=== PATIENT | female | born 1940 | race Caucasian/White ===

== ENCOUNTER 2019-09-10 14:04 | Outpatient (CLI) | payer MEDICARE, SELFPAY ==
[2019-09-10 14:27] LABS: Hematocrit 37.7 % (35.0-42.0); Hemoglobin 11.8 g/dL (11.7-13.8); Mean Corpuscular HGB Conc 31.3 g/dL (32.0-36.0); Mean Corpuscular Hemoglobin 27.4 pg (27.0-31.0); Mean Corpuscular Volume 87.5 fL (78.0-102.0); Mean Platelet Volume 8.6 fl (9.2-11.8); Platelet Count Result 242 K/mm3 (150-420); Red Blood Count 4.31 M/mm3 (4.20-5.40); Red Cell Distribution Width 14.4 % (11.6-14.4); White Blood Count 5.6 K/mm3 (4.8-10.8)
[2019-09-10 14:40] LABS: INR 1.9; Prothrombin Time 19.4 Seconds (9.64-11.0)
[2019-09-10 14:48] LABS: Anion Gap 13.6 mmol/L (7-16); Blood Urea Nitrogen 36 mg/dL (7-18); Carbon Dioxide 25 mmol/L (21-32); Chloride 111 mmol/L (98-108); Estimated Glomerular Filt Rate 21; Glucose 91 mg/dL (70-99); Magnesium 1.9 mg/dL (1.8-2.4); Osmolality Calculated 308 mOsm/kg (285-295); Potassium 4.6 mmol/L (3.5-5.1); Sodium 145 mmol/L (136-145)
[2019-09-10 14:53] LABS: Band Neutrophils Percent 0 % (0-6); Basophils Percent Manual 0 % (0-1); Eosinophils Absolute Manual 0.72 K/mm3 (0.02-0.5); Eosinophils Percent Manual 13 % (1-6); Lymphocytes Absolute Manual 0.67 K/mm3 (1.1-4.5); Lymphocytes Percent Manual 12 % (18-44); Monocytes Absolute Manual 0.39 K/mm3 (0.1-0.90); Monocytes Percent Manual 7 % (3-9); Neutrophils Percent Manual 68 % (46-73); Platelet Estimate Adequate (Adequate); Total Cells Counted 100
== END 2019-09-10 14:05 | disposition home or self-care (01) ==
LOC: CHSLAB 14:07
PROVIDERS: PCP Family Medicine; Visit Provider Specialist
DX: R94.39 Abnormal result of other cardiovascular function study (principal); Z01.812 Encounter for preprocedural laboratory examination; Z86.711 Personal history of pulmonary embolism
CPT/HCPCS: 36415; 80048; 83735; 85025; 85610

== ENCOUNTER 2019-09-17 11:31 | Outpatient (CLI) | payer MEDICARE, SELFPAY ==
[2019-09-17 11:43] LABS: Basophils Absolute Auto 0.03 K/mm3 (0.00-0.10); Basophils Percent Auto 0.4 % (0.0-1.0); Eosinophils Absolute Auto 0.62 K/mm3 (0.02-0.50); Eosinophils Percent Auto 8.7 % (1.0-6.0); Hemoglobin 11.5 g/dL (11.7-13.8); Immature Granulocyte Absolute 0.02 K/mm3 (0.00-0.00); Immature Granulocyte Percent A 0.3 % (0.0-0.0); Lymphocytes Absolute Auto 1.09 K/mm3 (1.10-4.50); Lymphocytes Percent Auto 15.4 % (18.0-42.0); Mean Corpuscular HGB Conc 31.1 g/dL (32.0-36.0); Mean Corpuscular Hemoglobin 27.6 pg (27.0-31.0); Mean Corpuscular Volume 88.9 fL (78.0-102.0); Mean Platelet Volume 8.3 fl (9.2-11.8); Monocytes Absolute Auto 0.69 K/mm3 (0.10-0.90); Monocytes Percent Auto 9.7 % (2.0-11.0); Neutrophils Absolute Auto 4.6 K/mm3 (1.7-7.2); Neutrophils Percent Auto 65.5 % (50.0-70.0); Platelet Count Result 246 K/mm3 (150-420); Red Blood Count 4.16 M/mm3 (4.20-5.40); Red Cell Distribution Width 14.5 % (11.6-14.4); White Blood Count 7.1 K/mm3 (4.8-10.8)
[2019-09-17 11:54] LABS: Prothrombin Time 10.1 Seconds (9.64-11.0)
[2019-09-17 12:56] LABS: Anion Gap 16.6 mmol/L (7-16); Blood Urea Nitrogen 38 mg/dL (7-18); Calcium 9.8 mg/dL (8.5-10.1); Carbon Dioxide 23 mmol/L (21-32); Chloride 109 mmol/L (98-108); Estimated Glomerular Filt Rate 18; Glucose 130 mg/dL (70-99); Osmolality Calculated 309 mOsm/kg (285-295); Potassium 4.6 mmol/L (3.5-5.1); Sodium 144 mmol/L (136-145)
== END 2019-09-17 11:32 | disposition home or self-care (01) ==
LOC: CHSLAB 11:33
PROVIDERS: PCP Family Medicine; Visit Provider Specialist
DX: N17.9 Acute kidney failure, unspecified (principal)
CPT/HCPCS: 36415; 80048; 85025; 85610

== ENCOUNTER 2019-09-28 10:39 | Outpatient (RCR) | payer MEDICARE, SELFPAY ==
[2019-07-06 12:07] LABS: INR 2.9; Prothrombin Time 30.8 Seconds (9.64-11.0)
[2019-08-30 12:16] LABS: INR 3.4
[2019-09-28 11:02] LABS: INR 1.8; Prothrombin Time 18.4 Seconds (9.64-11.0)
== END 2019-10-04 23:59 | disposition home or self-care (01) ==
LOC: CHSLAB 10:39
PROVIDERS: Visit Provider Family Medicine
DX: Z79.01 Long term (current) use of anticoagulants (principal)
CPT/HCPCS: 36415; 85610

== ENCOUNTER 2019-10-05 11:23 | Outpatient (RCR) | payer MEDICARE, SELFPAY ==
[2019-10-05 11:47] LABS: INR 1.7; Prothrombin Time 17.7 Seconds (9.64-11.0)
== END 2020-01-03 23:59 | disposition home or self-care (01) ==
LOC: CHSLAB 11:23
PROVIDERS: PCP Family Medicine; Visit Provider Family Medicine
DX: Z79.01 Long term (current) use of anticoagulants (principal)
CPT/HCPCS: 36415; 85610

== ENCOUNTER 2019-11-05 09:56 | Outpatient (CLI) | payer MEDICARE, MEDICAID, SELFPAY ==
--- NOTE | ~2019-11-05 | CT_ITS ---
EXAMINATION:CT chest wo con DATE: 11/05/2019 10:20 INDICATION: Paratracheal mass. TECHNIQUE: Computed tomography (CT) of the chest was performed without intravenous contrast. Automate d exposure control and iterative reconstruction technique were employed. The dose-length product (DLP ) was 247.73 mGy-cm. COMPARISON: Chest CT 11/03/2018 FINDINGS: There is mild atelectasis bilaterally. There is mild peripheral scarring in right lung. No pleural effusion. There are 12 mm and 10 mm nodules in the thyroid, likely not clinically significant . Left thyroid lobe is absent. The heart size is normal. There are coronary artery calcifications. No pericardial effusion. There is a moderate-sized sliding hiatal hernia. The central pulmonary arterie s are enlarged, consistent with pulmonary arterial hypertension. There is a 13 x 15 mm right paratrac heal lymph node, decreased from 16 x 17 mm on 11/03/2018. There are old fracture deformities of right s ixth and seventh ribs. IMPRESSION: 1. Mildly enlarged right paratracheal lymph node with interval improvement, likely reactive. 2. Moderate-sized sliding hiatal hernia. Reviewed, dictated and finalized at location A. IMPRESSION: 1. Mildly enlarged right paratracheal lymph node with interval improvement, lik onofre reactive. 2. Moderate-sized sliding hiatal hernia.
== END 2019-11-05 09:57 | disposition home or self-care (01) ==
PROVIDERS: PCP Family Medicine
DX: R22.2 Localized swelling, mass and lump, trunk (principal)
CPT/HCPCS: 71250

== ENCOUNTER 2020-01-16 09:49 | Outpatient (CLI) | payer MEDICARE, SELFPAY ==
[2020-01-16 10:11] LABS: INR 2.3; Prothrombin Time 22.7 Seconds (9.64-11.0)
[2020-01-19 04:23] LABS: Ionized Calcium 5.5 mg/dL (4.8-5.6)
== END 2020-01-16 09:50 | disposition home or self-care (01) ==
PROVIDERS: PCP Family Medicine; Visit Provider Family Medicine
DX: Z79.01 Long term (current) use of anticoagulants (principal); R53.82 Chronic fatigue, unspecified; D63.8 Anemia in other chronic diseases classified elsewhere
CPT/HCPCS: 36415; 82330; 85610

== ENCOUNTER 2020-02-11 08:55 | Outpatient (CLI) | payer MEDICARE, MEDICAID, SELFPAY ==
--- NOTE | ~2020-02-11 | CT_ITS ---
EXAMINATION: CT abdomen pelvis wo con DATE: 02/11/2020 09:16 INDICATION: Right kidney mass. TECHNIQUE: Computed tomography (CT) of the abdomen and pelvis was performed without intravenous contr ast. Automated exposure control and iterative reconstruction technique were employed. The dose-length product was 675.63 mGy-cm. COMPARISON: CT abdomen and pelvis 06/30/2018, 09/08/2017, 05/05/2016 FINDINGS: The visualized portions of the lung bases demonstrate mild atelectasis. There is mild scarr ing in right lower lobe abutting the pleura. No pleural effusion. The heart size is normal. There are coronary artery calcifications. No pericardial effusion. There is a moderate-sized sliding hiatal he rnia. Left hepatic lobe is small. There are changes of cholecystectomy. Calcifications in the spleen are consistent with old granulomatous disease. 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 The adrenal glands are normal. There are changes of ablation in the right kidney. Left kidney is absent. There is a filter in the infrarenal inferior vena cava. There are no dilated l oops of bowel. There is an intrathecal catheter with tip in thoracic spine. There is a subcutaneous p ump in the anterior abdomen. There are no pathologically enlarged lymph nodes. There is no free intra peritoneal fluid. There are old right rib defects. There is an old subcutaneous hematoma in right fla nk measuring 6.6 x 1.0 cm. There are old healed fractures of left superior and inferior pubic rami. T here is moderate lumbar spondylosis. IMPRESSION: 1. Changes of ablation in the right kidney. No evidence of recurrent neoplasm. Reviewed, dictated and finalized at location A.
== END 2020-02-11 08:56 | disposition home or self-care (01) ==
LOC: CHSIMG 08:58
PROVIDERS: PCP Family Medicine
DX: N28.89 Other specified disorders of kidney and ureter (principal)
CPT/HCPCS: 74176

== ENCOUNTER 2020-03-11 09:35 | Outpatient (CLI) | payer MEDICARE, SELFPAY ==
[2020-03-11 09:45] LABS: Basophils Absolute Auto 0.03 K/mm3 (0.00-0.10); Basophils Percent Auto 0.5 % (0.0-1.0); Eosinophils Absolute Auto 0.51 K/mm3 (0.02-0.50); Eosinophils Percent Auto 8.7 % (1.0-6.0); Hematocrit 40.1 % (35.0-42.0); Hemoglobin 12.8 g/dL (11.7-13.8); Immature Granulocyte Absolute 0.02 K/mm3 (0.00-0.00); Immature Granulocyte Percent A 0.3 % (0.0-0.0); Lymphocytes Absolute Auto 0.92 K/mm3 (1.10-4.50); Lymphocytes Percent Auto 15.6 % (18.0-42.0); Mean Corpuscular HGB Conc 31.9 g/dL (32.0-36.0); Mean Corpuscular Hemoglobin 28.5 pg (27.0-31.0); Mean Corpuscular Volume 89.3 fL (78.0-102.0); Mean Platelet Volume 8.5 fl (9.2-11.8); Monocytes Absolute Auto 0.49 K/mm3 (0.10-0.90); Monocytes Percent Auto 8.3 % (2.0-11.0); Neutrophils Absolute Auto 3.9 K/mm3 (1.7-7.2); Neutrophils Percent Auto 66.6 % (50.0-70.0); Platelet Count Result 228 K/mm3 (150-420); Red Blood Count 4.49 M/mm3 (4.20-5.40); Red Cell Distribution Width 13.6 % (11.6-14.4); White Blood Count 5.9 K/mm3 (4.8-10.8)
[2020-03-11 10:39] LABS: Albumin Level 3.5 g/dL (3.4-5.0); Anion Gap 8 mmol/L (8-16); Blood Urea Nitrogen 29 mg/dL (7-18); Calcium 9.9 mg/dL (8.5-10.1); Carbon Dioxide 26 mmol/L (21-32); Chloride 107 mmol/L (98-108); Estimated Glomerular Filt Rate 22; Glucose 105 mg/dL (70-99); Osmolality Calculated 297 mOsm/kg (285-295); Phosphorus 3.5 mg/dL (2.6-4.7); Sodium 141 mmol/L (136-145)
== END 2020-03-11 09:36 | disposition home or self-care (01) ==
PROVIDERS: PCP Family Medicine
DX: N18.4 Chronic kidney disease, stage 4 (severe) (principal); N25.81 Secondary hyperparathyroidism of renal origin; C64.2 Malignant neoplasm of left kidney, except renal pelvis; N39.0 Urinary tract infection, site not specified; N17.9 Acute kidney failure, unspecified
CPT/HCPCS: 36415; 80069; 85025

== ENCOUNTER 2020-05-13 12:12 | Outpatient (RCR) | payer MEDICARE, SELFPAY ==
[2020-03-04 10:05] LABS: INR 2.5; Prothrombin Time 25.1 Seconds (9.64-11.0)
[2020-04-02 11:33] LABS: INR 2.7; Prothrombin Time 26.5 Seconds (9.64-11.0)
[2020-05-13 12:49] LABS: INR 2.2; Prothrombin Time 21.8 Seconds (9.64-11.0)
== END 2020-06-02 23:59 | disposition home or self-care (01) ==
LOC: CHSLAB 12:12
PROVIDERS: PCP Family Medicine; Visit Provider Family Medicine
DX: Z79.01 Long term (current) use of anticoagulants (principal)
CPT/HCPCS: 36415; 85610

== ENCOUNTER 2020-06-16 13:00 | Emergency (ER) | payer MEDICARE, MEDICAID, SELFPAY ==
[2020-06-16 13:28] VITALS: BP 130/74; PULSE 65; RESP 18; TEMP 36.8; O2SAT 97
--- NOTE | 2020-06-16 14:00 | ED.SKABFB ---
HPI - Skin/Abscess/Foreign Bdy General Chief complaint: Extremity Injury, Lower Stated complaint: feet are swelling Time Seen by Provider: 06/16/20 13:50 Source: patient and RN notes reviewed Mode of arrival: ambulatory Limitations: no limitations History of Present Illness HPI narrative: patient caregiver was putting on her elastic Ollie hose today and thought there is a red streak on her right anterior lower francisco. complaint: discoloration Onset (ago): unknown ( this morning) Location: RLE Severity: mild Quality: other ( no pain) Pain Consistency: constant Relieving factors: none Exacerbating factors: none Context: none Associated symptoms: denies other symptoms Treatments prior to arrival: none Related Data Home Medications Medication Instructions Recorded Confirmed amlodipine 5 mg PO DAILY 06/16/20 06/16/20 bupropion HCl 150 mg PO QAM 06/16/20 06/16/20 escitalopram oxalate 10 mg PO DAILY 06/16/20 06/16/20 linaclotide [Linzess] 145 mcg PO DAILY 06/16/20 06/16/20 omeprazole 40 mg PO BID 06/16/20 06/16/20 warfarin 5 mg PO DAILY 06/16/20 06/16/20 Allergies Allergy/AdvReac Type Severity Reaction Status Date / Time Sulfa (Sulfonamide Allergy Unknown Unknown Verified 06/16/20 13:26 Antibiotics) Review of Systems Review of Systems: All systems reviewed & are unremarkable except as noted in HPI and below Genitourinary: Genitourinary: Reports nocturia Comments: malodorous urine PMFSH Past Medical History Medical History (Updated 06/16/20 @ 15:11 by Jonny Munoz MD) Chronic back pain Hypertension Polycystic kidney Surgical History Surgical History (Updated 06/16/20 @ 14:06 by Jonny Munoz MD) H/O hysterectomy with oophorectomy History of bilateral knee replacement History of nephrectomy History of repair of hiatal hernia Social History Social History (Updated 06/16/20 @ 14:06 by Jonny Munoz MD) Smoking status: Never smoker Alcohol intake: never Substance use: never Exam Const: General: no acute distress Orientation/consciousness: patient oriented x3 HENMT: Head: normal to inspection Ears: external ears normal General nose exam: Normal external nose present Eyes: Conjunctivae: conjunctivae normal Pupils: Equal, round and reactive pupils present EOM: EOMs intact bilaterally Neck: Neck: normal visual inspection Resp: Effort & Inspection: normal respiratory effort Auscultation: clear to auscultation bilaterally Cardio: Rate: regular rate Rhythm: regular rhythm GI: Auscultation: normal bowel sounds Back/Spine/Pelvis: Cervical Spine: cervical ROM normal Skin: Wounds: wounds noted abrasion without odor; no drainage, not open and without any surrounding erythema Other: patient has what appears to be a fingernail abrasion running from her distal lower extremity at the anterior tibiotalar joint and ending at the distal upper 1/3 of her anterior francisco. Neuro: General: patient oriented x3, moves all extremities and no focal motor deficits Speech: normal speech Gait exam (Neuro): Normal gait present Extrem: General: normal to inspection and edema (1+) right Psych: Appearance: grossly normal and well kempt Mental Status: mental status grossly normal Affect: normal affect Attitude: cooperative Thought content: Yes Normal thought content present Course Vital Signs Vital signs: Vital Signs Temperature 36.8 C 06/16/20 13:28 Pulse Rate 65 06/16/20 13:28 Respiratory Rate 18 06/16/20 13:28 Blood Pressure 130/74 06/16/20 13:28 Pulse Oximetry 97 06/16/20 13:28 Temperature 36.8 C 06/16/20 13:28 Pulse Rate 65 06/16/20 13:28 Respiratory Rate 18 06/16/20 13:28 Blood Pressure 130/74 06/16/20 13:28 Pulse Oximetry 97 06/16/20 13:28 MDM - Skin/Abscess/Foreign Bdy Lab Data Result diagrams: 06/16/20 14:16 06/16/20 14:16 Labs: Lab Results 06/16/20 06/16/20 06/16/20 Range/Units 14:16 14:16 14:16
[2020-06-16 14:23] LABS: Basophils Absolute Auto 0.02 K/mm3 (0.00-0.10); Basophils Percent Auto 0.4 % (0.0-1.0); Eosinophils Absolute Auto 0.31 K/mm3 (0.02-0.50); Eosinophils Percent Auto 6.6 % (1.0-6.0); Hematocrit 33.9 % (35.0-42.0); Hemoglobin 10.3 g/dL (11.7-13.8); Immature Granulocyte Absolute 0.01 K/mm3 (0.00-0.00); Immature Granulocyte Percent A 0.2 % (0.0-0.0); Lymphocytes Absolute Auto 0.63 K/mm3 (1.10-4.50); Lymphocytes Percent Auto 13.5 % (18.0-42.0); Mean Corpuscular HGB Conc 30.4 g/dL (32.0-36.0); Mean Corpuscular Hemoglobin 27.2 pg (27.0-31.0); Mean Corpuscular Volume 89.4 fL (78.0-102.0); Mean Platelet Volume 8.5 fl (9.2-11.8); Monocytes Absolute Auto 0.52 K/mm3 (0.10-0.90); Monocytes Percent Auto 11.1 % (2.0-11.0); Neutrophils Absolute Auto 3.2 K/mm3 (1.7-7.2); Neutrophils Percent Auto 68.2 % (50.0-70.0); Platelet Count Result 214 K/mm3 (150-420); Red Blood Count 3.79 M/mm3 (4.20-5.40); Red Cell Distribution Width 15.2 % (11.6-14.4); White Blood Count 4.7 K/mm3 (4.8-10.8)
--- NOTE | 2020-06-16 14:30 | PC.NURSE ---
Pt requesting to have urinalysis done. edp aware.
[2020-06-16 14:35] LABS: INR 3.4; Prothrombin Time 33.5 Seconds (9.64-11.0)
[2020-06-16 14:38] LABS: Anion Gap 9 mmol/L (8-16); Blood Urea Nitrogen 47 mg/dL (7-18); Calcium 8.8 mg/dL (8.5-10.1); Carbon Dioxide 21 mmol/L (21-32); Chloride 111 mmol/L (98-108); Estimated CRCL calculation 20 ml/min; Estimated Glomerular Filt Rate 24; Glucose 91 mg/dL (70-99); Osmolality Calculated 304 mOsm/kg (285-295); Potassium 4.7 mmol/L (3.5-5.1); Sodium 141 mmol/L (136-145)
[2020-06-16 14:42] LABS: BNP 226 pg/mL (0-100)
[2020-06-16 14:48] LABS: Add Urine Microscopic? YES; Appearance Urine Sl Cloudy (Clear); Bilirubin Urine Negative (Negative); Blood Urine Negative (Negative); Color Urine Yellow (Yellow); Glucose Urine UA Negative (Negative); Ketones Urine Trace (Negative); Leukocyte Esterase Ur 2+ LEU/UL (Negative); Nitrate Urine Positive (Negative); Protein Urine Negative (Negative); Urobilinogen Urine 0.2 mg/dL (0.2-1.0)
[2020-06-16 14:51] LABS: Bacteria Urine 2+ /hpf; RBC Urine None seen /hpf (0-2); Renal Epithelial Cells Urine Few /hpf; Squamous Epithelial Cell Urine Rare /hpf (Few); WBC Urine >75 /hpf (0-3)
== END 2020-06-16 15:25 | disposition home or self-care (01) ==
PROVIDERS: Emergency Provider Emergency Medicine; PCP Family Medicine
DX: R60.9 Edema, unspecified (principal); R82.90 Unspecified abnormal findings in urine
CPT/HCPCS: 36415; 80048; 81001; 83880; 85025; 85610; 87077; 87086; 87088; 87186; 99283

== ENCOUNTER 2020-06-24 11:02 | Outpatient (RCR) | payer MEDICARE, SELFPAY ==
[2020-06-03 11:06] LABS: INR 1.9; Prothrombin Time 19.3 Seconds (9.64-11.0)
[2020-06-24 11:22] LABS: INR 2.9; Prothrombin Time 29.3 Seconds (9.64-11.0)
== END 2020-09-01 23:59 | disposition home or self-care (01) ==
LOC: CHSLAB 11:02
PROVIDERS: PCP Family Medicine; Visit Provider Family Medicine
DX: Z79.01 Long term (current) use of anticoagulants (principal)
CPT/HCPCS: 36415; 85610

== ENCOUNTER 2020-07-11 07:55 | Observation (INO) | payer MEDICARE, MEDICAID, SELFPAY ==
[2020-07-11] VITALS (9 sets, daily range): BP systolic 114–185; BP diastolic 53–100; PULSE 69–114; RESP 16–20; TEMP 37.1–37.4; O2SAT 94–99
--- NOTE | ~2020-07-11 | CT_ITS ---
EXAMINATION: CT cervical spine wo con DATE: 07/11/2020 08:34 INDICATION: Head injury. TECHNIQUE: Computed tomography (CT) of the cervical spine was performed without intravenous contrast. Automated exposure control and iterative reconstruction technique were employed. The dose-length pro duct was 335.46 mGy-cm. COMPARISON: Cervical spine CT 04/05/2018 FINDINGS: There is a 12 mm nodule in right thyroid lobe, likely not clinically significant. There is 2 mm retrolisthesis of C3-4 on C5. There is 4 degrees levocurvature of cervical spine. Vertebral body heights are normal. There is moderately decreased disc height from C3-C4 through C5-C6. The followin g disc levels are specifically discussed: C2-C3: There is mild bilateral uncovertebral joint osteoarthritis. There is severe bilateral facet dov int osteoarthritis. There is mild right neural foraminal stenosis. There is no central canal stenosis . C3-C4: There is severe bilateral uncovertebral joint osteoarthritis. There is severe bilateral facet joint osteoarthritis. There is mild lateral neural foraminal stenosis. There is mild central canal st enosis. C4-C5: There is severe bilateral uncovertebral joint osteoarthritis. There is moderate bilateral face t joint osteoarthritis. There is mild bilateral neural foraminal stenosis. There is mild central janell l stenosis. C5-C6: There is severe right and mild left uncovertebral joint osteoarthritis. There is severe right and moderate left facet joint osteoarthritis. There is mild bilateral neural foraminal stenosis. Ther e is mild central canal stenosis. C6-C7: There is no uncovertebral joint osteoarthritis. There is mild right and severe left facet join t osteoarthritis. There is no neural foraminal stenosis. There is mild central canal stenosis. C7-T1: There is no uncovertebral joint osteoarthritis. There is severe left facet joint osteoarthriti s. There is ankylosis of right facet joint with mild hypertrophy. There is mild right neural foramina l stenosis. There is no central canal stenosis. IMPRESSION: 1. No fracture. 2. Moderate cervical spondylosis. Reviewed, dictated and finalized at location B. RONMENTAL PERMITTING SPECIALIST
--- NOTE | ~2020-07-11 | CT_ITS ---
EXAMINATION: CT brain wo con DATE: 07/11/2020 08:34 INDICATION: Fall. Posterior head injury. Dizziness. Next thickness. Patient taking warfarin. TECHNIQUE: Computed tomography (CT) of the head was performed without intravenous contrast. The mA wa s adjusted according to patient size. Iterative reconstruction technique was employed. Exam dose: 60 5.33 mGy-cm total exam DLP. COMPARISON: 06/29/2018 CT brain FINDINGS: Vertebral and bilateral carotid internal carotid artery calcifications. Nonspecific diminished attenuation of the subcortical and periventricular cerebral white matter, cons istent with chronic small vessel ischemic changes. No recent cerebrovascular accident. No midline shift or mass effect. Posterior left parietal occipital cephalohematoma and subcutaneous emphysema. No skull fracture. No s ubdural or epidural hematoma. No coup or contrecoup injury is detected. The mastoid air cells are normally developed and aerated. There is patchy soft tissue thickening of the ethmoid air cells, right greater than left and mild muc operiosteal thickening of the maxillary sinuses, right greater than left. IMPRESSION: Cerebral atherosclerosis and chronic small vessel ischemic changes of the cerebral white matter Posterior left parietal occipital cephalohematoma and subcutaneous emphysema; no skull fracture or ac yocha dehe intracranial finding No acute intracranial finding or skull fracture is detected Reviewed, dictated and finalized at Location A. Reviewed, dictated and finalized at location A. PAPER INSPECTOR IMPRESSION: Cerebral atherosclerosis and chronic small vessel ischemic changes of the cerebral white matter Posterior left parietal occipital cephalohematoma and subcutaneous emphysema; n o skull fracture or acute intracranial finding No acute intracranial finding or skull fracture is detected
--- NOTE | 2020-07-11 08:00 | ED.FALL ---
HPI - Fall General Source: patient Mode of arrival: EMS Limitations: no limitations History of Present Illness HPI Narrative: 80-year-old woman with a history of warfarin therapy for DVT brought to the emergency department by EMS after a fall in which she hit her head and had bleeding. Patient states that she got up this morning, ate and fell striking her head, However she cannot give a specific time for her fall. She denies loss of consciousness. She denies chest pain, shortness of breath, cough, cold symptoms, weakness, lightheadedness, dizziness. Her daughter states that she has had many falls recently. She lives alone. She has a 3 point cane and a walker at home that she uses intermittently for assistance. She denies history of significant head injury, seizures or cranial surgery. MD complaint: fall Onset (ago): unknown Fall from: standing Fall witnessed: no Place fall occurred: home Loss of consciousness: none Prolonged down time: unclear Symptoms prior to fall: none Location of injury: head Location of injury - extremities: Right: forearm Quality: dull Associated symptoms (after fall): headache Related Data Home Medications Medication Instructions Recorded Confirmed amlodipine 5 mg PO DAILY 06/16/20 07/11/20 bupropion HCl 150 mg PO QAM 06/16/20 07/11/20 escitalopram oxalate 10 mg PO DAILY 06/16/20 07/11/20 linaclotide [Linzess] 145 mcg PO DAILY 06/16/20 07/11/20 omeprazole 40 mg PO BID 06/16/20 07/11/20 warfarin 5 mg PO DAILY 06/16/20 07/11/20 bethanechol chloride 25 mg PO TIDWMEAL 07/11/20 07/11/20 ergocalciferol (vitamin D2) 1,250 mcg PO WEEKLY 07/11/20 07/11/20 [Vitamin D2] trimethoprim 100 mg PO HS 07/11/20 07/11/20 vit C,W-Ey-fxqif-lutein-zeaxan 1 tablet PO BID 07/11/20 07/11/20 [PreserVision AREDS-2] Allergies Allergy/AdvReac Type Severity Reaction Status Date / Time Sulfa (Sulfonamide Allergy Unknown Unknown Verified 06/16/20 13:26 Antibiotics) Review of Systems Constitutional: Constitutional: Denies chills and Denies fever(s) Eyes: Eyes: Denies change in vision and Denies photophobia ENT: Denies dysphagia, Denies nasal congestion and Denies sore throat Cardiovascular: Cardiovascular: Denies chest pain and Denies radiating jaw, neck or arm pain Respiratory: Respiratory: Denies cough and Denies dyspnea Gastrointestinal: Gastrointestinal: Denies abdominal pain, Denies diarrhea, Denies nausea and Denies vomiting Genitourinary: Genitourinary: Denies nocturia and Denies dysuria Integumentary/Breasts: Skin/Breast: Denies pruritus, Denies erythema and Denies rash Neurologic: Denies vertigo, Denies dizziness, Denies syncope, Denies focal weakness and Denies numbness Hematologic/Lymphatic: Hematologic/Lymphatic: Reports easy bruising Allergic/Immunologic: Allergic/Immunologic: Denies lip swelling and Denies throat swelling PMF Past Medical History Medical History Chronic back pain Hypertension Polycystic kidney Surgical History Surgical History H/O hysterectomy with oophorectomy History of bilateral knee replacement History of nephrectomy History of repair of hiatal hernia Social History Social History Smoking status: Never smoker Alcohol intake: never Substance use: never Substance use type: does not use Gender identity (if verbalized by the patient): Female Sexual Orientation (if Verbalized by the Patient): Straight or Heterosexual Spiritual care concerns: No Exam Const: General: healthy appearing, no acute distress and alert Nutritional Appearance: obese Other: oriented to day the week, and month and date of as well as place and person. HENMT: Head: laceration (6 cm x 7cm hematoma under laceration.) left occipital linear, actively bleeding and with sensation intact 6 cm Ears: e
--- NOTE | 2020-07-11 08:10 | ECG_ITS ---
Measurements Intervals [place] Rate: 80 P: 55 ND: 201 QRS: -1 QRSD: 151 T: 57 QT: 410 QTc: 474 Interpretive Statements SINUS RHYTHM VENTRICULAR PREMATURE COMPLEX BORDERLINE AV CONDUCTION DELAY INTRAVENTRICULAR CONDUCTION DELAY BORDERLINE ST-T WAVE ABNORMALITY- HIGH LATERAL LEADS BASELINE ARTIFACT- I, II, III BORDERLINE ECG Electronically Signed On 07-11-2020 8:42:24 [employer] DEPARTMENT MANAGER by Sarthak Scott D.O.
[2020-07-11 08:55] LABS: Basophils Absolute Auto 0.02 K/mm3 (0.00-0.10); Basophils Percent Auto 0.3 % (0.0-1.0); Eosinophils Absolute Auto 0.43 K/mm3 (0.02-0.50); Eosinophils Percent Auto 6.3 % (1.0-6.0); Hematocrit 34.3 % (35.0-42.0); Hemoglobin 10.6 g/dL (11.7-13.8); Immature Granulocyte Absolute 0.03 K/mm3 (0.00-0.00); Immature Granulocyte Percent A 0.4 % (0.0-0.0); Lymphocytes Absolute Auto 0.67 K/mm3 (1.10-4.50); Lymphocytes Percent Auto 9.7 % (18.0-42.0); Mean Corpuscular HGB Conc 30.9 g/dL (32.0-36.0); Mean Corpuscular Hemoglobin 27.5 pg (27.0-31.0); Mean Corpuscular Volume 88.9 fL (78.0-102.0); Mean Platelet Volume 8.5 fl (9.2-11.8); Monocytes Percent Auto 8.7 % (2.0-11.0); Neutrophils Absolute Auto 5.1 K/mm3 (1.7-7.2); Neutrophils Percent Auto 74.6 % (50.0-70.0); Platelet Count Result 204 K/mm3 (150-420); Red Blood Count 3.86 M/mm3 (4.20-5.40); Red Cell Distribution Width 15.4 % (11.6-14.4); White Blood Count 6.9 K/mm3 (4.8-10.8)
[2020-07-11 09:13] LABS: Alanine Aminotransferase 18 U/L (14-59); Albumin Level 3.2 g/dL (3.4-5.0); Alkaline Phosphatase 107 U/L (46-116); Anion Gap 10 mmol/L (8-16); Aspartate Amino Transferase 16 U/L (15-37); Bilirubin,Total 0.3 mg/dL (0.00-1.00); Blood Urea Nitrogen 53 mg/dL (7-18); Calcium 9.2 mg/dL (8.5-10.1); Carbon Dioxide 24 mmol/L (21-32); Chloride 111 mmol/L (98-108); Creatine Kinase 185 U/L (26-192); Estimated CRCL calculation 20 ml/min; Estimated Glomerular Filt Rate 23; Glucose 84 mg/dL (70-99); Osmolality Calculated 313 mOsm/kg (285-295); Potassium 4.2 mmol/L (3.5-5.1); Sodium 145 mmol/L (136-145); Total Protein 6.8 g/dL (6.4-8.2); Troponin I 11.8 ng/L (0.00-60.4)
[2020-07-11 09:15] LABS: Lactic Acid Reflex 0.8 mmol/L (0.4-2.0)
[2020-07-11 09:20] LABS: INR 2.3; Partial Thromboplastin Time 34.1 SEC (23.90-30.70); Prothrombin Time 24.1 Seconds (9.50-12.10)
[2020-07-11 10:02] LABS: Appearance Urine Sl Cloudy (Clear); Bilirubin Urine Negative (Negative); Color Urine Yellow (Yellow); Glucose Urine UA Negative (Negative); Ketones Urine Negative (Negative); Leukocyte Esterase Ur 2+ (Negative); Nitrate Urine Positive (Negative); Protein Urine Negative (Negative); Specific Grav Ur 1.015 (1.010-1.020); Urobilinogen Urine 0.2 mg/dL (0.2-1.0)
[2020-07-11] MEDS: LIDO 1%/EPINEPHRINE 1:100,000 20 ML VIAL (10:05)
[2020-07-11] MEDS: ACETAMINOPHEN 500 MG TABLET 1000 MG PO ×2 (10:08→17:59)
[2020-07-11 10:09] LABS: Add Urine Microscopic? YES; Bacteria Urine 3+ /hpf; Blood Urine Trace-Intact (Negative); Squamous Epithelial Cell Urine Occasional /hpf (Few); WBC Urine 51-75 /hpf (0-3)
--- NOTE | 2020-07-11 11:06 | PC.NURSE ---
Head wound area bleeding around jose de jesus, pressure drsg. applied. Call placed to 2nd floor for 23 hr obs admit.
--- NOTE | 2020-07-11 12:17 | PM.IMHP ---
H&P: HPI History of Present Illness Date/Time: 07/11/20 12:17 Chief complaint: HEAD INJURY Narrative: Rajani Cardenas is a 80 year old female who comes to the hospital after having fallen sometime this morning. Per ER notes daughter states that patient has been falling more frequently lately. Patient is on Coumadin for DVT. At this time patient denies changes in vision, neuro deficits, numbness or tingling, chest pain, difficulty breathing, or shortness of breath. Patient admits to having a pain pump inserted subdural in her abdomen that is used for her back pain. Patient denies any urinary symptoms and admits that she takes trimethoprim at night for recurring UTIs. Patient states that she fell this morning while she was walking to the restroom. Patient does admit to general body aches but no headache at this time. Admits to lightheadedness dizziness upon standing. Review of Systems Constitutional: Constitutional: Reports as per HPI and Reports no additional constitutional complaints Cardiovascular: Cardiovascular: Reports no additional cardiovascular complaints, Denies chest pain, Denies chest pain at rest and Denies chest pain with activity Respiratory: Respiratory: Reports no additional respiratory complaints, Denies chest congestion, Denies cough, Denies dyspnea and Denies dyspnea on exertion Genitourinary: Genitourinary: Reports as per HPI Musculoskeletal: Musculoskeletal: Reports as per HPI Neurologic: Reports as per HPI PMFSH Past Medical History Medical History Chronic back pain Hypertension Polycystic kidney Surgical History Surgical History H/O hysterectomy with oophorectomy History of bilateral knee replacement History of nephrectomy History of repair of hiatal hernia Social History Social History Smoking status: Never smoker Alcohol intake: never Substance use: never Substance use type: does not use Gender identity (if verbalized by the patient): Female Sexual Orientation (if Verbalized by the Patient): Straight or Heterosexual Spiritual care concerns: No Meds Home Medications and Allergies Home Medications Medication Instructions Recorded Confirmed Type amlodipine 5 mg PO DAILY 06/16/20 07/11/20 History bupropion HCl 150 mg PO QAM 06/16/20 07/11/20 History escitalopram oxalate 10 mg PO DAILY 06/16/20 07/11/20 History linaclotide [Linzess] 145 mcg PO DAILY 06/16/20 07/11/20 History omeprazole 40 mg PO BID 06/16/20 07/11/20 History warfarin 5 mg PO DAILY 06/16/20 07/11/20 History bethanechol chloride 25 mg PO TIDWMEAL 07/11/20 07/11/20 History ergocalciferol (vitamin D2) 1,250 mcg PO WEEKLY 07/11/20 07/11/20 History [Vitamin D2] trimethoprim 100 mg PO HS 07/11/20 07/11/20 History vit C,A-Xp-topav-lutein-zeaxan 1 tablet PO BID 07/11/20 07/11/20 History [PreserVision AREDS-2] Allergies Allergy/AdvReac Type Severity Reaction Status Date / Time Sulfa (Sulfonamide Allergy Unknown Unknown Verified 06/16/20 13:26 Antibiotics) Vital Signs Vital Signs - 24 hr 07/11/20 08:00 07/11/20 09:45 07/11/20 09:47 Temperature 98.7 F Pulse Rate 82 81 92 Respiratory Rate 20 Blood Pressure 185/100 H 163/78 H 137/53 L Pulse Oximetry 98 07/11/20 10:02 07/11/20 11:19 Temperature Pulse Rate 83 78 Respiratory Rate 18 Blood Pressure 159/93 H 152/78 H Pulse Oximetry 96 Exam Const: General: cooperative, comfortable, no acute distress, alert and awake Nutritional Appearance: average body habitus Resp: Effort & Inspection: normal respiratory effort Auscultation: clear to auscultation bilaterally Cardio: Rate: regular rate Rhythm: regular rhythm Heart sounds: S1 normal heart sound present and S2 normal heart sound present GI: GI Palp: Yes Soft to palpation, No Tenderness to palpation pre
[2020-07-11] MEDS: BETHANECHOL CHLORIDE 25 MG TABLET PO ×2 (12:51→16:15)
--- NOTE | 2020-07-11 13:13 | ADMGEN ---
This patient, Rajani Cardenas, was admitted to 2nd Floor Room 208-2. Patient/family oriented to hospital policies and general routines including ID bracelet, bed and alarms, visiting hours, pain management, procedures, bathroom and other care routines, personal items, smoking policy, room service/diet, and visiting hours. Information on how to activate the Rapid Response Team has been discussed. Patient/Family are encouraged to report perceived risks to care and to ask questions if they do not understand what they are told or what they should do. Patient arrived to the floor on a stretcher from the ER assisted by Melvi MCFARLANE. Patient transferred from stretcher to bed with walker and assist of one.
--- NOTE | 2020-07-11 13:52 | PC.NURSE ---
Purple bruising noted on left shoulder blade area. Patient states tender to touch. No edema noted. Dark purple bruising noted on right forearm above dressing. Dark purple bruise noted on right hip. Patient denies any tenderness.
--- NOTE | 2020-07-11 16:00 | PC.NURSE ---
Up from bed to BSC, tolerated well, voids without difficulty, Loss of balance when getting to front of the commode, able to steady patient and patient able to do own katlyn care, returned to bed without incident
[2020-07-11] MEDS: PANTOPRAZOLE 40 MG TABLET PO (16:15)
--- NOTE | 2020-07-11 17:09 | PC.NURSE ---
Oriented x3, no pain noted, appropriate with questions and answers, uses call light as directed, sitting in chair for dinner, bandage to head dry and intact, uses walker and SBA
--- NOTE | 2020-07-11 18:07 | PC.NURSE ---
Up to BSC from chair, no assistance needed, used walker, remains a/ox3
[2020-07-11] MEDS: WARFARIN (*PBKC) 5 MG TABLET PO (20:47)
[2020-07-11] MEDS: TRIMETHOPRIM 100 MG TABLET PO (20:47)
[2020-07-12] VITALS (7 sets, daily range): BP systolic 121–149; BP diastolic 55–67; PULSE 67–76; RESP 16–20; TEMP 36.1–37; O2SAT 95–96
[2020-07-12] MEDS: ACETAMINOPHEN 500 MG TABLET 1000 MG PO ×3 (00:03→13:08)
--- NOTE | 2020-07-12 05:18 | PC.NURSE ---
Lab here, blood drawn; patient requesting Coban instead of band-aide for Blood draws.
[2020-07-12 05:24] LABS: Hematocrit 32.2 % (35.0-42.0); Mean Corpuscular HGB Conc 31.1 g/dL (32.0-36.0); Mean Corpuscular Hemoglobin 27.9 pg (27.0-31.0); Mean Corpuscular Volume 89.7 fL (78.0-102.0); Mean Platelet Volume 8.6 fl (9.2-11.8); Platelet Count Result 213 K/mm3 (150-420); Red Blood Count 3.59 M/mm3 (4.20-5.40); Red Cell Distribution Width 15.5 % (11.6-14.4); White Blood Count 4.4 K/mm3 (4.8-10.8)
[2020-07-12 05:34] LABS: Anion Gap 9 mmol/L (8-16); Blood Urea Nitrogen 49 mg/dL (7-18); Calcium 9.1 mg/dL (8.5-10.1); Carbon Dioxide 25 mmol/L (21-32); Chloride 111 mmol/L (98-108); Estimated CRCL calculation 27 ml/min; Estimated Glomerular Filt Rate 25; Glucose 92 mg/dL (70-99); Osmolality Calculated 313 mOsm/kg (285-295); Potassium 4.2 mmol/L (3.5-5.1); Sodium 145 mmol/L (136-145)
[2020-07-12 05:37] LABS: INR 2.5; Prothrombin Time 26.6 Seconds (9.50-12.10)
[2020-07-12 06:04] LABS: Band Neutrophils Percent 0 % (0-6); Eosinophils Absolute Manual 0.52 K/mm3 (0.02-0.5); Eosinophils Percent Manual 12 % (1-6); Lymphocytes Absolute Manual 0.88 K/mm3 (1.1-4.5); Lymphocytes Percent Manual 20 % (18-44); Monocytes Absolute Manual 0.48 K/mm3 (0.1-0.90); Monocytes Percent Manual 11 % (3-9); Neutrophils Percent Manual 57 % (46-73); Platelet Estimate Adequate (Adequate); Total Cells Counted 100
[2020-07-12] MEDS: BETHANECHOL CHLORIDE 25 MG TABLET PO ×3 (06:19→16:26)
[2020-07-12] MEDS: ONDANSETRON INJ 4 MG/2 ML VIAL IV PUSH (06:35)
--- NOTE | 2020-07-12 06:35 | PC.NURSE ---
Up to BSC with walker and standby assist of one; Turned quickly to get back in bed, sat on side of bed with no problems. Complained of nausea; given emesis bag and Zofran 4mg IVP;
[2020-07-12] MEDS: SODIUM CHLORIDE 0.9% IV 500 ML 999 ML IV CONT (09:41)
[2020-07-12] MEDS: buPROPion HCL XL (24 HR) 150 MG TABCR PO (09:42)
[2020-07-12] MEDS: ESCITALOPRAM OXALATE 10 MG TABLET PO (09:42)
[2020-07-12] MEDS: amLODIPine BESYLATE 5 MG TABLET PO (09:42)
[2020-07-12] MEDS: OPTI-GEN TAB 1 TABLET PO ×2 (09:42→16:26)
[2020-07-12] MEDS: PANTOPRAZOLE 40 MG TABLET PO ×2 (09:42→16:26)
[2020-07-12] MEDS: CYCLOBENZAPRINE HCL 5 MG TABLET PO (13:09)
--- NOTE | 2020-07-12 13:15 | PM.DS ---
DS: Admitting Diagnosis Admitting Diagnosis Admitting Diagnosis: HEAD INJURY DS: Discharge Diagnosis Discharge Diagnosis (1) Head injury: Qualifiers: Encounter type: initial encounter Qualified Code(s): S09.90XA - Unspecified injury of head, initial encounter Code(s): S09.90XA - Unspecified injury of head, initial encounter Status: Acute Assessment and Plan: 07/11/2020 neuro checks q.4 hours, vital signs q.4 hours, monitor for changes in mental status, monitor for changes in vital signs, CT of head radiologist indicates no intracranial bleeding and no bone fractures, CT of C-spine radiologist indicates no fractures 07/12/2020 yesterday's neuro check compared to today's neuro check shows no change, patient is not complaining of any head pain or neck pain but does have generalized body aches from her fall which is being managed with the current regiment including Flexeril which will be sent to her pharmacy (2) Laceration of scalp: Qualifiers: Encounter type: initial encounter Qualified Code(s): S01.01XA - Laceration without foreign body of scalp, initial encounter Code(s): S01.01XA - Laceration without foreign body of scalp, initial encounter Status: Acute Assessment and Plan: 07/11/2020 laceration repaired in the ER with bandage in place, patient denies any headache at this time, patient is on Coumadin, will monitor laceration site/bandage for healing and bleeding 07/12/2020 laceration site looks good no active bleeding patient was advised to follow-up with her primary care provider to have the jose de jesus removed in approximately 7 days (3) Orthostatic hypotension: Code(s): I95.1 - Orthostatic hypotension Status: Acute Assessment and Plan: 07/11/2020 could be related to urinary tract infection, patient has recurring UTIs and takes trimethoprim nightly, orthostatic vital signs: supine 163/78 HR 81, sitting 159/93 HR 83, standing 137/53 HR 92, will monitor orthostatic vitals daily 07/12/2020 repeat orthostatics today lying 135/63 heart rate 70, sitting 124/66 heart rate 72, standing 121/67 heart rate 70 (4) Urinary tract infection: Qualifiers: Hematuria presence: without hematuria Urinary tract infection type: site unspecified Qualified Code(s): N39.0 - Urinary tract infection, site not specified Code(s): N39.0 - Urinary tract infection, site not specified Status: Acute Assessment and Plan: 07/11/2020 as noted above patient has recurring UTIs has been taking trimethoprim nightly for this, Rocephin given in ER and will continue daily on the floor, urine culture pending 07/12/2020 will continue antibiotic treatment on discharge with Cipro (5) Hypertension: Code(s): I10 - Essential (primary) hypertension Status: Acute Assessment and Plan: 07/11/2020 continue with home medications, monitor vital signs, make changes as needed 07/12/2020 vital signs stable continue medications and follow-up with primary care provider DS: Summary Time Spent with Patient Time attestation: Total time spent providing and/or coordinating discharge services: < 30 min Exam Const: General: cooperative, comfortable and no acute distress Nutritional Appearance: overweight Resp: Effort & Inspection: normal respiratory effort Auscultation: clear to auscultation bilaterally Cardio: Rate: regular rate Rhythm: regular rhythm Heart sounds: S1 normal heart sound present and S2 normal heart sound present GI: GI Palp: Yes Soft to palpation and No Tenderness to palpation present (GI) Auscultation: normal bowel sounds Back/Spine/Pelvis: Other: bruising left posterior neck, posterior left shoulder, posterior mid thorax left side small Neuro: General: oriented to person, oriented to place and oriented to time Cranial nerves: Yes CN's II-XII intact bilaterally, Yes Equal, round and reactive pupils present, Yes Nystagmus not present, Yes
[2020-07-12] MEDS: WARFARIN (*PBKC) 5 MG TABLET PO (16:26)
--- NOTE | 2020-08-05 14:50 | PC.NURSE ---
Unable to contact for discharge call back.
== END 2020-07-12 18:05 | disposition home or self-care (01) ==
LOC: CHSED 10:22 → CHS2ND 11:06
PROVIDERS: Admitting Provider Emergency Medicine; Emergency Provider Emergency Medicine; PCP Family Medicine; Visit Provider Emergency Medicine
DX: S09.90XA Unspecified injury of head, initial encounter (principal); S01.01XA Laceration without foreign body of scalp, initial encounter; S61.511A Laceration without foreign body of right wrist, initial encounter; N39.0 Urinary tract infection, site not specified; I95.1 Orthostatic hypotension; I10 Essential (primary) hypertension; M47.812 Spondylosis without myelopathy or radiculopathy, cervical region; R29.6 Repeated falls; Q61.3 Polycystic kidney, unspecified; W19.XXXA Unspecified fall, initial encounter; Z96.653 Presence of artificial knee joint, bilateral; Z79.01 Long term (current) use of anticoagulants; Z86.718 Personal history of other venous thrombosis and embolism; Z90.710 Acquired absence of both cervix and uterus; Z90.722 Acquired absence of ovaries, bilateral; Z90.5 Acquired absence of kidney
CPT/HCPCS: 12002; 36415; 70450; 72125; 80048; 80053; 81001; 82550; 83605; 84484; 85025; 85610; 85730; 87040; 93005; 96361; 96365; 96375; 99285; A9270; G0378; J0696; J2405; J7040

== ENCOUNTER 2020-08-05 13:51 | Outpatient (NON) | payer MEDICARE, SELFPAY ==
[2020-08-05 14:17] LABS: Sodium Urine Random 67 mmol/L (20-110)
[2020-08-08 05:17] LABS: Osmolality, Urine 550 mOsm/kg (50-1200)
== END 2020-08-05 13:52 ==
DX: R35.8 Other polyuria (principal)
CPT/HCPCS: 83935; 84300

== ENCOUNTER 2020-08-06 09:44 | Outpatient (CLI) | payer MEDICARE, SELFPAY ==
[2020-08-06 10:24] LABS: INR 2.5; Prothrombin Time 26.1 Seconds (9.50-12.10)
[2020-08-06 10:47] LABS: Anion Gap 8 mmol/L (8-16); Blood Urea Nitrogen 45 mg/dL (7-18); Calcium 9.4 mg/dL (8.5-10.1); Carbon Dioxide 27 mmol/L (21-32); Chloride 110 mmol/L (98-108); Estimated Glomerular Filt Rate 25; Glucose 83 mg/dL (70-99); Osmolality Calculated 310 mOsm/kg (285-295); Potassium 4.3 mmol/L (3.5-5.1); Sodium 145 mmol/L (136-145)
[2020-08-09 04:52] LABS: Osmolality, Urine 356 mOsm/kg (50-1200)
== END 2020-08-06 09:45 | disposition home or self-care (01) ==
LOC: CHSLAB 09:51
PROVIDERS: PCP Family Medicine
DX: R35.8 Other polyuria (principal); Z79.01 Long term (current) use of anticoagulants
CPT/HCPCS: 36415; 80048; 83935; 85610

== ENCOUNTER 2020-08-11 09:58 | Outpatient (RCR) | payer MEDICARE, MEDICAID, SELFPAY ==
--- NOTE | 2020-08-11 11:45 | PTOPEVAL ---
Thank you for referring Rajani Cardenas to [facility].? The patient is scheduled to be seen for therapy? ____x/week for ___ weeks. Please review, sign, date and return this plan of care ANAND. I agree with and certify that the following plan of care is medically necessary. Referring Physician Date Admitting Provider: Attending Provider: Efe Carrera MD Referring Provider: *PT Outpatient Evaluation Start: 08/11/20 11:01 Freq: Status: Active Protocol: Document 08/11/20 11:02 [facility] (Rec: 08/11/20 11:45 [facility] [id number]) Therapy Assessment Status Assessment Status Assessment Status Evaluation Outpatient Past Medical History Cardiovascular History Hx Deep Vein Thrombosis Yes Hx Hypertension Yes Hx Peripheral Vascular Disease Yes Hx Vascular Surgery Yes Gastrointestinal History Hx Cholecystectomy Yes Hx Gastroesophageal Reflux Disease Yes Genitourinary History Hx Nephrectomy Yes: Rt. Hx Urinary Tract Infection Yes Musculoskeletal History Hx Arthritis Yes Hx Back Pain Yes Hx Other Musculoskeletal Disorders Yes: spinal stenosis Hematological History Hx Anemia Yes Reproductive History Hx Post Menopausal Yes Psychosocial History Hx Depression Yes Pain History Has Past Pain Affected Your Daily Life Yes History of Pain Pump Yes Other History Hx Other Surgeries Yes: cryoblation of renal tumor Evaluation Information Problem Diagnosis generalized weakness, unsteady gait Onset 07/01/20 Subjective Information patient reports she was living Query Text:As Reported By Patient/ at home alone when she had a Family fall. she reports she hit her head and had to have 6 stitches. she reports since then, she has been afraid of falling and has been living at her daughters house. she reports prior to fall, she was using a cane for community ambulation, but nothing for home ambulation. patient reports since her fall, she has been using a walker ( standard walker). she reports she is borrowing a standard walker from her neighbors. she reports she does own a rollator walker. she rep
--- NOTE | 2020-08-11 12:21 | OTOPEVAL ---
Thank you for referring Rajani Cardenas to [facility].? The patient is scheduled to be seen for therapy? ____x/week for ___ weeks. Please review, sign, date and return this plan of care ANAND. I agree with and certify that the following plan of care is medically necessary. Referring Physician Date Admitting Provider: Attending Provider: Efe Carrera MD Referring Provider: *OT Outpatient Evaluation Start: 08/11/20 10:02 Freq: Status: Active Protocol: Document 08/11/20 10:02 [facility] (Rec: 08/11/20 10:58 [facility] [id number]) Therapy Assessment Status Assessment Status Assessment Status Evaluation Outpatient Past Medical History Cardiovascular History Hx Deep Vein Thrombosis Yes Hx Hypertension Yes Hx Peripheral Vascular Disease Yes Hx Vascular Surgery Yes Gastrointestinal History Hx Cholecystectomy Yes Hx Gastroesophageal Reflux Disease Yes Genitourinary History Hx Nephrectomy Yes: Rt. Hx Urinary Tract Infection Yes Musculoskeletal History Hx Arthritis Yes Hx Back Pain Yes Hx Other Musculoskeletal Disorders Yes: spinal stenosis Hematological History Hx Anemia Yes Reproductive History Hx Post Menopausal Yes Psychosocial History Hx Depression Yes Pain History Has Past Pain Affected Your Daily Life Yes History of Pain Pump Yes Other History Hx Other Surgeries Yes: cryoblation of renal tumor Evaluation Information Problem Diagnosis weakness, debility Onset 07/11/20 Subjective Information Patient reports that she fell Query Text:As Reported By Patient/ and hit her head. Patient Family went to the hospital for 1 day and then went to live with her daughter where she continues to stay. Patient would like to go back to her house and get rid of the walker. Patient reports that she is very fearful of falling again. Prior Level of Function Activity Level (Last 3 Months) Occupation retired Hand Dominance Right Activity of Daily Living Ability Independent Indoor/Home Mobility Independent Community Mobility Independent Stairs Ability Independent Functional Cognition (Planning, Shopping Independent , Taking Medications) Cooking No Cleaning No Laundry Yes S
--- NOTE | 2020-09-01 10:07 | OTOPEVAL ---
Thank you for referring Rajani Cardenas to [facility].? The patient is scheduled to be seen for therapy? ____x/week for ___ weeks. Please review, sign, date and return this plan of care ANAND. I agree with and certify that the following plan of care is medically necessary. Referring Physician Date Admitting Provider: Attending Provider: Efe Carrera MD Referring Provider: *OT Outpatient Evaluation Start: 08/11/20 10:02 Freq: Status: Active Protocol: Document 09/01/20 09:00 [facility] (Rec: 09/01/20 10:06 [facility] [id number]) Therapy Assessment Status Assessment Status Assessment Status Re-evaluation Outpatient Past Medical History Cardiovascular History Hx Deep Vein Thrombosis Yes Hx Hypertension Yes Hx Peripheral Vascular Disease Yes Hx Vascular Surgery Yes Gastrointestinal History Hx Cholecystectomy Yes Hx Gastroesophageal Reflux Disease Yes Genitourinary History Hx Nephrectomy Yes: Rt. Hx Urinary Tract Infection Yes Musculoskeletal History Hx Arthritis Yes Hx Back Pain Yes Hx Other Musculoskeletal Disorders Yes: spinal stenosis Hematological History Hx Anemia Yes Reproductive History Hx Post Menopausal Yes Psychosocial History Hx Depression Yes Pain History Has Past Pain Affected Your Daily Life Yes History of Pain Pump Yes Other History Hx Other Surgeries Yes: cryoblation of renal tumor Evaluation Information Problem Subjective Information Patient reports that her R Query Text:As Reported By Patient/ shoulder is a little sore Family today. Patient reports that she seems to be doing more around the house however continues to struggle with fasteners and grasping things. She states that she is always dropping things. Patient would like to be able to do more with her hands. Pain Assessment Timing of Pain Assessment Timing of Pain Assessment Re-assessment Pain Scale Pain Scale Used Numeric (1 - 10) Self Report Pain Assessment Right Shoulder(s) Reported Pain Level 6 Bilateral Knee(s) Reported Pain Level 6 Lower Back Reported Pain Level 6 Pain Score Pain Score 6,6,6: Self Report Interventions Used Interventions Used By Clinicians Exercise,Rest Hand Rn Picu/Pinch Strength Assessment Hand Right Rn Picu Strength (lbs) 18 Left Rn Picu Strength (lbs) 16 General E
--- NOTE | 2020-11-25 16:25 | PCOTNOTE ---
Patient is discharged from skilled OT as of 09/09/20. See last treatment note for patient's skills. MS
== END 2020-09-09 10:23 | disposition home or self-care (01) ==
LOC: CHSPT 09:58
PROVIDERS: PCP Family Medicine; Visit Provider Family Medicine
DX: R53.1 Weakness (principal); R26.89 Other abnormalities of gait and mobility
CPT/HCPCS: 97110; 97116; 97161; 97165; 97530

== ENCOUNTER 2020-10-09 09:03 | Outpatient (CLI) | payer MEDICARE, MEDICAID, SELFPAY ==
--- NOTE | ~2020-10-09 | US_ITS ---
EXAMINATION: US retroperitoneal comp EXAM DATE: 10/09/2020 09:59 INDICATION: CKD Stage IV, Nocturia. Left nephrectomy. TECHNIQUE: Multiple grayscale and Doppler images of the kidneys were obtained (by a technologist who performed the scan) and subsequently reviewed. Comparison is made to prior examination from 02/07/2019 . FINDINGS: Right kidney: There is lobular contour and increased echogenicity. It measures 10.2 x 4.0 x 4.2 cent imeters. A 5 mm cyst is identified in the midpole. No definite mass identified. There is no hydroneph rosis. Left kidney: Left flank scanned, unremarkable renal fossa. No kidney or mass identified. Bladder unremarkable. IMPRESSION: Increased right renal cortical echogenicity, consistent with medical renal disease. No hy dronephrosis. Reviewed, dictated and finalized at location B. ARCH GROUP DIRECTOR IMPRESSION: Increased right renal cortical echogenicity, consistent with medica l renal disease. No hydronephrosis.
[2020-10-09 09:32] LABS: INR 2.6; Prothrombin Time 26.4 Seconds (9.50-12.10)
[2020-10-09 09:55] LABS: Add Urine Microscopic? YES; Appearance Urine Clear (Clear); Bilirubin Urine Negative (Negative); Blood Urine Negative (Negative); Color Urine Yellow (Yellow); Glucose Urine UA Negative (Negative); Ketones Urine Negative (Negative); Leukocyte Esterase Ur 1+ (Negative); Nitrate Urine Positive (Negative); Protein Urine Negative (Negative); Urobilinogen Urine 0.2 mg/dL (0.2-1.0); pH Urine 5.5 (5.0-8.0)
[2020-10-09 10:00] LABS: RBC Urine 0-2 /hpf (0-2); Squamous Epithelial Cell Urine Occasional /hpf (Few)
[2020-10-09 10:01] LABS: Bacteria Urine 3+ /hpf
== END 2020-10-09 09:04 | disposition home or self-care (01) ==
PROVIDERS: PCP Family Medicine; Visit Provider Internal Medicine
DX: N18.4 Chronic kidney disease, stage 4 (severe) (principal); R35.1 Nocturia; Z79.01 Long term (current) use of anticoagulants
CPT/HCPCS: 36415; 76770; 81001; 85610

== ENCOUNTER 2021-01-01 06:42 | Outpatient (NON) | payer MEDICARE, SELFPAY ==
[2021-01-01 07:20] LABS: INR 1.8; Prothrombin Time 18.4 Seconds (9.50-12.10)
== END 2021-01-01 06:43 | disposition home or self-care (01) ==
LOC: CHSLAB 06:44
PROVIDERS: Visit Provider Family Medicine
DX: Z79.01 Long term (current) use of anticoagulants (principal)
CPT/HCPCS: 36415; 85610

== ENCOUNTER 2021-01-08 06:23 | Outpatient (NON) | payer MEDICARE, SELFPAY ==
[2021-01-08 06:53] LABS: INR 2.4; Prothrombin Time 24.5 Seconds (9.50-12.10)
== END 2021-01-08 06:24 | disposition home or self-care (01) ==
PROVIDERS: Visit Provider Family Medicine
DX: Z79.01 Long term (current) use of anticoagulants (principal)
CPT/HCPCS: 36415; 85610

== ENCOUNTER 2021-01-09 10:06 | Outpatient (NON) | payer MEDICARE, SELFPAY ==
[2021-01-09 10:18] LABS: Basophils Absolute Auto 0.03 K/mm3 (0.00-0.10); Basophils Percent Auto 0.6 % (0.0-1.0); Eosinophils Absolute Auto 0.48 K/mm3 (0.02-0.50); Eosinophils Percent Auto 9.5 % (1.0-6.0); Hematocrit 35.6 % (35.0-42.0); Hemoglobin 10.5 g/dL (11.7-13.8); Immature Granulocyte Absolute 0.01 K/mm3 (0.00-0.00); Immature Granulocyte Percent A 0.2 % (0.0-0.0); Immature Reticulocyte Fraction 9.5 % (2.0-16.52); Lymphocytes Percent Auto 11.9 % (18.0-42.0); Mean Corpuscular HGB Conc 29.5 g/dL (32.0-36.0); Mean Corpuscular Hemoglobin 26.4 pg (27.0-31.0); Mean Corpuscular Volume 89.7 fL (78.0-102.0); Mean Platelet Volume 8.9 fl (9.2-11.8); Monocytes Percent Auto 7.9 % (2.0-11.0); Neutrophils Absolute Auto 3.5 K/mm3 (1.7-7.2); Neutrophils Percent Auto 69.9 % (50.0-70.0); Platelet Count Result 273 K/mm3 (150-420); Red Blood Count 3.97 M/mm3 (4.20-5.40); Reticulocyte Percent 0.96 % (0.50-1.50); Reticulocytes Absolute 0.04 M/mm3 (0.02-0.1); White Blood Count 5.1 K/mm3 (4.8-10.8)
[2021-01-09 10:54] LABS: Alanine Aminotransferase 24 U/L (14-59); Albumin Level 3.4 g/dL (3.4-5.0); Alkaline Phosphatase 232 U/L (46-116); Anion Gap 10 mmol/L (8-16); Aspartate Amino Transferase 14 U/L (15-37); Bilirubin,Total 0.3 mg/dL (0.00-1.00); Blood Urea Nitrogen 41 mg/dL (7-18); Calcium 10.3 mg/dL (8.5-10.1); Carbon Dioxide 26 mmol/L (21-32); Chloride 107 mmol/L (98-108); Estimated Glomerular Filt Rate 22; Ferritin 104 ng/mL (8-252); Glucose 146 mg/dL (70-99); Iron 30 ug/dL (50-170); Osmolality Calculated 309 mOsm/kg (285-295); Percent Iron Saturation 10 % (12-57); Potassium 3.8 mmol/L (3.5-5.1); Sodium 143 mmol/L (136-145)
== END 2021-01-09 10:07 | disposition home or self-care (01) ==
LOC: CHSLAB 10:08
PROVIDERS: Visit Provider Family Medicine
DX: E83.10 Disorder of iron metabolism, unspecified (principal); I10 Essential (primary) hypertension; D63.8 Anemia in other chronic diseases classified elsewhere
CPT/HCPCS: 36415; 80053; 82728; 83540; 83550; 85025; 85046

== ENCOUNTER 2021-01-20 06:27 | Outpatient (NON) | payer MEDICARE, SELFPAY ==
[2021-01-20 06:51] LABS: Hematocrit 32.2 % (35.0-42.0); Hemoglobin 9.8 g/dL (11.7-13.8); Mean Corpuscular HGB Conc 30.4 g/dL (32.0-36.0); Mean Corpuscular Hemoglobin 27.1 pg (27.0-31.0); Mean Platelet Volume 8.9 fl (9.2-11.8); Platelet Count Result 199 K/mm3 (150-420); Red Blood Count 3.62 M/mm3 (4.20-5.40); Red Cell Distribution Width 15.1 % (11.6-14.4); White Blood Count 3.8 K/mm3 (4.8-10.8)
[2021-01-20 07:04] LABS: INR 2.6; Prothrombin Time 26.1 Seconds (9.50-12.10)
[2021-01-20 07:24] LABS: Band Neutrophils Percent 0 % (0-6); Basophils Percent Manual 0 % (0-1); Eosinophils Percent Manual 8 % (1-6); Lymphocytes Absolute Manual 0.83 K/mm3 (1.1-4.5); Lymphocytes Percent Manual 22 % (18-44); Monocytes Absolute Manual 0.45 K/mm3 (0.1-0.90); Monocytes Percent Manual 12 % (3-9); Neutrophils Percent Manual 58 % (46-73); Total Cells Counted 100
[2021-01-20 07:25] LABS: Platelet Estimate Adequate (Adequate)
== END 2021-01-20 06:28 | disposition home or self-care (01) ==
LOC: CHSLAB 06:29
PROVIDERS: Visit Provider Family Medicine
DX: D64.9 Anemia, unspecified (principal); J44.9 Chronic obstructive pulmonary disease, unspecified; Z79.01 Long term (current) use of anticoagulants
CPT/HCPCS: 36415; 85025; 85610

== ENCOUNTER 2021-01-27 06:30 | Outpatient (NON) | payer MEDICARE, SELFPAY ==
[2021-01-27 06:45] LABS: Hematocrit 33.1 % (35.0-42.0); Hemoglobin 10.1 g/dL (11.7-13.8); Mean Corpuscular HGB Conc 30.5 g/dL (32.0-36.0); Mean Corpuscular Volume 88.5 fL (78.0-102.0); Platelet Count Result 206 K/mm3 (150-420); Red Blood Count 3.74 M/mm3 (4.20-5.40); White Blood Count 3.6 K/mm3 (4.8-10.8)
[2021-01-27 07:13] LABS: Band Neutrophils Percent 0 % (0-6); Basophils Percent Manual 0 % (0-1); Eosinophils Absolute Manual 0.36 K/mm3 (0.02-0.5); Eosinophils Percent Manual 10 % (1-6); Lymphocytes Percent Manual 25 % (18-44); Monocytes Absolute Manual 0.46 K/mm3 (0.1-0.90); Monocytes Percent Manual 13 % (3-9); Neutrophils Absolute Manual 1.87 K/mm3 (1.7-7.2); Neutrophils Percent Manual 52 % (46-73); Total Cells Counted 100
[2021-01-27 07:15] LABS: Platelet Estimate Adequate (Adequate)
== END 2021-01-27 06:31 | disposition home or self-care (01) ==
LOC: CHSLAB 06:32
PROVIDERS: Visit Provider Family Medicine
DX: D64.9 Anemia, unspecified (principal)
CPT/HCPCS: 36415; 85025

== ENCOUNTER 2021-02-03 06:49 | Outpatient (NON) | payer MEDICARE, SELFPAY ==
[2021-02-03 07:06] LABS: Hematocrit 33.7 % (35.0-42.0); Hemoglobin 10.5 g/dL (11.7-13.8); Mean Corpuscular HGB Conc 31.2 g/dL (32.0-36.0); Mean Corpuscular Hemoglobin 27.1 pg (27.0-31.0); Mean Corpuscular Volume 87.1 fL (78.0-102.0); Mean Platelet Volume 9.2 fl (9.2-11.8); Platelet Count Result 202 K/mm3 (150-420); Red Blood Count 3.87 M/mm3 (4.20-5.40); Red Cell Distribution Width 14.6 % (11.6-14.4); White Blood Count 3.8 K/mm3 (4.8-10.8)
[2021-02-03 07:33] LABS: Band Neutrophils Percent 0 % (0-6); Eosinophils Absolute Manual 0.53 K/mm3 (0.02-0.5); Eosinophils Percent Manual 14 % (1-6); Lymphocytes Absolute Manual 0.87 K/mm3 (1.1-4.5); Lymphocytes Percent Manual 23 % (18-44); Monocytes Percent Manual 8 % (3-9); Neutrophils Absolute Manual 2.09 K/mm3 (1.7-7.2); Neutrophils Percent Manual 55 % (46-73); Total Cells Counted 100
[2021-02-03 07:34] LABS: Platelet Estimate Adequate (Adequate)
== END 2021-02-03 06:50 | disposition home or self-care (01) ==
LOC: CHSLAB 06:54
PROVIDERS: Visit Provider Family Medicine
DX: D64.9 Anemia, unspecified (principal); J44.9 Chronic obstructive pulmonary disease, unspecified; I10 Essential (primary) hypertension
CPT/HCPCS: 36415; 85025

== ENCOUNTER 2021-02-04 16:18 | Outpatient (NON) | payer MEDICARE, SELFPAY ==
[2021-02-04 17:00] LABS: Add Urine Microscopic? YES; Appearance Urine Sl Cloudy (Clear); Bilirubin Urine Negative (Negative); Blood Urine Negative (Negative); Color Urine Light Yellow (Yellow); Glucose Urine UA Negative (Negative); Ketones Urine Negative (Negative); Leukocyte Esterase Ur 1+ LEU/UL (Negative); Nitrate Urine Negative (Negative); Protein Urine Negative (Negative); Specific Grav Ur 1.015 (1.010-1.020); Urobilinogen Urine 0.2 mg/dL (0.2-1.0)
[2021-02-04 17:37] LABS: Bacteria Urine 2+ /hpf; Calcium Oxalate Crystals Urine Present /hpf; RBC Urine None seen /hpf (0-2); Squamous Epithelial Cell Urine Few /hpf (Few)
== END 2021-02-04 16:19 | disposition home or self-care (01) ==
LOC: CHSLAB 16:20
PROVIDERS: Visit Provider Family Medicine
DX: N39.0 Urinary tract infection, site not specified (principal)
CPT/HCPCS: 81001; 87086; 87088

== ENCOUNTER 2021-02-07 07:20 | Outpatient (NON) | payer MEDICARE, SELFPAY ==
[2021-02-07 08:13] LABS: Albumin Level 3.2 g/dL (3.4-5.0); Anion Gap 11 mmol/L (8-16); Blood Urea Nitrogen 45 mg/dL (7-18); Carbon Dioxide 27 mmol/L (21-32); Chloride 111 mmol/L (98-108); Estimated Glomerular Filt Rate 23; Glucose 85 mg/dL (70-99); Osmolality Calculated 318 mOsm/kg (285-295); Phosphorus 4.1 mg/dL (2.6-4.7); Sodium 149 mmol/L (136-145)
[2021-02-07 08:47] LABS: Calcium 12.2 mg/dL (8.5-10.1)
== END 2021-02-07 07:21 | disposition home or self-care (01) ==
DX: D64.9 Anemia, unspecified (principal); N18.9 Chronic kidney disease, unspecified
CPT/HCPCS: 36415; 80069

== ENCOUNTER 2021-02-08 11:18 | Outpatient (NON) | payer MEDICARE, BC, SELFPAY ==
[2021-02-08 11:47] LABS: Alanine Aminotransferase 21 U/L (14-59); Albumin Level 3.4 g/dL (3.4-5.0); Alkaline Phosphatase 168 U/L (46-116); Anion Gap 12 mmol/L (8-16); Aspartate Amino Transferase 47 U/L (15-37); Bilirubin,Total 0.3 mg/dL (0.00-1.00); Blood Urea Nitrogen 47 mg/dL (7-18); Carbon Dioxide 27 mmol/L (21-32); Chloride 108 mmol/L (98-108); Estimated Glomerular Filt Rate 21; Glucose 112 mg/dL (70-99); Osmolality Calculated 317 mOsm/kg (285-295); Potassium 3.7 mmol/L (3.5-5.1); Sodium 147 mmol/L (136-145); Total Protein 7.4 g/dL (6.4-8.2)
[2021-02-08 11:50] LABS: Calcium 12.5 mg/dL (8.5-10.1)
[2021-02-10 20:03] LABS: Vitamin D 25 Hydroxy 82 ng/mL (30-100)
[2021-02-11 00:17] LABS: Ionized Calcium 7.3 mg/dL (4.8-5.6)
[2021-02-11 13:49] LABS: Parathyroid Intact 12 pg/mL (14-64)
== END 2021-02-08 11:19 | disposition home or self-care (01) ==
LOC: CHSLAB 11:20
PROVIDERS: PCP Family Medicine; Visit Provider Family Medicine
DX: Z79.899 Other long term (current) drug therapy (principal)
CPT/HCPCS: 36415; 80053; 82306; 82330; 83970

== ENCOUNTER 2021-03-17 10:20 | Outpatient (CLI) | payer MEDICARE, MEDICAID, SELFPAY ==
--- NOTE | ~2021-03-17 | CT_ITS ---
EXAMINATION: CT chest abdomen pelvis wo con DATE: 03/17/2021 10:59 INDICATION: Hypercalcemia. TECHNIQUE: Computed tomography (CT) of the chest, abdomen, and pelvis was performed without intraveno us contrast. Automated exposure control and iterative reconstruction technique were employed. The dos e-length product was 1134.97 mGy-cm. COMPARISON: Chest CT 02/19/2021, CT abdomen and pelvis 02/11/20 FINDINGS: CHEST CT: There is mild peripheral scarring in right lung. There are multiple chronic right rib deformities. A calcified right lung nodule and calcified right hilar lymph nodes are consistent with old granulomato us disease. No pleural effusion. There are changes of left hemithyroidectomy. There are nodules in th e thyroid measuring up to 12 mm, likely not clinically significant. Cardiomegaly is noted. There are coronary artery calcifications. There are calcifications of aortic valve. No pericardial effusion. Th ere is a moderate-sized sliding hiatal hernia. There is mild thoracic spondylosis. ABDOMEN/PELVIS CT: The liver is normal. Calcifications in the spleen are consistent with old granulomatous disease. Ther e are changes of cholecystectomy. The pancreas and right adrenal gland are normal. There are ablation changes in right kidney. There is a 1.6 cm exophytic mass of right kidney lower pole directed medial ly measuring soft tissue attenuation. There are changes of left adrenalectomy and left nephrectomy. There is a filter in the infrarenal inferior vena cava. An intrathecal catheter is noted. There are n o dilated loops of bowel. The appendix is not visualized. There are no pathologically enlarged lymph nodes. There is no free intraperitoneal fluid. There is an old healed fracture of proximal left femur with internal fixation. There are old healed fractures of left superior and inferior pubic rami. The re is severe lumbar spondylosis. IMPRESSION: 1. 1.6 cm mass in right kidney lower pole, which may be a hemorrhagic cyst or a neoplasm. Given the p atient's decreased kidney function, consider ultrasound for further evaluation. 2. Moderate-sized sliding hiatal hernia. Reviewed, dictated and finalized at location B. IMPRESSION: 1. 1.6 cm mass in right kidney lower pole, which may be a hemorrhagic cyst or a neoplasm. Given the patient's decreased kidney function, consider ultrasound f or further evaluation. 2. Moderate-sized sliding hiatal hernia.
== END 2021-03-17 10:21 | disposition home or self-care (01) ==
PROVIDERS: PCP Family Medicine; Visit Provider Family Medicine
DX: E83.52 Hypercalcemia (principal)
CPT/HCPCS: 71250; 74176

== ENCOUNTER 2021-05-05 06:25 | Outpatient (NON) | payer MEDICARE, SELFPAY ==
[2021-05-05 07:22] LABS: INR 1.9; Prothrombin Time 19.3 Seconds (9.50-12.10)
== END 2021-05-05 06:26 | disposition home or self-care (01) ==
PROVIDERS: Visit Provider Family Medicine
DX: Z79.01 Long term (current) use of anticoagulants (principal)
CPT/HCPCS: 36415; 85610

== ENCOUNTER 2021-05-19 06:47 | Outpatient (NON) | payer MEDICARE, SELFPAY ==
[2021-05-19 07:16] LABS: INR 2.2; Prothrombin Time 22.5 Seconds (9.50-12.10)
== END 2021-05-19 06:48 | disposition home or self-care (01) ==
LOC: CHSLAB 06:50
PROVIDERS: Visit Provider Family Medicine
DX: Z79.01 Long term (current) use of anticoagulants (principal)
CPT/HCPCS: 36415; 85610

== ENCOUNTER 2021-05-28 06:33 | Outpatient (NON) | payer MEDICARE, SELFPAY ==
[2021-05-28 06:54] LABS: Hematocrit 33.4 % (35.0-42.0); Hemoglobin 10.4 g/dL (11.7-13.8); Mean Corpuscular HGB Conc 31.1 g/dL (32.0-36.0); Mean Corpuscular Hemoglobin 27.7 pg (27.0-31.0); Mean Corpuscular Volume 88.8 fL (78.0-102.0); Mean Platelet Volume 9.1 fl (9.2-11.8); Platelet Count Result 200 K/mm3 (150-420); Red Blood Count 3.76 M/mm3 (4.20-5.40); Red Cell Distribution Width 15.5 % (11.6-14.4); White Blood Count 4.2 K/mm3 (4.8-10.8)
[2021-05-28 06:56] LABS: Add Urine Microscopic? YES; Appearance Urine Sl Cloudy (Clear); Bilirubin Urine Negative (Negative); Blood Urine Negative (Negative); Color Urine Light Yellow (Yellow); Glucose Urine UA Negative (Negative); Ketones Urine Trace (Negative); Leukocyte Esterase Ur 3+ (Negative); Nitrate Urine Positive (Negative); Protein Urine Negative (Negative); Urobilinogen Urine 0.2 mg/dL (0.2-1.0)
[2021-05-28 07:04] LABS: Bacteria Urine 3+ /hpf; RBC Urine None seen /hpf (0-2); Squamous Epithelial Cell Urine Rare /hpf (Few); WBC Urine 31-50 /hpf (0-3)
[2021-05-28 07:17] LABS: Alanine Aminotransferase 19 U/L (14-59); Albumin Level 2.8 g/dL (3.4-5.0); Alkaline Phosphatase 92 U/L (46-116); Anion Gap 7 mmol/L (8-16); Aspartate Amino Transferase < 10 U/L (15-37); Bilirubin,Total 0.2 mg/dL (0.00-1.00); Blood Urea Nitrogen 47 mg/dL (7-18); Calcium 9.7 mg/dL (8.5-10.1); Carbon Dioxide 28 mmol/L (21-32); Chloride 112 mmol/L (98-108); Estimated Glomerular Filt Rate 22; Glucose 80 mg/dL (70-99); Osmolality Calculated 315 mOsm/kg (285-295); Sodium 147 mmol/L (136-145); Total Protein 5.7 g/dL (6.4-8.2)
[2021-05-28 07:53] LABS: Band Neutrophils Percent 0 % (0-6); Eosinophils Absolute Manual 0.58 K/mm3 (0.02-0.5); Eosinophils Percent Manual 14 % (1-6); Lymphocytes Absolute Manual 1.05 K/mm3 (1.1-4.5); Lymphocytes Percent Manual 25 % (18-44); Monocytes Absolute Manual 0.46 K/mm3 (0.1-0.90); Monocytes Percent Manual 11 % (3-9); Neutrophils Percent Manual 50 % (46-73); Total Cells Counted 100
[2021-05-28 07:54] LABS: Platelet Estimate Adequate (Adequate)
[2021-05-28 08:41] LABS: Occult Blood Negative (Negative)
== END 2021-05-28 06:34 | disposition home or self-care (01) ==
LOC: CHSLAB 06:36
PROVIDERS: Visit Provider Family Medicine
DX: D64.9 Anemia, unspecified (principal); J44.9 Chronic obstructive pulmonary disease, unspecified; I12.9 Hypertensive chronic kidney disease with stage 1 through stage 4 chronic kidney disease, or unspecified chronic kidney disease; N18.4 Chronic kidney disease, stage 4 (severe); N39.0 Urinary tract infection, site not specified; Z79.899 Other long term (current) drug therapy
CPT/HCPCS: 36415; 80053; 81001; 82272; 85025; 87086; 87088

== ENCOUNTER 2021-05-29 13:12 | Outpatient (NON) | payer MEDICARE, SELFPAY ==
[2021-05-29 13:24] LABS: Occult Blood Negative (Negative)
== END 2021-05-29 13:13 | disposition home or self-care (01) ==
LOC: CHSLAB 13:14
PROVIDERS: Visit Provider Family Medicine
DX: D64.9 Anemia, unspecified (principal); Z79.899 Other long term (current) drug therapy
CPT/HCPCS: 82272

== ENCOUNTER 2021-06-18 06:43 | Outpatient (NON) | payer MEDICARE, SELFPAY ==
[2021-06-18 07:24] LABS: Hemoglobin 10.7 g/dL (11.7-13.8); Mean Corpuscular HGB Conc 31.5 g/dL (32.0-36.0); Mean Corpuscular Hemoglobin 28.3 pg (27.0-31.0); Mean Corpuscular Volume 89.9 fL (78.0-102.0); Mean Platelet Volume 9.3 fl (9.2-11.8); Platelet Count Result 186 K/mm3 (150-420); Red Blood Count 3.78 M/mm3 (4.20-5.40); Red Cell Distribution Width 14.7 % (11.6-14.4)
[2021-06-18 07:38] LABS: INR 1.8; Prothrombin Time 18.9 Seconds (9.50-12.10)
[2021-06-18 07:43] LABS: Alanine Aminotransferase 16 U/L (14-59); Albumin Level 2.9 g/dL (3.4-5.0); Alkaline Phosphatase 91 U/L (46-116); Anion Gap 8 mmol/L (8-16); Aspartate Amino Transferase < 10 U/L (15-37); Bilirubin,Total 0.2 mg/dL (0.00-1.00); Blood Urea Nitrogen 41 mg/dL (7-18); Calcium 9.8 mg/dL (8.5-10.1); Carbon Dioxide 27 mmol/L (21-32); Chloride 110 mmol/L (98-108); Estimated Glomerular Filt Rate 25; Glucose 82 mg/dL (70-99); Osmolality Calculated 309 mOsm/kg (285-295); Potassium 3.9 mmol/L (3.5-5.1); Sodium 145 mmol/L (136-145); Total Protein 5.8 g/dL (6.4-8.2)
[2021-06-18 08:12] LABS: Total Cells Counted 100
[2021-06-18 08:13] LABS: Band Neutrophils Percent 0 % (0-6); Basophils Absolute Manual 0.04 K/mm3 (0-0.1); Basophils Percent Manual 1 % (0-1); Eosinophils Absolute Manual 0.52 K/mm3 (0.02-0.5); Eosinophils Percent Manual 13 % (1-6); Lymphocytes Percent Manual 15 % (18-44); Monocytes Absolute Manual 0.32 K/mm3 (0.1-0.90); Monocytes Percent Manual 8 % (3-9); Neutrophils Absolute Manual 2.52 K/mm3 (1.7-7.2); Neutrophils Percent Manual 63 % (46-73); Platelet Estimate Adequate (Adequate)
[2021-06-18 11:29] LABS: Add Urine Microscopic? YES; Appearance Urine Sl Cloudy (Clear); Bilirubin Urine Negative (Negative); Blood Urine Negative (Negative); Color Urine Light Yellow (Yellow); Glucose Urine UA Negative (Negative); Ketones Urine Negative (Negative); Leukocyte Esterase Ur 2+ LEU/UL (Negative); Nitrate Urine Positive (Negative); Protein Urine Negative (Negative); Urobilinogen Urine 0.2 mg/dL (0.2-1.0); pH Urine 6.5 (5.0-8.0)
[2021-06-18 11:36] LABS: RBC Urine None seen /hpf (0-2); WBC Urine 31-50 /hpf (0-3)
[2021-06-18 11:37] LABS: Bacteria Urine 3+ /hpf; Squamous Epithelial Cell Urine Rare /hpf (Few)
== END 2021-06-18 06:44 | disposition home or self-care (01) ==
PROVIDERS: Visit Provider Family Medicine
DX: J44.9 Chronic obstructive pulmonary disease, unspecified (principal); I12.9 Hypertensive chronic kidney disease with stage 1 through stage 4 chronic kidney disease, or unspecified chronic kidney disease; N18.4 Chronic kidney disease, stage 4 (severe); Z79.01 Long term (current) use of anticoagulants; N39.0 Urinary tract infection, site not specified
CPT/HCPCS: 36415; 80053; 81001; 85025; 85610; 87077; 87086; 87088; 87186

== ENCOUNTER 2021-06-23 06:31 | Outpatient (NON) | payer MEDICARE, SELFPAY ==
[2021-06-23 07:43] LABS: INR 1.8; Prothrombin Time 18.8 Seconds (9.50-12.10)
== END 2021-06-23 06:32 | disposition home or self-care (01) ==
LOC: CHSLAB 06:33
PROVIDERS: Visit Provider Family Medicine
DX: Z79.01 Long term (current) use of anticoagulants (principal)
CPT/HCPCS: 36415; 85610

== ENCOUNTER 2021-07-02 06:35 | Outpatient (NON) | payer MEDICARE, SELFPAY ==
[2021-07-02 08:01] LABS: INR 2.3; Prothrombin Time 23.6 Seconds (9.50-12.10)
== END 2021-07-02 06:36 | disposition home or self-care (01) ==
LOC: CHSLAB 06:36
PROVIDERS: Visit Provider Family Medicine
DX: Z79.01 Long term (current) use of anticoagulants (principal)
CPT/HCPCS: 36415; 85610

== ENCOUNTER 2021-07-09 07:09 | Outpatient (NON) | payer MEDICARE, SELFPAY ==
[2021-07-09 09:09] LABS: Hematocrit 35.1 % (35.0-42.0); Mean Corpuscular HGB Conc 31.3 g/dL (32.0-36.0); Mean Corpuscular Hemoglobin 28.4 pg (27.0-31.0); Mean Corpuscular Volume 90.5 fL (78.0-102.0); Mean Platelet Volume 9.6 fl (9.2-11.8); Platelet Count Result 197 K/mm3 (150-420); Red Blood Count 3.88 M/mm3 (4.20-5.40); Red Cell Distribution Width 14.6 % (11.6-14.4); White Blood Count 4.3 K/mm3 (4.8-10.8)
[2021-07-09 09:21] LABS: INR 2.4; Prothrombin Time 24.8 Seconds (9.50-12.10)
[2021-07-09 09:49] LABS: Band Neutrophils Percent 0 % (0-6); Eosinophils Percent Manual 7 % (1-6); Lymphocytes Percent Manual 21 % (18-44); Monocytes Absolute Manual 0.47 K/mm3 (0.1-0.90); Monocytes Percent Manual 11 % (3-9); Neutrophils Absolute Manual 2.53 K/mm3 (1.7-7.2); Neutrophils Percent Manual 59 % (46-73); Platelet Estimate Adequate (Adequate); Total Cells Counted 100
[2021-07-09 09:53] LABS: Creatinine Urine 39.64 mg/dL (40-278); MALB Creatinine Ratio 46.9 mg/g (0-30); Microalbumin Urine Random 18.6 mg/L
[2021-07-09 09:56] LABS: Alanine Aminotransferase 15 U/L (14-59); Alkaline Phosphatase 87 U/L (46-116); Anion Gap 12 mmol/L (8-16); Aspartate Amino Transferase < 10 U/L (15-37); Bilirubin Direct 0.1 mg/dL (0-0.2); Bilirubin,Total 0.2 mg/dL (0.00-1.00); Blood Urea Nitrogen 44 mg/dL (7-18); Calcium 9.6 mg/dL (8.5-10.1); Carbon Dioxide 23 mmol/L (21-32); Chloride 113 mmol/L (98-108); Cholesterol 213 mg/dL (0-200); Estimated Glomerular Filt Rate 26; Glucose 79 mg/dL (70-99); HDL Direct 51 mg/dL (40-60); LDL Cholesterol Calculated 141 mg/dL (<130); Osmolality Calculated 316 mOsm/kg (285-295); Potassium 3.8 mmol/L (3.5-5.1); Sodium 148 mmol/L (136-145); Thyroid Stimulating Hormone 2.77 uIU/mL (0.36-3.74); Total Protein 6.1 g/dL (6.4-8.2); Triglycerides 106 mg/dL (0-150)
[2021-07-14 10:04] LABS: Vitamin D 25 Hydroxy 28 ng/mL (30-100)
== END 2021-07-09 07:10 | disposition home or self-care (01) ==
LOC: CHSLAB 07:15
PROVIDERS: Visit Provider Family Medicine
DX: E86.9 Volume depletion, unspecified (principal); E55.9 Vitamin D deficiency, unspecified; D64.9 Anemia, unspecified; N18.4 Chronic kidney disease, stage 4 (severe); Z79.01 Long term (current) use of anticoagulants
CPT/HCPCS: 36415; 80048; 80061; 80076; 82043; 82306; 84443; 85025; 85610

== ENCOUNTER 2021-08-06 06:59 | Outpatient (NON) | payer MEDICARE, SELFPAY ==
[2021-08-06 07:41] LABS: INR 2.3; Prothrombin Time 23.5 Seconds (9.50-12.10)
== END 2021-08-06 07:00 | disposition home or self-care (01) ==
LOC: CHSLAB 07:01
PROVIDERS: Visit Provider Family Medicine
DX: Z79.01 Long term (current) use of anticoagulants (principal)
CPT/HCPCS: 36415; 85610

== ENCOUNTER 2021-08-13 06:36 | Outpatient (NON) | payer MEDICARE, SELFPAY ==
[2021-08-13 07:33] LABS: Anion Gap 10 mmol/L (8-16); Blood Urea Nitrogen 45 mg/dL (7-18); Carbon Dioxide 26 mmol/L (21-32); Chloride 111 mmol/L (98-108); Estimated Glomerular Filt Rate 25; Glucose 85 mg/dL (70-99); Osmolality Calculated 314 mOsm/kg (285-295); Phosphorus 3.2 mg/dL (2.6-4.7); Potassium 4.1 mmol/L (3.5-5.1); Sodium 147 mmol/L (136-145)
== END 2021-08-13 06:37 | disposition home or self-care (01) ==
LOC: CHSLAB 06:37
PROVIDERS: Visit Provider Family Medicine
DX: E86.9 Volume depletion, unspecified (principal); Z79.01 Long term (current) use of anticoagulants
CPT/HCPCS: 36415; 80069

== ENCOUNTER 2021-09-07 13:15 | Outpatient (CLI) | payer OTHER, SELFPAY ==
--- NOTE | ~2021-09-07 | XR_ITS ---
EXAMINATION: XR knee LT 3V DATE: 09/07/2021 14:00 INDICATION: Left knee pain. TECHNIQUE: 3 views of left knee were obtained. COMPARISON: Left knee radiographs 10/05/2018 FINDINGS: There is a total left knee arthroplasty with patellar resurfacing in near-anatomic alignmen t. There is lucency adjacent to the femoral component posteriorly and adjacent to the lateral aspect of the tibial component. No fracture. No knee joint effusion. IMPRESSION: 1. Total left knee arthroplasty with lucency adjacent to the femoral and tibial components suspicious for loosening versus infection or particle disease. Reviewed, dictated and finalized at location E. F ATTORNEY
--- NOTE | ~2021-09-07 | XR_ITS ---
EXAMINATION: XR hip LT min 2V DATE: 09/07/2021 14:02 INDICATION: Left hip pain. TECHNIQUE: 2 views of left hip were obtained. COMPARISON: Pelvis radiograph 03/08/2017 FINDINGS: There is an old healed intertrochanteric fracture of proximal femur status post internal fi xation with antegrade intramedullary irasema, distal interlocking screw, and femoral head/neck screw. The re are old healed fractures of left superior and inferior pubic rami. There is mild left hip osteoart hritis. IMPRESSION: 1. Mild left hip osteoarthritis. Reviewed, dictated and finalized at location E. ICITY CONSULTANT
--- NOTE | ~2021-09-07 | XR_ITS ---
EXAMINATION: XR knee RT 3V DATE: 09/07/2021 14:00 INDICATION: Right knee pain. TECHNIQUE: 3 views of right knee were obtained. COMPARISON: Right knee radiographs 10/05/2018 FINDINGS: There is a longstem total right knee arthroplasty with patellar resurfacing in near-anatomi c alignment. No acute fracture. Again seen is chronic periosteal reaction of the distal femoral metap hysis and proximal tibial metaphysis. No periprosthetic lucency to suggest loosening or infection. No knee joint effusion. IMPRESSION: 1. Total right knee arthroplasty in near-anatomic alignment. Reviewed, dictated and finalized at location E. MAKER
== END 2021-09-07 13:16 | disposition home or self-care (01) ==
PROVIDERS: PCP Family Medicine; Visit Provider Family Medicine
DX: M25.552 Pain in left hip (principal); Z96.653 Presence of artificial knee joint, bilateral; M25.562 Pain in left knee; M25.561 Pain in right knee
CPT/HCPCS: 73502; 73562

== ENCOUNTER 2021-09-10 06:46 | Outpatient (NON) | payer OTHER, SELFPAY ==
[2021-09-10 07:50] LABS: INR 2.6; Prothrombin Time 26.1 Seconds (9.50-12.10)
== END 2021-09-10 06:47 | disposition home or self-care (01) ==
LOC: CHSLAB 06:50
PROVIDERS: Visit Provider Family Medicine
DX: Z79.01 Long term (current) use of anticoagulants (principal)
CPT/HCPCS: 36415; 85610

== ENCOUNTER 2021-10-13 06:35 | Outpatient (NON) | payer MEDICARE, SELFPAY ==
[2021-10-16 15:37] LABS: Vitamin D 25 Hydroxy 24 ng/mL (30-100)
== END 2021-10-13 06:36 | disposition home or self-care (01) ==
LOC: CHSLAB 06:37
PROVIDERS: Visit Provider Family Medicine
DX: D64.9 Anemia, unspecified (principal); N18.5 Chronic kidney disease, stage 5; E55.9 Vitamin D deficiency, unspecified
CPT/HCPCS: 36415; 82306

== ENCOUNTER 2021-10-13 14:05 | Outpatient (CLI) | payer MEDICARE, MEDICAID, SELFPAY ==
--- NOTE | ~2021-10-13 | XR_ITS ---
XR shoulder RT min 2V 10/13/2021 14:39 Indication: Right shoulder pain Procedure: 5 views right shoulder Comparison: Comparison to multiple prior studies sequentially, with oldest reviewed study dated 12/2013. Findings: There are degenerative changes of the acromioclavicular and glenohumeral joints. No fractur e, subluxation or dislocation. No significant soft tissue abnormality. No foreign bodies. There is fernandez perior subluxation of the humeral head, suspicious for rotator cuff tear. Impression: 1: Mild-moderate polyarticular osteoarthritis. Reviewed, dictated and finalized at location B. Impression: 1: Mild-moderate polyarticular osteoarthritis.
== END 2021-10-13 14:06 | disposition home or self-care (01) ==
LOC: CHSIMG 14:06
PROVIDERS: PCP Family Medicine; Visit Provider Family Medicine
DX: M25.511 Pain in right shoulder (principal)
CPT/HCPCS: 36415; 73030; 82306

== ENCOUNTER 2021-10-17 06:55 | Outpatient (NON) | payer MEDICARE, SELFPAY ==
[2021-10-17 07:22] LABS: Hematocrit 34.6 % (35.0-42.0); Hemoglobin 10.7 g/dL (11.7-13.8); Mean Corpuscular HGB Conc 30.9 g/dL (32.0-36.0); Mean Corpuscular Hemoglobin 28.1 pg (27.0-31.0); Mean Corpuscular Volume 90.8 fL (78.0-102.0); Mean Platelet Volume 8.9 fl (9.2-11.8); Platelet Count Result 208 K/mm3 (150-420); Red Blood Count 3.81 M/mm3 (4.20-5.40)
[2021-10-17 07:34] LABS: Anion Gap 10 mmol/L (8-16); Blood Urea Nitrogen 45 mg/dL (7-18); Calcium 8.9 mg/dL (8.5-10.1); Carbon Dioxide 25 mmol/L (21-32); Chloride 109 mmol/L (98-108); Estimated Glomerular Filt Rate 27; Glucose 85 mg/dL (70-99); Osmolality Calculated 308 mOsm/kg (285-295); Potassium 3.8 mmol/L (3.5-5.1); Sodium 144 mmol/L (136-145)
[2021-10-17 07:35] LABS: Prothrombin Time 30.1 Seconds (9.50-12.10)
[2021-10-17 07:42] LABS: Band Neutrophils Percent 0 % (0-6); Eosinophils Absolute Manual 0.44 K/mm3 (0.02-0.5); Eosinophils Percent Manual 11 % (1-6); Lymphocytes Absolute Manual 1.32 K/mm3 (1.1-4.5); Lymphocytes Percent Manual 33 % (18-44); Monocytes Percent Manual 10 % (3-9); Neutrophils Absolute Manual 1.84 K/mm3 (1.7-7.2); Neutrophils Percent Manual 46 % (46-73); Platelet Estimate Adequate (Adequate); Total Cells Counted 100
== END 2021-10-17 06:56 | disposition home or self-care (01) ==
LOC: CHSLAB 06:56
PROVIDERS: PCP Family Medicine; Visit Provider Family Medicine
DX: D64.9 Anemia, unspecified (principal); I12.9 Hypertensive chronic kidney disease with stage 1 through stage 4 chronic kidney disease, or unspecified chronic kidney disease; N18.4 Chronic kidney disease, stage 4 (severe); Z79.01 Long term (current) use of anticoagulants
CPT/HCPCS: 36415; 80048; 85025; 85610

== ENCOUNTER 2021-10-20 07:07 | Outpatient (NON) | payer MEDICARE, MEDICAID, SELFPAY ==
[2021-10-20 07:42] LABS: Hematocrit 35.7 % (35.0-42.0); Hemoglobin 11.2 g/dL (11.7-13.8); Mean Corpuscular HGB Conc 31.4 g/dL (32.0-36.0); Mean Corpuscular Hemoglobin 28.4 pg (27.0-31.0); Mean Corpuscular Volume 90.4 fL (78.0-102.0); Mean Platelet Volume 8.9 fl (9.2-11.8); Platelet Count Result 214 K/mm3 (150-420); Red Blood Count 3.95 M/mm3 (4.20-5.40); Red Cell Distribution Width 14.2 % (11.6-14.4); White Blood Count 4.7 K/mm3 (4.8-10.8)
[2021-10-20 07:45] LABS: Erythrocyte Sedimentation Rate 32 mm/hr (0-20)
[2021-10-20 07:53] LABS: CRP < 0.5 mg/dL (0.0-0.9)
[2021-10-20 08:30] LABS: Band Neutrophils Percent 0 % (0-6); Eosinophils Absolute Manual 0.56 K/mm3 (0.02-0.5); Eosinophils Percent Manual 12 % (1-6); Lymphocytes Absolute Manual 1.03 K/mm3 (1.1-4.5); Lymphocytes Percent Manual 22 % (18-44); Monocytes Absolute Manual 0.56 K/mm3 (0.1-0.90); Monocytes Percent Manual 12 % (3-9); Neutrophils Absolute Manual 2.53 K/mm3 (1.7-7.2); Neutrophils Percent Manual 54 % (46-73); Total Cells Counted 100
[2021-10-20 08:37] LABS: Platelet Estimate Adequate (Adequate)
== END 2021-10-20 07:08 | disposition home or self-care (01) ==
LOC: CHSLAB 07:14
DX: D64.9 Anemia, unspecified (principal); I12.9 Hypertensive chronic kidney disease with stage 1 through stage 4 chronic kidney disease, or unspecified chronic kidney disease; N18.4 Chronic kidney disease, stage 4 (severe); J44.9 Chronic obstructive pulmonary disease, unspecified
CPT/HCPCS: 36415; 85025; 85652; 86140

== ENCOUNTER 2021-10-23 08:02 | Outpatient (CLI) | payer MEDICARE, MEDICAID, SELFPAY ==
--- NOTE | ~2021-10-23 | NM_ITS ---
EXAMINATION: NM bone 3 phase DATE: 10/23/2021 12:05 INDICATION: Right knee pain TECHNIQUE: 25 mCi Tc-99m HDP by intravenous route. Scintigrams of the bilateral knees were obtained in angiographic, blood pool, and delayed phases. COMPARISON: Bilateral knee radiographs dated 09/07/2021 FINDINGS: Photopenic defects at the bilateral knees corresponding to the bilateral total knee arthroplasties. S ymmetric normal distribution of activity on the angiographic and immediate blood pool images. On william yed images there is a small amount of increased uptake along the margins of the arthroplasties, left slightly greater than right, but on both sides within normal limits. No other foci of abnormal bone u ptake. IMPRESSION: 1. Normal study post chronic bilateral total knee arthroplasties. Reviewed, dictated and finalized at location A.
== END 2021-10-23 08:03 | disposition home or self-care (01) ==
LOC: CHSIMG 08:03
PROVIDERS: PCP Family Medicine
DX: M25.561 Pain in right knee (principal); T84.84XA Pain due to internal orthopedic prosthetic devices, implants and grafts, initial encounter; Z96.652 Presence of left artificial knee joint
CPT/HCPCS: 78315; A9561

== ENCOUNTER 2021-11-05 06:47 | Outpatient (NON) | payer MEDICARE, SELFPAY ==
[2021-11-05 08:12] LABS: INR 2.7; Prothrombin Time 27.8 Seconds (9.50-12.10)
== END 2021-11-05 06:48 | disposition home or self-care (01) ==
LOC: CHSLAB 06:47
PROVIDERS: Visit Provider Family Medicine
DX: Z79.01 Long term (current) use of anticoagulants (principal)
CPT/HCPCS: 36415; 85610

== ENCOUNTER 2021-11-19 06:57 | Outpatient (NON) | payer MEDICARE, SELFPAY ==
[2021-11-19 07:55] LABS: Hematocrit 35.8 % (35.0-42.0); Hemoglobin 10.9 g/dL (11.7-13.8); Mean Corpuscular HGB Conc 30.4 g/dL (32.0-36.0); Mean Corpuscular Hemoglobin 27.9 pg (27.0-31.0); Mean Corpuscular Volume 91.8 fL (78.0-102.0); Mean Platelet Volume 8.9 fl (9.2-11.8); Platelet Count Result 239 K/mm3 (150-420); Red Cell Distribution Width 14.6 % (11.6-14.4); White Blood Count 4.1 K/mm3 (4.8-10.8)
[2021-11-19 08:17] LABS: Alanine Aminotransferase 18 U/L (14-59); Alkaline Phosphatase 102 U/L (46-116); Anion Gap 8 mmol/L (8-16); Aspartate Amino Transferase 12 U/L (15-37); Bilirubin,Total 0.2 mg/dL (0.00-1.00); Blood Urea Nitrogen 33 mg/dL (7-18); Carbon Dioxide 26 mmol/L (21-32); Chloride 111 mmol/L (98-108); Estimated Glomerular Filt Rate 29; Ferritin 80 ng/mL (8-252); Glucose 83 mg/dL (70-99); Iron 48 ug/dL (50-170); Magnesium 1.9 mg/dL (1.8-2.4); Osmolality Calculated 306 mOsm/kg (285-295); Percent Iron Saturation 26 % (12-57); Phosphorus 3.7 mg/dL (2.6-4.7); Potassium 3.9 mmol/L (3.5-5.1); Sodium 145 mmol/L (136-145); Uric Acid 5.3 mg/dL (2.6-6.0)
[2021-11-19 10:23] LABS: Band Neutrophils Percent 0 % (0-6); Lymphocytes Absolute Manual 0.98 K/mm3 (1.1-4.5); Lymphocytes Percent Manual 24 % (18-44); Neutrophils Absolute Manual 2.54 K/mm3 (1.7-7.2); Neutrophils Percent Manual 62 % (46-73); Total Cells Counted 100
[2021-11-19 10:24] LABS: Basophils Absolute Manual 0.04 K/mm3 (0-0.1); Basophils Percent Manual 1 % (0-1); Eosinophils Absolute Manual 0.36 K/mm3 (0.02-0.5); Eosinophils Percent Manual 9 % (1-6); Monocytes Absolute Manual 0.16 K/mm3 (0.1-0.90); Monocytes Percent Manual 4 % (3-9); Platelet Estimate Adequate (Adequate)
[2021-11-19 11:08] LABS: Appearance Urine Clear (Clear); Bilirubin Urine Negative (Negative); Color Urine Light Yellow (Yellow); Glucose Urine UA Negative (Negative); Ketones Urine Negative (Negative); Leukocyte Esterase Ur 1+ LEU/UL (Negative); Nitrate Urine Negative (Negative); Protein Urine Negative (Negative); Urobilinogen Urine 0.2 mg/dL (0.2-1.0); pH Urine 5.5 (5.0-8.0)
[2021-11-19 11:14] LABS: Add Urine Microscopic? YES; Bacteria Urine 1+ /hpf; Blood Urine Trace-Intact (Negative); RBC Urine 0-2 /hpf (0-2); Renal Epithelial Cells Urine Few /hpf; Squamous Epithelial Cell Urine Few /hpf (Few)
[2021-11-24 12:47] LABS: Parathyroid Intact 52 pg/mL (14-64)
[2021-11-24 18:18] LABS: Vitamin D 25 Hydroxy 24 ng/mL (30-100)
== END 2021-11-19 06:58 | disposition home or self-care (01) ==
DX: N39.0 Urinary tract infection, site not specified (principal); D64.9 Anemia, unspecified; E55.9 Vitamin D deficiency, unspecified
CPT/HCPCS: 36415; 80053; 81001; 82306; 82728; 83540; 83550; 83735; 83970; 84100; 84550; 85025; 87086; 87088

== ENCOUNTER 2021-12-05 06:32 | Outpatient (NON) | payer MEDICARE, MEDICAID, SELFPAY ==
[2021-12-05 06:54] LABS: INR 3.5; Prothrombin Time 35.3 Seconds (9.50-12.10)
== END 2021-12-05 06:33 | disposition home or self-care (01) ==
LOC: CHSLAB 06:34
PROVIDERS: PCP Family Medicine; Visit Provider Family Medicine
DX: Z79.01 Long term (current) use of anticoagulants (principal)
CPT/HCPCS: 36415; 85610

== ENCOUNTER 2021-12-15 06:52 | Outpatient (NON) | payer MEDICARE, MEDICAID, SELFPAY ==
[2021-12-15 07:20] LABS: INR 2.6
== END 2021-12-15 06:53 | disposition home or self-care (01) ==
LOC: CHSLAB 06:53
PROVIDERS: Visit Provider Family Medicine
DX: Z79.01 Long term (current) use of anticoagulants (principal)
CPT/HCPCS: 36415; 85610

== ENCOUNTER 2022-01-05 07:02 | Outpatient (NON) | payer MEDICARE, MEDICAID, SELFPAY ==
[2022-01-05 07:22] LABS: Hematocrit 34.2 % (35.0-42.0); Hemoglobin 10.5 g/dL (11.7-13.8); Mean Corpuscular HGB Conc 30.7 g/dL (32.0-36.0); Mean Corpuscular Hemoglobin 28.2 pg (27.0-31.0); Mean Corpuscular Volume 91.7 fL (78.0-102.0); Mean Platelet Volume 8.8 fl (9.2-11.8); Platelet Count Result 225 K/mm3 (150-420); Red Blood Count 3.73 M/mm3 (4.20-5.40); Red Cell Distribution Width 14.6 % (11.6-14.4); White Blood Count 4.2 K/mm3 (4.8-10.8)
[2022-01-05 08:10] LABS: Alanine Aminotransferase 15 U/L (14-59); Albumin Level 2.9 g/dL (3.4-5.0); Alkaline Phosphatase 108 U/L (46-116); Anion Gap 6 mmol/L (8-16); Aspartate Amino Transferase 11 U/L (15-37); Bilirubin Direct 0.1 mg/dL (0-0.2); Bilirubin,Total 0.3 mg/dL (0.00-1.00); Blood Urea Nitrogen 33 mg/dL (7-18); Carbon Dioxide 26 mmol/L (21-32); Chloride 113 mmol/L (98-108); Estimated Glomerular Filt Rate 31; Glucose 87 mg/dL (70-99); Osmolality Calculated 306 mOsm/kg (285-295); Sodium 145 mmol/L (136-145)
[2022-01-05 09:16] LABS: Band Neutrophils Percent 1 % (0-6); Neutrophils Absolute Manual 2.43 K/mm3 (1.7-7.2); Neutrophils Percent Manual 57 % (46-73); Total Cells Counted 100
[2022-01-05 09:17] LABS: Basophils Absolute Manual 0.04 K/mm3 (0-0.1); Basophils Percent Manual 1 % (0-1); Eosinophils Absolute Manual 0.37 K/mm3 (0.02-0.5); Eosinophils Percent Manual 9 % (1-6); INR 3.4; Lymphocytes Percent Manual 24 % (18-44); Monocytes Absolute Manual 0.33 K/mm3 (0.1-0.90); Monocytes Percent Manual 8 % (3-9); Platelet Estimate Adequate (Adequate); Prothrombin Time 34.1 Seconds (9.50-12.10)
[2022-01-07 13:31] LABS: Vitamin D 25 Hydroxy 20 ng/mL (30-100)
== END 2022-01-05 07:03 | disposition home or self-care (01) ==
LOC: CHSLAB 07:09
PROVIDERS: Visit Provider Family Medicine
DX: D64.9 Anemia, unspecified (principal); I12.9 Hypertensive chronic kidney disease with stage 1 through stage 4 chronic kidney disease, or unspecified chronic kidney disease; N18.4 Chronic kidney disease, stage 4 (severe); J44.9 Chronic obstructive pulmonary disease, unspecified; E55.9 Vitamin D deficiency, unspecified; Z79.01 Long term (current) use of anticoagulants; Z79.899 Other long term (current) drug therapy
CPT/HCPCS: 36415; 80053; 82248; 82306; 85025; 85610

== ENCOUNTER 2022-01-15 09:18 | Outpatient (CLI) | payer MEDICARE, MEDICAID, SELFPAY ==
--- NOTE | ~2022-01-15 | XR_ITS ---
EXAMINATION: XR barium swallow DATE: 01/15/2022 10:34 INDICATION: Gastroesophageal reflux disease. Dysphagia. TECHNIQUE: The patient drank thin barium. Fluoroscopy of the hypopharynx and esophagus was performed. Fluoroscopy exposure time was 0.5 minutes. The total number of images was 269. The dose-area product was 1.9 Gy-cm^2. COMPARISON: CT 03/17/2021 FINDINGS: There is no mass or stricture of the esophagus. There is decreased primary and secondary es ophageal peristalsis. No abnormal tertiary waves. There is a moderate-sized sliding hiatal hernia. IMPRESSION: 1. Moderate esophageal dysmotility. 2. Moderate-sized sliding hiatal hernia. Reviewed, dictated and finalized at location B.
== END 2022-01-15 09:19 | disposition home or self-care (01) ==
PROVIDERS: PCP Family Medicine; Visit Provider Family Medicine
DX: K21.9 Gastro-esophageal reflux disease without esophagitis (principal); R13.10 Dysphagia, unspecified
CPT/HCPCS: 74220

== ENCOUNTER 2022-01-21 06:17 | Outpatient (NON) | payer MEDICARE, MEDICAID, SELFPAY ==
[2022-01-21 07:11] LABS: INR 2.4; Prothrombin Time 24.5 Seconds (9.50-12.10)
== END 2022-01-21 06:18 | disposition home or self-care (01) ==
LOC: CHSLAB 06:18
PROVIDERS: Visit Provider Family Medicine
DX: Z79.01 Long term (current) use of anticoagulants (principal)
CPT/HCPCS: 36415; 85610

== ENCOUNTER 2022-02-05 10:26 | Outpatient (CLI) | payer MEDICARE, MEDICAID, SELFPAY ==
--- NOTE | ~2022-02-05 | CT_ITS ---
EXAMINATION: CT diagnostic chest wo con DATE: 02/05/2022 11:03 INDICATION: Paratracheal mass TECHNIQUE: Computed tomography (CT) of the chest was performed without intravenous contrast. The dose -length product (DLP) was 296.43 mGy-cm. Automated exposure control and iterative reconstruction tech [employer] were employed. COMPARISON: 03/17/2021 FINDINGS: There is chronic atelectasis and scarring of the right lower lobe adjacent to healed rib fr actures. No new airspace opacities are identified. There is a normal-sized right lower paratracheal l ymph node. No suspicious paratracheal mass is identified. There are changes of left thyroidectomy. Th ere are stable nodules of the right thyroid lobe which measure up to 12 mm. No pathologically enlarge d thoracic lymph nodes are identified. The heart size is normal. There is calcified coronary artery a therosclerosis. A moderate-sized sliding hiatal hernia is present. The gallbladder is surgically abse nt. IMPRESSION: 1. No suspicious paratracheal mass identified. Reviewed, dictated and finalized at location B.
== END 2022-02-05 10:27 | disposition home or self-care (01) ==
LOC: CHSIMG 10:29
PROVIDERS: PCP Family Medicine; Visit Provider Thoracic Surgery (Cardiothoracic Vascular Surgery)
DX: R22.2 Localized swelling, mass and lump, trunk (principal)
CPT/HCPCS: 71250

== ENCOUNTER 2022-02-20 06:59 | Outpatient (NON) | payer MEDICARE, SELFPAY ==
[2022-02-20 07:33] LABS: INR 2.4; Prothrombin Time 24.5 Seconds (9.50-12.10)
== END 2022-02-20 07:00 | disposition home or self-care (01) ==
LOC: CHSLAB 07:01
PROVIDERS: PCP Family Medicine; Visit Provider Family Medicine
DX: Z79.01 Long term (current) use of anticoagulants (principal)
CPT/HCPCS: 36415; 85610

== ENCOUNTER 2022-03-16 06:17 | Outpatient (NON) | payer MEDICARE, SELFPAY ==
[2022-03-16 06:48] LABS: INR 2.5; Prothrombin Time 25.4 Seconds (9.50-12.10)
== END 2022-03-16 06:18 | disposition home or self-care (01) ==
LOC: CHSLAB 06:18
PROVIDERS: Visit Provider Family Medicine
DX: Z79.01 Long term (current) use of anticoagulants (principal)
CPT/HCPCS: 36415; 85610

== ENCOUNTER 2022-04-06 06:24 | Outpatient (NON) | payer MEDICARE, SELFPAY ==
[2022-04-06 07:21] LABS: INR 2.3; Prothrombin Time 23.8 Seconds (9.50-12.10)
== END 2022-04-06 06:25 | disposition home or self-care (01) ==
LOC: CHSLAB 06:26
PROVIDERS: Visit Provider Family Medicine
DX: Z79.01 Long term (current) use of anticoagulants (principal)
CPT/HCPCS: 36415; 85610

== ENCOUNTER 2022-04-08 08:38 | Outpatient (CLI) | payer MEDICARE, MEDICAID, SELFPAY ==
--- NOTE | ~2022-04-08 | CT_ITS ---
EXAMINATION: CT abdomen pelvis wo con DATE: 04/08/2022 09:38 INDICATION: History of kidney cancer TECHNIQUE: Computed tomography (CT) of the abdomen and pelvis was performed without intravenous contr ast. The dose-length product (DLP) was 1322.47 mGy-cm. Automated exposure control and iterative recon struction technique were employed. COMPARISON: 03/17/2021 FINDINGS: Cardiomegaly is noted. The gallbladder is surgically absent. There is mild enlargement of t he common bile duct and central intrahepatic ducts which is likely due to post cholecystectomy state. There is a moderate-sized sliding hiatal hernia. Multiple chronic right-sided rib deformities are no brittany. There is a chronic area of low attenuation in the right hepatic lobe, likely reflecting a cresencio ioma. Punctate calcifications in an otherwise normal spleen likely represent healed granulomatous dis ease. The pancreas and right adrenal gland are normal. There are changes of left nephrectomy and adre nalectomy. A 1.5 cm cyst projects in the medial aspect of the right kidney lower pole. There are two subtle soft tissue attenuation lesions of the right mid kidney on image 80 which measure 9 mm an 8 mm . There is calcified atherosclerosis of the aorta and many of the other arteries. An IVC filter is no brittany. No pathologically enlarged abdominal or pelvic lymph nodes are identified. There is no free intr aperitoneal gas or evidence of bowel obstruction. Colonic diverticulosis is present without evidence of diverticulitis. There is antegrade intramedullary irasema and interlocking intratrochanteric screw fix ation of the left femur. A pain pump is implanted in the anterior subcutaneous tissues of the mid ab domen. IMPRESSION: 1. Two subtle soft tissue attenuation lesions of the right mid kidney not definitely appreciated on t he comparison examinations. Given patient's allergy to iodinated contrast, further evaluation by MRI without and with contrast is recommended. Reviewed, dictated and finalized at location B. IMPRESSION: 1. Two subtle soft tissue attenuation lesions of the right mid kidney not defin itely appreciated on the comparison examinations. Given patient's allergy to io dinated contrast, further evaluation by MRI without and with contrast is recomm ended.
== END 2022-04-08 08:39 | disposition home or self-care (01) ==
LOC: CHSIMG 08:40
PROVIDERS: PCP Family Medicine; Visit Provider Urology
DX: C64.9 Malignant neoplasm of unspecified kidney, except renal pelvis (principal); N28.89 Other specified disorders of kidney and ureter
CPT/HCPCS: 74176

== ENCOUNTER 2022-05-06 06:40 | Outpatient (NON) | payer MEDICARE, SELFPAY ==
[2022-05-06 07:25] LABS: INR 2.7; Prothrombin Time 26.9 Seconds (9.50-12.10)
== END 2022-05-06 06:41 | disposition home or self-care (01) ==
LOC: CHSLAB 06:43
PROVIDERS: PCP Family Medicine; Visit Provider Family Medicine
DX: Z79.01 Long term (current) use of anticoagulants (principal)
CPT/HCPCS: 36415; 85610

== ENCOUNTER 2022-06-04 17:57 | Outpatient (NON) | payer MEDICARE, SELFPAY ==
[2022-06-04 18:08] LABS: Bilirubin Urine Negative (Negative); Blood Urine Negative (Negative); Glucose Urine UA Negative (Negative); Ketones Urine Trace (Negative); Leukocyte Esterase Ur 2+ LEU/UL (Negative); Nitrate Urine Negative (Negative); Protein Urine 2+ (Negative)
[2022-06-04 18:15] LABS: Add Urine Microscopic? YES; Color Urine Yellow (Yellow)
[2022-06-04 18:16] LABS: Amorphous Sediment Urine Heavy; Appearance Urine Cloudy (Clear); Bacteria Urine 3+ /hpf; RBC Urine 0-2 /hpf (0-2); Squamous Epithelial Cell Urine Few /hpf (Few); WBC Urine 21-30 /hpf (0-3)
[2022-06-04 18:17] LABS: Triple Phosphate Crystal Urine Present /hpf
== END 2022-06-04 17:58 | disposition home or self-care (01) ==
LOC: CHSLAB 17:59
PROVIDERS: Visit Provider Family Medicine
DX: R35.0 Frequency of micturition (principal)
CPT/HCPCS: 81001; 87086; 87088

== ENCOUNTER 2022-06-08 19:23 | Emergency (ER) | payer MEDICARE, MEDICAID, SELFPAY ==
--- NOTE | ~2022-06-08 | XR_ITS ---
EXAM: XR tibia fibula LT 2V DATE: 06/08/2022 20:16 HISTORY: pain, redness . COMPARISON: X-ray ankle 02/10/2018, x-ray knee 09/07/2021. FINDINGS: Uncomplicated appearing left knee arthroplasty. Decreased mineralization. No fracture or d islocation. No lytic or blastic lesion. Joint spaces and physes are maintained. No erosion or periost eal change. Vascular calcifications. Subcutaneous edema in the leg. IMPRESSION: No acute osseous finding in the left tibia/fibula. Reviewed, dictated and finalized at location K. L OPERATOR WHISKEY
[2022-06-08 19:30] VITALS: BP 166/77; PULSE 75; RESP 18; TEMP 36.9; O2SAT 96
--- NOTE | 2022-06-08 19:59 | ED.EXTPRO ---
HPI - Extremity Problem General Chief complaint: Extremity Problem,Nontraumatic Stated complaint: left ankle and foot pain Time Seen by Provider: 06/08/22 19:26 Source: patient and RN notes reviewed Mode of arrival: wheelchair Limitations: no limitations History of Present Illness HPI Narrative: pain-ful, red, minimally swollen left distal leg MD Complaint: extremity pain Onset (ago): day(s) (2) Pain Consistency: constant Location: left and lower extremity Severity scale (1-10): 4 Quality: aching and dull Radiation: none Relieving factors: immobilization Exacerbating factors: weight bearing Associated symptoms: denies other symptoms Related Data Home Medications Medication Instructions Recorded Confirmed amlodipine 5 mg tablet 5 mg PO DAILY 06/16/20 06/08/22 bupropion HCl 150 mg 24 hr tablet, 150 mg PO QAM 06/16/20 06/08/22 extended release escitalopram oxalate 10 mg tablet 10 mg PO DAILY 06/16/20 06/08/22 linaclotide 145 mcg capsule 145 mcg PO DAILY 06/16/20 06/08/22 (Linzess) omeprazole 40 mg capsule,delayed 40 mg PO BID 06/16/20 06/08/22 release warfarin 5 mg tablet 5 mg PO DAILY 06/16/20 06/08/22 bethanechol chloride 25 mg tablet 25 mg PO TIDWMEAL 07/11/20 06/08/22 ergocalciferol (vitamin D2) 1,250 1,250 mcg PO WEEKLY 07/11/20 06/08/22 mcg (50,000 unit) capsule (Vitamin D2) trimethoprim 100 mg tablet 100 mg PO HS 07/11/20 06/08/22 vit C 250 mg-vit E 90 mg-zinc 40 1 tablet PO BID 07/11/20 06/08/22 mg-copper 1 [id number] capsule (PreserVision AREDS-2) Allergies Allergy/AdvReac Type Severity Reaction Status Date / Time Sulfa (Sulfonamide Allergy Unknown Unknown Verified 06/08/22 19:36 Antibiotics) Review of Systems Review of Systems: All systems reviewed & are unremarkable except as noted in HPI and below Constitutional: Constitutional: Reports no additional constitutional complaints Eyes: Eyes: Reports no additional eye complaints ENT: Reports system reviewed and no additional complaints, except as documented Cardiovascular: Cardiovascular: Reports no additional cardiovascular complaints Respiratory: Respiratory: Reports no additional respiratory complaints Gastrointestinal: Gastrointestinal: Reports no additional gastrointestinal complaints Genitourinary: Genitourinary: Reports no additional female genitourinary complaints Musculoskeletal: Comments: left leg pain-ful redness Integumentary/Breasts: Skin/Breast: Reports system reviewed and no additional complaints, except as docu Neurologic: Reports system reviewed and no additional complaints, except as documented Psychiatric: Psychiatric: Reports no additional psychiatric complaints Endocrine: Endocrine: Reports no additional endocrine complaints Hematologic/Lymphatic: Hematologic/Lymphatic: Reports no additional hematologic/lymphatic complaints Allergic/Immunologic: Allergic/Immunologic: Reports no additional allergic/immunologic complaints PMFSH Past Medical History Medical History Chronic back pain Hypertension Left leg cellulitis Polycystic kidney Surgical History Surgical History H/O hysterectomy with oophorectomy History of bilateral knee replacement History of nephrectomy History of repair of hiatal hernia Social History Social History Smoking status: Never smoker Alcohol intake: never Substance use: never Substance use type: does not use Gender identity (if verbalized by the patient): Female Sexual Orientation (if Verbalized by the Patient): Straight or Heterosexual Spiritual care concerns: No Exam Const: General: no acute distress and well nourished Nutritional Appearance: well nourished Orientation/consciousness: patient oriented x3 Limitations: no limitations HENMT: Head: normal to inspection Ears: e
[2022-06-08 20:04] LABS: Basophils Absolute Auto 0.03 K/mm3 (0.00-0.10); Basophils Percent Auto 0.5 % (0.0-1.0); Eosinophils Percent Auto 6.3 % (1.0-6.0); Hemoglobin 10.7 g/dL (11.7-13.8); Immature Granulocyte Absolute 0.03 K/mm3 (0.00-0.00); Immature Granulocyte Percent A 0.5 % (0.0-0.0); Lymphocytes Absolute Auto 0.92 K/mm3 (1.10-4.50); Lymphocytes Percent Auto 14.6 % (18.0-42.0); Mean Corpuscular HGB Conc 30.6 g/dL (32.0-36.0); Mean Corpuscular Hemoglobin 27.9 pg (27.0-31.0); Mean Corpuscular Volume 91.4 fL (78.0-102.0); Mean Platelet Volume 8.6 fl (9.2-11.8); Monocytes Absolute Auto 0.82 K/mm3 (0.10-0.90); Neutrophils Absolute Auto 4.1 K/mm3 (1.7-7.2); Neutrophils Percent Auto 65.1 % (50.0-70.0); Platelet Count Result 204 K/mm3 (150-420); Red Blood Count 3.83 M/mm3 (4.20-5.40); White Blood Count 6.3 K/mm3 (4.8-10.8)
[2022-06-08] MEDS: ACETAMINOPHEN 325 MG TABLET 650 MG PO (20:19)
[2022-06-08] MEDS: cefTRIAXone 1 GM, LIDOCAINE HCL 1% LOCAL INJ 2.1 ML IM (20:21)
[2022-06-08 20:52] VITALS: BP 148/67; PULSE 75; RESP 20; TEMP 36.9; O2SAT 96
== END 2022-06-08 21:00 | disposition home or self-care (01) ==
PROVIDERS: Emergency Provider Emergency Medicine; PCP Family Medicine
DX: L03.90 Cellulitis, unspecified (principal); I10 Essential (primary) hypertension
CPT/HCPCS: 36415; 73590; 85025; 96372; 99283; A9270; J0696

== ENCOUNTER 2022-07-08 06:45 | Outpatient (NON) | payer MEDICARE, SELFPAY ==
[2022-07-08 07:25] LABS: INR 2.9; Prothrombin Time 29.5 Seconds (9.50-12.10)
[2022-07-08 07:38] LABS: Cholesterol 244 mg/dL (0-200); HDL Direct 43 mg/dL (40-60); LDL Cholesterol Calculated 146 mg/dL (<130); Thyroid Stimulating Hormone 3.41 uIU/mL (0.36-3.74); Triglycerides 274 mg/dL (0-150)
== END 2022-07-08 06:46 | disposition home or self-care (01) ==
LOC: CHSLAB 06:48
PROVIDERS: Visit Provider Family Medicine
DX: E03.9 Hypothyroidism, unspecified (principal); I12.9 Hypertensive chronic kidney disease with stage 1 through stage 4 chronic kidney disease, or unspecified chronic kidney disease; N18.4 Chronic kidney disease, stage 4 (severe); Z79.01 Long term (current) use of anticoagulants
CPT/HCPCS: 36415; 80061; 84443; 85610

== ENCOUNTER 2022-07-14 10:13 | Outpatient (CLI) | payer MEDICARE, MEDICAID, SELFPAY ==
--- NOTE | ~2022-07-14 | XR_ITS ---
Left Shoulder Technique: AP internal, external rotation views, Grashey view, and scapular Y views were obtained. Clinical History: Pain Findings: No fracture or dislocation is seen. Osseous alignment is anatomic. The glenohumeral and acr omioclavicular joint spaces are preserved. Soft tissues are unremarkable. Impression: Unremarkable left shoulder radiographs. Reviewed, dictated and finalized at location [] [employer]OR LEARNING AND DEVELOPMENT Impression: Unremarkable left shoulder radiographs.
== END 2022-07-14 10:14 | disposition home or self-care (01) ==
LOC: CHSIMG 10:17
PROVIDERS: PCP Family Medicine; Visit Provider Family Medicine
DX: M25.512 Pain in left shoulder (principal)
CPT/HCPCS: 73030

== ENCOUNTER 2022-08-05 16:35 | Outpatient (NON) | payer MEDICARE, SELFPAY ==
[2022-08-05 17:07] LABS: Hemoglobin 10.9 g/dL (11.7-13.8); Mean Corpuscular HGB Conc 31.1 g/dL (32.0-36.0); Mean Corpuscular Hemoglobin 28.4 pg (27.0-31.0); Mean Corpuscular Volume 91.1 fL (78.0-102.0); Mean Platelet Volume 8.9 fl (9.2-11.8); Platelet Count Result 198 K/mm3 (150-420); Red Blood Count 3.84 M/mm3 (4.20-5.40); Red Cell Distribution Width 15.1 % (11.6-14.4); White Blood Count 4.2 K/mm3 (4.8-10.8)
[2022-08-05 17:16] LABS: Alanine Aminotransferase 18 U/L (14-59); Albumin Level 2.7 g/dL (3.4-5.0); Alkaline Phosphatase 111 U/L (46-116); Anion Gap 8 mmol/L (8-16); Bilirubin,Total 0.2 mg/dL (0.00-1.00); Blood Urea Nitrogen 40 mg/dL (7-18); Carbon Dioxide 24 mmol/L (21-32); Chloride 110 mmol/L (98-108); Estimated Glomerular Filt Rate 27; Glucose 106 mg/dL (70-99); Osmolality Calculated 303 mOsm/kg (285-295); Potassium 3.9 mmol/L (3.5-5.1); Sodium 142 mmol/L (136-145); Total Protein 6.4 g/dL (6.4-8.2)
[2022-08-05 17:35] LABS: Aspartate Amino Transferase 18 U/L (15-37)
[2022-08-05 17:40] LABS: Band Neutrophils Percent 1 % (0-6); Basophils Absolute Manual 0.04 K/mm3 (0-0.1); Basophils Percent Manual 1 % (0-1); Eosinophils Absolute Manual 0.29 K/mm3 (0.02-0.5); Eosinophils Percent Manual 7 % (1-6); Lymphocytes Absolute Manual 0.79 K/mm3 (1.1-4.5); Lymphocytes Percent Manual 19 % (18-44); Monocytes Absolute Manual 0.37 K/mm3 (0.1-0.90); Monocytes Percent Manual 9 % (3-9); Neutrophils Absolute Manual 2.68 K/mm3 (1.7-7.2); Neutrophils Percent Manual 63 % (46-73); Platelet Estimate Adequate (Adequate); Total Cells Counted 100
== END 2022-08-05 16:36 | disposition home or self-care (01) ==
LOC: CHSLAB 16:37
PROVIDERS: Visit Provider Family Medicine
DX: N18.4 Chronic kidney disease, stage 4 (severe) (principal); U07.1 COVID-19
CPT/HCPCS: 36415; 80053; 85025

== ENCOUNTER 2022-08-10 07:36 | Outpatient (NON) | payer MEDICARE, SELFPAY ==
[2022-08-10 08:15] LABS: INR 2.5; Prothrombin Time 25.5 Seconds (9.50-12.10)
== END 2022-08-10 07:37 | disposition home or self-care (01) ==
PROVIDERS: Visit Provider Family Medicine
DX: Z79.01 Long term (current) use of anticoagulants (principal)
CPT/HCPCS: 36415; 85610

== ENCOUNTER 2022-09-02 06:35 | Outpatient (NON) | payer MEDICARE, SELFPAY ==
[2022-09-02 07:15] LABS: INR 2.1; Prothrombin Time 21.5 Seconds (9.50-12.10)
== END 2022-09-02 06:36 | disposition home or self-care (01) ==
LOC: CHSLAB 06:36
PROVIDERS: Visit Provider Family Medicine
DX: Z79.01 Long term (current) use of anticoagulants (principal)
CPT/HCPCS: 36415; 85610

== ENCOUNTER 2022-09-27 14:38 | Outpatient (CLI) | payer MEDICARE, MEDICAID, SELFPAY ==
--- NOTE | ~2022-09-27 | CT_ITS ---
Non-contrast CT scan of the Abdomen and Pelvis Clinical indication: Renal cell carcinoma Technique: 2.5 mm axial scans were obtained through the abdomen and pelvis without intravenous or or al contrast. Dose reduction technique was used on this scan by utilizing automated exposure control a nd iterative reconstruction technique. The dose-length product (DLP) was 1235.56 mGy-cm. COMPARISON: 04/08/2022 Findings: Images through the lung bases reveal chronic right basilar scarring or atelectasis. Small hiatal hernia present. Markedly diminutive left hepatic lobe is stable from prior exam. Liver is unchanged in appearance ove rall. Cholecystectomy clips are present. Patient is status post left nephrectomy and probable left ad renalectomy. Right kidney is stable in appearance from prior exam. The spleen, pancreas, and right ad renal gland appear normal. There is no aortic aneurysm. There are atherosclerotic calcifications of the aorta. IVC filter in place. There is no evidence of bowel obstruction. Images through the pelvis were performed. There is no evidence of ascites or lymphadenopathy. There i s air in the urinary bladder. Patient is post hysterectomy. No adnexal mass seen. Impression: Stable appearance of the right kidney since prior exam. Questionable small subtle hyperdense structur es could reflect small hyperdense cysts. Small hiatal hernia. Postoperative changes are stable from prior exam, including cholecystectomy, left nephrectomy and adr enalectomy, and hysterectomy. Air in urinary bladder. Correlate for iatrogenic cause. Reviewed, dictated and finalized at [facility]. 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 Questionable small subt le hyperdense structures could reflect small hyperdense cysts. Small hiatal hernia. Postoperative changes are stable from prior exam, including cholecystectomy, le ft nephrectomy and adrenalectomy, and hysterectomy. Air in urinary bladder. Correlate for iatrogenic cause.
== END 2022-09-27 14:39 | disposition home or self-care (01) ==
LOC: CHSIMG 14:40
PROVIDERS: PCP Family Medicine; Visit Provider Urology
DX: C64.9 Malignant neoplasm of unspecified kidney, except renal pelvis (principal); K44.9 Diaphragmatic hernia without obstruction or gangrene; Z98.890 Other specified postprocedural states
CPT/HCPCS: 74176

== ENCOUNTER 2022-10-07 06:28 | Outpatient (NON) | payer MEDICARE, SELFPAY ==
[2022-10-07 06:54] LABS: Basophils Absolute Auto 0.03 K/mm3 (0.00-0.10); Basophils Percent Auto 0.6 % (0.0-1.0); Eosinophils Absolute Auto 0.41 K/mm3 (0.02-0.50); Eosinophils Percent Auto 8.4 % (1.0-6.0); Hematocrit 35.8 % (35.0-42.0); Hemoglobin 10.9 g/dL (11.7-13.8); Immature Granulocyte Absolute 0.02 K/mm3 (0.00-0.00); Immature Granulocyte Percent A 0.4 % (0.0-0.0); Lymphocytes Absolute Auto 0.87 K/mm3 (1.10-4.50); Lymphocytes Percent Auto 17.8 % (18.0-42.0); Mean Corpuscular HGB Conc 30.4 g/dL (32.0-36.0); Mean Corpuscular Hemoglobin 27.6 pg (27.0-31.0); Mean Corpuscular Volume 90.6 fL (78.0-102.0); Monocytes Absolute Auto 0.61 K/mm3 (0.10-0.90); Monocytes Percent Auto 12.5 % (2.0-11.0); Neutrophils Absolute Auto 2.9 K/mm3 (1.7-7.2); Neutrophils Percent Auto 60.3 % (50.0-70.0); Platelet Count Result 199 K/mm3 (150-420); Red Blood Count 3.95 M/mm3 (4.20-5.40); Red Cell Distribution Width 14.6 % (11.6-14.4); White Blood Count 4.9 K/mm3 (4.8-10.8)
[2022-10-07 07:05] LABS: Anion Gap 8 mmol/L (8-16); Blood Urea Nitrogen 35 mg/dL (7-18); Calcium 8.6 mg/dL (8.5-10.1); Carbon Dioxide 28 mmol/L (21-32); Chloride 113 mmol/L (98-108); Estimated Glomerular Filt Rate 31; Glucose 87 mg/dL (70-99); Osmolality Calculated 315 mOsm/kg (285-295); Sodium 149 mmol/L (136-145)
[2022-10-07 07:06] LABS: INR 2.3; Prothrombin Time 23.5 Seconds (9.50-12.10)
== END 2022-10-07 06:29 | disposition home or self-care (01) ==
LOC: CHSLAB 06:31
PROVIDERS: Visit Provider Family Medicine
DX: D64.9 Anemia, unspecified (principal); Z79.01 Long term (current) use of anticoagulants; N18.4 Chronic kidney disease, stage 4 (severe)
CPT/HCPCS: 36415; 80048; 85025; 85610

== ENCOUNTER 2022-10-23 06:49 | Outpatient (NON) | payer MEDICARE, SELFPAY ==
[2022-10-23 07:39] LABS: Basophils Absolute Auto 0.02 K/mm3 (0.00-0.10); Basophils Percent Auto 0.4 % (0.0-1.0); Eosinophils Absolute Auto 0.44 K/mm3 (0.02-0.50); Eosinophils Percent Auto 9.1 % (1.0-6.0); Hemoglobin 10.4 g/dL (11.7-13.8); Immature Granulocyte Absolute 0.01 K/mm3 (0.00-0.00); Immature Granulocyte Percent A 0.2 % (0.0-0.0); Lymphocytes Percent Auto 16.6 % (18.0-42.0); Mean Corpuscular HGB Conc 30.6 g/dL (32.0-36.0); Mean Corpuscular Hemoglobin 27.9 pg (27.0-31.0); Mean Corpuscular Volume 91.2 fL (78.0-102.0); Monocytes Absolute Auto 0.66 K/mm3 (0.10-0.90); Monocytes Percent Auto 13.7 % (2.0-11.0); Neutrophils Absolute Auto 2.9 K/mm3 (1.7-7.2); Platelet Count Result 208 K/mm3 (150-420); Red Blood Count 3.73 M/mm3 (4.20-5.40); Red Cell Distribution Width 14.8 % (11.6-14.4); White Blood Count 4.8 K/mm3 (4.8-10.8)
[2022-10-27 13:17] LABS: Parathyroid Intact 80 pg/mL (14-64)
== END 2022-10-23 06:50 | disposition home or self-care (01) ==
LOC: CHSLAB 07:20
DX: N18.4 Chronic kidney disease, stage 4 (severe) (principal); E55.9 Vitamin D deficiency, unspecified
CPT/HCPCS: 36415; 83970; 85025

== ENCOUNTER 2022-11-05 15:05 | Outpatient (NON) | payer MEDICARE, SELFPAY ==
[2022-11-05 15:28] LABS: Basophils Absolute Auto 0.03 K/mm3 (0.00-0.10); Basophils Percent Auto 0.4 % (0.0-1.0); Eosinophils Absolute Auto 0.48 K/mm3 (0.02-0.50); Eosinophils Percent Auto 6.9 % (1.0-6.0); Hematocrit 40.2 % (35.0-42.0); Hemoglobin 12.4 g/dL (11.7-13.8); Immature Granulocyte Absolute 0.02 K/mm3 (0.00-0.00); Immature Granulocyte Percent A 0.3 % (0.0-0.0); Lymphocytes Percent Auto 14.5 % (18.0-42.0); Mean Corpuscular HGB Conc 30.8 g/dL (32.0-36.0); Mean Corpuscular Volume 90.7 fL (78.0-102.0); Mean Platelet Volume 8.8 fl (9.2-11.8); Monocytes Absolute Auto 0.64 K/mm3 (0.10-0.90); Monocytes Percent Auto 9.3 % (2.0-11.0); Neutrophils Absolute Auto 4.7 K/mm3 (1.7-7.2); Neutrophils Percent Auto 68.6 % (50.0-70.0); Platelet Count Result 285 K/mm3 (150-420); Red Blood Count 4.43 M/mm3 (4.20-5.40); Red Cell Distribution Width 14.6 % (11.6-14.4); White Blood Count 6.9 K/mm3 (4.8-10.8)
[2022-11-05 15:34] LABS: INR 2.1; Prothrombin Time 21.6 Seconds (9.50-12.10)
[2022-11-05 15:44] LABS: Alanine Aminotransferase 15 U/L (14-59); Albumin Level 3.5 g/dL (3.4-5.0); Alkaline Phosphatase 129 U/L (46-116); Anion Gap 9 mmol/L (8-16); Aspartate Amino Transferase 15 U/L (15-37); Bilirubin,Total 0.3 mg/dL (0.00-1.00); Blood Urea Nitrogen 25 mg/dL (7-18); Calcium 9.1 mg/dL (8.5-10.1); Carbon Dioxide 27 mmol/L (21-32); Chloride 110 mmol/L (98-108); Estimated Glomerular Filt Rate 31; Glucose 96 mg/dL (70-99); Osmolality Calculated 306 mOsm/kg (285-295); Potassium 3.8 mmol/L (3.5-5.1); Sodium 146 mmol/L (136-145); Total Protein 7.6 g/dL (6.4-8.2)
[2022-11-05 17:36] LABS: Appearance Urine Clear (Clear); Bilirubin Urine Negative (Negative); Blood Urine Negative (Negative); Color Urine Light Yellow (Yellow); Glucose Urine UA Negative (Negative); Ketones Urine Negative (Negative); Leukocyte Esterase Ur 2+ LEU/UL (Negative); Nitrate Urine Negative (Negative); Protein Urine 2+ (Negative); Specific Grav Ur 1.025 (1.010-1.020); Urobilinogen Urine 0.2 mg/dL (0.2-1.0)
[2022-11-05 19:16] LABS: Add Urine Microscopic? YES; Bacteria Urine 4+ /hpf; RBC Urine 0-2 /hpf (0-2); Squamous Epithelial Cell Urine Few /hpf (Few); WBC Urine >75 /hpf (0-3)
== END 2022-11-05 15:06 | disposition home or self-care (01) ==
LOC: CHSLAB 15:08
PROVIDERS: Visit Provider Family Medicine
DX: I10 Essential (primary) hypertension (principal); Z79.01 Long term (current) use of anticoagulants; N18.4 Chronic kidney disease, stage 4 (severe); J44.9 Chronic obstructive pulmonary disease, unspecified; R82.90 Unspecified abnormal findings in urine
CPT/HCPCS: 36415; 80053; 81001; 85025; 85610; 87077; 87086; 87088; 87186

== ENCOUNTER 2022-11-08 06:22 | Outpatient (NON) | payer MEDICARE, SELFPAY ==
[2022-11-08 06:54] LABS: Basophils Absolute Auto 0.02 K/mm3 (0.00-0.10); Basophils Percent Auto 0.5 % (0.0-1.0); Eosinophils Absolute Auto 0.42 K/mm3 (0.02-0.50); Hematocrit 34.8 % (35.0-42.0); Hemoglobin 10.6 g/dL (11.7-13.8); Immature Granulocyte Absolute 0.02 K/mm3 (0.00-0.00); Immature Granulocyte Percent A 0.5 % (0.0-0.0); Lymphocytes Absolute Auto 0.85 K/mm3 (1.10-4.50); Lymphocytes Percent Auto 20.2 % (18.0-42.0); Mean Corpuscular HGB Conc 30.5 g/dL (32.0-36.0); Mean Corpuscular Hemoglobin 27.5 pg (27.0-31.0); Mean Corpuscular Volume 90.2 fL (78.0-102.0); Mean Platelet Volume 8.8 fl (9.2-11.8); Monocytes Absolute Auto 0.46 K/mm3 (0.10-0.90); Neutrophils Absolute Auto 2.4 K/mm3 (1.7-7.2); Neutrophils Percent Auto 57.8 % (50.0-70.0); Platelet Count Result 205 K/mm3 (150-420); Red Blood Count 3.86 M/mm3 (4.20-5.40); Red Cell Distribution Width 14.8 % (11.6-14.4); White Blood Count 4.2 K/mm3 (4.8-10.8)
[2022-11-08 07:09] LABS: Anion Gap 6 mmol/L (8-16); Blood Urea Nitrogen 26 mg/dL (7-18); Calcium 8.6 mg/dL (8.5-10.1); Carbon Dioxide 30 mmol/L (21-32); Chloride 112 mmol/L (98-108); Estimated Glomerular Filt Rate 29; Glucose 86 mg/dL (70-99); Osmolality Calculated 309 mOsm/kg (285-295); Phosphorus 3.8 mg/dL (2.6-4.7); Sodium 148 mmol/L (136-145)
== END 2022-11-08 06:23 | disposition home or self-care (01) ==
LOC: CHSLAB 06:31
PROVIDERS: Visit Provider Family Medicine
DX: N18.4 Chronic kidney disease, stage 4 (severe) (principal); D64.9 Anemia, unspecified; Z79.01 Long term (current) use of anticoagulants
CPT/HCPCS: 36415; 80069; 85025

== ENCOUNTER 2022-11-09 23:06 | Emergency (ER) | payer MEDICARE, MEDICAID, SELFPAY ==
[2022-11-09 23:10] VITALS: BP 121/105; PULSE 100; RESP 20; TEMP 37.3; O2SAT 94
--- NOTE | 2022-11-09 23:17 | ED.SKABFB ---
HPI - Skin/Abscess/Foreign Bdy General Chief complaint: Extremity Problem,Nontraumatic Stated complaint: Extremity Injury, Lower Source: patient Mode of arrival: wheelchair History of Present Illness HPI narrative: 82-year-old female with a history of hypertension, CKD, polycystic kidney disease status post left nephrectomy, DVT left lower extremity on Coumadin, status post GERD surgery complicated by esophageal perforation orthostatic hypotension, constipation, recurrent UTI, recurrent falls, currently on treatment for urinary tract infection presents to the ER with -- left leg erythema/ pain /swelling. She has prior history of left leg cellulitis. no fever or chills. -- nausea with decreased appetite -- diagnosed with UTI and is currently on Macrobid/ he flex/Bactrim The patient had blood work done yesterday which revealed chronic anemia, neutropenia 4.2. Chemistries revealed a sodium of 148 and CKD with a BUN/creatinine of 26/1.7 the patient is not interested in doing any additional blood work at this time. MD complaint: rash and discoloration Onset (ago): day(s) ( Started 1 day ago) Tetanus up to date: unsure Location: LLE Severity: moderate Quality: aching Pain Consistency: constant Relieving factors: none Exacerbating factors: none Context: none Associated symptoms: denies other symptoms and shortness of breath Treatments prior to arrival: none Related Data Home Medications Medication Instructions Recorded Confirmed amlodipine 5 mg tablet 5 mg PO DAILY 06/16/20 11/09/22 bupropion HCl 150 mg 24 hr tablet, 150 mg PO QAM 06/16/20 11/09/22 extended release escitalopram oxalate 10 mg tablet 10 mg PO DAILY 06/16/20 11/09/22 linaclotide 145 mcg capsule 145 mcg PO DAILY 06/16/20 11/09/22 (Linzess) omeprazole 40 mg capsule,delayed 40 mg PO BID 06/16/20 11/09/22 release warfarin 5 mg tablet 5 mg PO DAILY 06/16/20 11/09/22 bethanechol chloride 25 mg tablet 25 mg PO TIDWMEAL 07/11/20 11/09/22 ergocalciferol (vitamin D2) 1,250 1,250 mcg PO WEEKLY 07/11/20 11/09/22 mcg (50,000 unit) capsule (Vitamin D2) trimethoprim 100 mg tablet 100 mg PO HS 07/11/20 11/09/22 vit C 250 mg-vit E 90 mg-zinc 40 1 tablet PO BID 07/11/20 11/09/22 mg-copper 1 [id number]-[id number] capsule (PreserVision AREDS-2) Macrobid 100 mg BYMOUTH DAILY 11/09/22 11/09/22 ferrous sulfate 325 mg (65 mg 325 mg PO DAILY 11/09/22 11/09/22 iron) capsule,extended release hydrocodone 5 mg-acetaminophen 325 5 - 325 tablet PO PRN 11/09/22 11/09/22 mg tablet senna 8.6 - 50 mg BYMOUTH PRN 11/09/22 11/09/22 Allergies Allergy/AdvReac Type Severity Reaction Status Date / Time Sulfa (Sulfonamide Allergy Unknown Unknown Verified 06/08/22 19:36 Antibiotics) Review of Systems Review of Systems: All systems reviewed & are unremarkable except as noted in HPI and below Constitutional: Constitutional: Reports as per HPI and Reports no additional constitutional complaints Eyes: Eyes: Reports as per HPI and Reports no additional eye complaints ENT: Reports system reviewed and no additional complaints, except as documented and Reports as per HPI Cardiovascular: Cardiovascular: Reports as per HPI and Reports no additional cardiovascular complaints Respiratory: Respiratory: Reports as per HPI, Reports no additional respiratory complaints and Reports dyspnea Gastrointestinal: Gastrointestinal: Reports as per HPI, Reports no additional gastrointestinal complaints and Reports constipation Genitourinary: Genitourinary: Reports no additional female genitourinary complaints Comments: patient complains of dysuria Musculoskeletal: Musculoskeletal: Reports no additional musculoskeletal complaints and Reports back pain Comments: patient on pain pump for chronic low back pain Integumentary/Breasts: Comments: cellulitis over left leg Neurologic: Reports system reviewed and no additional complaints, except as documented and Reports as per HPI Psychi
[2022-11-09] MEDS: ONDANSETRON HCL ODT 4 MG TABLET PO (23:57)
[2022-11-09] MEDS: HYDROmorphone HCL INJ (*CRX) 2 MG/ML VIAL 0.5 MG IM (23:57)
[2022-11-10] MEDS: AMOXICILLIN/CLAVULANATE K 500-125 MG TAB 1 TABLET PO (00:11)
[2022-11-10] MEDS: diphenhydrAMINE HCl INJ 50 MG/ML VIAL 25 MG IM (00:34)
[2022-11-10 00:41] VITALS: BP 141/81; PULSE 88; RESP 20; TEMP 36.7; O2SAT 100
== END 2022-11-10 00:54 ==
PROVIDERS: Emergency Provider Internal Medicine Critical Care Medicine; PCP Family Medicine
DX: I12.9 Hypertensive chronic kidney disease with stage 1 through stage 4 chronic kidney disease, or unspecified chronic kidney disease (principal); N18.4 Chronic kidney disease, stage 4 (severe); L03.116 Cellulitis of left lower limb; M54.50 Low back pain, unspecified; Z79.891 Long term (current) use of opiate analgesic; Z79.01 Long term (current) use of anticoagulants; Z86.718 Personal history of other venous thrombosis and embolism
CPT/HCPCS: 96372; 99284; A9270; J1170; J1200

== ENCOUNTER 2022-11-10 16:26 | Outpatient (CLI) | payer MEDICARE, MEDICAID, SELFPAY ==
[2022-11-10 17:13] LABS: D Dimer 0.44 mg/L (0.19-0.50)
== END 2022-11-10 16:27 | disposition home or self-care (01) ==
PROVIDERS: PCP Family Medicine; Visit Provider Family Medicine
DX: L03.90 Cellulitis, unspecified (principal)
CPT/HCPCS: 36415; 85380; 96372; 99284; A9270; J1170; J1200

== ENCOUNTER 2022-11-16 06:34 | Outpatient (NON) | payer MEDICARE, SELFPAY ==
[2022-11-16 07:10] LABS: Appearance Urine Clear (Clear); Bilirubin Urine Negative (Negative); Blood Urine Negative (Negative); Color Urine Light Yellow (Yellow); Glucose Urine UA Negative (Negative); Ketones Urine Negative (Negative); Leukocyte Esterase Ur Negative LEU/UL (Negative); Nitrate Urine Negative (Negative); Protein Urine 1+ (Negative); Specific Grav Ur 1.015 (1.010-1.020); Urobilinogen Urine 0.2 mg/dL (0.2-1.0)
[2022-11-16 07:20] LABS: Add Urine Microscopic? YES; RBC Urine None seen /hpf (0-2)
[2022-11-16 07:21] LABS: Bacteria Urine Rare /hpf; WBC Urine None seen /hpf (0-3)
== END 2022-11-16 06:35 | disposition home or self-care (01) ==
LOC: CHSLAB 06:36
PROVIDERS: Visit Provider Family Medicine
DX: N39.0 Urinary tract infection, site not specified (principal)
CPT/HCPCS: 81001

== ENCOUNTER 2022-11-18 07:35 | Outpatient (NON) | payer MEDICARE, SELFPAY ==
[2022-11-18 08:36] LABS: Vitamin B12 237 pg/mL (193-986)
[2022-11-22 23:34] LABS: Methylmalonic Acid 1020 nmol/L (87-318)
== END 2022-11-18 07:36 | disposition home or self-care (01) ==
LOC: CHSLAB 07:37
PROVIDERS: Visit Provider Family Medicine
DX: D64.9 Anemia, unspecified (principal)
CPT/HCPCS: 36415; 82607; 83921

== ENCOUNTER 2023-01-19 06:33 | Outpatient (NON) | payer MEDICARE, SELFPAY ==
[2023-01-19 06:55] LABS: Hematocrit 35.1 % (35.0-42.0); Hemoglobin 10.6 g/dL (11.7-13.8); Mean Corpuscular HGB Conc 30.2 g/dL (32.0-36.0); Mean Corpuscular Hemoglobin 27.5 pg (27.0-31.0); Mean Corpuscular Volume 91.2 fL (78.0-102.0); Mean Platelet Volume 8.9 fl (9.2-11.8); Platelet Count Result 205 K/mm3 (150-420); Red Blood Count 3.85 M/mm3 (4.20-5.40); White Blood Count 4.2 K/mm3 (4.8-10.8)
[2023-01-19 07:00] LABS: INR 2.1; Prothrombin Time 22.1 Seconds (9.50-12.10)
[2023-01-19 07:09] LABS: Alanine Aminotransferase 18 U/L (14-59); Albumin Level 2.9 g/dL (3.4-5.0); Alkaline Phosphatase 118 U/L (46-116); Anion Gap 10 mmol/L (8-16); Aspartate Amino Transferase 16 U/L (15-37); Bilirubin Direct 0.1 mg/dL (0-0.2); Bilirubin,Total 0.2 mg/dL (0.00-1.00); Blood Urea Nitrogen 30 mg/dL (7-18); Calcium 8.5 mg/dL (8.5-10.1); Carbon Dioxide 27 mmol/L (21-32); Chloride 112 mmol/L (98-108); Estimated Glomerular Filt Rate 31; Glucose 93 mg/dL (70-99); NT Pro B Type Natriuretic Pept 664 pg/mL (0-450); Osmolality Calculated 314 mOsm/kg (285-295); Potassium 4.1 mmol/L (3.5-5.1); Sodium 149 mmol/L (136-145); Total Protein 6.3 g/dL (6.4-8.2)
[2023-01-19 08:02] LABS: Band Neutrophils Percent 0 % (0-6); Lymphocytes Absolute Manual 0.88 K/mm3 (1.1-4.5); Lymphocytes Percent Manual 21 % (18-44); Neutrophils Absolute Manual 2.64 K/mm3 (1.7-7.2); Neutrophils Percent Manual 63 % (46-73); Total Cells Counted 100
[2023-01-19 08:03] LABS: Basophils Percent Manual 0 % (0-1); Eosinophils Absolute Manual 0.42 K/mm3 (0.02-0.5); Eosinophils Percent Manual 10 % (1-6); Monocytes Absolute Manual 0.25 K/mm3 (0.1-0.90); Monocytes Percent Manual 6 % (3-9); Platelet Estimate Adequate (Adequate)
[2023-01-22 14:04] LABS: Vitamin D 25 Hydroxy 21 ng/mL (30-100)
== END 2023-01-19 06:34 | disposition home or self-care (01) ==
LOC: CHSLAB 06:39
PROVIDERS: PCP Family Medicine; Visit Provider Family Medicine
DX: E55.9 Vitamin D deficiency, unspecified (principal); D64.9 Anemia, unspecified; D63.1 Anemia in chronic kidney disease; I10 Essential (primary) hypertension; Z79.01 Long term (current) use of anticoagulants; N18.4 Chronic kidney disease, stage 4 (severe); J44.9 Chronic obstructive pulmonary disease, unspecified; R06.02 Shortness of breath
CPT/HCPCS: 36415; 80048; 80076; 82306; 83880; 85025; 85610

== ENCOUNTER 2023-01-21 09:46 | Outpatient (CLI) | payer MEDICARE, MEDICAID, SELFPAY ==
--- NOTE | ~2023-01-21 | XR_ITS ---
XR chest 2V 01/21/2023 10:08 Indication: Shortness of breath. Pulmonary embolism. Procedure: 2 view chest Comparison: Comparison to multiple prior studies sequentially, with oldest reviewed study dated 04/18. Findings: Heart size normal. Elevated right diaphragm. There are healed right rib fractures. No focal air space disease, pulmonary edema, pleural effusion or suspected pneumothorax. No acute osseous abn ormality. Impression: 1: No acute cardiopulmonary disease. Reviewed, dictated and finalized at location [] Impression: 1: No acute cardiopulmonary disease.
== END 2023-01-21 09:47 | disposition home or self-care (01) ==
LOC: CHSIMG 09:48
PROVIDERS: PCP Family Medicine; Visit Provider Family Medicine
DX: Z86.711 Personal history of pulmonary embolism (principal)
CPT/HCPCS: 71046

== ENCOUNTER 2023-02-04 12:29 | Outpatient (CLI) | payer MEDICARE, MEDICAID, SELFPAY ==
--- NOTE | ~2023-02-04 | CT_ITS ---
EXAMINATION:CT diagnostic chest wo con DATE: 02/04/2023 12:56 INDICATION: Dyspnea on exertion. Paratracheal mass. TECHNIQUE: Computed tomography (CT) of the chest was performed without intravenous contrast. Automate d exposure control and iterative reconstruction technique were employed. The dose-length product (DLP ) was 313.89 mGy-cm. COMPARISON: Chest CT 02/05/2022 FINDINGS: There are mild chronic peripheral reticular opacities and small airspace and groundglass op acities in the lower lobes. No pleural effusion. Cardiomegaly is noted. There are coronary artery kristi cifications. No pericardial effusion. There are changes of cholecystectomy. There are right rib defor mities from prior thoracotomy. There is a small sliding hiatal hernia. There is ingested material in the esophagus. There are nodules in the thyroid measuring up to 13 mm, likely not clinically signific ant. There is mild thoracic spondylosis. IMPRESSION: 1. Mild chronic lung disease. 2. No abnormal paratracheal mass. 3. Small sliding hiatal hernia. Reviewed, dictated and finalized at location A.
== END 2023-02-04 12:30 | disposition home or self-care (01) ==
LOC: CHSIMG 12:33
PROVIDERS: PCP Family Medicine; Visit Provider Thoracic Surgery (Cardiothoracic Vascular Surgery)
DX: R22.2 Localized swelling, mass and lump, trunk (principal); J98.4 Other disorders of lung; K44.9 Diaphragmatic hernia without obstruction or gangrene
CPT/HCPCS: 71250

== ENCOUNTER 2023-02-22 06:51 | Outpatient (NON) | payer MEDICARE, SELFPAY ==
[2023-02-22 08:05] LABS: Vitamin B12 271 pg/mL (193-986)
[2023-02-26 12:46] LABS: Methylmalonic Acid 947 nmol/L (87-318)
== END 2023-02-22 06:52 | disposition home or self-care (01) ==
LOC: CHSLAB 06:53
PROVIDERS: Visit Provider Family Medicine
DX: N18.4 Chronic kidney disease, stage 4 (severe) (principal); E55.9 Vitamin D deficiency, unspecified
CPT/HCPCS: 36415; 82607; 83921

== ENCOUNTER 2023-02-24 06:29 | Outpatient (NON) | payer MEDICARE, SELFPAY ==
[2023-02-24 07:14] LABS: INR 2.4; Prothrombin Time 24.9 Seconds (9.50-12.10)
== END 2023-02-24 06:30 | disposition home or self-care (01) ==
LOC: CHSLAB 06:33
PROVIDERS: Visit Provider Family Medicine
DX: Z79.01 Long term (current) use of anticoagulants (principal)
CPT/HCPCS: 36415; 85610

== ENCOUNTER 2023-03-26 07:07 | Outpatient (NON) | payer MEDICARE, SELFPAY ==
[2023-03-26 08:42] LABS: INR 2.7; Prothrombin Time 27.2 Seconds (9.50-12.10)
== END 2023-03-26 07:08 | disposition home or self-care (01) ==
LOC: CHSLAB 07:10
PROVIDERS: Visit Provider Family Medicine
DX: Z79.01 Long term (current) use of anticoagulants (principal)
CPT/HCPCS: 36415; 85610

== ENCOUNTER 2023-04-12 06:22 | Outpatient (NON) | payer MEDICARE, SELFPAY ==
[2023-04-12 07:02] LABS: INR 1.2
== END 2023-04-12 06:23 | disposition home or self-care (01) ==
LOC: CHSLAB 06:25
PROVIDERS: Visit Provider Family Medicine
DX: Z79.01 Long term (current) use of anticoagulants (principal)
CPT/HCPCS: 36415; 85610

== ENCOUNTER 2023-04-15 08:51 | Outpatient (NON) | payer MEDICARE, SELFPAY ==
[2023-04-15 09:17] LABS: INR 1.7; Prothrombin Time 17.8 Seconds (9.50-12.10)
== END 2023-04-15 08:52 | disposition home or self-care (01) ==
LOC: CHSLAB 08:53
PROVIDERS: Visit Provider Family Medicine
DX: Z79.01 Long term (current) use of anticoagulants (principal)
CPT/HCPCS: 36415; 85610

== ENCOUNTER 2023-04-23 10:47 | Outpatient (NON) | payer MEDICARE, SELFPAY ==
[2023-04-23 11:51] LABS: INR 3.1; Prothrombin Time 30.9 Seconds (9.50-12.10)
== END 2023-04-23 10:48 | disposition home or self-care (01) ==
LOC: CHSLAB 10:53
PROVIDERS: PCP Family Medicine; Visit Provider Family Medicine
DX: Z79.01 Long term (current) use of anticoagulants (principal)
CPT/HCPCS: 36415; 85610

== ENCOUNTER 2023-04-26 06:41 | Outpatient (NON) | payer MEDICARE, SELFPAY ==
[2023-04-26 07:06] LABS: Basophils Absolute Auto 0.02 K/mm3 (0.00-0.10); Basophils Percent Auto 0.3 % (0.0-1.0); Eosinophils Absolute Auto 0.44 K/mm3 (0.02-0.50); Eosinophils Percent Auto 6.7 % (1.0-6.0); Hematocrit 33.9 % (35.0-42.0); Hemoglobin 10.3 g/dL (11.7-13.8); Immature Granulocyte Absolute 0.03 K/mm3 (0.00-0.00); Immature Granulocyte Percent A 0.5 % (0.0-0.0); Lymphocytes Percent Auto 12.1 % (18.0-42.0); Mean Corpuscular HGB Conc 30.4 g/dL (32.0-36.0); Mean Corpuscular Hemoglobin 27.6 pg (27.0-31.0); Mean Corpuscular Volume 90.9 fL (78.0-102.0); Mean Platelet Volume 8.9 fl (9.2-11.8); Monocytes Absolute Auto 0.71 K/mm3 (0.10-0.90); Monocytes Percent Auto 10.7 % (2.0-11.0); Neutrophils Absolute Auto 4.6 K/mm3 (1.7-7.2); Neutrophils Percent Auto 69.7 % (50.0-70.0); Platelet Count Result 253 K/mm3 (150-420); Red Blood Count 3.73 M/mm3 (4.20-5.40); Red Cell Distribution Width 15.8 % (11.6-14.4); White Blood Count 6.6 K/mm3 (4.8-10.8)
[2023-04-26 07:18] LABS: Anion Gap 9 mmol/L (8-16); Blood Urea Nitrogen 27 mg/dL (7-18); Calcium 9.1 mg/dL (8.5-10.1); Carbon Dioxide 26 mmol/L (21-32); Chloride 110 mmol/L (98-108); Estimated Glomerular Filt Rate 25; Glucose 87 mg/dL (70-99); Osmolality Calculated 304 mOsm/kg (285-295); Potassium 4.3 mmol/L (3.5-5.1); Sodium 145 mmol/L (136-145)
[2023-04-26 15:31] LABS: Iron 27 ug/dL (50-170); Percent Iron Saturation 14 % (12-57)
[2023-04-26 16:06] LABS: Ferritin 106 ng/mL (8-252)
== END 2023-04-26 06:42 | disposition home or self-care (01) ==
LOC: CHSLAB 06:45
PROVIDERS: Visit Provider Family Medicine
DX: D64.9 Anemia, unspecified (principal); N18.4 Chronic kidney disease, stage 4 (severe); J44.9 Chronic obstructive pulmonary disease, unspecified; I10 Essential (primary) hypertension
CPT/HCPCS: 36415; 80048; 82728; 83540; 83550; 85025

== ENCOUNTER 2023-04-28 06:41 | Outpatient (NON) | payer MEDICARE, SELFPAY ==
[2023-04-28 07:03] LABS: Appearance Urine Clear (Clear); Bilirubin Urine Negative (Negative); Blood Urine Negative (Negative); Color Urine Light Yellow (Yellow); Glucose Urine UA Negative (Negative); Ketones Urine Negative (Negative); Leukocyte Esterase Ur 3+ LEU/UL (Negative); Nitrate Urine Negative (Negative); Protein Urine 2+ (Negative); Urobilinogen Urine 0.2 mg/dL (0.2-1.0); pH Urine 8.5 (5.0-8.0)
[2023-04-28 07:15] LABS: Add Urine Microscopic? YES; RBC Urine None seen /hpf (0-2)
[2023-04-28 07:16] LABS: Bacteria Urine 3+ /hpf; Squamous Epithelial Cell Urine Rare /hpf (Few)
== END 2023-04-28 06:42 | disposition home or self-care (01) ==
LOC: CHSLAB 06:43
PROVIDERS: Visit Provider Family Medicine
DX: R82.90 Unspecified abnormal findings in urine (principal); R30.9 Painful micturition, unspecified; Z87.440 Personal history of urinary (tract) infections
CPT/HCPCS: 81001; 87077; 87086; 87088; 87186

== ENCOUNTER 2023-04-30 10:05 | Emergency (ER) | payer MEDICARE, MEDICAID, SELFPAY ==
[2023-04-30 10:05] VITALS: BP 176/92; PULSE 92; RESP 20; TEMP 37.4; O2SAT 95
[2023-04-30 10:08] VITALS: BP 176/92; PULSE 92; RESP 24; TEMP 37.4; O2SAT 95
--- NOTE | 2023-04-30 10:10 | PC.NURSE ---
ERP aware of patient's elevated blood pressure.
--- NOTE | 2023-04-30 10:13 | ED.EXTPRO ---
HPI - Extremity Problem General Chief complaint: Extremity Problem,Nontraumatic Stated complaint: left leg redness Time Seen by Provider: 04/30/23 10:12 Source: patient Mode of arrival: wheelchair Limitations: no limitations History of Present Illness HPI Narrative: this is a an 82-year-old female that presents with some left lower extremity redness erythema well demarcated 4cm in diameter lateral aspect of left lower leg and ankle that is warm and tender to touch patient is afebrile no known injuries no punctate lesions. Patient a history of hypertension chronic kidney disease, and currently is on an antibiotic for urinary tract infection. MD Complaint: extremity pain and extremity swelling Onset (ago): day(s) Pain Consistency: constant Location: left Severity scale (1-10): 5 Quality: aching Radiation: none Relieving factors: nothing Related Data Home Medications Medication Instructions Recorded Confirmed amlodipine 5 mg tablet 5 mg PO DAILY 06/16/20 11/09/22 bupropion HCl 150 mg 24 hr tablet, 150 mg PO QAM 06/16/20 11/09/22 extended release escitalopram oxalate 10 mg tablet 10 mg PO DAILY 06/16/20 11/09/22 linaclotide 145 mcg capsule 145 mcg PO DAILY 06/16/20 11/09/22 (Linzess) omeprazole 40 mg capsule,delayed 40 mg PO BID 06/16/20 11/09/22 release warfarin 5 mg tablet 5 mg PO DAILY 06/16/20 11/09/22 bethanechol chloride 25 mg tablet 25 mg PO TIDWMEAL 07/11/20 11/09/22 ergocalciferol (vitamin D2) 1,250 1,250 mcg PO WEEKLY 07/11/20 11/09/22 mcg (50,000 unit) capsule (Vitamin D2) trimethoprim 100 mg tablet 100 mg PO HS 07/11/20 11/09/22 vit C 250 mg-vit E 90 mg-zinc 40 1 tablet PO BID 07/11/20 11/09/22 mg-copper 1 [id number]-[id number] capsule (PreserVision AREDS-2) Macrobid 100 mg BYMOUTH DAILY 11/09/22 11/09/22 ferrous sulfate 325 mg (65 mg 325 mg PO DAILY 11/09/22 11/09/22 iron) capsule,extended release hydrocodone 5 mg-acetaminophen 325 5 - 325 tablet PO PRN 11/09/22 11/09/22 mg tablet senna 8.6 - 50 mg BYMOUTH PRN 11/09/22 11/09/22 Allergies Allergy/AdvReac Type Severity Reaction Status Date / Time Sulfa (Sulfonamide Allergy Unknown Unknown Verified 06/08/22 19:36 Antibiotics) metoclopramide Allergy Unknown Verified 04/30/23 10:09 nabumetone [From Relafen] Allergy Unknown Verified 04/30/23 10:09 Review of Systems Review of Systems: All systems reviewed & are unremarkable except as noted in HPI and below PMFSH Past Medical History Medical History Chronic back pain Hypertension Left leg cellulitis Polycystic kidney Surgical History Surgical History H/O hysterectomy with oophorectomy History of bilateral knee replacement History of nephrectomy History of repair of hiatal hernia Social History Social History Smoking status: Never smoker Alcohol intake: never Substance use: never Substance use type: does not use Gender identity (if verbalized by the patient): Female Sexual Orientation (if Verbalized by the Patient): Straight or Heterosexual Spiritual care concerns: No Exam Const: General: no acute distress Nutritional Appearance: well nourished Orientation/consciousness: patient oriented x3 Limitations: no limitations HENMT: Head: normal to inspection Neck: Neck: normal visual inspection and no lymphadenopathy Chest: Chest palpation & inspection: normal inspection of the chest Resp: Effort & Inspection: normal respiratory effort Auscultation: clear to auscultation bilaterally Cardio: Rate: regular rate Rhythm: regular rhythm GI: GI Palp: Yes Soft to palpation : General: Yes bladder normal to palpation Back/Spine/Pelvis: Back: no CVA tenderness Skin: Wounds: wounds noted Other: Left lower extremity cellulitis about 4cm in diameter warm and tender to touch Neuro:
[2023-04-30] MEDS: ACETAMINOPHEN 500 MG TABLET 1000 MG PO (10:20)
[2023-04-30] MEDS: cefTRIAXone 1 GM, LIDOCAINE HCL 1% LOCAL INJ 2.1 ML IM (10:22)
--- NOTE | 2023-04-30 10:28 | PC.NURSE ---
Rn reviewed discharge information with daughter Angela CORDOVA. RN [facility] N[facility].
[2023-04-30 10:30] VITALS: BP 176/92; PULSE 92; RESP 20; TEMP 37.4; O2SAT 95
== END 2023-04-30 10:30 | disposition home or self-care (01) ==
LOC: CHSED 10:23
PROVIDERS: Emergency Provider Emergency Medicine; PCP Family Medicine
DX: L03.116 Cellulitis of left lower limb (principal); I12.9 Hypertensive chronic kidney disease with stage 1 through stage 4 chronic kidney disease, or unspecified chronic kidney disease; N18.9 Chronic kidney disease, unspecified; Z79.899 Other long term (current) drug therapy; Z79.01 Long term (current) use of anticoagulants; Z79.891 Long term (current) use of opiate analgesic
CPT/HCPCS: 96372; 99283; J0696

== ENCOUNTER 2023-05-10 06:45 | Outpatient (NON) | payer MEDICARE, SELFPAY ==
[2023-05-10 07:32] LABS: INR 5.8
== END 2023-05-10 06:46 | disposition home or self-care (01) ==
LOC: CHSLAB 06:49
PROVIDERS: Visit Provider Family Medicine
DX: Z79.01 Long term (current) use of anticoagulants (principal)
CPT/HCPCS: 36415; 85610

== ENCOUNTER 2023-05-11 06:59 | Outpatient (CLI) | payer MEDICARE, MEDICAID, SELFPAY ==
--- NOTE | ~2023-05-11 | XR_ITS ---
XR chest 2V 05/11/2023 10:44 Indication: Cough and sore throat Procedure: 2 view chest Comparison: Comparison to multiple prior studies sequentially, with oldest reviewed study dated 04/18/2017. Findings: Cardiomegaly. Shallow inspiration. Left basilar atelectasis. Multiple healed right lower ri b fractures. There is atherosclerosis. No focal pneumonia, edema, significant effusion or pneumothora x. Impression: 1: No acute cardiopulmonary disease. Reviewed, dictated and finalized at location B. Impression: 1: No acute cardiopulmonary disease.
[2023-05-11 07:41] LABS: Basophils Absolute Auto 0.04 K/mm3 (0.00-0.10); Basophils Percent Auto 0.6 % (0.0-1.0); Eosinophils Absolute Auto 0.53 K/mm3 (0.02-0.50); Eosinophils Percent Auto 8.4 % (1.0-6.0); Hematocrit 34.4 % (35.0-42.0); Hemoglobin 10.2 g/dL (11.7-13.8); Immature Granulocyte Absolute 0.03 K/mm3 (0.00-0.00); Immature Granulocyte Percent A 0.5 % (0.0-0.0); Lymphocytes Absolute Auto 1.04 K/mm3 (1.10-4.50); Lymphocytes Percent Auto 16.5 % (18.0-42.0); Mean Corpuscular HGB Conc 29.7 g/dL (32.0-36.0); Mean Platelet Volume 8.4 fl (9.2-11.8); Monocytes Absolute Auto 0.63 K/mm3 (0.10-0.90); Platelet Count Result 256 K/mm3 (150-420); Red Blood Count 3.78 M/mm3 (4.20-5.40); White Blood Count 6.3 K/mm3 (4.8-10.8)
[2023-05-11 08:09] LABS: Alanine Aminotransferase 15 U/L (14-59); Albumin Level 2.7 g/dL (3.4-5.0); Alkaline Phosphatase 112 U/L (46-116); Amylase 83 U/L (25-115); Anion Gap 8 mmol/L (8-16); Aspartate Amino Transferase 13 U/L (15-37); Bilirubin,Total 0.2 mg/dL (0.00-1.00); Blood Urea Nitrogen 30 mg/dL (7-18); Calcium 8.5 mg/dL (8.5-10.1); Carbon Dioxide 27 mmol/L (21-32); Chloride 109 mmol/L (98-108); Estimated Glomerular Filt Rate 24; Glucose 76 mg/dL (70-99); Lipase 70 U/L (16-77); Osmolality Calculated 303 mOsm/kg (285-295); Potassium 4.1 mmol/L (3.5-5.1); Prothrombin Time 61.1 Seconds (9.50-12.10); Sodium 144 mmol/L (136-145); Total Protein 5.7 g/dL (6.4-8.2)
[2023-05-11 08:13] LABS: INR 6.4
[2023-05-11 08:58] LABS: Appearance Urine Clear (Clear); Bilirubin Urine Negative (Negative); Blood Urine Negative (Negative); Color Urine Light Yellow (Yellow); Glucose Urine UA Negative (Negative); Ketones Urine Negative (Negative); Leukocyte Esterase Ur 1+ LEU/UL (Negative); Nitrate Urine Negative (Negative); Protein Urine 1+ (Negative); Urobilinogen Urine 0.2 mg/dL (0.2-1.0)
[2023-05-11 09:08] LABS: Add Urine Microscopic? YES
[2023-05-11 09:09] LABS: Bacteria Urine Trace /hpf; RBC Urine 0-2 /hpf (0-2); Squamous Epithelial Cell Urine Few /hpf (Few); WBC Urine 16-20 /hpf (0-3)
[2023-05-11 14:17] LABS: Ferritin 124 ng/mL (8-252); Iron 30 ug/dL (50-170); Percent Iron Saturation 17 % (12-57)
== END 2023-05-11 07:00 | disposition home or self-care (01) ==
PROVIDERS: PCP Family Medicine; Visit Provider Family Medicine
DX: D64.9 Anemia, unspecified (principal); I10 Essential (primary) hypertension; Z79.01 Long term (current) use of anticoagulants; N18.4 Chronic kidney disease, stage 4 (severe); J44.9 Chronic obstructive pulmonary disease, unspecified; R05.9 Cough, unspecified; R82.90 Unspecified abnormal findings in urine
CPT/HCPCS: 36415; 71046; 80053; 81001; 82150; 82728; 83540; 83550; 83690; 85025; 85610; 87077; 87086; 87088; 87186

== ENCOUNTER 2023-05-13 06:54 | Outpatient (NON) | payer MEDICARE, MEDICAID, SELFPAY ==
[2023-05-13 07:14] LABS: INR 2.1; Prothrombin Time 21.9 Seconds (9.50-12.10)
== END 2023-05-13 06:55 | disposition home or self-care (01) ==
LOC: CHSLAB 06:57
PROVIDERS: Visit Provider Family Medicine
DX: Z79.01 Long term (current) use of anticoagulants (principal)
CPT/HCPCS: 36415; 85610

== ENCOUNTER 2023-05-19 06:49 | Outpatient (NON) | payer MEDICARE, SELFPAY ==
[2023-05-19 07:25] LABS: INR 2.9; Prothrombin Time 29.9 Seconds (9.50-12.10)
== END 2023-05-19 06:50 | disposition home or self-care (01) ==
LOC: CHSLAB 06:56
PROVIDERS: Visit Provider Family Medicine
DX: Z79.01 Long term (current) use of anticoagulants (principal)
CPT/HCPCS: 36415; 85610

== ENCOUNTER 2023-05-23 06:56 | Outpatient (CLI) | payer MEDICARE, MEDICAID, SELFPAY ==
--- NOTE | ~2023-05-23 | NM_ITS ---
EXAM: NM gastric emptying study DATE: 05/23/2023 13:33 INDICATION: Gastroparesis TECHNIQUE: A gastric emptying study was performed using the methodology of Delilah SALCEDO, et al. J Nucl Med 2007; 48:568-572. The patient was given a meal consisting of 2 scrambled eggs labeled with 1 mCi Tc-99m sulfur colloid, 2 slices of toast, two packages of jam, and approximately 120 mL of water. Si multaneous anterior and posterior 1-min images of the abdomen were obtained with the patient supine a t multiple time points over a total period of 4 hours. The geometric mean of anterior and posterior v iews was determined, and the percentage retention was calculated for each time point. COMPARISON: None. FINDINGS: Gastric retention of the radiotracer-labeled meal was 95%, 94%, and 80% at the 1-hour, 2-hour, and 4- hour time points, respectively. With this technique, apparent rapid gastric emptying is suggested by <30% gastric retention at 1 hour. Delayed gastric emptying is defined by gastric retention of >90% at 1 hour, >60% retention at 2 hours, or >10% retention at 4 hours. IMPRESSION: 1. Delayed gastric emptying. Reviewed, dictated and finalized at location A.
== END 2023-05-23 06:57 | disposition home or self-care (01) ==
LOC: CHSIMG 06:57
PROVIDERS: PCP Family Medicine; Visit Provider Family Medicine
DX: K31.84 Gastroparesis (principal)
CPT/HCPCS: 78264; A9541

== ENCOUNTER 2023-06-02 06:28 | Outpatient (NON) | payer MEDICARE, SELFPAY ==
[2023-06-02 07:19] LABS: Prothrombin Time 57.1 Seconds (9.50-12.10)
[2023-06-02 07:21] LABS: INR 5.9
[2023-06-02 07:35] LABS: Vitamin B12 396 pg/mL (193-986)
[2023-06-05 11:42] LABS: Methylmalonic Acid 503 nmol/L (87-318)
== END 2023-06-02 06:29 | disposition home or self-care (01) ==
LOC: CHSLAB 06:30
PROVIDERS: Visit Provider Family Medicine
DX: N18.4 Chronic kidney disease, stage 4 (severe) (principal); E53.8 Deficiency of other specified B group vitamins; Z79.01 Long term (current) use of anticoagulants
CPT/HCPCS: 36415; 82607; 83921; 85610

== ENCOUNTER 2023-06-04 07:20 | Outpatient (NON) | payer MEDICARE, SELFPAY ==
[2023-06-04 07:53] LABS: INR 3.2
== END 2023-06-04 07:21 | disposition home or self-care (01) ==
LOC: CHSLAB 07:21
PROVIDERS: Visit Provider Family Medicine
DX: Z79.01 Long term (current) use of anticoagulants (principal)
CPT/HCPCS: 36415; 85610

== ENCOUNTER 2023-06-09 11:36 | Outpatient (NON) | payer MEDICARE, SELFPAY ==
[2023-06-09 11:45] LABS: Basophils Absolute Auto 0.05 K/mm3 (0.00-0.10); Basophils Percent Auto 0.8 % (0.0-1.0); Eosinophils Absolute Auto 0.65 K/mm3 (0.02-0.50); Eosinophils Percent Auto 9.9 % (1.0-6.0); Hematocrit 38.5 % (35.0-42.0); Hemoglobin 11.7 g/dL (11.7-13.8); Immature Granulocyte Absolute 0.02 K/mm3 (0.00-0.00); Immature Granulocyte Percent A 0.3 % (0.0-0.0); Lymphocytes Percent Auto 12.2 % (18.0-42.0); Mean Corpuscular HGB Conc 30.4 g/dL (32.0-36.0); Mean Corpuscular Hemoglobin 27.8 pg (27.0-31.0); Mean Corpuscular Volume 91.4 fL (78.0-102.0); Mean Platelet Volume 8.8 fl (9.2-11.8); Monocytes Absolute Auto 0.71 K/mm3 (0.10-0.90); Monocytes Percent Auto 10.8 % (2.0-11.0); Neutrophils Absolute Auto 4.3 K/mm3 (1.7-7.2); Platelet Count Result 270 K/mm3 (150-420); Red Blood Count 4.21 M/mm3 (4.20-5.40); Red Cell Distribution Width 15.5 % (11.6-14.4); White Blood Count 6.6 K/mm3 (4.8-10.8)
[2023-06-09 12:01] LABS: Albumin Level 3.1 g/dL (3.4-5.0); Anion Gap 9 mmol/L (8-16); Blood Urea Nitrogen 27 mg/dL (7-18); Carbon Dioxide 27 mmol/L (21-32); Chloride 110 mmol/L (98-108); Estimated Glomerular Filt Rate 28; Glucose 99 mg/dL (70-99); Osmolality Calculated 307 mOsm/kg (285-295); Phosphorus 3.7 mg/dL (2.6-4.7); Potassium 4.1 mmol/L (3.5-5.1); Sodium 146 mmol/L (136-145)
== END 2023-06-09 11:37 | disposition home or self-care (01) ==
LOC: CHSLAB 11:38
PROVIDERS: Visit Provider Family Medicine
DX: N18.4 Chronic kidney disease, stage 4 (severe) (principal); Z79.899 Other long term (current) drug therapy
CPT/HCPCS: 36415; 80069; 85025

== ENCOUNTER 2023-06-11 07:02 | Outpatient (NON) | payer MEDICARE, SELFPAY ==
[2023-06-11 07:33] LABS: INR 2.1; Prothrombin Time 21.6 Seconds (9.50-12.10)
== END 2023-06-11 07:03 | disposition home or self-care (01) ==
LOC: CHSLAB 07:04
PROVIDERS: Visit Provider Family Medicine
DX: Z79.01 Long term (current) use of anticoagulants (principal)
CPT/HCPCS: 36415; 85610

== ENCOUNTER 2023-06-20 13:14 | Outpatient (CLI) | payer MEDICARE, MEDICAID, SELFPAY ==
--- NOTE | ~2023-06-20 | US_ITS ---
US retroperitoneal comp 06/20/2023 13:55 Procedure: Realtime transabdominal ultrasound of the kidneys and bladder. Indication: Urinary retention. Status post left nephrectomy for cancer. Comparison: No prior studies for comparison. Findings: Right renal echotexture is normal without hydronephrosis, mass or renal stone. Right kidney measures 8.2 cm. No post void residual. Bladder is unremarkable. Impression: 1: Unremarkable renal ultrasound. Reviewed, dictated and finalized at location B. BILITATION AIDE Impression: 1: Unremarkable renal ultrasound.
== END 2023-06-20 13:15 | disposition home or self-care (01) ==
LOC: CHSIMG 13:15
PROVIDERS: PCP Family Medicine; Visit Provider Internal Medicine
DX: R33.9 Retention of urine, unspecified (principal)
CPT/HCPCS: 76770

== ENCOUNTER 2023-06-28 06:31 | Outpatient (NON) | payer MEDICARE, SELFPAY ==
[2023-06-28 07:08] LABS: INR 1.4
== END 2023-06-28 06:32 | disposition home or self-care (01) ==
LOC: CHSLAB 06:33
PROVIDERS: Visit Provider Family Medicine
DX: Z79.01 Long term (current) use of anticoagulants (principal)
CPT/HCPCS: 36415; 85610

== ENCOUNTER 2023-07-09 07:15 | Outpatient (NON) | payer MEDICARE, SELFPAY ==
[2023-07-09 07:49] LABS: INR 1.7
== END 2023-07-09 07:16 | disposition home or self-care (01) ==
LOC: CHSLAB 07:19
PROVIDERS: PCP Family Medicine; Visit Provider Family Medicine
DX: Z79.01 Long term (current) use of anticoagulants (principal)
CPT/HCPCS: 36415; 85610

== ENCOUNTER 2023-07-16 07:11 | Outpatient (NON) | payer MEDICARE, SELFPAY ==
[2023-07-16 07:29] LABS: INR 1.4; Prothrombin Time 14.7 Seconds (9.50-12.10)
== END 2023-07-16 07:12 | disposition home or self-care (01) ==
LOC: CHSLAB 07:13
PROVIDERS: Visit Provider Family Medicine
DX: Z79.01 Long term (current) use of anticoagulants (principal)
CPT/HCPCS: 36415; 85610

== ENCOUNTER 2023-07-22 06:42 | Outpatient (NON) | payer MEDICARE, SELFPAY ==
[2023-07-22 06:57] LABS: INR 2.6; Prothrombin Time 26.6 Seconds (9.50-12.10)
== END 2023-07-22 06:43 | disposition home or self-care (01) ==
LOC: CHSLAB 06:43
PROVIDERS: Visit Provider Family Medicine
DX: Z79.01 Long term (current) use of anticoagulants (principal)
CPT/HCPCS: 36415; 85610

== ENCOUNTER 2023-07-28 06:50 | Outpatient (NON) | payer MEDICARE, SELFPAY ==
[2023-07-28 07:11] LABS: Hematocrit 36.7 % (35.0-42.0); Mean Corpuscular Hemoglobin 27.6 pg (27.0-31.0); Mean Corpuscular Volume 92.2 fL (78.0-102.0); Mean Platelet Volume 8.8 fl (9.2-11.8); Platelet Count Result 202 K/mm3 (150-420); Red Blood Count 3.98 M/mm3 (4.20-5.40); Red Cell Distribution Width 14.9 % (11.6-14.4); White Blood Count 4.6 K/mm3 (4.8-10.8)
[2023-07-28 07:35] LABS: Prothrombin Time 39.9 Seconds (9.50-12.10)
[2023-07-28 07:41] LABS: Band Neutrophils Percent 0 % (0-6); Eosinophils Absolute Manual 0.23 K/mm3 (0.02-0.5); Eosinophils Percent Manual 5 % (1-6); Lymphocytes Absolute Manual 1.28 K/mm3 (1.1-4.5); Lymphocytes Percent Manual 28 % (18-44); Monocytes Absolute Manual 0.27 K/mm3 (0.1-0.90); Monocytes Percent Manual 6 % (3-9); Neutrophils Percent Manual 61 % (46-73); Total Cells Counted 100
[2023-07-28 07:42] LABS: Platelet Estimate Adequate (Adequate)
[2023-07-28 07:43] LABS: Alanine Aminotransferase 21 U/L (14-59); Albumin Level 3.1 g/dL (3.4-5.0); Alkaline Phosphatase 88 U/L (46-116); Anion Gap 6 mmol/L (8-16); Aspartate Amino Transferase 11 U/L (15-37); Bilirubin Direct 0.1 mg/dL (0-0.2); Bilirubin,Total 0.2 mg/dL (0.00-1.00); Blood Urea Nitrogen 45 mg/dL (7-18); Calcium 8.7 mg/dL (8.5-10.1); Carbon Dioxide 30 mmol/L (21-32); Chloride 109 mmol/L (98-108); Cholesterol 220 mg/dL (0-200); Estimated Glomerular Filt Rate 23; Glucose 89 mg/dL (70-99); HDL Direct 57 mg/dL (40-60); LDL Cholesterol Calculated 138 mg/dL (<130); Osmolality Calculated 310 mOsm/kg (285-295); Potassium 3.7 mmol/L (3.5-5.1); Sodium 145 mmol/L (136-145); Thyroid Stimulating Hormone 4.16 uIU/mL (0.36-3.74); Total Protein 6.2 g/dL (6.4-8.2); Triglycerides 126 mg/dL (0-150)
[2023-07-28 10:50] LABS: Free T4 Free Thyroxine 0.77 ng/dL (0.76-1.46)
[2023-07-30 13:34] LABS: Vitamin D 25 Hydroxy 19 ng/mL (30-100)
== END 2023-07-28 06:51 | disposition home or self-care (01) ==
LOC: CHSLAB 06:51
PROVIDERS: Visit Provider Family Medicine
DX: D50.9 Iron deficiency anemia, unspecified (principal); N25.81 Secondary hyperparathyroidism of renal origin; Z79.01 Long term (current) use of anticoagulants; N18.4 Chronic kidney disease, stage 4 (severe); R94.6 Abnormal results of thyroid function studies
CPT/HCPCS: 36415; 80048; 80061; 80076; 82306; 84439; 84443; 85025; 85610

== ENCOUNTER 2023-08-04 12:01 | Outpatient (NON) | payer MEDICARE, SELFPAY ==
[2023-08-04 13:03] LABS: Influenza Control Valid (Valid)
== END 2023-08-04 12:02 | disposition home or self-care (01) ==
LOC: CHSLAB 12:03
PROVIDERS: Visit Provider Family Medicine
DX: R05.9 Cough, unspecified (principal); R06.02 Shortness of breath; R53.1 Weakness
CPT/HCPCS: 87804

== ENCOUNTER 2023-08-08 05:14 | Emergency (ER) | payer MEDICARE, MEDICAID, SELFPAY ==
[2023-08-08] VITALS (64 sets, daily range): BP systolic 132–207; BP diastolic 71–106; PULSE 81–126; RESP 17–32; TEMP 36.7–37.7; O2SAT 87–100
--- NOTE | ~2023-08-08 | XR_ITS ---
Portable chest x-ray Comparison: 05/11/2023 Clinical History: Shortness of breath Findings: Possible nodular opacity right lung base. Left lung clear. Cardiomediastinal silhouette i s stable. Bones and soft tissues are unremarkable. Impression: Possible nodular opacity right lung base. Chest CT recommended to confirm or exclude pulmonary lesion . Reviewed, dictated and finalized at [facility]. 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 Chest CT recommended to confirm or ex clude pulmonary lesion.
--- NOTE | 2023-08-08 05:23 | ECG_ITS ---
Measurements Intervals [place] Rate: 98 P: 90 NV: 207 QRS: -43 QRSD: 160 T: 81 QT: 377 QTc: 483 Interpretive Statements SINUS RHYTHM LEFT AXIS DEVIATION IVCD, CONSIDER ATYPICAL LEFT BUNDLE BRANCH BLOCK ABNORMAL ECG COMPARED TO ECG 07/11/2020 08:38:55 LEFT-AXIS DEVIATION NOW PRESENT LEFT BUNDLE-BRANCH BLOCK NOW PRESENT Electronically Signed On 08-08-2023 7:07:23 [employer] by Sarthak Scott D.O.
--- NOTE | 2023-08-08 05:25 | ED.SOB ---
HPI - SOB/Dyspnea General Chief Complaint: Shortness of Breath/Dyspnea <Francisco Segura MD - Last Filed: 08/08/23 06:58> Stated Complaint: shortness of breath <Francisco Segura MD - Last Filed: 08/08/23 06:58> Time Seen by Provider: 08/08/23 05:23 <Francisco Segura MD - Last Filed: 08/08/23 06:58> Source: patient <Francisco Segura MD - Last Filed: 08/08/23 06:58> Mode of arrival: ambulatory <Francisco Segura MD - Last Filed: 08/08/23 06:58> Limitations: no limitations <Francisco Segura MD - Last Filed: 08/08/23 06:58> History of Present Illness HPI Narrative: Patient is an 83-year-old female with cough and congestion from the correction. She has been sick for few days. 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 <Francisco Segura MD - Last Filed: 08/08/23 06:58> MD elicited complaint: shortness of breath and cough <Francisco Segura MD - Last Filed: 08/08/23 06:58> Onset (ago): day(s) (3) <Francisco Segura MD - Last Filed: 08/08/23 06:58> Context: other ( longterm patient with exposure to multiple illness) <Francisco Segura MD - Last Filed: 08/08/23 06:58> Timing: constant <Francisco Segura MD - Last Filed: 08/08/23 06:58> Severity: moderate <Francisco Segura MD - Last Filed: 08/08/23 06:58> Exacerbating factors: nothing <Francisco Segura MD - Last Filed: 08/08/23 06:58> Relieving factors: nothing <Frnacisco Segura MD - Last Filed: 08/08/23 06:58> Associated symptoms: cough and chest congestion <Francisco Segura MD - Last Filed: 08/08/23 06:58> Treatment prior to arrival: none <Francisco Segura MD - Last Filed: 08/08/23 06:58> Related Data Home oxygen amount: none <Francisco Segura MD - Last Filed: 08/08/23 06:58> Home Medications: Home Medications Medication Instructions Recorded Confirmed amlodipine 5 mg tablet 10 mg PO HS 06/16/20 08/08/23 bupropion HCl 150 mg 24 hr tablet, 150 mg PO QAM 06/16/20 08/08/23 extended release escitalopram oxalate 10 mg tablet 10 mg PO DAILY 06/16/20 08/08/23 linaclotide 145 mcg capsule 145 mcg PO DAILY 06/16/20 08/08/23 (Linzess) omeprazole 40 mg capsule,delayed 40 mg PO BID 06/16/20 08/08/23 release warfarin 5 mg tablet 5 mg PO DAILY 06/16/20 08/08/23 bethanechol chloride 25 mg tablet 25 mg PO TIDWMEAL 07/11/20 08/08/23 trimethoprim 100 mg tablet 100 mg PO HS 07/11/20 08/08/23 vit C 250 mg-vit E 90 mg-zinc 40 1 tablet PO BID 07/11/20 08/08/23 mg-copper 1 cu-ncpzks-lwzbxc capsule (PreserVision AREDS-2) hydrocodone 5 mg-acetaminophen 325 5 - 325 tablet PO PRN 11/09/22 08/08/23 mg tablet senna 8.6 - 50 mg BYMOUTH PRN 11/09/22 08/08/23 cyclobenzaprine 5 mg tablet 10 mg PO TID PRN muscle spasm 04/30/23 08/08/23 albuterol sulfate 90 mcg/actuation 2 puff inhalation Q4-6H PRN 08/08/23 08/08/23 aerosol inhaler Shortness Of Breath Or Wheezing ascorbic acid (vitamin C) 500 mg PO DAILY 08/08/23 08/08/23 cyanocobalamin (vitamin B-12) 1,000 mg PO DAILY 08/08/23 08/08/23 lactulose 10 gram/15 mL oral 15 ml PO DAILY PRN Constipation 08/08/23 08/08/23 solution (Enulose) <Francisco Segura MD - Last Filed: 08/08/23 06:58> Allergies/Adverse Reactions: Allergies Allergy/AdvReac Type Severity Reaction Status Date / Time Sulfa (Sulfonamide Allergy Unknown Unknown Verified 06/08/22 19:36 Antibiotics) metoclopramide Allergy Unknown Verified 04/30/23 10:09 nabumetone [From Relafen] Allergy Unknown Verified 04/30/23 10:09 <Francisco Segura MD - Last Filed: 08/08/23 06:58> Review of Systems Review of Systems: All systems reviewed & are unremarkable except as noted in HPI and below <Francisco Segura MD - Last Filed: 08/08/23 06:58> Constitutional: Constitutional: Reports no additional constitutional complaints <Francisco Segura MD - Last Filed: 08/08/23 06:58> Eyes: Eyes: Reports no additional eye com
[2023-08-08] MEDS: SODIUM CHLORIDE 0.9% IV 1,000 ML 999 ML IV CONT (05:54)
[2023-08-08] MEDS: PIPERACILLN/TAZ 3.375GM/NS50ML 3.375 GM/50 ML BAG IVPB (05:56)
[2023-08-08] MEDS: HYDROcodone/acetaminophen (*CRX) 10-325 MG TABLET 1 TAB PO (06:02)
[2023-08-08 06:03] LABS: Basophils Absolute Auto 0.02 K/mm3 (0.00-0.10); Basophils Percent Auto 0.4 % (0.0-1.0); Eosinophils Absolute Auto 0.28 K/mm3 (0.02-0.50); Hematocrit 39.3 % (35.0-42.0); Hemoglobin 12.3 g/dL (11.7-13.8); Immature Granulocyte Absolute 0.02 K/mm3 (0.00-0.00); Immature Granulocyte Percent A 0.4 % (0.0-0.0); Lymphocytes Absolute Auto 0.51 K/mm3 (1.10-4.50); Lymphocytes Percent Auto 9.1 % (18.0-42.0); Mean Corpuscular HGB Conc 31.3 g/dL (32.0-36.0); Mean Corpuscular Hemoglobin 27.5 pg (27.0-31.0); Mean Corpuscular Volume 87.7 fL (78.0-102.0); Mean Platelet Volume 8.7 fl (9.2-11.8); Monocytes Absolute Auto 0.83 K/mm3 (0.10-0.90); Monocytes Percent Auto 14.8 % (2.0-11.0); Neutrophils Percent Auto 70.3 % (50.0-70.0); Platelet Count Result 233 K/mm3 (150-420); Red Blood Count 4.48 M/mm3 (4.20-5.40); Red Cell Distribution Width 14.8 % (11.6-14.4); White Blood Count 5.6 K/mm3 (4.8-10.8)
[2023-08-08 06:13] LABS: Appearance Urine Slightly Cloudy (Clear); Bilirubin Urine Negative (Negative); Blood Urine 1+ (Negative); Color Urine Light Yellow (Yellow); Glucose Urine UA Negative (Negative); Ketones Urine Negative (Negative); Leukocyte Esterase Ur 1+ LEU/UL (Negative); Nitrate Urine Negative (Negative); Protein Urine 2+ (Negative); Specific Grav Ur 1.015 (1.010-1.020); Urobilinogen Urine 0.2 mg/dL (0.2-1.0); pH Urine 5.5 (5.0-8.0)
[2023-08-08 06:13] LABS: INR 2.4; Partial Thromboplastin Time 42.1 SEC (23.90-30.70); Prothrombin Time 24.9 Seconds (9.50-12.10)
[2023-08-08 06:16] LABS: Lactic Acid Reflex 0.8 mmol/L (0.4-2.0)
[2023-08-08 06:19] LABS: Add Urine Microscopic? YES; Bacteria Urine 2+ /hpf; RBC Urine 0-2 /hpf (0-2); Squamous Epithelial Cell Urine Rare /hpf (Few); WBC Urine 0-5 /hpf (0-3)
[2023-08-08 06:21] LABS: Alanine Aminotransferase 29 U/L (14-59); Albumin Level 3.4 g/dL (3.4-5.0); Alkaline Phosphatase 118 U/L (46-116); Anion Gap 10 mmol/L (8-16); Aspartate Amino Transferase 18 U/L (15-37); Bilirubin,Total 0.3 mg/dL (0.00-1.00); Blood Urea Nitrogen 25 mg/dL (7-18); Calcium 9.4 mg/dL (8.5-10.1); Carbon Dioxide 26 mmol/L (21-32); Chloride 105 mmol/L (98-108); Estimated CRCL calculation 23 ml/min; Estimated Glomerular Filt Rate 28; Glucose 103 mg/dL (70-99); NT Pro B Type Natriuretic Pept 2228 pg/mL (0-450); Osmolality Calculated 296 mOsm/kg (285-295); Potassium 3.7 mmol/L (3.5-5.1); Sodium 141 mmol/L (136-145); Total Protein 7.6 g/dL (6.4-8.2); Troponin I 25.2 ng/L (0.00-60.4)
[2023-08-08] MEDS: AMIODARONE 150 MG/D5W 100 ML 150 MG/100 ML BAG 600 MG IV CONT ×2 (06:31→11:08)
[2023-08-08 06:35] LABS: Magnesium 1.7 mg/dL (1.8-2.4)
[2023-08-08] MEDS: FUROSEMIDE INJ 20 MG/2 ML VIAL IV PUSH (06:35)
[2023-08-08 06:38] LABS: Strep Group A RT-PCR NOT DETECTED (Negative)
[2023-08-08 06:46] LABS: SARS-CoV-2 RNA PCR Negative (Negative)
[2023-08-08 06:52] LABS: Influenza A QL RT-PCR Positive (Negative); Influenza B QL RT-PCR Negative (Negative); RSV RNA, RT-PCR Negative (Negative)
[2023-08-08] MEDS: MAGNESIUM SULF 2 GM/WATER 50ML 2 GM/50 ML BAG IVPB (06:55)
--- NOTE | 2023-08-08 07:26 | PC.NURSE ---
report to molly vasquez at 7am. all questions answered. 0730 dr wong in with pt. spoke with agnieszka melendez, daughter, poaSteven nuñez for transfer.
[2023-08-08] MEDS: POTASSIUM BICARBONATE 25 MEQ TABEF 50 MEQ PO (10:26)
[2023-08-08] MEDS: IPRATROPIUM BR 0.02% INH SOLN 0.5 MG/2.5 ML VIAL INHALATION (10:37)
[2023-08-08] MEDS: LEVALBUTEROL NEB 1.25 MG/3 ML INHALATION (10:41)
[2023-08-08] MEDS: AMIODARONE 360 MG/D5W 200 ML 360 MG/200 ML BAG 33.33 MG IV CONT (11:38)
--- NOTE | 2023-08-11 13:54 | PC.NURSE ---
UA culture report faxed to Pushpa at [facility] [phone]
--- NOTE | 2023-08-14 12:21 | PC.NURSE ---
blood culture reviewed, no growth 5 days , right/left arm
== END 2023-08-08 12:04 | disposition short-term general hospital (02) ==
PROVIDERS: Emergency Provider Emergency Medicine; PCP Family Medicine
DX: J10.1 Influenza due to other identified influenza virus with other respiratory manifestations (principal); A41.9 Sepsis, unspecified organism; N39.0 Urinary tract infection, site not specified; I47.20 Ventricular tachycardia, unspecified; I12.9 Hypertensive chronic kidney disease with stage 1 through stage 4 chronic kidney disease, or unspecified chronic kidney disease; N18.9 Chronic kidney disease, unspecified; Z79.899 Other long term (current) drug therapy; Z79.891 Long term (current) use of opiate analgesic; Z20.822 Contact with and (suspected) exposure to COVID-19
CPT/HCPCS: 36415; 71045; 80053; 81001; 83605; 83735; 83880; 84484; 85025; 85610; 85730; 87040; 87077; 87086; 87088; 87186; 87637; 87651; 93005; 94640; 96365; 96366; 96367; 96375; 99285; A9270; J0282; J1940; J2543; J3475; J7030

== ENCOUNTER 2023-08-16 20:18 | Inpatient (IN) | payer MEDICARE, MEDICAID, SELFPAY ==
--- NOTE | ~2023-08-16 | XR_ITS ---
EXAMINATION: XR chest 1V portable DATE: 08/16/2023 20:42 INDICATION: Cough. TECHNIQUE: A single frontal view of the chest was obtained. COMPARISON: Chest single view 08/08/2023, chest CT 02/04/2023 FINDINGS: There are chronic airspace opacities in right mid and lower lung zones, consistent with sca rring. No pleural effusion or pneumothorax. Cardiomegaly is noted. There are old right rib deformitie s. IMPRESSION: 1. Chronic scarring in right mid and lower lung zones. 2. Cardiomegaly. Reviewed, dictated and finalized at location [facility]. [facility]
[2023-08-16 20:25] VITALS: BP 155/78; PULSE 57; RESP 18; TEMP 37.2; O2SAT 99
--- NOTE | 2023-08-16 20:35 | ED.URI ---
HPI - URI/Sore Throat General Chief Complaint: Upper Respiratory Infection Stated Complaint: Flue Time Seen by Provider: 08/16/23 20:20 History of Present Illness HPI Narrative: Pt presents with daughter from local [place]. Pt recently admitted at [facility] with influenza and cardiac rhythm concerns. Pt was discharged back to [place] and daughter says she has not been herself. Pt has been intermitently confused and is in bed all day when she is normally very active. Pt has been wheezing as well and this is not normal for her. Pt has no complaints herself. Related Data Home Medications Medication Instructions Recorded Confirmed bupropion HCl 150 mg 24 hr tablet, 150 mg PO QAM 06/16/20 08/16/23 extended release escitalopram oxalate 10 mg tablet 10 mg PO DAILY 06/16/20 08/16/23 linaclotide 145 mcg capsule 145 mcg PO DAILY 06/16/20 08/16/23 (Linzess) omeprazole 40 mg capsule,delayed 40 mg PO BID 06/16/20 08/16/23 release warfarin 5 mg tablet 5 mg PO DAILY 06/16/20 08/16/23 bethanechol chloride 25 mg tablet 25 mg PO TIDWMEAL 07/11/20 08/16/23 trimethoprim 100 mg tablet 100 mg PO HS 07/11/20 08/16/23 vit C 250 mg-vit E 90 mg-zinc 40 1 tablet PO BID 07/11/20 08/16/23 mg-copper 1 [id number]-[id number] capsule (PreserVision AREDS-2) hydrocodone 5 mg-acetaminophen 325 5 - 325 tablet PO PRN 11/09/22 08/16/23 mg tablet senna 8.6 - 50 mg BYMOUTH PRN 11/09/22 08/16/23 cyclobenzaprine 5 mg tablet 10 mg PO TID PRN muscle spasm 04/30/23 08/16/23 albuterol sulfate 90 mcg/actuation 2 puff inhalation Q4-6H PRN 08/08/23 08/16/23 aerosol inhaler Shortness Of Breath Or Wheezing ascorbic acid (vitamin C) 500 mg PO DAILY 08/08/23 08/16/23 cyanocobalamin (vitamin B-12) 1,000 mg PO DAILY 08/08/23 08/16/23 lactulose 10 gram/15 mL oral 15 ml PO DAILY PRN Constipation 08/08/23 08/16/23 solution (Enulose) amlodipine 10 mg tablet 10 mg PO DAILY 08/16/23 08/16/23 Allergies Allergy/AdvReac Type Severity Reaction Status Date / Time Sulfa (Sulfonamide Allergy Unknown Unknown Verified 08/16/23 20:49 Antibiotics) metoclopramide Allergy Unknown Verified 08/16/23 20:49 nabumetone [From Relafen] Allergy Unknown Verified 08/16/23 20:49 Review of Systems Review of Systems: All systems reviewed & are unremarkable except as noted in HPI and below PMFSH Past Medical History Medical History Chronic back pain Hypertension Left leg cellulitis Polycystic kidney Surgical History Surgical History H/O hysterectomy with oophorectomy History of bilateral knee replacement History of nephrectomy History of repair of hiatal hernia Social History Social History Smoking status: Never smoker Alcohol intake: never Substance use: never Substance use type: does not use Gender identity (if verbalized by the patient): Female Sexual Orientation (if Verbalized by the Patient): Straight or Heterosexual Spiritual care concerns: No Exam Const: General: healthy appearing Nutritional Appearance: well nourished Orientation/consciousness: patient oriented x3 Limitations: no limitations HENMT: Head: normal to inspection Throat: posterior oropharynx normal Chest: Chest palpation & inspection: normal inspection of the chest Resp: Effort & Inspection: normal respiratory effort Auscultation: wheezes Cardio: Rate: regular rate Rhythm: regular rhythm GI: GI Palp: Yes Soft to palpation Auscultation: normal bowel sounds Skin: General skin exam: normal color Wounds: no wounds Neuro: General: patient oriented x3, moves all extremities, no meningeal signs and no focal motor deficits Speech: normal speech Extrem: General: normal to inspection and no clubbing, cyanosis or edema Psych: Mental Status: mental status grossly normal Affect: normal affect Attitude: cooperative
[2023-08-16 21:09] LABS: Basophils Absolute Auto 0.02 K/mm3 (0.00-0.10); Basophils Percent Auto 0.3 % (0.0-1.0); Eosinophils Percent Auto 3.3 % (1.0-6.0); Hematocrit 35.6 % (35.0-42.0); Hemoglobin 10.6 g/dL (11.7-13.8); Immature Granulocyte Absolute 0.02 K/mm3 (0.00-0.00); Immature Granulocyte Percent A 0.3 % (0.0-0.0); Lymphocytes Absolute Auto 1.12 K/mm3 (1.10-4.50); Lymphocytes Percent Auto 18.6 % (18.0-42.0); Mean Corpuscular HGB Conc 29.8 g/dL (32.0-36.0); Mean Corpuscular Volume 90.6 fL (78.0-102.0); Mean Platelet Volume 8.3 fl (9.2-11.8); Monocytes Absolute Auto 0.69 K/mm3 (0.10-0.90); Monocytes Percent Auto 11.5 % (2.0-11.0); Platelet Count Result 220 K/mm3 (150-420); Red Blood Count 3.93 M/mm3 (4.20-5.40); Red Cell Distribution Width 14.6 % (11.6-14.4)
[2023-08-16 21:21] LABS: Appearance Urine Clear (Clear); Bilirubin Urine Negative (Negative); Blood Urine Trace-Intact (Negative); Glucose Urine UA Negative (Negative); Ketones Urine Negative (Negative); Leukocyte Esterase Ur 3+ LEU/UL (Negative); Nitrate Urine Positive (Negative); Protein Urine 1+ (Negative); Urobilinogen Urine 0.2 mg/dL (0.2-1.0); pH Urine 6.5 (5.0-8.0)
[2023-08-16 21:24] LABS: INR 1.6; Partial Thromboplastin Time 28.6 SEC (23.90-30.70); Prothrombin Time 17.1 Seconds (9.50-12.10)
[2023-08-16 21:27] LABS: Alanine Aminotransferase 27 U/L (14-59); Albumin Level 3.2 g/dL (3.4-5.0); Alkaline Phosphatase 87 U/L (46-116); Anion Gap 7 mmol/L (8-16); Aspartate Amino Transferase 26 U/L (15-37); Bilirubin,Total 0.4 mg/dL (0.00-1.00); Blood Urea Nitrogen 35 mg/dL (7-18); Calcium 8.7 mg/dL (8.5-10.1); Carbon Dioxide 28 mmol/L (21-32); Chloride 106 mmol/L (98-108); Estimated CRCL calculation 19 ml/min; Estimated Glomerular Filt Rate 21; Glucose 99 mg/dL (70-99); Osmolality Calculated 300 mOsm/kg (285-295); Potassium 4.2 mmol/L (3.5-5.1); Sodium 141 mmol/L (136-145); Total Protein 7.1 g/dL (6.4-8.2)
[2023-08-16 21:29] LABS: CRP < 0.5 mg/dL (0.0-0.9)
[2023-08-16 21:29] LABS: Add Urine Microscopic? YES; Color Urine Yellow (Yellow); Squamous Epithelial Cell Urine Rare /hpf (Few); WBC Urine 21-30 /hpf (0-3)
[2023-08-16 21:30] LABS: Bacteria Urine 1+ /hpf
[2023-08-16 21:35] LABS: Lactic Acid Reflex 0.8 mmol/L (0.4-2.0)
[2023-08-16] MEDS: ALBUTEROL SULFATE NEB 2.5 MG/3 ML INH INHALATION (22:05)
[2023-08-16] MEDS: cefTRIAXone 2 GM/NS 100 ML 2 GM/100 ML BAG IVPB (22:06)
[2023-08-16] MEDS: SODIUM CHLORIDE 0.9% IV 500 ML 999 ML IV CONT (22:06)
[2023-08-16 22:15] LABS: Influenza A QL RT-PCR Negative (Negative); Influenza B QL RT-PCR Negative (Negative); RSV RNA, RT-PCR Negative (Negative); SARS-CoV-2 RNA PCR Negative (Negative)
[2023-08-16 22:50] VITALS: BMI 33.9
--- NOTE | 2023-08-16 22:50 | ADMGEN ---
This patient, Rajani Cardenas, was admitted to 2nd Floor Room 226-1. Patient oriented to hospital policies and general routines including ID bracelet, bed and alarms, visiting hours, pain management, procedures, bathroom and other care routines, personal items, smoking policy, room service/diet, and visiting hours. Information on how to activate the Rapid Response Team has been discussed. Patient encouraged to report perceived risks to care and to ask questions if they do not understand what they are told or what they should do.
--- NOTE | 2023-08-16 23:04 | PC.NURSE ---
Patient has [employer] pain pump to left mid to lower quadrant. Pain pump was replaced on 05/25/23, has dilaudid running through it (primary:1000mcg/mL, base rate is set at 2.2mcg/hr then for 1 hour [id number] goes up to 61.1mcg/hr and then again at 3533-0021 goes back up to 61.1mcg/hr) see report sent by [employer]. Pump model 8637-20 Serial Number [id number].
[2023-08-16 23:31] VITALS: PULSE 57; RESP 18; O2SAT 93
[2023-08-17] VITALS (12 sets, daily range): BP systolic 140–162; BP diastolic 55–77; PULSE 52–80; RESP 14–18; TEMP 36.2–36.8; O2SAT 92–99
[2023-08-17 05:21] LABS: Basophils Absolute Auto 0.02 K/mm3 (0.00-0.10); Basophils Percent Auto 0.4 % (0.0-1.0); Eosinophils Absolute Auto 0.18 K/mm3 (0.02-0.50); Eosinophils Percent Auto 3.3 % (1.0-6.0); Hematocrit 33.5 % (35.0-42.0); Hemoglobin 10.1 g/dL (11.7-13.8); Immature Granulocyte Absolute 0.01 K/mm3 (0.00-0.00); Immature Granulocyte Percent A 0.2 % (0.0-0.0); Lymphocytes Percent Auto 20.4 % (18.0-42.0); Mean Corpuscular HGB Conc 30.1 g/dL (32.0-36.0); Mean Corpuscular Hemoglobin 27.2 pg (27.0-31.0); Mean Corpuscular Volume 90.3 fL (78.0-102.0); Mean Platelet Volume 8.2 fl (9.2-11.8); Monocytes Percent Auto 11.1 % (2.0-11.0); Neutrophils Absolute Auto 3.5 K/mm3 (1.7-7.2); Neutrophils Percent Auto 64.6 % (50.0-70.0); Platelet Count Result 194 K/mm3 (150-420); Red Blood Count 3.71 M/mm3 (4.20-5.40); Red Cell Distribution Width 14.6 % (11.6-14.4); White Blood Count 5.4 K/mm3 (4.8-10.8)
[2023-08-17] MEDS: IPRATROPIUM 0.5 MG/ALBUTEROL SULFATE 2.5 MG AMPUL.NEB 3 ML INHALATION ×3 (05:25→19:15)
[2023-08-17 05:39] LABS: Alanine Aminotransferase 29 U/L (14-59); Alkaline Phosphatase 76 U/L (46-116); Anion Gap 7 mmol/L (8-16); Aspartate Amino Transferase 24 U/L (15-37); Bilirubin,Total 0.4 mg/dL (0.00-1.00); Blood Urea Nitrogen 31 mg/dL (7-18); Calcium 8.7 mg/dL (8.5-10.1); Carbon Dioxide 29 mmol/L (21-32); Chloride 108 mmol/L (98-108); Estimated CRCL calculation 19 ml/min; Estimated Glomerular Filt Rate 23; Glucose 87 mg/dL (70-99); Magnesium 1.9 mg/dL (1.8-2.4); Osmolality Calculated 303 mOsm/kg (285-295); Potassium 3.8 mmol/L (3.5-5.1); Sodium 144 mmol/L (136-145); Total Protein 6.5 g/dL (6.4-8.2)
--- NOTE | 2023-08-17 09:11 | PM.IMHP ---
H&P: HPI History of Present Illness Date/Time: 08/17/23 09:11 Chief Complaint: altered mental status, wheezing Narrative: This is an 83-year-old female patient admitted to the hospital due to acute UTI with altered mental status. Patient is a resident at local group home was quite ill about 10 days ago and was treated for influenza is transferred to Hospital in [place] where she was returned back to the group home 3 days after admission. The daughter states that patient did not receive any further nebulizer treatments because they were scheduled as needed and patient has been having difficulty breathing and significant wheezing. Daughter also noted that patient has been staying in bed and sleeping all day rather than being up in interactive. She has and Janis device where she can look in on the patient and she noted that the patient seemed very confused so she had the patient reassessed at [facility] last night. In the emergency department patient found to a little confused with significant wheezing. Nebulizer treatments helped. There was also potential concern for right lower lobe pneumonia but this was over-read by Radiology as chronic scarring. UA indicative of urinary tract infections so patient was started on Rocephin and admitted to the hospital for altered mental status and UTI. Review of Systems Review of Systems: All systems reviewed & are unremarkable except as noted in HPI and below PMFSH Past Medical History Medical History Chronic back pain CKD (chronic kidney disease) stage 4, GFR 15-29 ml/min Hypertension Left leg cellulitis Polycystic kidney Surgical History Surgical History H/O hysterectomy with oophorectomy History of bilateral knee replacement History of nephrectomy History of repair of hiatal hernia Social History Social History Smoking status: Never smoker Second hand tobacco smoke exposure: No Alcohol intake: never Substance use: never Substance use type: does not use Do You Feel Safe in your Home?: Yes Lack of Transportation: No Lack of Food: Never True Current Housing: I Have Housing Concerned About Future Housing: No Difficulty Paying Gas/Electric Bills: No Difficulty Paying for Meds: No Currently Unemployed: No Education: High School Diploma/GED Difficulty w/ Childcare or Family Care: No Gender identity (if verbalized by the patient): Female Sexual Orientation (if Verbalized by the Patient): Straight or Heterosexual Spiritual care concerns: No Meds Home Medications and Allergies Home Medications Medication Instructions Recorded Confirmed Type bupropion HCl 150 mg 24 hr tablet, 150 mg PO QAM 06/16/20 08/16/23 History extended release escitalopram oxalate 10 mg tablet 10 mg PO DAILY 06/16/20 08/16/23 History linaclotide 145 mcg capsule 145 mcg PO DAILY 06/16/20 08/16/23 History (Linzess) omeprazole 40 mg capsule,delayed 40 mg PO BID 06/16/20 08/16/23 History release warfarin 5 mg tablet 5 mg PO DAILY 06/16/20 08/16/23 History bethanechol chloride 25 mg tablet 25 mg PO TIDWMEAL 07/11/20 08/16/23 History trimethoprim 100 mg tablet 100 mg PO HS 07/11/20 08/16/23 History vit C 250 mg-vit E 90 mg-zinc 40 1 tablet PO BID 07/11/20 08/16/23 History mg-copper 1 ys-peckiv-verllu capsule (PreserVision AREDS-2) ondansetron 4 mg disintegrating 4 mg PO Q6H PRN nausea and 07/12/20 08/16/23 Rx tablet vomiting #20 tabs acetaminophen 325 mg capsule 650 mg PO Q8H PRN pain #20 caps 06/08/22 08/16/23 Rx (Tylenol) hydrocodone 5 mg-acetaminophen 325 5 - 325 tablet PO PRN 11/09/22 08/16/23 History mg tablet senna 8.6 - 50 mg BYMOUTH PRN 11/09/22 08/16/23 History cyclobenzaprine 5 mg tablet 10 mg PO TID PRN muscle spasm 04/30/23 08/16/23 History albuter
[2023-08-17] MEDS: buPROPion HCL XL (24 HR) 150 MG TABCR PO (09:40)
[2023-08-17] MEDS: DOCUSATE SODIUM 100 MG CAPSULE PO ×2 (09:40→20:00)
[2023-08-17] MEDS: amLODIPine BESYLATE 5 MG TABLET 10 MG PO (09:41)
[2023-08-17] MEDS: ESCITALOPRAM OXALATE 10 MG TABLET PO (09:43)
[2023-08-17] MEDS: WARFARIN (*PBKC) 5 MG TABLET PO ×2 (09:44→17:03)
[2023-08-17] MEDS: PANTOPRAZOLE 40 MG TABLET PO (09:44)
[2023-08-17] MEDS: CYANOCOBALAMIN 1,000 MCG TABLET 1000 MCG PO (09:45)
[2023-08-17] MEDS: ASCORBIC ACID 500 MG TABLET PO (09:45)
--- NOTE | 2023-08-17 11:47 | PHAR ---
Venecia from home identified - [facility] RX#[id number] Venecia 145 mcg 1 cap q am
[2023-08-17] MEDS: guaiFENesin/DEXTROMETHORPHAN 5 ML UDC 10 ML PO (20:00)
[2023-08-17] MEDS: BENZONATATE 100 MG CAPSULE 200 MG PO (21:35)
[2023-08-18] VITALS (14 sets, daily range): BP systolic 119–160; BP diastolic 59–80; PULSE 68–118; RESP 14–18; TEMP 36.2–36.8; O2SAT 92–99
[2023-08-18] MEDS: IPRATROPIUM 0.5 MG/ALBUTEROL SULFATE 2.5 MG AMPUL.NEB 3 ML INHALATION ×5 (00:36→23:30)
[2023-08-18 05:24] LABS: Basophils Absolute Auto 0.02 K/mm3 (0.00-0.10); Basophils Percent Auto 0.3 % (0.0-1.0); Eosinophils Absolute Auto 0.26 K/mm3 (0.02-0.50); Eosinophils Percent Auto 4.4 % (1.0-6.0); Hematocrit 34.4 % (35.0-42.0); Hemoglobin 10.7 g/dL (11.7-13.8); Immature Granulocyte Absolute 0.02 K/mm3 (0.00-0.00); Immature Granulocyte Percent A 0.3 % (0.0-0.0); Lymphocytes Absolute Auto 0.86 K/mm3 (1.10-4.50); Lymphocytes Percent Auto 14.7 % (18.0-42.0); Mean Corpuscular HGB Conc 31.1 g/dL (32.0-36.0); Mean Corpuscular Hemoglobin 27.2 pg (27.0-31.0); Mean Corpuscular Volume 87.5 fL (78.0-102.0); Mean Platelet Volume 8.3 fl (9.2-11.8); Monocytes Percent Auto 10.2 % (2.0-11.0); Neutrophils Absolute Auto 4.1 K/mm3 (1.7-7.2); Neutrophils Percent Auto 70.1 % (50.0-70.0); Platelet Count Result 193 K/mm3 (150-420); Red Blood Count 3.93 M/mm3 (4.20-5.40); Red Cell Distribution Width 14.6 % (11.6-14.4); White Blood Count 5.9 K/mm3 (4.8-10.8)
[2023-08-18 05:37] LABS: INR 2.2
[2023-08-18 05:40] LABS: Alanine Aminotransferase 28 U/L (14-59); Albumin Level 2.7 g/dL (3.4-5.0); Alkaline Phosphatase 78 U/L (46-116); Anion Gap 9 mmol/L (8-16); Aspartate Amino Transferase 22 U/L (15-37); Bilirubin,Total 0.3 mg/dL (0.00-1.00); Blood Urea Nitrogen 25 mg/dL (7-18); Calcium 8.7 mg/dL (8.5-10.1); Carbon Dioxide 29 mmol/L (21-32); Chloride 104 mmol/L (98-108); Estimated CRCL calculation 20 ml/min; Estimated Glomerular Filt Rate 24; Glucose 101 mg/dL (70-99); Magnesium 1.8 mg/dL (1.8-2.4); Osmolality Calculated 298 mOsm/kg (285-295); Potassium 3.3 mmol/L (3.5-5.1); Sodium 142 mmol/L (136-145); Total Protein 6.6 g/dL (6.4-8.2)
[2023-08-18] MEDS: POTASSIUM CHLORIDE 20 MEQ ER TABLET 40 MEQ PO (08:40)
--- NOTE | 2023-08-18 08:44 | PM.IMPN ---
Progress Note: A&P Assessment and Plan (1) Acute UTI: Code(s): N39.0 - Urinary tract infection, site not specified Status: Acute Assessment and Plan: Patient on IV Rocephin pending urine culture (2) Altered mental status: Code(s): R41.82 - Altered mental status, unspecified Status: Acute Assessment and Plan: Patient mildly confused and intermittently shaking which daughter states is very abnormal for the patient. Patient seems to be rather directable but really does not want to be in the hospital because she does not want to have blood draws. 08/18: patient is alert oriented no longer confused. Mild occasional tremors noted but otherwise patient appears to be at baseline oriented mental status (3) CKD (chronic kidney disease) stage 4, GFR 15-29 ml/min: Code(s): N18.4 - Chronic kidney disease, stage 4 (severe) Status: Acute Assessment and Plan: Renal function appears to be at baseline which is stage IV CKD (4) Wheezing: Code(s): R06.2 - Wheezing Status: Acute Assessment and Plan: Patient recently had influenza a and is still recovering from such. She was noted to be very wheezy upon arrival to the ER last night. Better today but we will continue scheduled nebs which is part of the family concern that she went back to the shelter without continue nebulizers. 08/18: basilar wheezing still present (5) Warfarin anticoagulation: Code(s): Z79.01 - snf (current) use of anticoagulants Status: Acute Assessment and Plan: Patient is subtherapeutic INR 1.6. Additional dose of warfarin given today and will recheck INR in the morning. 08/18: INR is therapeutic again at 2.2. Continue daily dosing and recheck Plan Continue IV antibiotics pending urine culture. Continue treating wheezing with scheduled DuoNebs. Anticipate discharge in 2-3 days with oral to complete treatment for UTI. Time Spent With Patient Time with patient: 25 - 35 minutes Subjective Date/time seen: 08/18/23 08:44 Interval history: Patient reports that her daughter visited with her all day yesterday and that her daughter would not let her fall asleep during the day. Patient reports that she rested well overnight. She is still having some cough this morning and sensation of wheezing. Mild wheezing noted on exam. Otherwise patient is feeling like she is starting to improve. She reports that she is mentally more clear today than she has been recently. Review of Systems Review of Systems: All systems reviewed & are unremarkable except as noted in HPI and below Exam Narrative: GENERAL: Chronically ill-appearing, well-nourished, and in no acute distress. Patient no longer confused HEAD: Normocephalic, atraumatic. ENT:? Mucous membranes moist. CHEST: Wheezing noted to auscultation.? No respiratory distress. HEART: mildly tachycardic, irregular rhythm. ? Normal peripheral pulses. ABDOMEN: Soft, nontender, nondistended. EXTREMITIES: Normal range of motion. No peripheral edema. Significant bruising bilateral upper extremities from multiple venous attempts SKIN: Warm dry normal color NEURO: Awake, alert, oriented x4 PSYCH: Normal mood and affect Objective Data Vital Signs Vital Signs: Vital Signs - 24 hr 08/17/23 12:45 08/17/23 13:01 08/17/23 12:00 Temperature 36.8 C Pulse Rate 56 L 68 72 Respiratory Rate 16 16 14 Blood Pressure 140/70 Pulse Oximetry 98 98 96 Oxygen Delivery Room Air 08/17/23 16:00 08/17/23 20:00 08/18/23 00:00 Temperature 36.7 C 36.2 C L 36.7 C Pulse Rate 72 68 68 Respiratory Rate 18 16 16 Blood Pressure 155/69 H 155/73 H 148/80 H Pulse Oximetry 93 99 98 Oxygen Delivery Room Air Room Air Room Air 08/18/23 04:00 08/18/23 00:36 08/18/23 00:42 Temperature 36.4 C Pulse Rate 68 Respiratory Rate 16 Blood Pressure 154/72 H Pulse Oximetry 99 99 99 Oxygen Delivery Room Air 08/17/23 19:15 08/17/23
[2023-08-18] MEDS: amLODIPine BESYLATE 5 MG TABLET 10 MG PO (09:30)
[2023-08-18] MEDS: buPROPion HCL XL (24 HR) 150 MG TABCR PO (09:35)
[2023-08-18] MEDS: DOCUSATE SODIUM 100 MG CAPSULE PO ×2 (09:40→20:51)
[2023-08-18] MEDS: ASCORBIC ACID 500 MG TABLET PO (09:40)
[2023-08-18] MEDS: PANTOPRAZOLE 40 MG TABLET PO (09:40)
[2023-08-18] MEDS: ESCITALOPRAM OXALATE 10 MG TABLET PO (09:40)
[2023-08-18] MEDS: CYANOCOBALAMIN 1,000 MCG TABLET 1000 MCG PO (09:40)
[2023-08-18] MEDS: ONDANSETRON INJ 4 MG/2 ML VIAL IV PUSH (09:58)
--- NOTE | 2023-08-18 13:12 | PC.NURSE ---
bath given patient tolerated well.
[2023-08-18] MEDS: POTASSIUM CHLORIDE 20 MEQ PACKET (FOR LIQUID) 40 MEQ PO (15:27)
[2023-08-18] MEDS: WARFARIN (*PBKC) 5 MG TABLET PO (17:07)
[2023-08-18] MEDS: CEFEPIME 1 GM/NS 50 ML 1 GM/50 ML BAG IVPB (19:26)
[2023-08-19 05:38] VITALS: PULSE 68; RESP 16; O2SAT 92
[2023-08-19] MEDS: IPRATROPIUM 0.5 MG/ALBUTEROL SULFATE 2.5 MG AMPUL.NEB 3 ML INHALATION ×2 (05:38→13:29)
[2023-08-19 05:47] VITALS: PULSE 70; RESP 16; O2SAT 96
[2023-08-19 05:53] LABS: Basophils Absolute Auto 0.02 K/mm3 (0.00-0.10); Basophils Percent Auto 0.4 % (0.0-1.0); Eosinophils Absolute Auto 0.29 K/mm3 (0.02-0.50); Eosinophils Percent Auto 6.3 % (1.0-6.0); Hematocrit 32.6 % (35.0-42.0); Immature Granulocyte Absolute 0.01 K/mm3 (0.00-0.00); Immature Granulocyte Percent A 0.2 % (0.0-0.0); Lymphocytes Percent Auto 17.3 % (18.0-42.0); Mean Corpuscular HGB Conc 30.7 g/dL (32.0-36.0); Mean Corpuscular Hemoglobin 27.5 pg (27.0-31.0); Mean Corpuscular Volume 89.6 fL (78.0-102.0); Mean Platelet Volume 8.9 fl (9.2-11.8); Monocytes Absolute Auto 0.54 K/mm3 (0.10-0.90); Monocytes Percent Auto 11.7 % (2.0-11.0); Neutrophils Percent Auto 64.1 % (50.0-70.0); Platelet Count Result 211 K/mm3 (150-420); Red Blood Count 3.64 M/mm3 (4.20-5.40); Red Cell Distribution Width 15.1 % (11.6-14.4); White Blood Count 4.6 K/mm3 (4.8-10.8)
[2023-08-19] MEDS: CEFEPIME 1 GM/NS 50 ML 1 GM/50 ML BAG IVPB (05:58)
[2023-08-19 06:13] LABS: Alanine Aminotransferase 23 U/L (14-59); Albumin Level 2.5 g/dL (3.4-5.0); Alkaline Phosphatase 76 U/L (46-116); Anion Gap 7 mmol/L (8-16); Aspartate Amino Transferase 14 U/L (15-37); Bilirubin,Total 0.3 mg/dL (0.00-1.00); Blood Urea Nitrogen 31 mg/dL (7-18); Calcium 8.4 mg/dL (8.5-10.1); Carbon Dioxide 29 mmol/L (21-32); Chloride 105 mmol/L (98-108); Estimated CRCL calculation 18 ml/min; Estimated Glomerular Filt Rate 21; Glucose 91 mg/dL (70-99); Magnesium 1.9 mg/dL (1.8-2.4); Osmolality Calculated 298 mOsm/kg (285-295); Potassium 3.9 mmol/L (3.5-5.1); Sodium 141 mmol/L (136-145); Total Protein 6.2 g/dL (6.4-8.2)
[2023-08-19 06:14] LABS: INR 2.9; Prothrombin Time 29.7 Seconds (9.50-12.10)
[2023-08-19 07:40] VITALS: BP 147/63; PULSE 85; RESP 18; TEMP 35.8; O2SAT 95
[2023-08-19] MEDS: buPROPion HCL XL (24 HR) 150 MG TABCR PO (09:49)
[2023-08-19] MEDS: CYANOCOBALAMIN 1,000 MCG TABLET 1000 MCG PO (09:49)
[2023-08-19] MEDS: amLODIPine BESYLATE 5 MG TABLET 10 MG PO (09:49)
[2023-08-19] MEDS: ASCORBIC ACID 500 MG TABLET PO (09:49)
[2023-08-19] MEDS: ESCITALOPRAM OXALATE 10 MG TABLET PO (09:49)
[2023-08-19] MEDS: PANTOPRAZOLE 40 MG TABLET PO (09:49)
[2023-08-19] MEDS: DOCUSATE SODIUM 100 MG CAPSULE PO (09:49)
[2023-08-19] MEDS: ACETAMINOPHEN 325 MG TABLET 650 MG PO (11:16)
--- NOTE | 2023-08-19 11:47 | PM.IMPN ---
Progress Note: A&P Assessment and Plan (1) Acute UTI: Code(s): N39.0 - Urinary tract infection, site not specified Status: Acute Assessment and Plan: Patient on IV Rocephin pending urine culture (2) Altered mental status: Code(s): R41.82 - Altered mental status, unspecified Status: Acute Assessment and Plan: Patient mildly confused and intermittently shaking which daughter states is very abnormal for the patient. Patient seems to be rather directable but really does not want to be in the hospital because she does not want to have blood draws. 08/18: patient is alert oriented no longer confused. Mild occasional tremors noted but otherwise patient appears to be at baseline oriented mental status (3) CKD (chronic kidney disease) stage 4, GFR 15-29 ml/min: Code(s): N18.4 - Chronic kidney disease, stage 4 (severe) Status: Acute Assessment and Plan: Renal function appears to be at baseline which is stage IV CKD (4) Wheezing: Code(s): R06.2 - Wheezing Status: Acute Assessment and Plan: Patient recently had influenza a and is still recovering from such. She was noted to be very wheezy upon arrival to the ER last night. Better today but we will continue scheduled nebs which is part of the family concern that she went back to the [facility] without continue nebulizers. 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 Additional dose of warfarin given today and will recheck INR in the morning. 08/18: INR is therapeutic again at 2.2. Continue daily dosing and recheck Plan Continue IV antibiotics pending urine culture. Continue treating wheezing with scheduled DuoNebs. Anticipate discharge in 2-3 days with oral to complete treatment for UTI. Subjective Date/time seen: 08/19/23 11:47 Interval history: This is an 83 year old female who presented to the hospital on 08/16/23 for AMS and wheezing. Work up in the hospital included a chest x-ray that shown chronic scarring in right mid and lower lung zones, cardiomegaly, no acute cardiopulmonary process. Labs revealed WBC 6.0, Hgb 10.6, BUN 35, Creatinine 2.19, eGFR 21, serum osmolarity 300. UA was performed and shown 1+ protein, Trace urine blood, urine nitrate +, 3+ leukocyte, urine RBC 3-5, urine WBC 21-30, 1+ bacteria. Urine culture obtained and resulted as pseudomonas aeruginosa. Patient was on Cefepime IV. We will switch to Levofloxacin oral today. On examination today patient is alert and oriented x3, sitting in the chair. She denies any vomiting, diarrhea, abdominal pain, fever, chills, chest pain. She does report acid reflux, and nausea. Review of Systems Review of Systems: All systems reviewed & are unremarkable except as noted in HPI and below Objective Data Vital Signs Vital Signs: Vital Signs - 24 hr 08/18/23 13:13 08/18/23 13:25 08/18/23 12:00 Temperature 98.2 F Pulse Rate 118 H 118 H 72 Respiratory Rate 18 18 14 Blood Pressure 160/75 H Pulse Oximetry 93 93 98 Oxygen Delivery Room Air Oxygen Flow Rate 08/18/23 17:16 08/18/23 17:37 08/18/23 16:30 Temperature 97.3 F L Pulse Rate 112 H 110 H 85 Respiratory Rate 18 18 16 Blood Pressure 148/71 H Pulse Oximetry 93 97 95 Oxygen Delivery Room Air Oxygen Flow Rate 08/18/23 23:30 08/18/23 23:37 08/19/23 05:38 Temperature 97.2 F L Pulse Rate 78 68 Respiratory Rate 17 16 Blood Pressure 119/59 L Pulse Oximetry 96 96 92 Oxygen Delivery Room Air Oxygen Flow Rate 0 08/19/23 05:47 08/19/23 07:40 Temperature 96.5 F L Pulse Rate 70 85 Respiratory Rate 16 18 Blood Pressure 147/63 H Pulse Oximetry 96 95 Oxygen Delivery Room Air Oxygen Flow Rate Intake/Output Intake/Output: Intake & Output 08/16/23 08/17/23 08/18/23 08/19/23 23:59
--- NOTE | 2023-08-19 12:04 | PM.DS ---
DS: Admitting Diagnosis Discharge Date 08/19/23 Admitting Diagnosis UTI AMS Chronic kidney disease, stage 4 Wheezing Warfarin anticoagulation DS: Summary Hospital Course Reason for hospitalization: Acute UTI AMS Wheezing Hospital Course: This is an 83 year old female who presented to the hospital on 08/16/23 for AMS and wheezing. Work up in the hospital included a chest x-ray that shown chronic scarring in right mid and lower lung zones, cardiomegaly, no acute cardiopulmonary process. Labs revealed WBC 6.0, Hgb 10.6, BUN 35, Creatinine 2.19, eGFR 21, serum osmolarity 300. UA was performed and shown 1+ protein, Trace urine blood, urine nitrate +, 3+ leukocyte, urine RBC 3-5, urine WBC 21-30, 1+ bacteria. Urine culture obtained and resulted as pseudomonas aeruginosa. Patient was on Cefepime IV. We will switch to Levofloxacin oral today. Blood cultures showing no growth on preliminary read. On examination today patient is alert and oriented x3, sitting in the chair. She denies any vomiting, diarrhea, abdominal pain, fever, chills, chest pain. She does report acid reflux, and nausea. She has no pain or discomfort. Patient is stable for discharge back to her care home facility. She will need to follow up with PCP in 1 week. Final diagnosis: Acute UTI, altered mental status Status at Discharge Cognitive/behavioral status at discharge: Alert and oriented x3 Functional status at discharge: uses cane/walker Overall status at discharge: patient is progressing back to baseline Time Spent with Patient Time attestation: Total time spent providing and/or coordinating discharge services: Time spent: Greater than 30 minutes Exam Narrative: General: In no acute distress, well nourished Head: atraumatic, no encephalopathy Eyes: EOMI, PERRLA, sclera clear ENT: moist mucous membranes, nasal passages clear Neck: supple, no JVD, no adenopathy, trachea midline Cardiac: Normal S1 and S2. RRR. No murmur, gallops or friction rubs, peripheral pulses intact. Respiratory: Lungs clear to auscultation, no adventitious lung sounds Gastrointestinal: soft, non-distended, non-tender, normoactive bowel sounds. Reporting acid reflux this morning. : voiding without difficulty. Extremities: moves all extremities well, mild pedal edema, good ROM Skin: clean, dry, intact. No wounds or lesions. Neuro: Alert and oriented x3, cranial nerves intact, no neuro deficits. Psych: normal mood, normal affect, interactive DS: Data Data Completed and Pending Completed studies during hospitalization: chest x-ray Pending studies at discharge: blood cultures are still pending Labs on day of discharge: Labs from last 24 hours 08/19/23 05:13 WBC 4.6 L RBC 3.64 L Hgb 10.0 L Hct 32.6 L MCV 89.6 MCH 27.5 MCHC 30.7 L RDW 15.1 H Plt Count 211 MPV 8.9 L Immature Gran % (Auto) 0.2 H Neut % (Auto) 64.1 Lymph % (Auto) 17.3 L Ashley % (Auto) 11.7 H Eos % (Auto) 6.3 H Baso % (Auto) 0.4 Lymph # (Auto) 0.80 L Ashley # (Auto) 0.54 Eos # (Auto) 0.29 Baso # (Auto) 0.02 Abs Immat Gran (auto) 0.01 H Absolute Neuts (auto) 3.0 Absolute Nucleated RBC 0.00 Nucleated RBC % 0.0 PT 29.7 H D INR 2.9 Sodium 141 Potassium 3.9 Chloride 105 Carbon Dioxide 29 Anion Gap 7 L BUN 31 H Creatinine 2.22 H Estim Creat Clear Calc 18 Estimated GFR 21 L Glucose 91 Calculated Osmolality 298 H Calcium 8.4 L Magnesium 1.9 Total Bilirubin 0.3 AST 14 L ALT 23 Alkaline Phosphatase 76 Total Protein 6.2 L Albumin 2.5 L Preliminary micro results at discharge 08/16/23 21:18 Blood Culture - Preliminary Blood 08/16/23 21:06 Blood Culture - Preliminary Blood Procedures/Treatments: none Discharge Plan Discharge Attending physician on discharge: Flynn Méndez Discharging Clinician: Leila Veliz Anticipated Discharge Date/Time: 08/19/23 12:08 Patient Disposition: [facility] Skilled Nursing/Asst Living Activity: a
--- NOTE | 2023-08-19 12:11 | PC.NURSE ---
Called and left message for daughter Angela that her mother will be returning to [facility] today.
[2023-08-19] MEDS: MAG HYDROX/AL HYDROX/SIMETH 30 ML UDC PO (12:12)
--- NOTE | 2023-08-19 12:58 | PC.NURSE ---
Spoke to daughter regarding discharge. 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
--- NOTE | 2023-08-19 13:05 | PC.NURSE ---
Report called to Gail at [facility]. halfway worker will be over to transport patient back to [place] between 1330 and 1400.
[2023-08-19 13:27] VITALS: PULSE 118; RESP 20; O2SAT 95
[2023-08-19 13:43] VITALS: PULSE 90; RESP 18; O2SAT 99
--- NOTE | 2023-08-19 13:50 | PC.NURSE ---
Patient discharging back to long-term. IV site removed tip intact, dressing applied to site. All discharge instructions given to long-term nurse Gail. Home medication returned with patient. All belongings gathered and sent home with patient. This nurse accompanied patient to front door via wheelchair, left via long-term van with jail worker. No questions at time of discharge.
--- NOTE | 2023-08-23 08:33 | PC.NURSE ---
Patient was DC back to [facility], received instructions, no questions or concerns from staff
== END 2023-08-19 13:50 | DRG 690 ==
LOC: CHSED 22:00 → CHS2ND 22:23
PROVIDERS: Nurse Practitioner; Nurse Practitioner Acute Care; Admitting Provider Internal Medicine; Emergency Provider Emergency Medicine; PCP Family Medicine; Visit Provider Internal Medicine
DX: N39.0 Urinary tract infection, site not specified (principal); N18.4 Chronic kidney disease, stage 4 (severe); I12.9 Hypertensive chronic kidney disease with stage 1 through stage 4 chronic kidney disease, or unspecified chronic kidney disease; R06.2 Wheezing; M54.9 Dorsalgia, unspecified; G89.29 Other chronic pain; Z96.653 Presence of artificial knee joint, bilateral; Z79.01 Long term (current) use of anticoagulants; Z90.5 Acquired absence of kidney; B96.5 Pseudomonas (aeruginosa) (mallei) (pseudomallei) as the cause of diseases classified elsewhere
CPT/HCPCS: 36415; 71045; 80053; 81001; 83605; 83735; 85025; 85610; 85730; 86140; 87040; 87077; 87086; 87088; 87186; 87637; 94640; 96361; 96365; 97161; 97530; 99285; A9270; G0378; J0692; J0696; J2405; J7040

== ENCOUNTER 2023-10-18 07:27 | Outpatient (NON) | payer MEDICARE, SELFPAY ==
[2023-10-18 07:57] LABS: INR 1.7; Prothrombin Time 18.2 Seconds (9.50-12.1)
== END 2023-10-18 07:28 | disposition home or self-care (01) ==
LOC: CHSLAB 07:28
PROVIDERS: Visit Provider Family Medicine
DX: Z79.01 Long term (current) use of anticoagulants (principal)
CPT/HCPCS: 36415; 85610

== ENCOUNTER 2023-10-22 07:51 | Outpatient (NON) | payer MEDICARE, SELFPAY ==
[2023-10-22 08:57] LABS: INR 1.9; Prothrombin Time 20.3 Seconds (9.50-12.1)
[2023-10-27 22:12] LABS: Vitamin D 25 Hydroxy 24 ng/mL (30-100)
== END 2023-10-22 07:52 | disposition home or self-care (01) ==
LOC: CHSLAB 07:53
PROVIDERS: Visit Provider Family Medicine
DX: E55.9 Vitamin D deficiency, unspecified (principal); Z79.01 Long term (current) use of anticoagulants
CPT/HCPCS: 36415; 82306; 85610

== ENCOUNTER 2023-11-01 07:50 | Outpatient (NON) | payer MEDICARE, SELFPAY ==
[2023-11-01 08:21] LABS: INR 2.5; Prothrombin Time 25.2 Seconds (9.50-12.1)
== END 2023-11-01 07:51 | disposition home or self-care (01) ==
LOC: CHSLAB 07:51
PROVIDERS: Visit Provider Family Medicine
DX: I87.2 Venous insufficiency (chronic) (peripheral) (principal); Z86.718 Personal history of other venous thrombosis and embolism; Z86.711 Personal history of pulmonary embolism
CPT/HCPCS: 36415; 85610

== ENCOUNTER 2023-11-18 16:43 | Emergency (ER) | payer MEDICARE, MEDICAID, SELFPAY ==
[2023-11-18] VITALS (7 sets, daily range): BP systolic 153–187; BP diastolic 74–86; PULSE 69–75; RESP 17; TEMP 36.4–36.6; O2SAT 93–98
--- NOTE | 2023-11-18 16:50 | ED.GENADULT ---
HPI - General Adult General Chief complaint: Extremity Problem,Nontraumatic Stated complaint: bilateral leg checks Time Seen by Provider: 11/18/23 16:48 History of Present Illness HPI narrative: The patient is an 83-year-old woman resident of the residential, full code, with comorbidities of chronic kidney disease stage 4, hypertension, COPD, GERD, iron deficiency anemia, depression, restless leg syndrome, osteoarthritis, hyperparathyroidism, obesity, chronic venous insufficiency of the lower extremities, pulmonary embolism, DVT, on anticoagulation with warfarin. She is currently on Keflex started for lower extremity cellulitis. The daughter visited the patient today and was concerned about possibly recurrent DVT in the lower extremities. The patient has no complaints about the lower extremities or elsewhere. She wears Ollie stockings. She has been taking her Keflex antibiotics for the cellulitis. She has no calf pain. No chest pain. No nausea or vomiting. No abdominal pain. No other complaints. No fevers or chills or diaphoresis. No dyspnea. Related Data Home Medications Medication Instructions Recorded Confirmed bupropion HCl 150 mg 24 hr tablet, 150 mg PO QAM 06/16/20 11/18/23 extended release escitalopram oxalate 10 mg tablet 10 mg PO DAILY 06/16/20 11/18/23 linaclotide 145 mcg capsule 145 mcg PO DAILY 06/16/20 11/18/23 (Linzess) omeprazole 40 mg capsule,delayed 40 mg PO BID 06/16/20 11/18/23 release warfarin 5 mg tablet 5 mg PO DAILY 06/16/20 11/18/23 bethanechol chloride 25 mg tablet 25 mg PO TIDWMEAL 07/11/20 11/18/23 trimethoprim 100 mg tablet 100 mg PO HS 07/11/20 11/18/23 vit C 250 mg-vit E 90 mg-zinc 40 1 tablet PO BID 07/11/20 11/18/23 mg-copper 1 [id number] capsule (PreserVision AREDS-2) hydrocodone 5 mg-acetaminophen 325 5 - 325 tablet PO PRN 11/09/22 11/18/23 mg tablet senna 8.6 - 50 mg BYMOUTH PRN 11/09/22 11/18/23 cyclobenzaprine 5 mg tablet 10 mg PO TID PRN muscle spasm 04/30/23 11/18/23 albuterol sulfate 90 mcg/actuation 2 puff inhalation Q4-6H PRN 08/08/23 11/18/23 aerosol inhaler Shortness Of Breath Or Wheezing ascorbic acid (vitamin C) 500 mg PO DAILY 08/08/23 11/18/23 cyanocobalamin (vitamin B-12) 1,000 mg PO DAILY 08/08/23 11/18/23 lactulose 10 gram/15 mL oral 15 ml PO DAILY PRN Constipation 08/08/23 11/18/23 solution (Enulose) amlodipine 10 mg tablet 10 mg PO DAILY 08/16/23 11/18/23 Allergies Allergy/AdvReac Type Severity Reaction Status Date / Time Sulfa (Sulfonamide Allergy Unknown Unknown Verified 11/18/23 16:44 Antibiotics) metoclopramide Allergy Unknown Verified 11/18/23 16:44 nabumetone [From Relafen] Allergy Unknown Verified 11/18/23 16:44 Review of Systems Review of Systems: All systems reviewed & are unremarkable except as noted in HPI and below Constitutional: Constitutional: Denies chills, Denies excessive sweating, Denies fatigue, Denies fever(s), Denies headache(s) and Denies weakness Eyes: Eyes: Denies change in vision and Denies photophobia ENT: Denies dysphagia, Denies dizziness, Denies headache(s), Denies lip swelling, Denies nasal congestion, Denies sore throat and Denies tongue swelling Cardiovascular: Cardiovascular: Denies chest pain, Denies syncope, Denies rapid heart rate and Denies dyspnea Respiratory: Respiratory: Denies cough, Denies dyspnea and Denies wheezing Gastrointestinal: Gastrointestinal: Denies abdominal pain, Denies constipation, Denies dysphagia, Denies diarrhea, Denies nausea and Denies vomiting Genitourinary: Genitourinary: Denies hematuria, Denies urinary frequency, Denies dysuria and Denies urinary urgency Musculoskeletal: Musculoskeletal: Denies back pain, Denies myalgias, Denies arthralgias, Denies joint swelling and Denies numbness Integumentary/Breasts: Skin/Breast: Denies pruritus, Reports erythema ( Lower extremities currently on Keflex) and Denies rash Neurologic: Denies confusion, Denies dizziness, Denies syn
[2023-11-18] MEDS: cloNIDine HCL 0.1 MG TABLET PO ×2 (17:02→17:55)
[2023-11-18 17:05] LABS: Basophils Absolute Auto 0.04 K/mm3 (0.00-0.10); Basophils Percent Auto 0.9 % (0.0-1.0); Eosinophils Absolute Auto 0.52 K/mm3 (0.02-0.50); Eosinophils Percent Auto 11.6 % (1.0-6.0); Hematocrit 36.1 % (35.0-42.0); Hemoglobin 11.1 g/dL (11.7-13.8); Immature Granulocyte Absolute 0.01 K/mm3 (0.00-0.00); Immature Granulocyte Percent A 0.2 % (0.0-0.0); Lymphocytes Absolute Auto 0.85 K/mm3 (1.10-4.50); Mean Corpuscular HGB Conc 30.7 g/dL (32-36); Mean Corpuscular Hemoglobin 27.5 pg (27.0-31.0); Mean Corpuscular Volume 89.6 fL (78.0-102.0); Mean Platelet Volume 8.4 fl (9.2-11.8); Monocytes Absolute Auto 0.51 K/mm3 (0.10-0.90); Monocytes Percent Auto 11.4 % (2.0-11.0); Neutrophils Absolute Auto 2.54 K/mm3 (1.70-7.20); Neutrophils Percent Auto 56.9 % (50.0-70.0); Platelet Count Result 217 K/mm3 (150-420); Red Blood Count 4.03 M/mm3 (4.20-5.40); Red Cell Distribution Width 14.6 % (11.6-14.4); White Blood Count 4.5 K/mm3 (4.8-10.8)
[2023-11-18 17:19] LABS: D Dimer 0.42 mg/L (0.19-0.50); Partial Thromboplastin Time 32.2 Sec (23.9-30.70); Prothrombin Time 20.7 Seconds (9.50-12.1)
[2023-11-18 17:20] LABS: Alanine Aminotransferase 23 U/L (14-59); Alkaline Phosphatase 88 U/L (46-116); Anion Gap 3 mmol/L (4-12); Aspartate Amino Transferase 16 U/L (15-37); Bilirubin,Total 0.2 mg/dL (0.00-1.00); Blood Urea Nitrogen 36 mg/dL (7-18); CRP 0.7 mg/dL (0.0-0.9); Carbon Dioxide 33 mmol/L (21-32); Chloride 108 mmol/L (98-108); Creatine Kinase 63 U/L (26-192); Estimated Glomerular Filt Rate 27; Glucose 105 mg/dL (70-99); Osmolality Calculated 306 mOsm/kg (285-295); Potassium 4.4 mmol/L (3.5-5.1); Sodium 144 mmol/L (136-145); Total Protein 6.8 g/dL (6.4-8.2)
[2023-11-18 17:23] LABS: Lactic Acid Reflex 0.6 mmol/L (0.4-2.0)
[2023-11-18 18:12] LABS: Erythrocyte Sedimentation Rate 43 mm/hr (0-20)
--- NOTE | 2023-11-18 19:08 | PC.NURSE ---
Report given to Jay Jay at [facility] re[facility], they will be over to pick her up as soon as they can.
== END 2023-11-18 19:50 | disposition home or self-care (01) ==
PROVIDERS: Emergency Provider Emergency Medicine; PCP Family Medicine
DX: L03.116 Cellulitis of left lower limb (principal); L03.115 Cellulitis of right lower limb; I16.0 Hypertensive urgency; I12.9 Hypertensive chronic kidney disease with stage 1 through stage 4 chronic kidney disease, or unspecified chronic kidney disease; N18.4 Chronic kidney disease, stage 4 (severe); J44.9 Chronic obstructive pulmonary disease, unspecified; K21.9 Gastro-esophageal reflux disease without esophagitis; D50.9 Iron deficiency anemia, unspecified; F32.A Depression, unspecified; G25.81 Restless legs syndrome; I87.2 Venous insufficiency (chronic) (peripheral); Z86.718 Personal history of other venous thrombosis and embolism; Z86.711 Personal history of pulmonary embolism; Z79.01 Long term (current) use of anticoagulants; Z79.51 Long term (current) use of inhaled steroids; Z79.891 Long term (current) use of opiate analgesic; Z90.5 Acquired absence of kidney
CPT/HCPCS: 36415; 80053; 82550; 83605; 85025; 85380; 85610; 85652; 85730; 86140; 99283; A9270

== ENCOUNTER 2023-12-01 06:47 | Outpatient (NON) | payer MEDICARE, SELFPAY ==
[2023-12-01 07:49] LABS: Anion Gap 6 mmol/L (4-12); Blood Urea Nitrogen 48 mg/dL (7-18); Calcium 9.1 mg/dL (8.5-10.1); Carbon Dioxide 33 mmol/L (21-32); Chloride 109 mmol/L (98-108); Estimated Glomerular Filt Rate 25; Glucose 84 mg/dL (70-99); Osmolality Calculated 317 mOsm/kg (285-295); Potassium 4.4 mmol/L (3.5-5.1); Sodium 148 mmol/L (136-145)
[2023-12-01 07:52] LABS: INR 2.2
== END 2023-12-01 06:48 | disposition home or self-care (01) ==
LOC: CHSLAB 06:51
PROVIDERS: Visit Provider Family Medicine
DX: R60.9 Edema, unspecified (principal); Z79.01 Long term (current) use of anticoagulants
CPT/HCPCS: 36415; 80048; 85610

== ENCOUNTER 2023-12-14 11:30 | Outpatient (NON) | payer MEDICARE, SELFPAY ==
[2023-12-14 12:08] LABS: Appearance Urine Sl Cloudy (Clear); Bilirubin Urine Negative (Negative); Blood Urine Negative (Negative); Color Urine Light Yellow (Yellow); Glucose Urine UA Negative (Negative); Ketones Urine Negative (Negative); Leukocyte Esterase Ur 3+ (Negative); Nitrate Urine Negative (Negative); Protein Urine 1+ (Negative); pH Urine >=9.0 (5.0-8.0)
[2023-12-14 12:14] LABS: Add Urine Microscopic? YES; RBC Urine None seen /hpf (0-2); Squamous Epithelial Cell Urine Few /hpf (Few)
[2023-12-14 12:15] LABS: Bacteria Urine 2+ /hpf
== END 2023-12-14 11:31 | disposition home or self-care (01) ==
LOC: CHSLAB 11:33
PROVIDERS: PCP Family Medicine; Visit Provider Family Medicine
DX: N39.0 Urinary tract infection, site not specified (principal); R35.0 Frequency of micturition; N18.4 Chronic kidney disease, stage 4 (severe); Z87.440 Personal history of urinary (tract) infections; Z85.528 Personal history of other malignant neoplasm of kidney
CPT/HCPCS: 81001; 87077; 87086; 87088; 87186

== ENCOUNTER 2024-02-01 14:45 | Outpatient (NON) | payer MEDICARE, OTHER, SELFPAY ==
[2024-02-01 15:07] LABS: Bilirubin Urine Negative (Negative); Blood Urine 1+ (Negative); Color Urine Light Yellow (Yellow); Glucose Urine UA Negative (Negative); Ketones Urine Negative (Negative); Leukocyte Esterase Ur 3+ LEU/UL (Negative); Nitrate Urine Negative (Negative); Protein Urine 1+ (Negative); Specific Grav Ur 1.015 (1.010-1.020); Urobilinogen Urine 0.2 mg/dL (0.2-1.0)
[2024-02-01 15:19] LABS: Add Urine Microscopic? YES; Appearance Urine Cloudy (Clear); Bacteria Urine 1+ /hpf; Renal Epithelial Cells Urine Few /hpf; Squamous Epithelial Cell Urine Few /hpf (Few); WBC Urine >75 /hpf (0-3)
== END 2024-02-01 14:46 | disposition home or self-care (01) ==
PROVIDERS: Visit Provider Family Medicine
DX: N18.4 Chronic kidney disease, stage 4 (severe) (principal); R82.90 Unspecified abnormal findings in urine
CPT/HCPCS: 81001; 87077; 87086; 87088; 87186

== ENCOUNTER 2024-02-07 12:42 | Outpatient (CLI) | payer MEDICARE, MEDICAID, SELFPAY ==
--- NOTE | ~2024-02-07 | CT_ITS ---
CT Scan of the Chest without Contrast: Clinical Indication: Paratracheal mass Technique: Contiguous sections were acquired throughout the chest without intravenous contrast. Dose reduction technique was used on this scan by utilizing automated exposure control and iterative recon struction technique. The dose-length product (DLP) was 312.83 mGy-cm. COMPARISON: 02/04/2023 Findings: Right paratracheal nodules and suprahilar clavicular region are probably related to residua l thyroid tissue. There is no evidence of any significant mediastinal, hilar or axillary lymphadenopathy. There are ath erosclerotic calcifications of the aorta and coronary arteries. There is no evidence of pleural or pericardial effusion. The lungs are clear. No pulmonary nodules or infiltrates are noted. Images through the upper abdomen reveal small hiatal hernia. Impression: Probable residual thyroid tissue adjacent to the supraclavicular trachea. Small hiatal hernia. No acute pulmonary abnormality. Reviewed, dictated and finalized at [facility]. Impression: Probable residual thyroid tissue adjacent to the supraclavicular trachea. Small hiatal hernia. No acute pulmonary abnormality.
== END 2024-02-07 12:43 | disposition home or self-care (01) ==
PROVIDERS: PCP Family Medicine; Visit Provider Thoracic Surgery (Cardiothoracic Vascular Surgery)
DX: R22.2 Localized swelling, mass and lump, trunk (principal); K44.9 Diaphragmatic hernia without obstruction or gangrene
CPT/HCPCS: 71250

== ENCOUNTER 2024-02-09 11:05 | Outpatient (CLI) | payer MEDICARE, SELFPAY ==
[2024-02-09 12:14] LABS: Anion Gap 8 mmol/L (4-12); Blood Urea Nitrogen 51 mg/dL (7-18); Calcium 9.5 mg/dL (8.5-10.1); Carbon Dioxide 27 mmol/L (21-32); Chloride 109 mmol/L (98-108); Estimated Glomerular Filt Rate 21; Glucose 117 mg/dL (70-99); Osmolality Calculated 312 mOsm/kg (285-295); Potassium 4.5 mmol/L (3.5-5.1); Sodium 144 mmol/L (136-145)
[2024-02-09 14:18] LABS: Alanine Aminotransferase 21 U/L (14-59); Albumin Level 3.3 g/dL (3.4-5.0); Alkaline Phosphatase 94 U/L (46-116); Amylase 165 U/L (25-115); Aspartate Amino Transferase 17 U/L (15-37); Bilirubin Direct 0.1 mg/dL (0-0.2); Bilirubin,Total 0.2 mg/dL (0.00-1.00); Lipase 247 U/L (16-77); Total Protein 6.9 g/dL (6.4-8.2)
== END 2024-02-09 11:06 | disposition home or self-care (01) ==
PROVIDERS: PCP Family Medicine; Visit Provider Family Medicine
DX: N18.4 Chronic kidney disease, stage 4 (severe) (principal); R53.83 Other fatigue; N39.0 Urinary tract infection, site not specified
CPT/HCPCS: 36415; 80048; 80076; 82150; 83690

== ENCOUNTER 2024-02-09 17:43 | Observation (INO) | payer MEDICARE, MEDICAID, SELFPAY ==
[2024-02-09] VITALS (10 sets, daily range): BP systolic 132–155; BP diastolic 63–81; PULSE 78–86; RESP 16–86; TEMP 36.2–37; O2SAT 92–99; BMI 35.5
--- NOTE | ~2024-02-09 | XR_ITS ---
EXAMINATION: XR chest 1V portable DATE: 02/09/2024 18:49 INDICATION: Weakness. TECHNIQUE: A single frontal view of the chest was obtained. COMPARISON: Chest single view 08/16/2023, chest CT 02/07/2024 FINDINGS: There is mild atelectasis versus scarring in the lower lung zones. No pleural effusion or p neumothorax. The heart size is normal. There are old right rib deformities. There is a small hiatal h ernia. IMPRESSION: 1. Mild atelectasis versus scarring in the lower lung zones. 2. Small hiatal hernia. Reviewed, dictated and finalized at location E.
--- NOTE | 2024-02-09 18:48 | ED.RECABL ---
HPI - Recheck/Abnormal Lab/Rx General Chief Complaint: Recheck/Abnormal Lab/Rx Stated Complaint: abnormal labs Source: patient Mode of arrival: ambulatory Limitations: no limitations History of Present Illness HPI narrative: this is 83-year-old long-term patient presents from the long-term after patient had abnormal labs performed today by her primary care physician showing that she has a creatinine level of 2.7 and it is little bit above her baseline of 1.8 patient has a history of kidney-section. Patient was has had urine that showed urinary tract infection 2 days ago and will continue IV antibiotics at this time. Patient is afebrile no chest pain no shortness of breath no abdominal pain no diarrhea or constipation. Initial visit (ago): day(s) Symptoms since prior visit: no new symptoms Related Data Home Medications Medication Instructions Recorded Confirmed bupropion HCl 150 mg 24 hr tablet, 150 mg PO QAM 06/16/20 11/18/23 extended release escitalopram oxalate 10 mg tablet 10 mg PO DAILY 06/16/20 11/18/23 linaclotide 145 mcg capsule 145 mcg PO DAILY 06/16/20 11/18/23 (Linzess) omeprazole 40 mg capsule,delayed 40 mg PO BID 06/16/20 11/18/23 release warfarin 5 mg tablet 5 mg PO DAILY 06/16/20 11/18/23 bethanechol chloride 25 mg tablet 25 mg PO TIDWMEAL 07/11/20 11/18/23 trimethoprim 100 mg tablet 100 mg PO HS 07/11/20 11/18/23 vit C 250 mg-vit E 90 mg-zinc 40 1 tablet PO BID 07/11/20 11/18/23 mg-copper 1 [id number] capsule (PreserVision AREDS-2) hydrocodone 5 mg-acetaminophen 325 5 - 325 tablet PO PRN 11/09/22 11/18/23 mg tablet senna 8.6 - 50 mg BYMOUTH PRN 11/09/22 11/18/23 cyclobenzaprine 5 mg tablet 10 mg PO TID PRN muscle spasm 04/30/23 11/18/23 albuterol sulfate 90 mcg/actuation 2 puff inhalation Q4-6H PRN 08/08/23 11/18/23 aerosol inhaler Shortness Of Breath Or Wheezing ascorbic acid (vitamin C) 500 mg PO DAILY 08/08/23 11/18/23 cyanocobalamin (vitamin B-12) 1,000 mg PO DAILY 08/08/23 11/18/23 lactulose 10 gram/15 mL oral 15 ml PO DAILY PRN Constipation 08/08/23 11/18/23 solution (Enulose) amlodipine 10 mg tablet 10 mg PO DAILY 08/16/23 11/18/23 Allergies Allergy/AdvReac Type Severity Reaction Status Date / Time Sulfa (Sulfonamide Allergy Unknown Unknown Verified 11/18/23 16:44 Antibiotics) metoclopramide Allergy Unknown Verified 11/18/23 16:44 nabumetone [From Relafen] Allergy Unknown Verified 11/18/23 16:44 Review of Systems Review of Systems: All systems reviewed & are unremarkable except as noted in HPI and below PMFSH Past Medical History Medical History Chronic back pain CKD (chronic kidney disease) stage 4, GFR 15-29 ml/min Hypertension Left leg cellulitis Polycystic kidney Surgical History Surgical History H/O hysterectomy with oophorectomy History of bilateral knee replacement History of nephrectomy History of repair of hiatal hernia Social History Social History Smoking status: Never smoker Second hand tobacco smoke exposure: No Alcohol intake: never Substance use: never Substance use type: does not use Do You Feel Safe in your Home?: Yes Lack of Transportation: No Lack of Food: Never True Current Housing: I Have Housing Concerned About Future Housing: No Difficulty Paying Gas/Electric Bills: No Difficulty Paying for Meds: No Currently Unemployed: No Education: High School Diploma/GED Difficulty w/ Childcare or Family Care: No Gender identity (if verbalized by the patient): Female Sexual Orientation (if Verbalized by the Patient): Straight or Heterosexual Spiritual care concerns: No Exam Const: General: healthy appearing and no acute distress Nutritional Appearance: well nourished and obese Limitations: no limitations Neck: Neck: normal visu
--- NOTE | 2024-02-09 19:27 | PC.NURSE ---
ROSALIA AT [facility] NOTIFIED OF ADMISSION, SON GRAZYNA AND DAUGHTER SYLVAIN NOTIFIED OF ADMISSION
[2024-02-09] MEDS: SODIUM CHLORIDE 0.9% IV 1,000 ML 100 ML IV CONT (19:44)
--- NOTE | 2024-02-09 20:45 | ADMGEN ---
This patient, Rajani Cardenas, was admitted to 2nd Floor Room 209-1. Patient/family oriented to hospital policies and general routines including ID bracelet, bed and alarms, pain management, procedures, bathroom and other care routines, personal items, smoking policy, room service/diet, and visiting hours. Information on how to activate the Rapid Response Team has been discussed. Patient/Family are encouraged to report perceived risks to care and to ask questions if they do not understand what they are told or what they should do.
[2024-02-09] MEDS: ONDANSETRON HCL ODT 4 MG TABLET PO (21:32)
[2024-02-09] MEDS: IPRATROPIUM 0.5 MG/ALBUTEROL SULFATE 2.5 MG AMPUL.NEB 3 ML INHALATION (23:58)
[2024-02-10] VITALS (7 sets, daily range): BP systolic 127–148; BP diastolic 71–74; PULSE 69–96; RESP 16–18; TEMP 36.1–36.3; O2SAT 93–98
[2024-02-10 05:22] LABS: Basophils Absolute Auto 0.03 K/mm3 (0.00-0.10); Basophils Percent Auto 0.6 % (0.0-1.0); Eosinophils Absolute Auto 0.46 K/mm3 (0.02-0.50); Eosinophils Percent Auto 8.8 % (1.0-6.0); Hematocrit 34.4 % (35.0-42.0); Hemoglobin 10.6 g/dL (11.7-13.8); Immature Granulocyte Absolute 0.03 K/mm3 (0.00-0.00); Immature Granulocyte Percent A 0.6 % (0.0-0.0); Lymphocytes Absolute Auto 1.02 K/mm3 (1.10-4.50); Lymphocytes Percent Auto 19.6 % (18.0-42.0); Mean Corpuscular HGB Conc 30.8 g/dL (32-36); Mean Corpuscular Hemoglobin 27.3 pg (27.0-31.0); Mean Corpuscular Volume 88.7 fL (78.0-102.0); Mean Platelet Volume 8.6 fl (9.2-11.8); Monocytes Absolute Auto 0.55 K/mm3 (0.10-0.90); Monocytes Percent Auto 10.6 % (2.0-11.0); Neutrophils Absolute Auto 3.12 K/mm3 (1.70-7.20); Neutrophils Percent Auto 59.8 % (50.0-70.0); Platelet Count Result 214 K/mm3 (150-420); Red Blood Count 3.88 M/mm3 (4.20-5.40); Red Cell Distribution Width 15.1 % (11.6-14.4); White Blood Count 5.2 K/mm3 (4.8-10.8)
[2024-02-10 05:33] LABS: INR 1.7
[2024-02-10 05:39] LABS: Alanine Aminotransferase 14 U/L (14-59); Albumin Level 2.5 g/dL (3.4-5.0); Alkaline Phosphatase 74 U/L (46-116); Anion Gap 5 mmol/L (4-12); Aspartate Amino Transferase 16 U/L (15-37); Bilirubin,Total 0.2 mg/dL (0.00-1.00); Blood Urea Nitrogen 45 mg/dL (7-18); Carbon Dioxide 28 mmol/L (21-32); Chloride 111 mmol/L (98-108); Estimated CRCL calculation 19 ml/min; Estimated Glomerular Filt Rate 21; Glucose 90 mg/dL (70-99); Osmolality Calculated 309 mOsm/kg (285-295); Potassium 4.6 mmol/L (3.5-5.1); Sodium 144 mmol/L (136-145); Total Protein 6.1 g/dL (6.4-8.2)
[2024-02-10 05:40] LABS: Lipase 180 U/L (16-77)
[2024-02-10] MEDS: SODIUM CHLORIDE 0.9% IV 1,000 ML 100 ML IV CONT (05:47)
[2024-02-10] MEDS: IPRATROPIUM 0.5 MG/ALBUTEROL SULFATE 2.5 MG AMPUL.NEB 3 ML INHALATION ×2 (05:52→12:43)
[2024-02-10] MEDS: OPTI-GEN TAB 1 TABLET PO (08:48)
[2024-02-10] MEDS: amLODIPine BESYLATE 5 MG TABLET 10 MG PO (08:49)
[2024-02-10] MEDS: buPROPion HCL XL (24 HR) 150 MG TABCR PO (08:49)
[2024-02-10] MEDS: SPIRONOLACTONE 25 MG TABLET PO (08:50)
[2024-02-10] MEDS: PANTOPRAZOLE 40 MG TABLET PO (08:50)
[2024-02-10] MEDS: ESCITALOPRAM OXALATE 10 MG TABLET PO (08:50)
[2024-02-10] MEDS: DOCUSATE SODIUM 100 MG CAPSULE PO (08:51)
[2024-02-10] MEDS: SACCHAROMYCES BOULARDII 250 MG CAPSULE PO (08:51)
[2024-02-10] MEDS: CEFDINIR 300 MG CAPSULE PO (08:51)
--- NOTE | 2024-02-10 08:57 | PM.SD2 ---
Same Day Admit/Disch: HPI History of Present Illness Chief complaint: ACUTE KIDNEY DISEASE UTI Narrative: Rajani Cardenas is a 83 year old female with a significant past medical history of chronic back pain, stage 4 chronic kidney disease, hypertension, polycystic kidney, total hysterectomy who presents to the hospital from snf for evaluation of abnormal labs. She was found to have a creatinine level of 2.7 which is over her baseline of 1.8. She also was seen in the hospital 2 days ago and showed a urinary tract infection. Culture was showing Proteus mirabilis. Patient is a poor historian so most of her history and presenting illness is obtained from the EMR.Patient denies any fever, chills, vomiting, Diarrhea,abdominal pain, chest pain, shortness a breath. Patient endorses nausea today. She states she has been nauseated ever since being diagnosed with a urinary tract infection. She is currently on cefdinir and will continue that through the for her urinary tract infection. Workup in the hospital included a chest x-ray which showed mild atelectasis versus scarring in the lower lung zones, small a hiatal hernia. Initial labs showed a normal white blood cell count of 5.2, hemoglobin 10.6, creatinine 2.2, EGFR 21, lipase 180. She was given Rocephin and IV fluids in the ED. [facility] Past Medical History Medical History Chronic back pain CKD (chronic kidney disease) stage 4, GFR 15-29 ml/min Hypertension Left leg cellulitis Polycystic kidney Surgical History Surgical History H/O hysterectomy with oophorectomy History of bilateral knee replacement History of nephrectomy History of repair of hiatal hernia Social History Social History Smoking status: Never smoker Second hand tobacco smoke exposure: No Alcohol intake: never Substance use: never Substance use type: does not use Do You Feel Safe in your Home?: Yes Lack of Transportation: No Lack of Food: Never True Current Housing: I Have Housing Concerned About Future Housing: No Difficulty Paying Gas/Electric Bills: No Difficulty Paying for Meds: No Currently Unemployed: No Education: Grade School Difficulty w/ Childcare or Family Care: No Gender identity (if verbalized by the patient): Female Sexual Orientation (if Verbalized by the Patient): Straight or Heterosexual Spiritual care concerns: No Same Day Admit/Disch: Med Pre-admit Medications Home Medications Medication Instructions Recorded Confirmed Type escitalopram oxalate 10 mg tablet 10 mg PO DAILY 06/16/20 02/09/24 History linaclotide 145 mcg capsule 145 mcg PO DAILY 06/16/20 02/09/24 History (Linzess) omeprazole 40 mg capsule,delayed 40 mg PO BID 06/16/20 02/09/24 History release warfarin 5 mg tablet 5 mg PO DAILY 06/16/20 02/09/24 History bethanechol chloride 25 mg tablet 25 mg PO TIDWMEAL 07/11/20 02/09/24 History trimethoprim 100 mg tablet 100 mg PO DAILY 07/11/20 02/09/24 History vit C 250 mg-vit E 90 mg-zinc 40 1 tablet PO BID 07/11/20 02/09/24 History mg-copper 1 [id number] capsule (PreserVision AREDS-2) ondansetron 4 mg disintegrating 4 mg PO Q6H PRN nausea and 07/12/20 02/09/24 Rx tablet vomiting #20 tabs acetaminophen 325 mg capsule 650 mg PO Q8H PRN pain #20 caps 06/08/22 02/09/24 Rx (Tylenol) senna 8.6 - 50 tablet BYMOUTH Q12H PRN 11/09/22 02/09/24 History Constipation cyclobenzaprine 5 mg tablet 10 mg PO TID PRN muscle spasm 04/30/23 02/09/24 History albuterol sulfate 90 mcg/actuation 2 puff inhalation Q4-6H PRN 08/08/23 02/09/24 History aerosol inhaler Shortness Of Breath Or Wheezing cyanocobalamin (vitamin B-12) 1,000 mg PO MONTHLY 08/08/23 02/09/24 History amlodipine 10 mg tablet 10 mg PO DAILY 08/16/23 02/09/24 History benzonatate 100 mg capsule 200 mg
[2024-02-10] MEDS: ONDANSETRON HCL ODT 4 MG TABLET PO (11:14)
[2024-02-10] MEDS: BETHANECHOL CHLORIDE 5 MG TABLET PO (12:20)
[2024-02-10] MEDS: BETHANECHOL CHLORIDE 10 MG TABLET 20 MG PO (12:21)
--- NOTE | 2024-02-10 12:32 | PC.NURSE ---
Patient is being discharged back to the retirement. Report called to Nurse Deysi. Deysi voiced understanding.
--- NOTE | 2024-02-10 13:15 | PC.NURSE ---
Patiet's IV site discontinued in anticipation of discharge. Patient dressed in clothing and ready to go back to [facility] re[facility].
--- NOTE | 2024-02-10 13:40 | PC.NURSE ---
[facility] arrived to [facility] patient. Patient left unit and hospital property in w/c. Personal belongings sent home with patient. Report called to Deysi earlier, and discharge instructions faxed and copies sent with patient upon discharge. Deysi voiced understanding.
--- NOTE | 2024-02-13 09:52 | PC.NURSE ---
Discharge back to [facility], no questions from staff regarding dc orders, faxed and sent manual paper copy
== END 2024-02-10 13:40 | disposition home or self-care (01) ==
LOC: CHSED 18:51 → CHS2ND 19:26
PROVIDERS: Admitting Provider Internal Medicine; Emergency Provider Emergency Medicine; PCP Family Medicine; Visit Provider Internal Medicine
DX: N17.9 Acute kidney failure, unspecified (principal); N39.0 Urinary tract infection, site not specified; B96.4 Proteus (mirabilis) (morganii) as the cause of diseases classified elsewhere; E86.0 Dehydration; I12.9 Hypertensive chronic kidney disease with stage 1 through stage 4 chronic kidney disease, or unspecified chronic kidney disease; N18.4 Chronic kidney disease, stage 4 (severe); N28.1 Cyst of kidney, acquired; Z90.5 Acquired absence of kidney; Z79.01 Long term (current) use of anticoagulants; Z79.891 Long term (current) use of opiate analgesic; Z79.51 Long term (current) use of inhaled steroids
CPT/HCPCS: 36415; 71045; 80048; 80053; 80076; 82150; 83690; 85025; 85610; 94640; 96361; 96365; 99285; A9270; G0378; J0696; J7030

== ENCOUNTER 2024-03-06 16:12 | Outpatient (CLI) | payer MEDICARE, SELFPAY ==
[2024-03-06 16:34] LABS: Add Urine Microscopic? YES; Appearance Urine Cloudy (Clear); Bilirubin Urine Negative (Negative); Blood Urine 3+ (Negative); Color Urine Light Yellow (Yellow); Glucose Urine UA Negative (Negative); Ketones Urine Negative (Negative); Leukocyte Esterase Ur 3+ (Negative); Nitrate Urine Positive (Negative); Protein Urine 1+ (Negative); Urobilinogen Urine 0.2 mg/dL (0.2-1.0)
[2024-03-06 16:55] LABS: Bacteria Urine 1+ /hpf; Squamous Epithelial Cell Urine Rare /hpf (Few); WBC Urine >75 /hpf (0-3)
[2024-03-06 19:29] LABS: Albumin Level 3.7 g/dL (3.4-5.0); Anion Gap 9 mmol/L (4-12); Blood Urea Nitrogen 58 mg/dL (7-18); Calcium 9.4 mg/dL (8.5-10.1); Carbon Dioxide 23 mmol/L (21-32); Chloride 110 mmol/L (98-108); Estimated Glomerular Filt Rate 18; Glucose 95 mg/dL (70-99); Osmolality Calculated 310 mOsm/kg (285-295); Potassium 4.9 mmol/L (3.5-5.1); Sodium 142 mmol/L (136-145)
[2024-03-07 13:34] LABS: Vitamin D 25 Hydroxy 27 ng/mL (30-100)
[2024-03-07 22:33] LABS: Parathyroid Intact 66 pg/mL (16-77)
== END 2024-03-06 16:13 | disposition home or self-care (01) ==
LOC: CHSLAB 16:16
PROVIDERS: PCP Family Medicine
DX: N18.30 Chronic kidney disease, stage 3 unspecified (principal)
CPT/HCPCS: 36415; 80069; 81001; 82306; 83970

== ENCOUNTER 2024-03-28 10:16 | Outpatient (CLI) | payer MEDICARE, MEDICAID, SELFPAY ==
--- NOTE | ~2024-03-28 | US_ITS ---
EXAMINATION: US retroperitoneal comp DATE: 03/28/2024 11:03 INDICATION: Stage IV chronic kidney disease. Urinary incontinence. TECHNIQUE: Multiple ultrasound grayscale images of the kidneys were obtained. COMPARISON: CT dated 09/13/2023 FINDINGS: The right kidney measures 9.3 x 4.0 x 4.5 cm. There is increased cortical echogenicity at the right k idney consistent with medical renal disease. There are few small anechoic right renal cysts the large st measuring 2.2 cm. There is a 12 mm echogenic and shadowing calcification at the site of focal shade l cortical scarring at the upper pole the right kidney. There is no hydronephrosis in the right kidn ey. The left kidney is not visualized and reportedly surgically absent. The bladder is normal. IMPRESSION: 1. Increased right renal cortical collection is seen consistent with medical renal disease. Left kid yandel surgically absent. 2. 12 mm shadowing calcification at a region of cortical scarring in the right kidney and favor dystr ophic calcific lesion over nonobstructing renal stone. No hydronephrosis. Reviewed, dictated and finalized at location A. IMPRESSION: 1. Increased right renal cortical collection is seen consistent with medical r enal disease. Left kidney surgically absent. 2. 12 mm shadowing calcification at a region of cortical scarring in the right kidney and favor dystrophic calcific lesion over nonobstructing renal stone. No hydronephrosis.
== END 2024-03-28 10:17 | disposition home or self-care (01) ==
PROVIDERS: PCP Family Medicine
DX: R32 Unspecified urinary incontinence (principal); N18.4 Chronic kidney disease, stage 4 (severe); Z90.5 Acquired absence of kidney
CPT/HCPCS: 76770

== ENCOUNTER 2024-03-30 14:56 | Outpatient (CLI) | payer MEDICARE, MEDICAID, SELFPAY ==
[2024-03-30 15:22] LABS: Basophils Absolute Auto 0.03 K/mm3 (0.00-0.10); Basophils Percent Auto 0.6 % (0.0-1.0); Eosinophils Absolute Auto 0.45 K/mm3 (0.02-0.50); Eosinophils Percent Auto 9.4 % (1.0-6.0); Hematocrit 38.4 % (35.0-42.0); Hemoglobin 12.1 g/dL (11.7-13.8); Immature Granulocyte Absolute 0.01 K/mm3 (0.00-0.00); Immature Granulocyte Percent A 0.2 % (0.0-0.0); Lymphocytes Percent Auto 18.8 % (18.0-42.0); Mean Corpuscular HGB Conc 31.5 g/dL (32-36); Mean Corpuscular Volume 88.9 fL (78.0-102.0); Mean Platelet Volume 8.4 fl (9.2-11.8); Monocytes Absolute Auto 0.52 K/mm3 (0.10-0.90); Monocytes Percent Auto 10.9 % (2.0-11.0); Neutrophils Absolute Auto 2.87 K/mm3 (1.70-7.20); Neutrophils Percent Auto 60.1 % (50.0-70.0); Platelet Count Result 215 K/mm3 (150-420); Red Blood Count 4.32 M/mm3 (4.20-5.40); White Blood Count 4.8 K/mm3 (4.8-10.8)
[2024-03-30 15:36] LABS: INR 2.3; Prothrombin Time 24.2 Seconds (9.50-12.1)
[2024-03-30 16:09] LABS: Alanine Aminotransferase 22 U/L (14-59); Albumin Level 3.4 g/dL (3.4-5.0); Alkaline Phosphatase 83 U/L (46-116); Amylase 132 U/L (25-115); Anion Gap 10 mmol/L (4-12); Aspartate Amino Transferase 16 U/L (15-37); Bilirubin,Total 0.4 mg/dL (0.00-1.00); Blood Urea Nitrogen 41 mg/dL (7-18); Calcium 9.4 mg/dL (8.5-10.1); Carbon Dioxide 24 mmol/L (21-32); Chloride 108 mmol/L (98-108); Estimated Glomerular Filt Rate 20; Glucose 133 mg/dL (70-99); Lipase 132 U/L (16-77); Osmolality Calculated 306 mOsm/kg (285-295); Potassium 4.6 mmol/L (3.5-5.1); Sodium 142 mmol/L (136-145); Thyroid Stimulating Hormone 2.33 uIU/mL (0.36-3.74); Total Protein 6.5 g/dL (6.4-8.2)
[2024-03-30 17:49] LABS: Add Urine Microscopic? YES; Appearance Urine Clear (Clear); Bilirubin Urine Negative (Negative); Blood Urine Negative (Negative); Color Urine Light Yellow (Yellow); Glucose Urine UA Negative (Negative); Ketones Urine Negative (Negative); Leukocyte Esterase Ur 2+ LEU/UL (Negative); Nitrate Urine Negative (Negative); Protein Urine Negative (Negative); Urobilinogen Urine 0.2 mg/dL (0.2-1.0)
[2024-03-30 17:57] LABS: Bacteria Urine Trace /hpf; RBC Urine 0-2 /hpf (0-2); Squamous Epithelial Cell Urine Rare /hpf (Few)
== END 2024-03-30 14:57 | disposition home or self-care (01) ==
LOC: CHSLAB 15:01
PROVIDERS: PCP Family Medicine; Visit Provider Family Medicine
DX: R10.9 Unspecified abdominal pain (principal); D64.9 Anemia, unspecified; I10 Essential (primary) hypertension; J44.9 Chronic obstructive pulmonary disease, unspecified; R11.10 Vomiting, unspecified; Z86.718 Personal history of other venous thrombosis and embolism
CPT/HCPCS: 36415; 80053; 81001; 82150; 83690; 84439; 84443; 85025; 85610; 87086; 87088

== ENCOUNTER 2024-04-04 10:47 | Outpatient (NON) | payer MEDICARE, SELFPAY ==
[2024-04-04 11:06] LABS: Occult Blood Negative (Negative)
== END 2024-04-04 10:48 | disposition home or self-care (01) ==
PROVIDERS: Visit Provider Family Medicine
DX: R10.9 Unspecified abdominal pain (principal)
CPT/HCPCS: 82272

== ENCOUNTER 2024-04-11 08:08 | Outpatient (CLI) | payer MEDICARE, MEDICAID, SELFPAY ==
--- NOTE | ~2024-04-11 | US_ITS ---
EXAMINATION: US abdomen complete DATE: 04/11/2024 08:53 INDICATION: Elevated pancreatic enzymes. TECHNIQUE: Multiple grayscale and Doppler ultrasound images of the abdomen were obtained. COMPARISON: CT abdomen 09/13/2023 FINDINGS: The visualized portions of the head, body, and tail of the pancreas are normal. The liver i s normal without focal lesion. There is normal flow in main portal vein. The gallbladder is absent. T he common duct is normal and measures 3 mm. There is mild atrophy of right kidney. There is an 18 mm hypoechoic mass in right kidney. IMPRESSION: 1. 18 mm hypoechoic mass in right kidney, which may be a hemorrhagic cyst or less likely a neoplasm. Consider abdomen MRI without and with contrast. Reviewed, dictated and finalized at location A. IMPRESSION: 1. 18 mm hypoechoic mass in right kidney, which may be a hemorrhagic cyst or le ss likely a neoplasm. Consider abdomen MRI without and with contrast.
== END 2024-04-11 08:09 | disposition home or self-care (01) ==
LOC: CHSIMG 08:09
PROVIDERS: PCP Family Medicine; Visit Provider Family Medicine
DX: R74.8 Abnormal levels of other serum enzymes (principal); N28.89 Other specified disorders of kidney and ureter
CPT/HCPCS: 76700

== ENCOUNTER 2024-04-13 08:19 | Outpatient (NON) | payer MEDICARE, SELFPAY ==
[2024-04-13 08:32] LABS: Occult Blood Negative (Negative)
== END 2024-04-13 08:20 | disposition home or self-care (01) ==
LOC: CHSLAB 08:20
PROVIDERS: Visit Provider Family Medicine
DX: R10.9 Unspecified abdominal pain (principal)
CPT/HCPCS: 82272

== ENCOUNTER 2024-04-19 10:20 | Outpatient (CLI) | payer MEDICARE, MEDICAID, SELFPAY ==
--- NOTE | ~2024-04-19 | CT_ITS ---
EXAMINATION: CT abdomen pelvis wo con DATE: 04/19/2024 11:35 INDICATION: Hematuria. TECHNIQUE: Computed tomography (CT) of the abdomen and pelvis was performed without intravenous contr ast. Automated exposure control and iterative reconstruction technique were employed. The dose-length product was 520.63 mGy-cm. COMPARISON: CT abdomen 09/13/2023 FINDINGS: The visualized portions of lung bases demonstrate mild atelectasis and scarring. There are calcified pleural plaques on the right. No pleural effusion. There is a small sliding hiatal hernia. There is left atrial enlargement of the heart. There are coronary artery calcifications. No pericardi al effusion. The liver is normal. There are changes of cholecystectomy. Calcifications in the spleen are consistent with old granulomatous disease. The pancreas and right adrenal gland are normal. There are changes of left adrenalectomy and nephrectomy. There is cortical thinning of right kidney. There are two masses in right kidney measuring soft tissue attenuation with the larger measuring 2.2 cm. T here is a filter in the inferior vena cava. There is calcified atherosclerosis of the aorta and many of the other arteries. There is diverticulosis of the colon without evidence of diverticulitis. There are no dilated loops of bowel. There are no pathologically enlarged lymph nodes. There is no free in traperitoneal fluid. There are old healed fractures of left superior and inferior pubic rami. There i s internal fixation of proximal left femur. An intrathecal catheter is noted. There is moderate lumba r spondylosis. There are old healed right rib fractures. IMPRESSION: 1. Right kidney masses, which may be hemorrhagic cysts or less likely neoplasm(s). Abdomen MRI withou t and with contrast is recommended. Reviewed, dictated and finalized at location A. IMPRESSION: 1. Right kidney masses, which may be hemorrhagic cysts or less likely neoplasm( s). Abdomen MRI without and with contrast is recommended.
== END 2024-04-19 10:21 | disposition home or self-care (01) ==
PROVIDERS: PCP Family Medicine; Visit Provider Urology
DX: R31.9 Hematuria, unspecified (principal); N28.89 Other specified disorders of kidney and ureter
CPT/HCPCS: 74176

== ENCOUNTER 2024-05-10 13:48 | Outpatient (CLI) | payer MEDICARE, MEDICAID, SELFPAY ==
[2024-05-10 14:26] LABS: Prothrombin Time 20.5 Seconds (9.50-12.1)
== END 2024-05-10 13:49 | disposition home or self-care (01) ==
LOC: CHSLAB 13:50
PROVIDERS: PCP Family Medicine; Visit Provider Family Medicine
DX: Z79.01 Long term (current) use of anticoagulants (principal)
CPT/HCPCS: 36415; 85610

== ENCOUNTER 2024-06-07 09:32 | Outpatient (CLI) | payer MEDICARE, SELFPAY ==
[2024-06-07 09:51] LABS: Basophils Absolute Auto 0.02 K/mm3 (0.00-0.10); Basophils Percent Auto 0.4 % (0.0-1.0); Eosinophils Percent Auto 9.1 % (1.0-6.0); Hematocrit 39.6 % (35.0-42.0); Hemoglobin 12.3 g/dL (11.7-13.8); Immature Granulocyte Absolute 0.03 K/mm3 (0.00-0.00); Immature Granulocyte Percent A 0.5 % (0.0-0.0); Lymphocytes Absolute Auto 0.82 K/mm3 (1.10-4.50); Mean Corpuscular HGB Conc 31.1 g/dL (32-36); Mean Corpuscular Hemoglobin 28.6 pg (27.0-31.0); Mean Corpuscular Volume 92.1 fL (78.0-102.0); Mean Platelet Volume 8.3 fl (9.2-11.8); Monocytes Absolute Auto 0.46 K/mm3 (0.10-0.90); Monocytes Percent Auto 8.4 % (2.0-11.0); Neutrophils Absolute Auto 3.65 K/mm3 (1.70-7.20); Neutrophils Percent Auto 66.6 % (50.0-70.0); Platelet Count Result 225 K/mm3 (150-420); Red Cell Distribution Width 14.2 % (11.6-14.4); White Blood Count 5.5 K/mm3 (4.8-10.8)
[2024-06-07 10:04] LABS: INR 1.4; Prothrombin Time 15.1 Seconds (9.50-12.1)
[2024-06-07 10:47] LABS: Alanine Aminotransferase 18 U/L (14-59); Albumin Level 3.4 g/dL (3.4-5.0); Alkaline Phosphatase 88 U/L (46-116); Amylase 107 U/L (25-115); Anion Gap 8 mmol/L (4-12); Aspartate Amino Transferase 10 U/L (15-37); Bilirubin,Total 0.3 mg/dL (0.00-1.00); Blood Urea Nitrogen 41 mg/dL (7-18); Calcium 9.4 mg/dL (8.5-10.1); Carbon Dioxide 27 mmol/L (21-32); Chloride 113 mmol/L (98-108); Cholesterol 235 mg/dL (0-200); Estimated Glomerular Filt Rate 20; Glucose 94 mg/dL (70-99); HDL Direct 55 mg/dL (40-60); LDL Cholesterol Calculated 139 mg/dL (<130); Osmolality Calculated 316 mOsm/kg (285-295); Sodium 148 mmol/L (136-145); Triglycerides 203 mg/dL (0-150)
== END 2024-06-07 09:33 | disposition home or self-care (01) ==
LOC: CHSLAB 09:34
PROVIDERS: PCP Family Medicine; Visit Provider Family Medicine
DX: J44.9 Chronic obstructive pulmonary disease, unspecified (principal); N18.4 Chronic kidney disease, stage 4 (severe); D50.9 Iron deficiency anemia, unspecified; Z79.01 Long term (current) use of anticoagulants
CPT/HCPCS: 36415; 80053; 80061; 82150; 85025; 85610

== ENCOUNTER 2024-06-14 09:59 | Outpatient (CLI) | payer MEDICARE, SELFPAY ==
[2024-06-14 10:13] LABS: Basophils Absolute Auto 0.02 K/mm3 (0.00-0.10); Basophils Percent Auto 0.4 % (0.0-1.0); Eosinophils Absolute Auto 0.36 K/mm3 (0.02-0.50); Hematocrit 39.9 % (35.0-42.0); Hemoglobin 12.5 g/dL (11.7-13.8); Immature Granulocyte Absolute 0.02 K/mm3 (0.00-0.00); Immature Granulocyte Percent A 0.4 % (0.0-0.0); Lymphocytes Percent Auto 15.5 % (18.0-42.0); Mean Corpuscular HGB Conc 31.3 g/dL (32-36); Mean Corpuscular Hemoglobin 28.6 pg (27.0-31.0); Mean Corpuscular Volume 91.3 fL (78.0-102.0); Mean Platelet Volume 8.3 fl (9.2-11.8); Monocytes Percent Auto 7.7 % (2.0-11.0); Neutrophils Absolute Auto 3.57 K/mm3 (1.70-7.20); Platelet Count Result 220 K/mm3 (150-420); Red Blood Count 4.37 M/mm3 (4.20-5.40); Red Cell Distribution Width 13.8 % (11.6-14.4); White Blood Count 5.2 K/mm3 (4.8-10.8)
[2024-06-14 10:26] LABS: INR 2.5; Prothrombin Time 25.5 Seconds (9.50-12.1)
[2024-06-14 11:18] LABS: Albumin Level 3.6 g/dL (3.4-5.0); Anion Gap 10 mmol/L (4-12); Blood Urea Nitrogen 45 mg/dL (7-18); Calcium 9.7 mg/dL (8.5-10.1); Carbon Dioxide 25 mmol/L (21-32); Chloride 110 mmol/L (98-108); Estimated Glomerular Filt Rate 19; Glucose 133 mg/dL (70-99); Osmolality Calculated 313 mOsm/kg (285-295); Phosphorus 3.5 mg/dL (2.6-4.7); Potassium 4.5 mmol/L (3.5-5.1); Sodium 145 mmol/L (136-145)
[2024-06-15 15:13] LABS: Parathyroid Intact 64 pg/mL (16-77)
== END 2024-06-14 10:00 | disposition home or self-care (01) ==
LOC: CHSLAB 10:03
PROVIDERS: PCP Family Medicine; Visit Provider Family Medicine
DX: N25.81 Secondary hyperparathyroidism of renal origin (principal); D50.9 Iron deficiency anemia, unspecified; E03.9 Hypothyroidism, unspecified; Z79.01 Long term (current) use of anticoagulants; N18.4 Chronic kidney disease, stage 4 (severe)
CPT/HCPCS: 36415; 80069; 83970; 85025; 85610

== ENCOUNTER 2024-06-29 13:37 | Outpatient (CLI) | payer MEDICARE, SELFPAY ==
[2024-06-29 13:55] LABS: Basophils Absolute Auto 0.03 K/mm3 (0.00-0.10); Basophils Percent Auto 0.5 % (0.0-1.0); Eosinophils Absolute Auto 0.41 K/mm3 (0.02-0.50); Eosinophils Percent Auto 7.3 % (1.0-6.0); Hematocrit 40.8 % (35.0-42.0); Immature Granulocyte Absolute 0.01 K/mm3 (0.00-0.00); Immature Granulocyte Percent A 0.2 % (0.0-0.0); Lymphocytes Percent Auto 14.2 % (18.0-42.0); Mean Corpuscular HGB Conc 31.9 g/dL (32-36); Mean Corpuscular Volume 91.1 fL (78.0-102.0); Mean Platelet Volume 8.3 fl (9.2-11.8); Monocytes Absolute Auto 0.55 K/mm3 (0.10-0.90); Monocytes Percent Auto 9.8 % (2.0-11.0); Neutrophils Absolute Auto 3.82 K/mm3 (1.70-7.20); Platelet Count Result 204 K/mm3 (150-420); Red Blood Count 4.48 M/mm3 (4.20-5.40); Red Cell Distribution Width 14.6 % (11.6-14.4); White Blood Count 5.6 K/mm3 (4.8-10.8)
[2024-06-29 13:56] LABS: Add Urine Microscopic? YES; Appearance Urine Clear (Clear); Bilirubin Urine Negative (Negative); Blood Urine Negative (Negative); Color Urine Light Yellow (Yellow); Glucose Urine UA Negative (Negative); Ketones Urine Negative (Negative); Leukocyte Esterase Ur 1+ (Negative); Nitrate Urine Negative (Negative); Protein Urine Trace (Negative); Urobilinogen Urine 0.2 mg/dL (0.2-1.0)
[2024-06-29 14:02] LABS: Bacteria Urine 2+ /hpf; RBC Urine None seen /hpf (0-2); Squamous Epithelial Cell Urine Few /hpf (Few); WBC Urine 16-20 /hpf (0-3)
[2024-06-29 14:24] LABS: Amylase 112 U/L (25-115); Anion Gap 12 mmol/L (4-12); Blood Urea Nitrogen 45 mg/dL (7-18); Calcium 9.2 mg/dL (8.5-10.1); Carbon Dioxide 22 mmol/L (21-32); Chloride 110 mmol/L (98-108); Estimated Glomerular Filt Rate 18; Glucose 114 mg/dL (70-99); Lipase 147 U/L (16-77); Osmolality Calculated 310 mOsm/kg (285-295); Sodium 144 mmol/L (136-145)
[2024-06-29 14:45] LABS: Prothrombin Time 47.2 Seconds (9.50-12.1)
== END 2024-06-29 13:38 | disposition home or self-care (01) ==
LOC: CHSLAB 13:39
PROVIDERS: PCP Family Medicine; Visit Provider Family Medicine
DX: N18.4 Chronic kidney disease, stage 4 (severe) (principal); I12.9 Hypertensive chronic kidney disease with stage 1 through stage 4 chronic kidney disease, or unspecified chronic kidney disease; Z79.01 Long term (current) use of anticoagulants; N39.0 Urinary tract infection, site not specified
CPT/HCPCS: 36415; 80048; 81001; 82150; 83690; 85025; 85610; 87077; 87086; 87088; 87181

== ENCOUNTER 2024-07-06 09:35 | Outpatient (CLI) | payer MEDICARE, SELFPAY ==
[2024-07-06 10:12] LABS: INR 1.1; Prothrombin Time 12.5 Seconds (9.50-12.1)
== END 2024-07-06 09:36 | disposition home or self-care (01) ==
LOC: CHSLAB 09:38
PROVIDERS: PCP Family Medicine; Visit Provider Family Medicine
DX: Z79.01 Long term (current) use of anticoagulants (principal)
CPT/HCPCS: 36415; 85610

== ENCOUNTER 2024-07-16 14:36 | Outpatient (CLI) | payer MEDICARE, SELFPAY ==
[2024-07-16 15:05] LABS: INR 2.1
== END 2024-07-16 14:37 | disposition home or self-care (01) ==
LOC: CHSLAB 14:37
PROVIDERS: PCP Family Medicine; Visit Provider Family Medicine
DX: Z79.01 Long term (current) use of anticoagulants (principal)
CPT/HCPCS: 36415; 85610

== ENCOUNTER 2024-08-22 11:36 | Emergency (ER) | payer MEDICARE, MEDICAID, SELFPAY ==
[2024-08-22] VITALS (24 sets, daily range): BP systolic 100–152; BP diastolic 54–84; PULSE 64–74; RESP 18–20; TEMP 36.5; O2SAT 90–99
--- NOTE | 2024-08-22 11:45 | ED.GENADULT ---
HPI - General Adult General Chief complaint: Skin/Abscess/Foreign Body Stated complaint: leg swelling Source: patient Mode of arrival: wheelchair Limitations: no limitations History of Present Illness HPI narrative: 84-year-old female, with a history of hypertension, polycystic kidney, CKD, status post left nephrectomy, chronic low back pain on a pain pump, DVT on Coumadin presents to the ED -- bilateral leg pain/ Redness. no history of trauma. The patient does not walk and stays in a wheelchair most of the time. The patient was evaluated for bilateral leg swelling on 08/17/2024. She had a venous Doppler which was negative for DVT. She had blood work which revealed chronic renal insufficiency, hyponatremia and an INR of 2.3. The patient returns to the ED with ongoing leg pain. No fever or chills. No chest pain or shortness of breath. No nausea vomiting /abdominal pain or diarrhea. No dysuria or hematuria. patient is on cefpodoxime daily for prophylaxis of urinary tract infection Onset (ago): day(s) Location: left, right and lower extremity Severity: mild Pain Consistency: constant Relieving factors: none Exacerbating factors: none Associated symptoms: denies other symptoms Related Data Home Medications ?Medication ?Instructions ?Recorded ?Confirmed ?Last Taken ?Type escitalopram oxalate 10 mg tablet 10 mg PO DAILY 06/16/20 02/09/24 08/16/23 History linaclotide 145 mcg capsule 145 mcg PO DAILY 06/16/20 02/09/24 08/16/23 History (Linzess) omeprazole 40 mg capsule,delayed 40 mg PO BID 06/16/20 02/09/24 08/16/23 History release warfarin 5 mg tablet 5 mg PO DAILY 06/16/20 02/09/24 08/16/23 History bethanechol chloride 25 mg tablet 25 mg PO TIDWMEAL 07/11/20 02/09/24 08/16/23 History trimethoprim 100 mg tablet 100 mg PO DAILY 07/11/20 02/09/24 08/16/23 History vit C 250 mg-vit E 90 mg-zinc 40 1 tablet PO BID 07/11/20 02/09/24 08/16/23 History mg-copper 1 [id number] capsule (PreserVision AREDS-2) senna 8.6 - 50 tablet BYMOUTH Q12H PRN 11/09/22 02/09/24 08/16/23 History Constipation cyclobenzaprine 5 mg tablet 10 mg PO TID PRN muscle spasm 04/30/23 02/09/24 08/16/23 History albuterol sulfate 90 mcg/actuation 2 puff inhalation Q4-6H PRN 08/08/23 02/09/24 08/16/23 History aerosol inhaler Shortness Of Breath Or Wheezing cyanocobalamin (vitamin B-12) 1,000 mg PO MONTHLY 08/08/23 02/09/24 08/16/23 History amlodipine 10 mg tablet 10 mg PO DAILY 08/16/23 02/09/24 08/16/23 History Saccharomyces boulardii 250 mg 250 mg PO BID 02/09/24 02/09/24 Unknown History capsule (Florastor) docusate sodium 100 mg capsule 100 mg PO DAILY 02/09/24 02/09/24 Unknown History (Colace) lorazepam 0.5 mg tablet 0.5 mg PO Q8H PRN Anxiety 02/09/24 02/09/24 Unknown History Allergies Allergy/AdvReac Type Severity Reaction Status Date / Time Sulfa (Sulfonamide Allergy Unknown Unknown Verified 08/22/24 12:18 Antibiotics) metoclopramide Allergy Unknown Verified 08/22/24 12:18 nabumetone (From Relafen) Allergy Unknown Verified 08/22/24 12:18 Review of Systems Review of Systems: All systems reviewed & are unremarkable except as noted in HPI and below Constitutional: Constitutional: Reports as per HPI and Reports no additional constitutional complaints Eyes: Eyes: Reports as per HPI and Reports no additional eye complaints ENT: Reports system reviewed and no additional complaints, except as documented and Reports as per HPI Cardiovascular: Cardiovascular: Reports as per HPI and Reports no additional cardiovascular complaints Respiratory: Respiratory: Reports as per HPI and Reports no additional respiratory complaints Gastrointestinal: Gastrointestinal: Reports as per HPI and Reports no additional gastrointestinal complaints Genitourinary: Genitourinary: Reports no additional female genitourinary complaints and Reports as per HPI Musculoskeletal: Musculoskeletal: Reports no additional musculoskeletal complaints and Reports as per HPI Integumentary/Breasts: Skin/Breast: Reports system reviewed and no additional complaints, except as docu Comments: bilateral erythema of the legs with pain. Right leg is more erythematous than the left. Neurologic: Reports system reviewed and no additional complaints, except as documented and Reports as per HPI Psychiatric: Psychiatric: Reports no additional psychiatric complaints and Reports as per HPI Endocrine: Endocrine: Reports no additional endocrine complaints and Reports as per HPI Hematologic/Lymphatic: Hematologic/Lymphatic: Reports no additional hematologic/lymphatic complaints and Reports as per HPI Allergic/Immunologic: Allergic/Immunologic: Reports no additional allergic/immunologic complaints and Reports as per HPI [facility] Past Medical History Medical History CKD (chronic kidney disease) stage 4, GFR 15-29 ml/min Left leg cellulitis Chronic back pain Polycystic kidney Hypertension Surgical History Surgical History History of repair of hiatal hernia H/O hysterectomy with oophorectomy History of nephrectomy History of bilateral knee replacement Social History Social History Smoking status: Never smoker Second hand tobacco smoke exposure: No Alcohol intake: never Substance use: never Substance use type: does not use Do You Feel Safe in your Home?: Yes Lack of Transportation: No Lack of Food: Never True Current Housing: I Have Housing Concerned About Future Housing: No Difficulty Paying Gas/Electric Bills: No Difficulty Paying for Meds: No Currently Unemployed: No Education: Grade School Difficulty w/ Childcare or Family Care: No Gender identity (if verbalized by the patient): Female Sexual Orientation (if Verbalized by the Patient): Straight or Heterosexual Spiritual care concerns: No Exam Narrative: Afebrile. Const: General: no acute distress Orientation/consciousness: patient oriented x3 Limitations: no limitations HENMT: Head: normal to inspection Ears: external ears normal Face/Nose/Sinus: Normal external nose present Face and sinus: normal facial exam Mouth: Yes Normal oral and palatal mucosa present Throat: posterior oropharynx normal Eyes: Conjunctivae: conjunctivae normal Pupils: Equal, round and reactive pupils present EOM: EOMs intact bilaterally Direct Ophthalmoscopy: no photophobia Neck: Neck: normal visual inspection, no lymphadenopathy and no meningeal signs Chest: Chest palpation & inspection: normal inspection of the chest Resp: Effort & Inspection: normal respiratory effort Auscultation: clear to auscultation bilaterally Cardio: Rate: regular rate Rhythm: regular rhythm GI: GI Palp: Yes Soft to palpation Auscultation: normal bowel sounds Other: No tenderness/rigidity / rebound. : General: Yes no CVA tenderness Back/Spine/Pelvis: Back: no CVA tenderness Skin: Other: Bilateral legs are erythematous. Right greater than the left Neuro: General: patient oriented x3, moves all extremities, no meningeal signs, no focal motor deficits and CN's II-XI intact bilaterally Cranial nerves: Yes Nystagmus not present Speech: normal speech Extrem: General: normal to inspection, no clubbing, cyanosis or edema and no pedal edema Psych: Mental Status: mental status grossly normal Affect: normal affect Attitude: cooperative Course Course Emergency Course: Bilateral leg redness /pain-- patient is afebrile with normal white cell count. Nontender on palpation. CKD with hyperkalemia. The patient is noted to have a potassium of 5.8. A repeat serum potassium was noted to be 5.5. Patient has a BUN/creatinine of 47/2.51. patient is noted to have a slight elevation of creatinine compared to the 08/17/2024 when it was 2.2. The patient is also taking diclofenac and Aldactone. Will have the patient stop taking his medications and repeat the potassium. The patient had an EKG which did not show any significant hypokalemic changes except for frequent PVCs. Vital Signs Vital signs: Vital Signs Temperature 36.5 C 08/22/24 11:41 Pulse Rate 64 08/22/24 11:41 Respiratory Rate 18 08/22/24 11:41 Blood Pressure 122/60 08/22/24 11:41 Pulse Oximetry 98 08/22/24 11:41 Oxygen Delivery Room Air 08/22/24 11:41 Temperature 36.5 C 08/22/24 11:41 Pulse Rate 64 08/22/24 11:41 Respiratory Rate 18 08/22/24 11:41 Blood Pressure 122/60 08/22/24 11:41 Pulse Oximetry 98 08/22/24 11:41 Oxygen Delivery Room Air 08/22/24 11:41 Medical Decision Making MDM Narrative Medical decision making narrative: Bilateral leg redness /pain hyperkalemia Medical Records Medical records reviewed: Yes I reviewed the external patient's medical records. Vital Signs Vital Signs: Vital Signs Temperature 36.5 C 08/22/24 11:41 Pulse Rate 64 08/22/24 11:41 Respiratory Rate 18 08/22/24 11:41 Blood Pressure 122/60 08/22/24 11:41 Pulse Oximetry 98 08/22/24 11:41 Oxygen Delivery Room Air 08/22/24 11:41 Temperature 36.5 C 08/22/24 11:41 Pulse Rate 64 08/22/24 11:41 Respiratory Rate 18 08/22/24 11:41 Blood Pressure 122/60 08/22/24 11:41 Pulse Oximetry 98 08/22/24 11:41 Oxygen Delivery Room Air 08/22/24 11:41 Lab Data 08/22/24 12:46 08/22/24 13:20 Labs: Lab Results 08/22/24 08/22/24 Range/Units 12:46 13:20 WBC 5.9 (4.8-10.8) K/mm3 RBC 3.59 L (4.20-5.40) M/mm3 Hgb 10.1 L (11.7-13.8) g/dL Hct 33.3 L (35.0-42.0) % MCV 92.8 (78.0-102.0) fL MCH 28.1 (27.0-31.0) pg MCHC 30.3 L (32-36) g/dL RDW 14.4 (11.6-14.4) % Plt Count 253 (150-420) K/mm3 MPV 8.7 L (9.2-11.8) fl Immature Gran % (Auto) Not Reportable Neut % (Auto) Not Reportable Lymph % (Auto) Not Reportable Mason % (Auto) Not Reportable Eos % (Auto) Not Reportable Baso % (Auto) Not Reportable Lymph # (Auto) Not Reportable Mason # (Auto) Not Reportable Eos # (Auto) Not Reportable Baso # (Auto) Not Reportable Abs Immat Gran (auto) Not Reportable Absolute Neuts (auto) Not Reportable Absolute Nucleated RBC Not Reportable Total Counted 100 Neutrophils % (Manual) 66 (46-73) % Band Neutrophils % 0 (0-6) % Lymphocytes % (Manual) 10 L (18-44) % Monocytes % (Manual) 9 (3-9) % Eosinophils % (Manual) 14 H (1-6) % Basophils % (Manual) 1 (0-1) % Nucleated RBC % Not Reportable Abs Neuts (Manual) 3.89 (1.7-7.2) K/mm3 Abs Lymphs (Manual) 0.59 L (1.1-4.5) K/mm3 Abs Monocytes (Manual) 0.53 (0.1-0.90) K/mm3 Absolute Eos (Manual) 0.82 H (0.02-0.50) K/mm3 Abs Basophils (Manual) 0.05 (0-0.1) K/mm3 Platelet Estimate Adequate (Adequate) Schistocytes Not Reportable PT 15.1 H D (9.50-12.1) Seconds INR 1.4 APTT 27.8 (23.9-30.70) Sec Sodium 144 (136-145) mmol/L Potassium 5.7 H 5.5 H (3.5-5.1) mmol/L Chloride 108 (98-108) mmol/L Carbon Dioxide 28 (21-32) mmol/L Anion Gap 8 (4-12) mmol/L BUN 47 H (7-18) mg/dL Creatinine 2.51 H (0.55-1.02) mg/dL Estim Creat Clear Calc 16 ml/min Estimated GFR 18 L (59 - ) Glucose 97 (70-99) mg/dL Calculated Osmolality 310 H (285-295) mOsm/kg Calcium 9.3 (8.5-10.1) mg/dL Discharge Plan Discharge Clinical Impression: CKD (chronic kidney disease) stage 4, GFR 15-29 ml/min, Leg swelling, Hyperkalemia Patient Disposition: Home, Self-Care Condition: Stable Instructions: Antibiotic Form, Leg Edema (ED) Additional Instructions: follow-up with primary care physician in 3 days. Patient Language: Wolof Prescriptions: Continued cyclobenzaprine 5 mg tablet 10 mg PO TID PRN (Reason: muscle spasm) cyanocobalamin (vitamin B-12) 1,000 mg PO MONTHLY Rx Instructions: Takes on the of each month clonidine HCl 0.1 mg tablet 0.1 mg PO QID PRN (Reason: systolic BP > 160 mm Hg) Qty: 30 0RF bupropion HCl 150 mg Tablet Extended Release 24 Hr 150 mg PO QAM Qty: 1 0RF cefdinir 300 mg Capsule 300 mg PO Q12HR Qty: 4 0RF Discontinued spironolactone 25 mg Tablet 25 mg PO DAILY diclofenac sodium [Voltaren Arthritis Pain] 1 % Gel 2 g TOPICAL Q6H PRN (Reason: Pain) Rx Instructions: left hip pain No Action omeprazole 40 mg Capsule,Delayed Release(Dr/Ec) 40 mg PO BID warfarin 5 mg Tablet 5 mg PO DAILY escitalopram oxalate 10 mg Tablet 10 mg PO DAILY Linzess 145 mcg Capsule 145 mcg PO DAILY Rx Instructions: take 30 min before 1st meal trimethoprim 100 mg tablet 100 mg PO DAILY bethanechol chloride 25 mg tablet 25 mg PO TIDWMEAL PreserVision AREDS-2 [id number] Capsule 1 tablet PO BID ondansetron 4 mg tablet,disintegrating 4 mg PO Q6H PRN (Reason: nausea and vomiting) Qty: 20 0RF albuterol sulfate 90 mcg/actuation HFA aerosol inhaler 2 puff INHALATION Q4-6H PRN (Reason: Shortness Of Breath Or Wheezing) acetaminophen [Tylenol] 325 mg capsule 650 mg PO Q8H PRN (Reason: pain) Qty: 20 0RF senna capsule 8.6 - 50 tablet BYMOUTH Q12H PRN (Reason: Constipation) Rx Instructions: 2 tabs amlodipine 10 mg tablet 10 mg PO DAILY magnesium hydroxide [Milk of Magnesia] 400 mg/5 mL Suspension 30 ml PO DAILY PRN (Reason: Constipation) Qty: 355 0RF benzonatate 100 mg Capsule 200 mg PO TID PRN (Reason: Cough) Qty: 30 0RF ipratropium-albuterol 0.5 mg-3 mg(2.5 mg base)/3 mL Solution For Nebulization 3 ml inhalation Q6HRT Qty: 540 0RF docusate sodium [Colace] 100 mg Capsule 100 mg PO DAILY Saccharomyces boulardii [Florastor] 250 mg Capsule 250 mg PO BID Rx Instructions: stop on 02/12/24 lorazepam 0.5 mg Tablet 0.5 mg PO Q8H PRN (Reason: Anxiety) ondansetron 4 mg tablet,disintegrating 4 mg PO DAILY PRN (Reason: nausea and vomiting) 1 Days Qty: 20 0RF miconazole nitrate 2 % cream 1 applic topical BID Qty: 28 0RF Follow-up/Referrals: Efe Carrera MD [Primary Care Provider] - Time of Disposition: 14:59
--- NOTE | 2024-08-22 12:23 | PC.NURSE ---
dr smith speaking with agnieszka, daughter of patient per phone
[2024-08-22 12:57] LABS: Hematocrit 33.3 % (35.0-42.0); Hemoglobin 10.1 g/dL (11.7-13.8); Mean Corpuscular HGB Conc 30.3 g/dL (32-36); Mean Corpuscular Hemoglobin 28.1 pg (27.0-31.0); Mean Corpuscular Volume 92.8 fL (78.0-102.0); Mean Platelet Volume 8.7 fl (9.2-11.8); Platelet Count Result 253 K/mm3 (150-420); Red Blood Count 3.59 M/mm3 (4.20-5.40); Red Cell Distribution Width 14.4 % (11.6-14.4); White Blood Count 5.9 K/mm3 (4.8-10.8)
[2024-08-22 13:07] LABS: Anion Gap 8 mmol/L (4-12); Blood Urea Nitrogen 47 mg/dL (7-18); Calcium 9.3 mg/dL (8.5-10.1); Carbon Dioxide 28 mmol/L (21-32); Chloride 108 mmol/L (98-108); Estimated CRCL calculation 16 ml/min; Estimated Glomerular Filt Rate 18; Glucose 97 mg/dL (70-99); Osmolality Calculated 310 mOsm/kg (285-295); Sodium 144 mmol/L (136-145)
[2024-08-22 13:11] LABS: Potassium 5.7 mmol/L (3.5-5.1)
[2024-08-22 13:15] LABS: Band Neutrophils Percent 0 % (0-6); Basophils Absolute Manual 0.05 K/mm3 (0-0.1); Basophils Percent Manual 1 % (0-1); Eosinophils Absolute Manual 0.82 K/mm3 (0.02-0.50); Eosinophils Percent Manual 14 % (1-6); Lymphocytes Absolute Manual 0.59 K/mm3 (1.1-4.5); Lymphocytes Percent Manual 10 % (18-44); Monocytes Absolute Manual 0.53 K/mm3 (0.1-0.90); Monocytes Percent Manual 9 % (3-9); Neutrophils Absolute Manual 3.89 K/mm3 (1.7-7.2); Neutrophils Percent Manual 66 % (46-73); Partial Thromboplastin Time 27.8 Sec (23.9-30.70); Total Cells Counted 100
[2024-08-22 13:16] LABS: Platelet Estimate Adequate (Adequate)
[2024-08-22 13:29] LABS: INR 1.4; Prothrombin Time 15.1 Seconds (9.50-12.1)
[2024-08-22 13:48] LABS: Potassium 5.5 mmol/L (3.5-5.1)
--- NOTE | 2024-08-22 14:37 | ECG_ITS ---
Test Date: 2024-08-22 14:41:59 Measurements Intervals [place] Rate: 72 P: 60 SD: 215 QRS: -17 QRSD: 154 T: 68 QT: 449 QTc: 492 Interpretive Statements SINUS RHYTHM LEFT BUNDLE BRANCH BLOCK [120+ ms QRS DURATION, 80+ ms Q/S IN V1/V2, 85+ ms R IN I/aVL/V5/V6] PVCS No previous ECG available for comparison Electronically Signed On 08-23-2024 12:36:34 TOY MECHANIC by Willie Alberto M.D.
== END 2024-08-22 15:07 | disposition home or self-care (01) ==
PROVIDERS: Emergency Provider Internal Medicine Critical Care Medicine; PCP Family Medicine
DX: I12.9 Hypertensive chronic kidney disease with stage 1 through stage 4 chronic kidney disease, or unspecified chronic kidney disease (principal); N18.4 Chronic kidney disease, stage 4 (severe); M79.89 Other specified soft tissue disorders; E87.5 Hyperkalemia
CPT/HCPCS: 36415; 80048; 84132; 85025; 85610; 85730; 93005; 99283

== ENCOUNTER 2024-08-24 15:25 | Outpatient (CLI) | payer MEDICARE, MEDICAID, SELFPAY ==
[2024-08-24 16:05] LABS: INR 1.5; Prothrombin Time 15.8 Seconds (9.50-12.1)
[2024-08-24 16:09] LABS: Anion Gap 6 mmol/L (4-12); Blood Urea Nitrogen 45 mg/dL (7-18); Calcium 9.3 mg/dL (8.5-10.1); Carbon Dioxide 25 mmol/L (21-32); Chloride 108 mmol/L (98-108); Estimated Glomerular Filt Rate 19; Glucose 105 mg/dL (70-99); Osmolality Calculated 299 mOsm/kg (285-295); Potassium 5.7 mmol/L (3.5-5.1); Sodium 139 mmol/L (136-145)
== END 2024-08-24 15:26 | disposition home or self-care (01) ==
LOC: CHSLAB 15:27
PROVIDERS: PCP Family Medicine; Visit Provider Family Medicine
DX: N18.4 Chronic kidney disease, stage 4 (severe) (principal); Z79.01 Long term (current) use of anticoagulants
CPT/HCPCS: 36415; 80048; 85610

== ENCOUNTER 2024-08-31 14:04 | Outpatient (CLI) | payer MEDICARE, MEDICAID, SELFPAY ==
--- OUTSIDE RECORDS SUMMARY | 2024-08-31 14:09 | XMS_ITS | Encounter Summary ---
Author Organization [facility] Address [address] [place] [address] Phone Care Team Providers Care Polls Or Surveys Interviewer Name Role Phone Efe Carrera MD Primary Care Provider Alfredo Steven MD Unavailable [phone] Reason for Visit * Reason Comments Medication Refill Encounter Details Date Type Department Care Team (Late st Contact Info) Description 09/20/2019 Refill [facility] - Gastroenterology - [place] [address] [place] [address] Isabela Riley, FISHING VESSEL DECKHAND, SHANK BONER [address] [place] [address] Medication Refill Social History Tobacco Use Types Packs/Day Years Used Date Smoking Tobacco: Never Smokeless Tobacco: Never Alcohol Use Standard Drinks/Week Comments Never 0 (1 standard drink = 0.6 oz pur e alcohol) AUDIT-C Answer Date Recorded Frequency of Alcohol Consumption Never 02/20/2019 Average Number of Drinks Not on file 019 Frequency of Binge Drinking Not on file 01/30 Sexually Active Control Partners Comments Not Currently Comments No Sex and Gender Information Value Date Recorded Sex Assigned at Not on file Legal Sex Female 11:39 PM CDT Gender Identity Not on file Sexual Orientation Not on file documented as of this encounter Miscellaneous Notes * Telephone Encounter - Bridget Arguello CMA - 09/21/2019 8:35 AM CAR FERRIER Patient calling requesting refill of: Requested Prescriptions Pending Prescriptions Disp Refills ??? metoclopramide (REGLAN) 10 MG Tablet [Pharmacy Med Name: METOCLOPRAMIDE 10 MG TABLET] 120 Tab 2 Sig: TAKE ONE TABLET BY MOUTH FOUR TIMES A DAY Last fill: 07/09/19 Patients last OV with GI: 05/01/19 Next Office Visit with GI: None scheduled FERRIER documented in this encounter Plan of Treatment Not on file documented as of this encounter Visit Diagnoses Not on filedocumented in this encounter Care Teams Polls Or Surveys Interviewer Relationship Specialty Start Date End Date Efe Carrera MD [address] [place] [address] PCP - General Pediatrics 02/20/19 Alfredo Steven MD [address] [place] [address] Consulting Physician Nephrology 02/21/19 documented as of this encounter
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
--- OUTSIDE RECORDS SUMMARY | 2024-08-31 14:09 | XMS_ITS | Encounter Summary ---
Author Organization [facility] - [facility] Address [address] [place] [address]. [place] [address] [place] [address] Care Team Providers Care Soft Sugar Cutter Name Role Phone Efe Carrera MD Primary Care Provider [phone] Encounter Details Date Type Department Care Team (Late st Contact Info) Description 09/11/[address] [facility] Compl[facility] Pre/Post [address] [place] [address] Sheldon Webster MD Social History Tobacco Use Types Packs/Day Years [...] on file documented as of this encounter Plan of Treatment Not on file documented as of this encounter Visit Diagnoses Not on filedocumented in this encounter Additional Health Concerns Infection Onset Date Last Indicated Resolved Time MRSA Comment:06/30/18 Tio[place] (SB) 07/06/2018 07/06/2018 documented as of this encounter Care Teams Soft Sugar Cutter Relationship Specialty Start Date End Date Efe Carrera MD [address] [place] [address] PCP - General FAMILY PRACTICE 10/13/17 documented as of this encounter
--- OUTSIDE RECORDS SUMMARY | 2024-08-31 14:09 | XMS_ITS | Encounter Summary ---
Author Organization [facility] - [facility] Address [address] [place] [address]. [place] [address] [place] [address] Care Team Providers Care Straight Ruling Machine Operator Name Role Phone Efe Carrera MD Primary Care Provider [phone] Encounter Details Date Type Department Care Team (Late st Contact Info) Description 10/15/2017 Abstract [facility] [address] [place] [address] , Generic ConversionMD Social History Tobacco Use Types Packs/Day Years Used Date Smoking Tobacco: Never Assessed Comments Unknown Sex and Gender Information Value Date Recorded [...] Date Last Indicated Resolved Time MRSA Comment:06/30/18 Nirm[place] (SB) 07/06/2018 07/06/2018 documented as of this encounter Care Teams Straight Ruling Machine Operator Relationship Specialty Start Date End Date Efe Carrera MD [address] [place] [address] PCP - General FAMILY PRACTICE 10/13/17 documented as of this encounter
--- OUTSIDE RECORDS SUMMARY | 2024-08-31 14:09 | XMS_ITS | Encounter Summary ---
Author Organization [facility] Address [address] [place] [address]. [place] [address] [place] [address] Care Team Providers Care Mission Planner Name Role Phone Efe Carrera MD Primary Care Provider Encounter Details Date Type Department Care Team (Late st Contact Info) Description 11/26/2019 Abstract [facility] [address] [place] [address] Jermaine Anne MD [address] [place] [address] Social History Tobacco Use Types Packs/Day Years Used Date Smoking Tobacco: Never Smokeless Tobacco: Never Alcohol Use Standard Drinks/Week Comments No 0 (1 standard drink = 0.6 oz pur e alcohol) Comments No Sex and Gender Information Value Date Recorded Sex Assigned at Not on file Legal Sex Female 10:24 PM CDT Gender Identity Not on file Sexual Orientation Not on file COVID-19 Exposure Response Date Recorded In the last month, have you been in contact with someone who was confirmed or suspected to have Coronavirus / COVID-19? No / Unsure 11/26/2019 8:06 AM CDT documented as of this encounter Plan of Treatment Not on file documented as of this encounter Visit Diagnoses Not on filedocumented in this encounter Additional Health Concerns Infection Onset Date Last Indicated Resolved Time MRSA Comment:06/30/18 Nirmala (MARY ELLEN) 07/06/2018 07/06/2018 documented as of this encounter Care Teams Mission Planner Relationship Specialty Start Date End Date Efe Carrera MD [address] [place], [place] [id number] PCP - General FAMILY PRACTICE 10/13/17 documented as of this encounter
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
--- OUTSIDE RECORDS SUMMARY | 2024-08-31 14:09 | XMS_ITS | Referral Summary ---
Author Organization [facility] [employer] Address [address] [place] [address] Care Team Providers Care Fleet Sales Manager Name Role Phone Unavailable Primary Care Provider Unavailabl e Source Comments [facility] [employer],non-owned Affiliates and Associated Physician Practices is amultiple site organization consisting of ambulatory clinics and hospital sitesin [place], [place], [place] and [place]. This disclosure is being madepursuant to the Care Everywhere program and may not contain all information available regarding this patient. Last updated 18.[facility] [employer] Allergies Active Allergy Reactions Criticality Noted Date Comments Sulfa Drugs Nausea and/or Vomiting,Vomiting Medium Medications * Be aware that medications may not be up to date on this document. Alwaysverify current medications with the patient. Medication Sig Dispensed Refills Start Date End Date Status Multiple Vitamins-Minerals (PRESERVISION AREDS 2 PO) Take 1 tablet by mouth 2 times daily Active amLODIPine (NORVASC) 5 MG tablet Take 5 mg by mouth every morning Active albuterol HFA (PROVENTIL;VENTOLIN;LA OAIR) 108 (90 Base) MCG/ACT inhaler Inhale 2 puffs by mouth Active buPROPion XL 24hr (WELLBUTRIN-XL) 300 MG tablet Take 300 mg by mouth every evening Active HYDROcodone-acetaminop hen (NORCO) 10-325 MG tablet Take 1 tablet by mouth 3 times daily as needed Active metoclopramide (REGLAN) 5 MG tablet Take 10 mg by mouth 4 times daily - before meals & nightly 04/13/2019 Active omeprazole (PRILOSEC) 40 MG capsule Take 40 mg by mouth 2 times daily 02/20/2019 Active sucralfate (CARAFATE) 1 GM/10ML suspension Take 1 g by mouth 03/05/2019 Active trimethoprim (TRIMPEX) 100 MG tablet Take 100 mg by mouth at bedtime Active warfarin (COUMADIN) 5 MG tablet Take 5 mg by mouth every evening Active busPIRone (BUSPAR) 5 MG tablet Take 5 mg by mouth 2 times daily Active Social History Tobacco Use Types Packs/Day Years Used Date Smoking Tobacco: Never Smokeless Tobacco: Never Alcohol Use Standard Drinks/Week Comments Never 0 (1 standard drink = 0.6 oz pur e alcohol) AUDIT-C Answer Date Recorded Frequency of Alcohol Consumption Never 04/26/2019 Average Number of Drinks Not on file 019 Frequency of Binge Drinking Not on file 04/02 Sex and Gender Information Value Date Recorded Sex Assigned at Not on file Gender Identity Not on file Sexual Orientation Not on file Last Filed Vital Signs Vital Sign Reading Time Taken Comments Blood Pressure 131/74 01/01/2020 12:00 PM CDT Pulse 107 01/01/2020 12:00 PM CDT Temperature 36.4 ??C (97.6 ??F) 01/01/2020 11:29 AM C DT Respiratory Rate 19 01/01/2020 12:00 PM CDT Oxygen Saturation 98% 01/01/2020 12:00 PM CDT Inhaled Oxygen Concentration - - Weight 84.4 kg (186 lb) 01/01/2020 9:51 AM CDT Height 165.1 cm (5' 5 ) 01/01/2020 9:51 AM CDT Body Mass Index 30.95 01/01/2020 9:51 AM CDT Plan of Treatment Not on file
--- OUTSIDE RECORDS SUMMARY | 2024-08-31 14:09 | XMS_ITS | Clinical Summary ---
Author Organization [facility] Address [address] [place] [address] Care Team Providers Care Laundry Washer Name Role Phone Unavailable Primary Care Provider Unavailabl e Source Comments [facility],non-owned Affiliates and Associated Physician Practices is amultiple site organization consisting of ambulatory clinics and hospital sitesin [place], [place] and [place]. This disclosure is being madepursuant to the Care Everywhere program and may not contain all information available regarding this patient. Last updated 18.[facility] Allergies Active Allergy Reactions Criticality Noted Date [...] by mouth every morning Active albuterol HFA (PROVENTIL;VENTOLIN;GA OAIR) 108 (90 Base) MCG/ACT inhaler Inhale [...] 01/01/2020 9:51 AM CDT Plan of Treatment Health Maintenance Due Date Last Done Comments BONE DENSITY TESTING 1940 MEDICARE AWV ? 12 MONTHS 1940 DTAP/TDAP/TD VACCINES (1 - Tdap) 1958 PNEUMOCOCCAL VACCINE 50+ (1 of 1 - PCV) 1989 ZOSTER VACCINE (1 of 2) 1989 Respiratory Syncytial Virus (RSV) Vaccine Pt: or over 60 yrs (1 - 1-dose 75+ series) 2014 COVID-19 VACCINE ( - 2023-2 5 season) 2024 INFLUENZA VACCINE (#1) 2024 6, 04/15/2009 DEPRESSION SCREENING 08/01/2024 HEPATITIS B VACCINE Aged Out No longe r eligible based on patient's age to complete this topic HIB VACCINE Aged Out No longer eligi ble based on patient's age to complete this topic HPV VACCINE Aged Out No longer eligi ble based on patient's age to complete this topic MENINGOCOCCAL (Group B) VACCINE Aged Out No longer eligible b ased on patient's age to complete this topic MENINGOCOCCAL VACCINE Aged Out No marry vargas eligible based on patient's age to complete this topic
--- OUTSIDE RECORDS SUMMARY | 2024-08-31 14:09 | XMS_ITS | Clinical Summary ---
Author Organization [facility] Address [address] [place] [address] Phone Care Team Providers Care Autism Motor Specialist Name Role Phone Efe Carrera MD Primary Care Provider Alfredo Steven MD Unavailable [phone] Allergies Active Allergy Reactions Criticality Noted Date Comments Sulfa Antibiotics Nausea,Vomiting Medium 02/20/2019 Medications trimethoprim (TRIMPEX) 100 MG Tablet Take 100 mg by mouth daily. Active buPROPion (WELLBUTRIN) 300 MG TABLET SR 24 HR XL tablet Take 300 mg by mouth every morning. Active warfarin (COUMADIN) 5 MG Tablet Take 6.5 mg by mouth daily. Active amLODIPine (NORVASC) 5 MG Tablet Take 5 mg by mouth daily. Active Omeprazole 20 MG Tablet Delayed Response Take by mouth. Activ e Multiple Vitamins-Mineral s (PRESERVISION AREDS 2 PO) Take by mouth. Act елена HYDROcodone-acet aminophen (NORCO) 10-325 MG Tablet Take 1 Tab by mouth every 8 hours as needed. Active Cyanocobalamin (VITAMIN B 12 PO) Take by mouth daily. Active Multiple Vitamin (MULTIVITAMINS PO) Take by mouth. Activ e albuterol (VENTOLIN HFA) 108 (90 Base) MCG/ACT Aerosol Solution take 2 Puffs by inhalation every 4 hours as needed. Active hyoscyamine (ANASPAZ, LEVSIN) 0.125 MG Tablet Take 1 Tab by mouth every 4 hours as needed for Cramping. 120 Tab 3 201 9 Active LISINOPRIL PO Take by mouth daily. Active omeprazole (PRILOSEC) 40 MG CAPSULE DELAYED RELEASE Take 1 Cap by mouth 2 times daily. 60 Cap 3 9 Active other by Other route. HAS PAIN PUMP WITH DILAUDID AND BUPIVACAINE Active ondansetron (ZOFRAN-ODT) 4 MG TABLET DISPERSIBLE Take 1 Tab by mouth every 8 hours as needed for Nausea - 1st line. 20 Tab 0 Active escitalopram (LEXAPRO) 10 MG Tablet 0 Active docusate sodium (COLACE) 100 MG CapsuleIndicatio ns:Chronic idiopathic constipation Take 1 Cap by mouth 2 times daily. 180 Cap 3 0 Active metoclopramide (REGLAN) 10 MG Tablet Take 1 Tab by mouth 4 times daily. 120 Tab 2 0 Active linaclotide (Linzess) 145 MCG Capsule Take 1 Cap by mouth every morning (before breakfast). 30 Cap 1 0 Active bethanechol (URECHOLINE) 25 MG Tablet Take 1 tablet 1 hour before meals up to three times a day. 90 Tab 5 1 Active Active Problems No known active problems Family History Medical History Relation Name Comments Cirrhosis Father liver Other-comment Father ruptured appen lyle Diabetes Mother Other-comment Mother heart murmur Heart Attack Sister at 32 years old during childbirth Relation Name Status Comments Father Mother Sister Social History Tobacco Use Types Packs/Day Years Used Date Smoking Tobacco: Never Smokeless Tobacco: Never Tobacco Cessation:Counseling Given: No Alcohol Use Standard Drinks/Week Comments Never 0 [...] Sign Reading Time Taken Comments Blood Pressure 126/74 02/15/2020 1:29 PM CDT Pulse 77 02/15/2020 1:29 PM CDT Temperature 36.6 ??C (97.8 ??F) 02/15/2020 1:29 PM CD T Respiratory Rate 16 02/15/2020 1:29 PM CDT Oxygen Saturation 96% 10/12/2019 4:21 PM CDT Inhaled Oxygen Concentration - - Weight 79.8 kg (176 lb) 02/15/2020 1:29 PM CDT Height 161.3 cm (5' 3.5 ) 10/12/2019 2:07 PM CDT Body Mass Index 30.69 10/12/2019 2:07 PM CDT Plan of Treatment Health Maintenance Due Date Last Done Comments DEXA Bone Density 1940 Zoster Immunization (1 of 2) 1989 Respiratory Syncytial Virus (RSV) Immunization (Adult) (1 - 1-dose 75+ series) 2014 Influenza Immunization (#1) 04/01/202408/2018, 04/17/2018, 07/20/2017, Additional history exists SARS-COV-2 Immunization ( season) 2024 11/27/2021, 10/10/2020, 08/29/2020 Pneumococcal Immunization (50+ years) Completed 06/22/2016, 04/30/2013 Pneumococcal Immunization Combined Discontinued 06/22/2016, 04/30/2013 DTaP/Tdap/Td Immunization Discontinued 2017, 06/22/2016, 11/04/2008 TdaP Immunization Completed 06/30/2018, , 11/04/2008 Hepatitis C Virus (HCV) Screening Completed 02/20/2019, 02/20/2019 Hepatitis B Immunization Aged Out No longer eligible based on patient's age to complete this topic Meningococcal Immunization (ACWY) Aged Out No longer eligible based on patient's age to complete this topic Rotavirus Immunization Aged Out No lo nger eligible based on patient's age to complete this topic Procedures Procedure Name Priority Date/Time Associated Diagnosis Comments HEPATITIS C RNA QUANT PCR VIRAL LOAD Routine 02/20/2019 3:51 PM CDT Continuous RUQ abdominal pain Elevated liver enzymes Fatigue, unspecified type from Last 3 Months or Most Recently Relevant to Health Maintenance Results * HEPATITIS C RNA QUANT PCR VIRAL LOAD (02/20/2019 3:51 PM CDT) HCV RNA QUANT PCR NON DETECTED NON DETECTED 02/23/2019 3:31 PM CDT [facility] HCV RNA QT LOG10 <=0.00 Log10 IU/mL 02/23/2019 3:31 PM CDT [facility] Comment: LOG 10 is not applicable. Sample held in Serology for 1 month. Call Laboratory if further testing is desired. This test was performed using TSERING AmpliPrep TSERING Taq Man Real Time PCR. Blood specimen (specimen) Butterfly Puncture / Unknown 02/20/2019 3:51 PM CDT 02/20/2019 5:11 PM CDT us Radha Harkins LAST REPAIRER HELPER, MILL MACHINIST IMMUNOLOGY DERECKA BLEAmbar Final Result [facility] [address] [place] [address], [place] from Last 3 Months or Most Recently Relevant to Health Maintenance Insurance MEDICARE MEDICAID [place] Care Teams Autism Motor Specialist Relationship Specialty Start Date End Date Efe Carrera MD [address] [place] [address] PCP - General Pediatrics 02/20/19 Alfredo Steven MD [address] [place] [address] Consulting Physician Nephrology 02/21/19
--- OUTSIDE RECORDS SUMMARY | 2024-08-31 14:09 | XMS_ITS ---
Author Organization [facility] Address [address] [place] [address] Care Team Providers Care Senior Operations Manager Name Role Phone Efe Carrera MD Primary Care Provide r Efrain Nina MD Unavailable [phone] Miscellaneous, Not In File Unavailable Unava ilable Active Problems Problem Noted Date Diagnosed Date [...] major depressive d isorder, in full remission ([facility]) 09/29/2021 Overview (03/03/2023): Last Assessment & Plan: [...] including calling Suicide Hotline ( ) or 911. Follow up in three months with Psychologist/Counselor/SupportGroup/Psychiatrist and PCP H/O left nephrectomy 09/29/2021 Overview (03/03/2023): Last Assessment & Plan: Condition: stable Follow up in: three months with PCP Chronic deep vein thrombosis (DVT) (CMS/HCC) 08/2021 Overview (03/03/2023): Last Assessment & Plan: [...] now. Will monitor. Vitamin deficiency, unspecified 11/24/2020 snf (current) use of anticoagulants 2020 Hypertensive chronic [...] Overview (03/03/2023): Pulmonary Embolism - (Added by TW Conv) Assessment & Plan (11/19/2020 8:54 AM [...] History of depression - (Added by DEREK Conv) Assessment & Plan (11/19/2020 8:59 AM CDT): Will hold home bupropion and SSRI for procedure. Plan to resume medications postoperatively. Current Oncology Plans No current plan information found. Past Plans No past plan information found. Radiation Treatments * No radiation treatments are documented for this patient in [employer] [facility] [employer]. Treatments may have been administered in another system. Lifetime Dose Tracking * Chemical Lifetime Dose Automatic Entry Manual Entr y Fluoro Time 0.253 minutes 0.253 minutes 0 minutes Air kerma at the reference point (Ka,r) 2.87 mGy 2 .87 mGy 0 mGy Resolved Problems Problem Noted Date Diagnosed Date [...]
--- OUTSIDE RECORDS SUMMARY | 2024-08-31 14:09 | XMS_ITS | Encounter Summary ---
Author Organization [facility] Address [address] [place] [address] Phone Care Team Providers Care Application Coordinator Name Role Phone Efe aCrrera MD Primary Care Provider Alfredo Steven MD Unavailable [phone] Reason for Visit * Reason Comments Medication Refill Encounter Details Date Type Department Care Team (Late st Contact Info) Description 09/13/2019 Refill [facility] - Gastroenterology - [place] [address] [place] [address] Isabela Riley, AIR TRAFFIC CONTROL MANAGER, TIME STUDY ANALYST [address] [place] [address] Medication Refill Social History Tobacco [...] Telephone Encounter - Bridget Arguello CMA - 09/13/2019 2:32 PM KINDERGARTEN TUTOR Patient calling requesting refill of: Requested Prescriptions Pending Prescriptions Disp Refills ??? metoclopramide (REGLAN) 10 MG Tablet [Pharmacy Med Name: METOCLOPRAMIDE 10 MG TABLET] 120 Tab 0 Sig: TAKE ONE TABLET BY MOUTH FOUR TIMES A DAY Last fill: 07/09/19 Patients last OV with GI: 05/01/19 Next Office Visit with GI: None scheduled ERGARTEN TUTOR documented in this encounter Plan of Treatment Not on file documented as of this encounter Visit Diagnoses Not on filedocumented in this encounter Care Teams Application Coordinator Relationship Specialty Start Date End Date Efe Carrera MD [address] [place] [address] PCP - General Pediatrics 02/20/19 Alfredo Steven MD [address] [place] [address] Consulting Physician Nephrology 02/21/19 documented as of this encounter
--- OUTSIDE RECORDS SUMMARY | 2024-08-31 14:09 | XMS_ITS | Clinical Summary ---
Author Organization [facility] Address [address] [place] [address] Care Team Providers Care Industrial Psychology Teacher Name Role Phone Efe Carrera MD Primary Care Provide r Efrain Nina MD Unavailable [phone] Miscellaneous, Not In File Unavailable Unava ilable Allergies Active Allergy Reactions Criticality Noted Date [...] mg of elemental iron total) by mouth machine deburrer before breakfast Active methyl salicylate-menthol 30-10 % [...] major depressive d isorder, in full remission ([facility]) 09/29/2021 Overview (03/03/2023): Last Assessment & Plan: [...] with PCP Chronic deep vein thrombosis (DVT) ([facility]) 08/2021 Overview (03/03/2023): Last Assessment & Plan: [...] now. Will monitor. Vitamin deficiency, unspecified 11/24/2020 alf (current) use of anticoagulants 2020 Hypertensive chronic [...] for now. Will continue to monitor closely. Encounters Date Type Department Care Team Description 06/07/2024 1:45 PM RESIDENTIAL DIRECT SUPPORT PROFESSIONAL Office Visit [facility] Medicine [address] [place] [id number] Rufina Bolden, [place] Trochanteric bursitis, left hip (Primary Dx) from Last 3 Months Immunizations Name Administration Dates Next Due Influenza, Trivalent, IM (MDV) 05/03/2016 Influenza, Trivalent, Preservative Free, Intramu scular 04/15/2009 Surgical History Surgery Date Site/Laterality Comments DC ARTHRP KNE CONDYLE&PLATU MEDIAL&LAT COMPARTMENTS Total Knee Arthroplasty - (Added by TW Conv) DC CHOLECYSTECTOMY Cholecystectomy - (Added by TW Conv) Medical History Medical History Date Comments Personal history of venous t hrombosis and embolism Pulmonary Embolism - (Added by TW Conv) Aftercare following joint re placement surgery Aftercare following joint replacement - (Added by TW Conv) Personal history of other di seases of the circulatory system History of hypertension - (A dded by TW Conv) Personal history of other di seases of the respiratory system Personal history of asthma - (Added by TW Conv) Personal history of other in fectious and parasitic diseases History of hepatitis - (Adde d by TW Conv) Personal history of diseases of the blood and blood-forming organs and certain disorders involving the immune mechanism History of an emia - (Added by TW Conv) Personal history of other me ntal and behavioral disorders History of depression - (Add ed by TW Conv) Restless legs syndrome Restless legs syndrome - (Added by TW Conv) Acute embolism and thrombosi s of deep vein of lower extremity (HCC) Deep vein thrombosis of lowe r extremity - (Added by TW Conv) Chronic kidney disease Muscle wasting Vitamin D deficiency, unspecified Right knee pain Left knee pain Hypertension GERD (gastroesophageal reflux disease) Lung disease Diaphragmatic hernia without obstruction or gangrene Hypercalcemia Left bundle-branch block, unspecified Anemia Presence of other bone and tendon implants Spinal stenosis, site unspecified Depression Personal history of COVID-19 Abnormal posture Urinary tract infection Body mass index 37.0-37.9, adult Difficulty in walking, not e lsewhere classified Right shoulder pain alf (current) use of anticoagulants Personal history of other ma lignant neoplasm of kidney Personal history of pulmonary embolism Personal history of other ve nous thrombosis and embolism Acquired absence of kidney Fall from chair, sequela Unspecified macular degeneration Obesity Secondary hyperparathyroidis m of renal origin (HCC) Sleep apnea Esophageal rupture 2014 Gastroparesis 2019 PONV (postoperative nausea and vomiting) Family History Medical History Relation Name Comments Diabetes Mother Family history of diabetes mellitus - (Added by TW Conv) Heart disease Mother heart attack Hypertension Mother Family history of hypertension - (Added by TW Conv) Relation Name Status Comments Mother Social History Tobacco Use Types Packs/Day Years Used Date Smoking Tobacco: Never Smokeless Tobacco: Never Tobacco Cessation:Counseling Given: Not Answered Alcohol Use Standard Drinks/Week Comments Not Currently 0 (1 standard drink = 0.6 oz pur e alcohol) [facility] Utilities Answer Date Recorded In the past 12 months has th e [employer], gas, oil, or water [employer] threatened to shut off services in your [...] often do you attend chur ch or buddhism services? 1 to 4 times per year 08/09/2023 Do you belong to any clubs o r organizations such as mormon groups, unions, fraternal or athletic groups, or [...] place to sleep or slept in a usp (including now)? No 08/09/2023 Personal Safety Answer Date Recorded Have you ever been in or are you currently in a harmful physical or emotional relationship or is someone making you feel afraid or unsafe? Denies 08/08/2023 Comments No Sex and Gender Information Value Date Recorded Sex Assigned at Not on file Legal Sex Female 1:00 AM RESIDENTIAL DIRECT SUPPORT PROFESSIONAL Gender Identity Not on file Sexual Orientation Not on file Occupation Industry Job Start Date Job End Date Retired Not on file Not on file Not on file Obstetrics History Last Filed Vital Signs Vital Sign Reading Time Taken Comments Blood Pressure 107/69 06/07/2024 1:49 PM RESIDENTIAL DIRECT SUPPORT PROFESSIONAL Pulse 76 06/07/2024 1:49 PM RESIDENTIAL DIRECT SUPPORT PROFESSIONAL Temperature 36.8 ??C (98.2 ??F) 08/11/2023 7:58 AM CS T Respiratory Rate 20 08/11/2023 11:54 AM RESIDENTIAL DIRECT SUPPORT PROFESSIONAL Oxygen Saturation 93% 08/11/2023 11:54 AM RESIDENTIAL DIRECT SUPPORT PROFESSIONAL Inhaled Oxygen Concentration - - Weight 93.4 kg (206 lb) 06/07/2024 1:49 PM RESIDENTIAL DIRECT SUPPORT PROFESSIONAL Height 157.5 cm (5' 2 ) 06/07/2024 1:49 PM RESIDENTIAL DIRECT SUPPORT PROFESSIONAL Body Mass Index 37.68 06/07/2024 1:49 PM RESIDENTIAL DIRECT SUPPORT PROFESSIONAL Plan of Treatment Health Maintenance Due Date Last Done Comments Depression Screening 1940 Osteoporosis Screening-Bone Density Scan 1940 Hepatitis B Screening 1957 Zoster Vaccine (1 of 2) 1989 Well Visit 65+ 2004 Influenza Vaccine (#1) 2024 , 06/01/2019, 04/17/2018, Additional history exists Fall Risk Assessment 08/11/2024 08/11/2023 DTaP/Tdap/Td Vaccine (4 - Td or Tdap) 06/30/2028 06/30/2018, 06/22/2016, 11/04/2008 Pneumococcal vaccine 65+ Completed 06/22/2016, 04/03 Covid-19 Vaccine Discontinued 10/10/2020, 08/29/2020 Medical Devices Implanted Type Area Dietary Service Aide Device Identifier Shelf Expiration Date Model / Serial / Lot Synthes 04.037.142s Tfn-Advanced Lateral Relief Cut 11mm 170mm Cannulated Femoral - [id number] Implanted:Qty: 1 on 11/19/2020 by Efrain Nina MD at [facility] Left: Femur Synthes I 07/31/2030 04.037.142 S / / [id number] Synthes 04.038.200s Tfn-Advanced 10.35mm 100mm Cannulated Screw Bone Titanium - [id number] Implanted:Qty: 1 on 11/19/2020 by Efrain Nina MD at [facility] Left: Femur Synthes I 04/30/2029 04.038.200 S / / [id number] Synthes 04.005.526s 5mm 4.3mm 36mm Lock Self Tap Blunt Tip 2 Lead Tibial T25 Full - [id number] Implanted:Qty: 1 on 11/19/2020 by Efrain Nina MD at [facility] Left: Femur Synthes I 03/31/2029 04.005.526 S / / [id number] Med[employer] Synchromed Ii .78in [place] Filter Mesh Pouch Programmable 8637-20 - [id number] - [id number] Implanted:Qty: 1 on 04/06/2023 by Ben Abbott MD at [facility] Left: Abdomen Med[employer]onic Inc 09/14/2024 8637-20 / [id number] / Explanted Type Area Dietary Service Aide Device Identifier Shelf Expiration Date Model / Serial / Lot Medtronic Inc Synchromed Ii .78in [place] Filter Mesh Pouch Programmable 8637-20 - [id number] - [id number] Explanted:Qty: 1 on 04/06/2023 by Ben Abbott MD at [facility] Left: Abdomen Med[employer] Inc 8637-20 / [id number] / Procedures Procedure Name Priority Date/Time Associated Diagnosis Comments DC ARTHROCENTESIS ASPIR&/INJ MAJOR JT/BURSA W/O US Routine 06/07/2024 1:45 PM RESIDENTIAL DIRECT SUPPORT PROFESSIONAL Trochanteric bursitis, left hip from Last 3 Months Results * DC ARTHROCENTESIS ASPIR&/INJ MAJOR JT/BURSA W/O US (06/07/2024 1:45 PM RESIDENTIAL DIRECT SUPPORT PROFESSIONAL) Narrative Efrain Nina MD - 06/07/2024 1:45 PM RESIDENTIAL DIRECT SUPPORT PROFESSIONAL Rufina Bolden NP ? 06/07/2024 ??2:42 PM [...] the procedure well with no immediate complications us Rufina Bolden NP IN CLINIC/BEDSIDE ORDER SOHAIL Final Result from Last 3 Months Insurance MEDICARE [facility] PLAN MEDICARE IDPA MEDICARE IDPA Advance Directives For more information, please contact: [phone] Documents on File Type Date Recorded Patient Ham Passer Expl anation ADVANCE DIRECTIVE 04/07/2023 4:50 PM POWER OF ECHOMETER ENGINEER-MEDICAL ADVANCE DIRECTIVE 04/07/2023 4:50 PM POLST * [...] 10:25 PM 11/24/2020 6:40 PM Care Teams Industrial Psychology Teacher Relationship Specialty Start Date End Date Efe Carrera MD [address] [place], [place] [id number] PCP - General 09/13/16 Efrain Nina MD [address] [place] [address] Surgeon Orthopedic Surgery 11/20/20 Miscellaneous, Not In File 11/24/20
--- OUTSIDE RECORDS SUMMARY | 2024-08-31 14:09 | XMS_ITS | Patient Health Summary ---
Author Organization [facility] Address [address] [place] [address] Care Team Providers Care Data Collection Technician Name Role Phone Unavailable Primary Care Provider Unavailabl e Note from [facility],non-owned Affiliates and Associated Physician Practices is amultiple site organization consisting of ambulatory clinics and hospital sitesin [place], [place], [place] and [place]. This disclosure is being madepursuant to the Care Everywhere program and may not contain all information available regarding this patient. Last updated 18.[facility] Allergies * Sulfa Drugs(Nausea and/or Vomiting,Vomiting) -Medium Criticality Medications * Be aware that medications may not be up to date on this document. Alwaysverify current medications with the patient. * Multiple Vitamins-Minerals (PRESERVISION AREDS 2 PO) Take 1 tablet by mouth 2 times daily * amLODIPine (NORVASC) 5 MG tablet Take 5 mg by mouth every morning * albuterol HFA (PROVENTIL;VENTOLIN;PROAIR) 108 (90 Base) MCG/ACT inhaler Inhale 2 puffs by mouth * buPROPion XL 24hr (WELLBUTRIN-XL) 300 MG tablet Take 300 mg by mouth every evening * HYDROcodone-acetaminophen (NORCO) 10-325 MG tablet Take 1 tablet by mouth 3 times daily as needed * metoclopramide (REGLAN) 5 MG tablet(Started 04/13/2019) Take 10 mg by mouth 4 times daily - before meals & nightly * omeprazole (PRILOSEC) 40 MG capsule(Started 02/20/2019) Take 40 mg by mouth 2 times daily * sucralfate (CARAFATE) 1 GM/10ML suspension(Started 03/05/2019) Take 1 g by mouth * trimethoprim (TRIMPEX) 100 MG tablet Take 100 mg by mouth at bedtime * warfarin (COUMADIN) 5 MG tablet Take 5 mg by mouth every evening * busPIRone (BUSPAR) 5 MG tablet Take 5 mg by mouth 2 times daily Social History Tobacco Use Types Packs/Day Years [...] Mass Index 30.95 01/01/2020 9:51 AM CDT Procedures * CARDIAC EKG ORDER(Performed 03/27/2020) * ESOPHAGOGASTRODUODENOSCOPY (EGD) /ESOPHAGOSCOPY WITH ULTRASOUND (EUS) (Performed 01/01/2020) Performed for Pancreas cyst (HCC) * ENDOSCOPIC ULTRASONOGRAPHY, GI(Performed 01/01/2020) * CARDIAC EKG ORDER(Performed 10/13/2019) * BASIC METABOLIC PANEL (CALCIUM TOTAL)(Performed 08/28/2019) Performed for Preoperative examination * EKG 12-LEAD(Performed 08/28/2019) Performed for Preoperative examination Results * CARDIAC EKG ORDER (03/27/2020 1:40 PM CDT) Only the most recent of2 resultswithin the time period is included. Narrative 03/27/2020 1:40 PM CDT Ordered by an unspecified provider. Scanned Document CARDIAC SERVICES ORD ERABLES * ENDOSCOPIC ULTRASONOGRAPHY, GI (01/01/2020 10:02 AM CDT) Report Endoscopy POC Endoscopy Department Report _ Patient Name: Rajani Cardenas ? Procedure Date: 01/01/2020 10:02 AM ?Date of : 1940 Classification: Outpatient ?Gender: Female Ethnicity: Not or ? Race: White _ Providers: ?Gildardo Forbes MD Referring MD: ? Jonny Yancey DO (Referring MD) Procedure: ?Upper EUS Indications: ?Pancreatic cyst on CT scan Medications: ?Monitored Anesthesia Care Patient Profile: ?79 y old woman with pancreatic cyst; hx of dilaudid ?pump for back pain. c/o early sateity Description of Procedure: After obtaining informed consent, the endoscope was ?passed under direct vision. Throughout the ?procedure, the patient's blood pressure, pulse, and ?oxygen saturations were monitored continuously. The ?[id number] was introduced through the mouth, and ?advanced to the second part of duodenum. ? Findings: ? Endoscopic Finding : ? The area of the papilla was normal. ? Food (residue) was found in the gastric body consistent with patient's ? known gastroparesis. ? Endosonographic Finding : ? The esophagus, stomach and duodenum were visualized endosonographicall y. ? There was dilation in the main bile duct which measured up to 10 mm. ? The pancreatic duct had a dilated endosonographic appearance in the main ? pancreatic duct. The pancreatic duct measured up to 6 mm in diameter in ? head region. ? An anechoic lesion suggestive of a cyst was identified in the pancreatic ? body. It communicates with the pancreatic duct. The lesion measured 7 mm ? by 5 mm in maximal cross-sectional diameter. There was a single ? compartment without septae. The outer wall of the lesion was not seen. ? There was no associated mass. There was no internal debris within the ? fluid-filled cavity. ? cyst vs. dilated side branch. ? The remainder of the pancreatic parenchyma revealed hyperechoic strands ? and lobularity. 9 mm x 8 mm katlyn-pancreatic cyst near tail of pancreas. ? Estimated Blood Loss: ? Estimated blood loss: none. Complications: ?No immediate complications. Estimated blood loss: ?None. Impression: ? 1) Normal area of the papilla. ?2) There was dilation in the entire main bile duct ?which measured up to 10 mm. This is likely related ?to patient's age and pain medications. ?3) The pancreatic duct had a dilated ?endosonographic appearance in the main pancreatic ?duct. The pancreatic duct measured up to 6 mm in ?diameter. This is likely related to pain medication. ?4) A 7 mm x 5 mm cystic lesion was seen in the ?pancreatic body. Tissue has not been obtained. ?However, the endosonographic appearance is ?suspicious for a side branch IPMN vs. dilated ?side-branch. ?5) Food (residue) in the stomach. ?6) 9 mm x 8 mm katlyn-pancreatic cyst near tail of ?pancreas. Benign-appearing cyst. ?7) No specimens collected. Recommendation: ? - Discharge patient to home (ambulatory). ?- Gastroparesis diet indefinitely. ?- Repeat the upper endoscopic ultrasound or an MRI ?in 2 years for surveillance. ?- We recommend patient discuss with pain management ?provider and referring physician(s) to consider ?weaning off pain medications and dilaudid pain pump ?for back pain as this is likely causing LUQ pain, ?early sateity, and lack of appetite. ? Procedure Code(s): ? --- Professional --- ? 79366, Esophagogastroduod enoscopy, flexible, transoral; with endoscopic ? ultrasound examination, including the esophagus, stomach, and either the ? duodenum or a surgically altered stomach where the jejunum is examined ? distal to the anastomosis Diagnosis Code(s): ?--- Professional --- ?K86.2, Cyst of pancreas ?K83.8, Other specified diseases of biliary tract ?R93.3, Abnormal findings on diagnostic imaging of ?other parts of digestive tract CPT copyright 2016 [employer]. All rights reserved. The codes documented in this report are preliminary and upon personnel research scientist review may be revised to meet current compliance requirements. Gildardo Forbes MD 01/01/2020 11:33:18 AM This report has been signed electronically. Note Initiated On: 01/01/2020 10:02 AM Number of Addenda: 0 ? [facility] ? [address] [place] [address] [facility] 01/01/2020 10:0 2 AM CDT Gildardo Forbes MD GI PROCEDURE ORDERAB LES [facility] * (ABNORMAL) BASIC METABOLIC PANEL (CALCIUM TOTAL) (08/28/2019 2:22 PM [facility]) BUN 32(H) 7 - 26 mg/dL 08/28/2019 3:08 PM [facility] Creatinine 2.2(H) 0.6 - 1.2 mg/dL 08/28/2019 3:08 PM [facility] Sodium 146(H) 136 - 145 mmol/L 08/28/2019 3:08 PM [facility] Potassium 4.0 3.5 - 4.5 mmol/L 08/28/2019 3:08 PM [facility] Chloride 112(H) 98 - 107 mmol/L 08/28/2019 3:08 PM [facility] CO2 21(L) 22 - 29 mmol/L 08/28/2019 3:08 PM [facility] Glucose 50(L) 70 - 115 mg/dL 08/28/2019 3:08 PM [facility] Calcium 9.8 8.4 - 10.2 mg/dL 08/28/2019 3:08 PM [facility] Anion Gap 17 8 - 18 08/28/2019 3:08 PM [facility] BUN/Creatinine Ratio 15 7 - 23 08/28/2019 3:08 PM [facility] Osmolality Calculated 306(H) 270 - 300 mOsm/kg 08/28/2019 3:08 PM [facility] eGFR 21(L) >60 mL/min/1.7 3 m2 08/28/2019 3:08 PM [facility] Blood BLOOD SPECIMEN / Unknown Lab Venipuncture / Unknown 08/28/2019 2:22 PM [facility] 08/28/2019 2:45 PM [facility] Renato Gilmore MD LAB - CHEMISTRY ORD ERABLES Performing Organization Address [facility] Co de Phone Number [facility] [address] [phone] * EKG 12-LEAD (08/28/2019 1:26 PM [facility]) Pathologist [facility] Ventricular Rate 95 BPM [facility] Atrial Rate 95 BPM [facility] P-R Interval 208 ms [facility] QRS Duration ms 148 ms [facility] Q-T Interval ms 404 ms [facility] QTC Calculation (Bezet) 507 ms [facility] Calculated P [place] 77 degrees [facility] Calculated R [place] -19 degrees [facility] Calculated T [place] 98 degrees [facility] Interpretation EKG SINUS RHYTHM WITH OCCASIONAL PREMATURE VENTRICULAR COMPLEXES LEFT BUNDLE BRANCH BLOCK ABNORMAL ECG NO PREVIOUS ECGS AVAILABLE Confirmed by Juan Culver ([id number]), school photograph editor AYDIN HARRIS ([id number]) on 09/26/2019 1:44:56 PM [facility] 08/28/2019 1:26 PM [facility] 09/26/2019 1:44 PM [facility] Renato Gilmore MD ECG ORDERABLES Performing Organization Address [facility] Co de Phone Number [facility]
[2024-08-31 14:41] LABS: INR 3.4; Prothrombin Time 33.2 Seconds (9.50-12.1)
== END 2024-08-31 14:05 | disposition home or self-care (01) ==
LOC: CHSLAB 14:06
PROVIDERS: PCP Family Medicine; Visit Provider Family Medicine
DX: N18.4 Chronic kidney disease, stage 4 (severe) (principal); Z86.718 Personal history of other venous thrombosis and embolism; Z79.01 Long term (current) use of anticoagulants
CPT/HCPCS: 36415; 85610

== ENCOUNTER 2024-09-06 09:48 | Outpatient (CLI) | payer MEDICARE, SELFPAY ==
--- OUTSIDE RECORDS SUMMARY | 2024-09-06 10:08 | XMS_ITS | Encounter Summary ---
Author Organization [facility] Address [facility] [place] [address] Care Team Providers Care Field Hockey And Lacrosse Coach Name Role Phone Efe Carrera MD Primary Care Provider [phone] Encounter Details Date Type Department Care Team (Late st Contact Info) Description 09/11/2019 Prep for Procedure [address] Machine Runner Pre/Post [address] [place] [address] Sheldon Webster MD Social History Tobacco Use [...] Date Last Indicated Resolved Time MRSA Comment:06/30/18 Nares (SB) 07/06/2018 07/06/2018 documented as of this encounter Care Teams Field Hockey And Lacrosse Coach Relationship Specialty Start Date End Date Efe Carrera MD [address] [place] [address] PCP - General FAMILY PRACTICE 10/13/17 documented as of this encounter
--- OUTSIDE RECORDS SUMMARY | 2024-09-06 10:08 | XMS_ITS | Encounter Summary ---
Author Organization [facility] Address [address] [place] [address] Care Team Providers Care Team Primary Care Physician Name Role Phone Efe Carrera MD Primary Care Provider [phone] Encounter Details Date Type Department Care Team (Late st Contact Info) Description 10/15/2017 Abstract [facility] CONVERSION [address] [place] [address] , Generic ConversionMD Social History Tobacco Use [...] documented as of this encounter Care Teams Team Primary Care Physician Relationship Specialty Start Date End Date Efe Carrera MD [address] [place] [address] PCP - General FAMILY PRACTICE 10/13/17 documented as of this encounter
--- OUTSIDE RECORDS SUMMARY | 2024-09-06 10:08 | XMS_ITS | Referral Summary ---
Author Organization [facility] Address [address] [place] [address] Care Team Providers Care Articulation Officer Name Role Phone Unavailable Primary Care Provider Unavailabl e Source Comments [facility],non-owned Affiliates and Associated Physician Practices is amultiple site organization consisting of ambulatory clinics and hospital sitesin [place], [place], [place] and [place]. This disclosure is being madepursuant to the Care Everywhere program and may not contain all information available regarding this patient. Last updated 18.[facility] Allergies Active Allergy Reactions Criticality Noted Date [...] by mouth every morning Active albuterol HFA (PROVENTIL;VENTOLIN;VA OAIR) 108 (90 Base) MCG/ACT inhaler Inhale [...] 107 01/01/2020 12:00 PM CDT Temperature 36.4 C (97.6 F) 01/01/2020 11:29 AM CDT Respiratory Rate 19 01/01/2020 12:00 PM CDT Oxygen Saturation 98% 01/01/2020 12:00 PM CDT Inhaled Oxygen Concentration - - Weight 84.4 kg (186 lb) 01/01/2020 9:51 AM CDT Height 165.1 cm (5' 5 ) 01/01/2020 9:51 AM CDT Body Mass Index 30.95 01/01/2020 9:51 AM CDT Plan of Treatment Not on file
--- OUTSIDE RECORDS SUMMARY | 2024-09-06 10:08 | XMS_ITS | Encounter Summary ---
Author Organization [facility] Address [facility] [place] [address] Care Team Providers Care Quality Assurance Analyst Name Role Phone Efe Carrera MD Primary Care Provider [phone] Encounter Details Date Type Department Care Team (Late st Contact Info) Description 11/26/2019 Abstract [facility] [address] [place], [place] [address] [place] [address] [place] [id number] Social History Tobacco Use Types Packs/Day [...] documented as of this encounter Care Teams Quality Assurance Analyst Relationship Specialty Start Date End Date Efe Carrera MD [address] [place] [id number] PCP - General FAMILY PRACTICE 10/13/17 documented as of this encounter
--- OUTSIDE RECORDS SUMMARY | 2024-09-06 10:08 | XMS_ITS ---
Author Organization [facility] Address [address] [place] [address] Care Team Providers Care Film And Video Graphics Designer Name Role Phone Efe Carrera MD Primary Care Provide r Efrain Nina MD Unavailable [phone] Miscellaneous, Not In File Unavailable Unava ilable [...] major depressive d isorder, in full remission ([facility]) 09/29/2021 Overview (03/03/2023): Last Assessment & [...] treatments are documented for this patient in FilmTrack. Treatments may have been administered in another [...]
--- OUTSIDE RECORDS SUMMARY | 2024-09-06 10:08 | XMS_ITS | Clinical Summary ---
Author Organization [facility] Address [address] [place] [address] Care Team Providers Care Braze Operator Name Role Phone Efe Carrera MD Primary Care Provide r Efrain Nina MD Unavailable [phone] Miscellaneous, Not In File Unavailable Unava ilable [...] mg of elemental iron total) by mouth building energy retrofit technician before breakfast Active methyl salicylate-menthol 30-10 % [...] major depressive d isorder, in full remission ([facility]) 09/29/2021 Overview (03/03/2023): Last Assessment & [...] with PCP Chronic deep vein thrombosis (DVT) ([facility]) 08/2021 Overview (03/03/2023): Last Assessment & [...] now. Will monitor. Vitamin deficiency, unspecified 11/24/2020 penitentiary (current) use of anticoagulants 2020 Hypertensive chronic [...] Department Care Team Description 06/07/2024 1:45 PM [facility]ST Office Visit [facility] [address] [place] [phone] Rufina Bolden, [place] Trochanteric bursitis, left hip (Primary Dx) from Last 3 Months Immunizations Name Administration Dates Next Due Influenza, Trivalent, IM (MDV) 05/03/2016 Influenza, Trivalent, Preservative Free, Intramu scular 04/15/2009 Surgical History Surgery Date Site/Laterality Comments GA ARTHRP KNE CONDYLE&PLATU MEDIAL&LAT COMPARTMENTS Total Knee Arthroplasty - (Added by TW Conv) [place] CHOLECYSTECTOMY Cholecystectomy - (Added by TW Conv) [...] not e lsewhere classified Right shoulder pain penitentiary (current) use of anticoagulants Personal history of [...] drink = 0.6 oz pur e alcohol) [facility] Utilities Answer Date Recorded In the past 12 months has th e [employer], gas, oil, or water [employer] threatened to shut off services in your [...] often do you attend chur ch or jainism services? 1 to 4 times per year 08/09/2023 Do you belong to any clubs o r organizations such as religious groups, unions, fraternal or athletic groups, or [...] place to sleep or slept in a residential (including now)? No 08/09/2023 Personal Safety Answer Date Recorded Have you ever been in or are you currently in a harmful physical or emotional relationship or is someone making you feel afraid or unsafe? Denies 08/08/2023 Comments No Sex and Gender Information Value Date Recorded Sex Assigned at Not on file Legal Sex Female 1:00 AM DOSIMETRIST Gender Identity Not on file Sexual Orientation Not on file Occupation Industry Job Start Date Job End Date Retired Not on file Not on file Not on file Obstetrics History Last Filed Vital Signs Vital Sign Reading Time Taken Comments Blood Pressure 107/69 06/07/2024 1:49 PM [facility]ST Pulse 76 06/07/2024 1:49 PM [facility]ST Temperature 36.8 C (98.2 F) 08/11/2023 7:58 AM DOSIM[facility]RIST Respiratory Rate 20 08/11/2023 11:54 AM DOSIM[facility]RIST Oxygen Saturation 93% 08/11/2023 11:54 AM [facility]ST Inhaled Oxygen Concentration - - Weight 93.4 kg (206 lb) 06/07/2024 1:49 PM [facility]ST Height 157.5 cm (5' 2 ) 06/07/2024 1:49 PM [facility] Body Mass Index 37.68 06/07/2024 1:49 PM DOS[facility]ST Plan of Treatment Health Maintenance Due Date [...] 10/10/2020, 08/29/2020 Medical Devices Implanted Type Area Issuing Operator Device Identifier Shelf Expiration Date Model / Serial / Lot Synthes 04.037.142s Tfn-Advanced Lateral Relief Cut 11mm 170mm Cannulated Femoral - [id number] Implanted:Qty: 1 on 11/19/2020 by Efrain Nina MD at [facility] Left: Femur Synthes I 07/31/2030 04.037.142 S / / [id number] Synthes 04.038.200s Tfn-Advanced 10.35mm 100mm Cannulated Screw Bone Titanium - [id number] Implanted:Qty: 1 on 11/19/2020 by Efrain Nina MD at [facility] Left: Femur Synthes I 04/30/2029 04.038.200 S / / [id number] Synthes 04.005.526s 5mm 4.3mm 36mm Lock Self Tap Blunt Tip 2 Lead Tibial T25 Full - [id number] Implanted:Qty: 1 on 11/19/2020 by Efrain Nina MD at [facility] Left: Femur Synthes I 03/31/2029 04.005.526 S / / [id number] Medtronic [employer] Synchromed Ii .78in [place] Filter Mesh Pouch Programmable 8637-20 - [id number] - [id number] Implanted:Qty: 1 on 04/06/2023 by Ben Abbott MD at [facility] Left: Abdomen Medtronic Inc 09/14/2024 8637-20 / [id number] / Explanted Type Area Issuing Operator Device Identifier Shelf Expiration Date Model / Serial / Lot Medtronic Inc Synchromed Ii .78in [place] Filter Mesh Pouch Programmable 8637-20 - [id number] - [id number] Explanted:Qty: 1 on 04/06/2023 by Ben Abbott MD at [facility] Left: Abdomen Med[employer]onic Inc 8637-20 / [id number] / Procedures Procedure Name Priority Date/Time Associated Diagnosis Comments GA ARTHROCENTESIS ASPIR&/INJ MAJOR JT/BURSA W/O US Routine 06/07/2024 1:45 PM DOSIMETRIST Trochanteric bursitis, left hip from Last 3 Months Results * GA ARTHROCENTESIS ASPIR&/INJ MAJOR JT/BURSA W/O US (06/07/2024 1:45 PM DOSIMETRIST) Narrative Efrain Nina MD - 06/07/2024 1:45 PM DOSIMETRIST Rufina Bolden NP 06/07/2024 2:42 PM Greater trochanteric bursa injection Performed by: Rufina Bolden NP Authorized by: Rufina Bolden NP Greater Trochanteric Bursa Injection: Consent Given by: Patient Site marked: the procedure site was marked Timeout: prior to procedure the correct patient, procedure, and site was verified Verbal consent obtained?: Yes Prior to the start of the procedure, verbal verification by the procedure participant(s) confirmed (as applicable): corect patient idenity; correct site/side marked and visible; agreement on the procedure to be done; correct patient positioning; an accurate procedure consent form, relevant images and results correctly labeled and displayed; any safety precautions based on clinical history and/or medication use have been addressed.: Supporting Documentation: Indications: Pain and therapeutic Procedure Details: Site: Left Greater Trochanteric Bursa Prep: patient was prepped and draped in usual sterile fashion Patient position: Sidelying Needle Size: 22 G Ultrasound guidance: No Approach: Lateral Medications: 80 mg methylPREDNISolone acetate 80 mg/mL; 4 mL lidocaine 20 mg/mL (2 %) Patient tolerance: Patient tolerated the procedure well with no immediate complications Rufina Bolden NP IN CLINIC/BEDSIDE ORDER SOHAIL Final Result from Last 3 Months Insurance MEDICARE [facility] Address: [address] [address] [place] [address] IDPA [facility] PLAN MEDICARE IDPA MEDICARE IDPA Advance Directives For more information, please contact: [phone] Documents on File Type Date Recorded Patient Perfume And Toilet Water Maker Expl anation ADVANCE DIRECTIVE 04/07/2023 4:50 PM POWER OF BORE MILL OPERATOR-MEDICAL ADVANCE DIRECTIVE 04/07/2023 4:50 PM POLST * [...] 10:25 PM 11/24/2020 6:40 PM Care Teams Braze Operator Relationship Specialty Start Date End Date Efe Carrera MD [address] [place] [address] PCP - General 09/13/16 Efrain Nina MD [address] [place] [address] Surgeon Orthopedic Surgery 11/20/20 Miscellaneous, Not In File 11/24/20
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
--- OUTSIDE RECORDS SUMMARY | 2024-09-06 10:08 | XMS_ITS | Referral Summary ---
Author Organization [facility] Address [address] [place] [address] Care Team Providers Care Maintenance Supervisor Mechanical Name Role Phone Efe Carrera MD Primary Care Provide r Efrain Nina MD Unavailable [phone] Miscellaneous, Not In File Unavailable Unava ilable Encounters Date Type Department Care Team Description 06/07/2024 1:45 PM GLOBAL DIRECTOR AIR AND CLIMATE CHANGE Office Visit [facility] Orthopedics and Sports Medicine [address] [place] [address] Rufina Bolden NP Trochanteric bursitis, [...] mg of elemental iron total) by mouth satellite tv technician installer before breakfast Active methyl salicylate-menthol 30-10 % [...] major depressive d isorder, in full remission ([facility]) 09/29/2021 Overview (03/03/2023): Last Assessment & [...] including calling Suicide Hotline ( ) or 110. Follow up in three months with Psychologist/Counselor/SupportGroup/Psychiatrist and PCP H/O left nephrectomy 09/29/2021 Overview (03/03/2023): Last Assessment & Plan: Condition: stable Follow up in: three months with PCP Chronic deep vein thrombosis (DVT) ([facility]) 08/2021 Overview (03/03/2023): Last Assessment & Plan: [...] now. Will monitor. Vitamin deficiency, unspecified 11/24/2020 meterman (current) use of anticoagulants 2020 Hypertensive chronic [...] drink = 0.6 oz pur e alcohol) [facility] Utilities Answer Date Recorded In the past 12 months has [place], gas, oil, or water [employer] threatened to shut off services in your [...] often do you attend chur ch or sabianism services? 1 to 4 times per year 08/09/2023 Do you belong to any clubs o r organizations such as mandaen groups, unions, fraternal or athletic groups, or [...] place to sleep or slept in a fci (including now)? No 08/09/2023 Personal Safety Answer Date Recorded Have you ever been in or are you currently in a harmful physical or emotional relationship or is someone making you feel afraid or unsafe? Denies 08/08/2023 Comments No Sex and Gender Information Value Date Recorded Sex Assigned at Not on file Legal Sex Female 1:00 AM GLOBAL DIRECTOR AIR AND CLIMATE CHANGE Gender Identity Not on file Sexual Orientation Not on file Occupation Industry Job Start Date Job End Date Retired Not on file Not on file Not on file Last Filed Vital Signs Vital Sign Reading Time Taken Comments Blood Pressure 107/69 06/07/2024 1:49 PM GLOBAL DIRECTOR AIR AND CLIMATE CHANGE Pulse 76 06/07/2024 1:49 PM GLOBAL DIRECTOR AIR AND CLIMATE CHANGE Temperature 36.8 C (98.2 F) 08/11/2023 7:58 AM GLOBAL DIRECTOR AIR AND CLIMATE CHANGE Respiratory Rate 20 08/11/2023 11:54 AM GLOBAL DIRECTOR AIR AND CLIMATE CHANGE Oxygen Saturation 93% 08/11/2023 11:54 AM GLOBAL DIRECTOR AIR AND CLIMATE CHANGE Inhaled Oxygen Concentration - - Weight 93.4 kg (206 lb) 06/07/2024 1:49 PM GLOBAL DIRECTOR AIR AND CLIMATE CHANGE Height 157.5 cm (5' 2 ) 06/07/2024 1:49 PM GLOBAL DIRECTOR AIR AND CLIMATE CHANGE Body Mass Index 37.68 06/07/2024 1:49 PM GLOBAL DIRECTOR AIR AND CLIMATE CHANGE Plan of Treatment Not on file Medical Devices Implanted Type Area Child Care Attendant Device Identifier Shelf Expiration Date Model / Serial / Lot Synthes 04.037.142s Tfn-Advanced Lateral Relief Cut 11mm 170mm Cannulated Femoral - [id number] Implanted:Qty: 1 on 11/19/2020 by Efrain Nina MD at [facility] Left: Femur Synthes I 07/31/2030 04.037.142 S / / [id number] Synthes 04.038.200s Tfn-Advanced 10.35mm 100mm Cannulated Screw Bone Titanium - [id number] Implanted:Qty: 1 on 11/19/2020 by Efrain Nina MD at [facility] Left: Femur Synthes I 04/30/2029 04.038.200 S / / [id number] Synthes 04.005.526s 5mm 4.3mm 36mm Lock Self Tap Blunt Tip 2 Lead Tibial T25 Full - [id number] Implanted:Qty: 1 on 11/19/2020 by Efrain Nina MD at [facility] Left: Femur Synthes I 03/31/2029 04.005.526 S / / [id number] Medtronic [employer] Synchromed Ii .78in [place] Filter Mesh Pouch Programmable 8637-20 - [id number] - [id number] Implanted:Qty: 1 on 04/06/2023 by Ben Abbott MD at [facility] Left: Abdomen Medtronic Inc 09/14/2024 8637-20 / [id number] / Explanted Type Area Child Care Attendant Device Identifier Shelf Expiration Date Model / Serial / Lot Medtronic Inc Synchromed Ii .78in [place] Filter Mesh Pouch Programmable 8637-20 - [id number] - [id number] Explanted:Qty: 1 on 04/06/2023 by Ben Abbott MD at [facility] Left: Abdomen Med[employer]onic Inc 8637-20 / [id number] / Procedures Procedure Name Priority Date/Time Associated Diagnosis Comments [place] ARTHROCENTESIS ASPIR&/INJ MAJOR JT/BURSA W/O US Routine 06/07/2024 1:45 PM GLOBAL DIRECTOR AIR AND CLIMATE CHANGE Trochanteric bursitis, left hip from Last 3 Months Results * MN ARTHROCENTESIS ASPIR&/INJ MAJOR JT/BURSA W/O US (06/07/2024 1:45 PM GLOBAL DIRECTOR AIR AND CLIMATE CHANGE) Efrain Mathew MD - 06/07/2024 1:45 PM GLOBAL DIRECTOR AIR AND CLIMATE CHANGE Rufina Bolden NP 06/07/2024 2:42 PM Greater [...] from Last 3 Months Insurance MEDICARE IDPA [facility] PL[facility] MEDICARE IDPA MEDICARE IDPA Advance Directives For more information, please contact: [phone] Documents on File Type Date Recorded Patient Community Center Worker Expl anation ADVANCE DIRECTIVE 04/07/2023 4:50 PM POWER OF OPEN CLAIMS REPRESENTATIVE-MEDICAL ADVANCE DIRECTIVE 04/07/2023 4:50 PM POLST * [...] 10:25 PM 11/24/2020 6:40 PM Care Teams Maintenance Supervisor Mechanical Relationship Specialty Start Date End Date Efe Carrera MD [address] [place] [address] PCP - General 09/13/16 Efrain Nina MD [address] [place] [address] Surgeon Orthopedic Surgery 11/20/20 Miscellaneous, Not In File 11/24/20
--- OUTSIDE RECORDS SUMMARY | 2024-09-06 10:08 | XMS_ITS | Encounter Summary ---
Author Organization [facility] Address [address] [place] [address] Phone Care Team Providers Care Electric Fork Operator Name Role Phone Efe Carrera MD Primary Care Provider [phone] Alfredo Steven MD Unavailable [phone] Reason for Visit * Reason Comments Medication Refill Encounter Details Date Type Department Care Team (Late st Contact Info) Description 09/13/2019 Refill [facility] - Gastroenterology - [place] [place] [address] Isabela Riley, CONTINUOUS PILLOWCASE CUTTER, ORDER PACKER [address] [place] [address] Medication Refill Social History Tobacco [...] Bridget Arguello CMA - 09/13/2019 2:32 PM DIRECTOR OF PRIMARY CARE Patient calling requesting refill of: Requested Prescriptions Pending Prescriptions Disp Refills ??? metoclopramide (REGLAN) 10 MG Tablet [Pharmacy Med Name: METOCLOPRAMIDE 10 MG TABLET] 120 Tab 0 Sig: TAKE ONE TABLET BY MOUTH FOUR TIMES A DAY Last fill: 07/09/19 Patients last OV with GI: 05/01/19 Next Office Visit with GI: None scheduled CTOR OF PRIMARY CARE documented in this encounter Plan of Treatment Not on file documented as of this encounter Visit Diagnoses Not on filedocumented in this encounter Care Teams Electric Fork Operator Relationship Specialty Start Date End Date Efe Carrera MD [address] [place] [address] PCP - General Pediatrics 02/20/19 Alfredo Steven MD [address] [place] [address] Consulting Physician Nephrology 02/21/19 documented as of this encounter
--- OUTSIDE RECORDS SUMMARY | 2024-09-06 10:08 | XMS_ITS | Patient Health Summary ---
Author Organization [facility] Address [address] [place] [address] Care Team Providers Care Lcsw Name Role Phone Unavailable Primary Care Provider Unavailabl e Note from [facility],non-owned Affiliates and Associated Physician Practices is amultiple site organization consisting of ambulatory clinics and hospital sitesin [place], [place], [place] and [place]. This disclosure is being madepursuant to the Care Everywhere program and may not contain all information available regarding this patient. Last updated 18.[facility] Allergies * Sulfa Drugs(Nausea and/or Vomiting,Vomiting) -Medium [...] POC Endoscopy Department Report _ Patient Name: Rjaani Cardenas Procedure Date: 01/01/2020 10:02 AM Date of : 1940 Classification: Outpatient Gender: Female Ethnicity: Not or Race: White _ Providers: Gildardo Forbes MD Referring MD: Jonny Yancey DO (Referring MD) Procedure: Upper EUS Indications: Pancreatic cyst on CT scan Medications: Monitored Anesthesia Care Patient Profile: 79 y old woman with pancreatic cyst; hx of dilaudid pump for back pain. c/o early sateity Description of Procedure: After obtaining informed consent, the endoscope was passed under direct vision. Throughout the procedure, the patient's blood pressure, pulse, and oxygen saturations were monitored continuously. The [id number] was introduced through the mouth, and advanced to the second part of duodenum. Findings: Endoscopic Finding : The area of the papilla was normal. Food (residue) was found in the gastric body consistent with patient's known gastroparesis. Endosonographic Finding : The esophagus, stomach and duodenum were visualized endosonographicall y. There was dilation in the main bile duct which measured up to 10 mm. The pancreatic duct had a dilated endosonographic appearance in the main pancreatic duct. The pancreatic duct measured up to 6 mm in diameter in head region. An anechoic lesion suggestive of a cyst was identified in the pancreatic body. It communicates with the pancreatic duct. The lesion measured 7 mm by 5 mm in maximal cross-sectional diameter. There was a single compartment without septae. The outer wall of the lesion was not seen. There was no associated mass. There was no internal debris within the fluid-filled cavity. ? cyst vs. dilated side branch. The remainder of the pancreatic parenchyma revealed hyperechoic strands and lobularity. 9 mm x 8 mm katlyn-pancreatic cyst near tail of pancreas. Estimated Blood Loss: Estimated blood loss: none. Complications: No immediate complications. Estimated blood loss: None. Impression: 1) Normal area of the papilla. 2) There was dilation in the entire main bile duct which measured up to 10 mm. This is likely related to patient's age and pain medications. 3) The pancreatic duct had a dilated endosonographic appearance in the main pancreatic duct. The pancreatic duct measured up to 6 mm in diameter. This is likely related to pain medication. 4) A 7 mm x 5 mm cystic lesion was seen in the pancreatic body. Tissue has not been obtained. However, the endosonographic appearance is suspicious for a side branch IPMN vs. dilated side-branch. 5) Food (residue) in the stomach. 6) 9 mm x 8 mm katlyn-pancreatic cyst near tail of pancreas. Benign-appearing cyst. 7) No specimens collected. Recommendation: - Discharge patient to home (ambulatory). - Gastroparesis diet indefinitely. - Repeat the upper endoscopic ultrasound or an MRI in 2 years for surveillance. - We recommend patient discuss with pain management provider and referring physician(s) to consider weaning off pain medications and dilaudid pain pump for back pain as this is likely causing LUQ pain, early sateity, and lack of appetite. Procedure Code(s): --- Professional --- 89797, Esophagogastroduod enoscopy, flexible, transoral; with endoscopic ultrasound examination, including the esophagus, stomach, and either the duodenum or a surgically altered stomach where the jejunum is examined distal to the anastomosis Diagnosis Code(s): --- Professional --- K86.2, Cyst of pancreas K83.8, Other specified diseases of biliary tract R93.3, Abnormal findings on diagnostic imaging of other parts of digestive tract CPT copyright 2016 [employer]. All rights reserved. The codes documented in this report are preliminary and upon cytogenetics technologist review may be revised to meet current compliance requirements. Gildardo Forbes MD 01/01/2020 11:33:18 AM This report has been signed electronically. Note Initiated On: 01/01/2020 10:02 AM Number of Addenda: 0 [facility] [address] [facility] [place] [address] [facility] 01/01/2020 10:0 2 AM CDT Gildardo Forbes MD GI PROCEDURE ORDERAB LES [facility] * (ABNORMAL) BASIC METABOLIC PANEL (CALCIUM TOTAL) (08/28/2019 2:22 PM APPLIED PSYCHOLOGY CHAIR) BUN 32(H) 7 - 26 mg/dL 08/28/2019 3:08 PM [facility] Creatinine 2.2(H) 0.6 - 1.2 mg/dL 08/28/2019 3:08 PM [facility] Sodium 146(H) 136 - 145 mmol/L 08/28/2019 3:08 PM [facility] Potassium 4.0 3.5 - 4.5 mmol/L 08/28/2019 3:08 PM [facility] Chloride 112(H) 98 - 107 mmol/L 08/28/2019 3:08 PM [facility] CO2 21(L) 22 - 29 mmol/L 08/28/2019 3:08 PM [facility] Glucose 50(L) 70 - 115 mg/dL 08/28/2019 3:08 PM [facility] Calcium 9.8 8.4 - 10.2 mg/dL 08/28/2019 3:08 PM [facility] Anion Gap 17 8 - 18 08/28/2019 3:08 PM [facility] BUN/Creatinine Ratio 15 7 - 23 08/28/2019 3:08 PM [facility] Osmolality Calculated 306(H) 270 - 300 mOsm/kg 08/28/2019 3:08 PM APPLIED PSYCHOLOGY CHAIR [facility] eGFR 21(L) >60 mL/min/1.7 3 m2 08/28/2019 3:08 PM APPLIED PSYCHOLOGY CHAIR [facility] Blood BLOOD SPECIMEN / Unknown Lab Venipuncture / Unknown 08/28/2019 2:22 PM APPLIED PSYCHOLOGY CHAIR 08/28/2019 2:45 PM APPLIED PSYCHOLOGY CHAIR Renato Gilmore MD LAB - CHEMISTRY ORD ERABLES Performing Organization Address [facility]/ZIP Co de Phone Number [address] [phone] * EKG 12-LEAD (08/28/2019 1:26 PM APPLIED PSYCHOLOGY CHAIR) Pathologist [facility] Ventricular Rate 95 BPM [facility] Atrial Rate 95 BPM [facility] P-R Interval 208 ms [facility] QRS Duration ms 148 ms [facility] Q-T Interval ms 404 ms [facility] QTC Calculation (Bezet) 507 ms [facility] Calculated P [place] 77 degrees [facility] Calculated R [place] -19 degrees [facility] Calculated T [place] 98 degrees [facility] Interpretation EKG SINUS RHYTHM WITH OCCASIONAL PREMATURE VENTRICULAR COMPLEXES LEFT BUNDLE BRANCH BLOCK ABNORMAL ECG NO PREVIOUS ECGS AVAILABLE Confirmed by Juan Culver ([id number]), editorial director AYDIN HARRIS ([id number]) on 09/26/2019 1:44:56 PM [facility] 08/28/2019 1:26 PM APPLIED PSYCHOLOGY CHAIR 09/26/2019 1:44 PM APPLIED PSYCHOLOGY CHAIR Renato Gilmore MD ECG ORDERABLES Performing Organization Address [facility]/ZIP Co de Phone Number [facility]
--- OUTSIDE RECORDS SUMMARY | 2024-09-06 10:08 | XMS_ITS | Clinical Summary ---
Author Organization [facility] Address [address] [place] [address] Phone Care Team Providers Care Grainer Machine Name Role Phone Efe Carrera MD Primary Care Provider Alrfedo Steven MD Unavailable Allergies Active Allergy Reactions Criticality Noted Date [...] 77 02/15/2020 1:29 PM CDT Temperature 36.6 C (97.8 F) 02/15/2020 1:29 PM CDT Respiratory Rate 16 02/15/2020 1:29 PM CDT [...] DETECTED NON DETECTED 02/23/2019 3:31 PM CDT [facility] HCV RNA QT LOG10 <=0.00 Log10 IU/mL 02/23/2019 3:31 PM CDT [facility] Comment: LOG 10 is not applicable. Sample held in Serology for 1 month. Call Laboratory if further testing is desired. This test was performed using TSERING AmpliPrep TSERING Taq Man Real Time PCR. Blood specimen (specimen) Butterfly Puncture / Unknown 02/20/2019 3:51 PM CDT 02/20/2019 5:11 PM CDT us Radha Harkins TRIBUNAL MEMBER, PLANT PRODUCTION MANAGER IMMUNOLOGY ORDERA BLES Final Result [facility] [address] [place] [address], [place] from Last 3 Months or Most Recently Relevant to Health Maintenance Insurance MEDICARE MEDICAID [place] Care Teams Grainer Machine Relationship Specialty Start Date End Date Efe Carrera MD [address] [place] [address] PCP - General Pediatrics 02/20/19 Alfredo Steven MD [address] [place] [address] Consulting Physician Nephrology 02/21/19
--- OUTSIDE RECORDS SUMMARY | 2024-09-06 10:08 | XMS_ITS | Clinical Summary ---
Author Organization [facility] Address [address] [place] [address] Care Team Providers Care Check Inspector Name Role Phone Unavailable Primary Care Provider Unavailabl e Source Comments [facility],non-owned Affiliates and Associated Physician Practices is amultiple site organization consisting of ambulatory clinics and hospital sitesin [place], [place] and [place]. This disclosure is being madepursuant to the Care Everywhere program and may not contain all information available regarding this patient. Last updated 18.[facility] Allergies Active Allergy Reactions Criticality Noted Date [...] by mouth every morning Active albuterol HFA (PROVENTIL;VENTOLIN;CO OAIR) 108 (90 Base) MCG/ACT inhaler Inhale [...] Comments BONE DENSITY TESTING 1940 MEDICARE AWV 12 MONTHS 1940 DTAP/TDAP/TD VACCINES (1 - [...]
--- OUTSIDE RECORDS SUMMARY | 2024-09-06 10:08 | XMS_ITS | Encounter Summary ---
Author Organization [facility] Address [address] [place] [address] Phone Care Team Providers Care Medicine Worker Name Role Phone Efe Carrera MD Primary Care Provider Alfredo Steven MD Unavailable [phone] Reason for Visit * Reason Comments Medication Refill Encounter Details Date Type Department Care Team (Late st Contact Info) Description 09/20/2019 Refill [facility] - Gastroenterology - [place] [address] [place] [address] Isabela Riley, STRATEGIC BUSINESS DEVELOPMENT, INTERPRETIVE PROGRAM COORDINATOR [address] [place] [address] Medication Refill Social History Tobacco [...] Bridget Arguello CMA - 09/21/2019 8:35 AM BRANCH LIBRARY CLERK Patient calling requesting refill of: Requested Prescriptions Pending Prescriptions Disp Refills ??? metoclopramide (REGLAN) 10 MG Tablet [Pharmacy Med Name: METOCLOPRAMIDE 10 MG TABLET] 120 Tab 2 Sig: TAKE ONE TABLET BY MOUTH FOUR TIMES A DAY Last fill: 07/09/19 Patients last OV with GI: 05/01/19 Next Office Visit with GI: None scheduled [facility] LIBRARY CLERK documented in this encounter Plan of Treatment Not on file documented as of this encounter Visit Diagnoses Not on filedocumented in this encounter Care Teams Medicine Worker Relationship Specialty Start Date End Date Efe Carrera MD [address] [place] [address] PCP - General Pediatrics 02/20/19 Alfredo Steven MD [address] [place] [address] Consulting Physician Nephrology 02/21/19 documented as of this encounter
[2024-09-06 10:56] LABS: Prothrombin Time 55.6 Seconds (9.50-12.1)
== END 2024-09-06 09:49 | disposition home or self-care (01) ==
PROVIDERS: PCP Family Medicine; Visit Provider Family Medicine
DX: Z86.718 Personal history of other venous thrombosis and embolism (principal); Z86.711 Personal history of pulmonary embolism
CPT/HCPCS: 36415; 85610

== ENCOUNTER 2024-09-08 10:25 | Outpatient (CLI) | payer MEDICARE, SELFPAY ==
--- OUTSIDE RECORDS SUMMARY | 2024-09-08 10:31 | XMS_ITS | Clinical Summary ---
Author Organization [facility] Address [address] [place] [address] Phone Care Team Providers Care Care Aide Name Role Phone Efe Carrera MD Primary Care Provider Alfredo Steven MD Unavailable Allergies Active Allergy Reactions [...] DETECTED NON DETECTED 02/23/2019 3:31 PM CDT [facility] HCV RNA QT LOG10 <=0.00 Log10 IU/mL 02/23/2019 3:31 PM CDT [facility] Comment: LOG 10 is not applicable. Sample held in Serology for 1 month. Call Laboratory if further testing is desired. This test was performed using TSERING AmpliPrep TSERING Taq Man Real Time PCR. Blood specimen (specimen) Butterfly Puncture / Unknown 02/20/2019 3:51 PM CDT 02/20/2019 5:11 PM CDT us Radha Harkins BATTERY PARTS ASSEMBLER, SCOURING TRAIN OPERATOR CHIEF IMMUNOLOGY ORDERA BLES Final Result [facility] [address] [place] [address], [place] from Last 3 Months or Most Recently Relevant to Health Maintenance Insurance MEDICARE [place]ICAID [place] Care Teams Care Aide Relationship Specialty Start Date End Date Efe Carrera MD [address] [place] [address] PCP - General Pediatrics 02/20/19 Alfredo Steven MD [address] [place] [address] Consulting Physician Nephrology 02/21/19
--- OUTSIDE RECORDS SUMMARY | 2024-09-08 10:31 | XMS_ITS | Referral Summary ---
Author Organization [facility] Address [address] [place] [address] Care Team Providers Care Senior Materials Analyst Name Role Phone Efe Carrera MD Primary Care Provide r Efrain Nina MD Unavailable [phone] Miscellaneous, Not In File Unavailable Unava ilable [...] mg of elemental iron total) by mouth digital engineer before breakfast Active methyl salicylate-menthol 30-10 % [...] major depressive d isorder, in full remission ([facility]) 09/29/2021 Overview (03/03/2023): Last Assessment & Plan: [...] with PCP Chronic deep vein thrombosis (DVT) ([facility]) 08/2021 Overview (03/03/2023): Last Assessment & Plan: [...] drink = 0.6 oz pur e alcohol) [facility] Utilities Answer Date Recorded In the past 12 months has th e electric, gas, oil, or water company threatened to shut off services in your [...] often do you attend chur ch or orthodoxy services? 1 to 4 times per year 08/09/2023 Do you belong to any clubs o r organizations such as buddhist groups, unions, fraternal or athletic groups, or [...] place to sleep or slept in a detention (including now)? No 08/09/2023 Personal Safety Answer Date Recorded Have you ever been in or are you currently in a harmful physical or emotional relationship or is someone making you feel afraid or unsafe? Denies 08/08/2023 Comments No Sex and Gender Information Value Date Recorded Sex Assigned at Not on file Legal Sex Female 1:00 AM MANAGER FRONT OFFICE Gender Identity Not on file Sexual Orientation Not on file Occupation Industry Job Start Date Job End Date Retired Not on file Not on file Not on file Last Filed Vital Signs Vital Sign Reading Time Taken Comments Blood Pressure 107/69 06/07/2024 1:49 PM MANAGER FRONT OFFICE Pulse 76 06/07/2024 1:49 PM MANAGER FRONT OFFICE Temperature 36.8 C (98.2 F) 08/11/2023 7:58 AM MANAGER FRONT OFFICE Respiratory Rate 20 08/11/2023 11:54 AM MANAGER FRONT OFFICE Oxygen Saturation 93% 08/11/2023 11:54 AM MANAGER FRONT OFFICE Inhaled Oxygen Concentration - - Weight 93.4 kg (206 lb) 06/07/2024 1:49 PM MANAGER FRONT OFFICE Height 157.5 cm (5' 2 ) 06/07/2024 1:49 PM MANAGER FRONT OFFICE Body Mass Index 37.68 06/07/2024 1:49 PM MANAGER FRONT OFFICE Plan of Treatment Not on file Medical Devices Implanted Type Area Freight Checker Device Identifier Shelf Expiration Date Model / Serial / Lot Synthes s Tfn-Advanced Lateral Relief Cut 11mm 170mm Cannulated Femoral - [id number] Implanted:Qty: 1 on 11/19/2020 by Efrain Nina MD at [facility] Left: Femur Synthes I 07/31/2030142 S / / [id number] Synthes 04.038.200s Tfn-Advanced 10.35mm 100mm Cannulated Screw Bone Titanium - [id number] Implanted:Qty: 1 on 11/19/2020 by Efrain Nina MD at [facility] Left: Femur Synthes I 04/30/2029 04.038.200 S / / [id number] Synthes 04.005.526s 5mm 4.3mm 36mm Lock Self Tap Blunt Tip 2 Lead Tibial T25 Full - [id number] Implanted:Qty: 1 on 11/19/2020 by Efrain Nina MD at [facility] Left: Femur Synthes I 03/31/2029 04.005.526 S / / [id number] Medtronic Inc Synchromed Ii .78in [place] Filter Mesh Pouch Programmable 8637-20 - [id number] - [id number] Implanted:Qty: 1 on 04/06/2023 by Ben Abbott MD at [facility] Left: Abdomen Medtronic Inc 09/14/2024 8637-20 / [id number] / Explanted Type Area Freight Checker Device Identifier Shelf Expiration Date Model / Serial / Lot Medtronic Inc Synchromed Ii .78in [place] Filter Mesh Pouch Programmable 8637-20 - [id number] - [id number] Explanted:Qty: 1 on 04/06/2023 by Ben Abbott MD at [facility] Left: Abdomen Medtronic Inc 8637-20 / [id number] / Insurance MEDICARE [facility] MEDICARE [place] MEDICARE [place] Advance Directives For more information, please contact: [phone] Documents on File Type Date Recorded Patient Assistant Production Editor Expl anation ADVANCE DIRECTIVE 04/07/2023 4:50 PM POWER OF GENERAL ASSEMBLER-MEDICAL ADVANCE DIRECTIVE 04/07/2023 4:50 PM POLST * [...] 10:25 PM 11/24/2020 6:40 PM Care Teams Senior Materials Analyst Relationship Specialty Start Date End Date Efe Carrera MD [address] [place] [address] PCP - General 09/13/16 Efrain Nina MD [address] [place] [address] Surgeon Orthopedic Surgery 11/20/20 Miscellaneous, Not In File 11/24/20
--- OUTSIDE RECORDS SUMMARY | 2024-09-08 10:31 | XMS_ITS | Clinical Summary ---
Author Organization [facility] Address [address] [place] [address] Care Team Providers Care Pathological Technician Name Role Phone Efe Carrera MD Primary Care Provide r Efrain Nina MD Unavailable [phone] Miscellaneous, Not In File Unavailable Unava ilable [...] mg of elemental iron total) by mouth press reader before breakfast Active methyl salicylate-menthol 30-10 % [...] major depressive d isorder, in full remission ([facility]) 09/29/2021 Overview (03/03/2023): Last Assessment & Plan: [...] with PCP Chronic deep vein thrombosis (DVT) ([facility]) 08/2021 Overview (03/03/2023): Last Assessment & Plan: [...] 04/15/2009 Surgical History Surgery Date Site/Laterality Comments [place] ARTHRP KNE CONDYLE&PLATU MEDIAL&LAT COMPARTMENTS Total Knee Arthroplasty - (Added by TW Conv) [place] CHOLECYSTECTOMY Cholecystectomy - (Added by TW Conv) [...] drink = 0.6 oz pur e alcohol) [facility] Utilities Answer Date Recorded In the [...] often do you attend chur ch or pentecostal services? 1 to 4 times per year 08/09/2023 Do you belong to any clubs o r organizations such as caodaism groups, unions, fraternal or athletic groups, or [...] place to sleep or slept in a long term (including now)? No 08/09/2023 Personal Safety Answer Date Recorded Have you ever been in or are you currently in a harmful physical or emotional relationship or is someone making you feel afraid or unsafe? Denies 08/08/2023 Comments No Sex and Gender Information Value Date Recorded Sex Assigned at Not on file Legal Sex Female 1:00 AM COATER OPERATOR INSULATION BOARD Gender Identity Not on file Sexual Orientation Not on file Occupation Industry Job Start Date Job End Date Retired Not on file Not on file Not on file Obstetrics History Last Filed Vital Signs Vital Sign Reading Time Taken Comments Blood Pressure 107/69 06/07/2024 1:49 PM COATER OPERATOR INSULATION BOARD Pulse 76 06/07/2024 1:49 PM COATER OPERATOR INSULATION BOARD Temperature 36.8 C (98.2 F) 08/11/2023 7:58 AM COATER OPERATOR INSULATION BOARD Respiratory Rate 20 08/11/2023 11:54 AM COATER OPERATOR INSULATION BOARD Oxygen Saturation 93% 08/11/2023 11:54 AM COATER OPERATOR INSULATION BOARD Inhaled Oxygen Concentration - - Weight 93.4 kg (206 lb) 06/07/2024 1:49 PM COATER OPERATOR INSULATION BOARD Height 157.5 cm (5' 2 ) 06/07/2024 1:49 PM COATER OPERATOR INSULATION BOARD Body Mass Index 37.68 06/07/2024 1:49 PM COATER OPERATOR INSULATION BOARD Plan of Treatment Health Maintenance Due Date Last Done Comments Depression Screening 1940 Osteoporosis Screening-Bone Density Scan 1939 Hepatitis B Screening 1957 Zoster Vaccine (1 of 2) 1989 Well Visit 65+ 2004 Influenza Vaccine (#1) 2024 0, 06/01/2019, 04/17/2018, Additional history exists Fall Risk Assessment 08/11/2024 08/11/2023 DTaP/Tdap/Td Vaccine (4 - Td or Tdap) 06/30/2028 06/30/2018, 06/22/2016, 11/04/2008 Pneumococcal vaccine 65+ Completed 06/22/2016, 04/03 Covid-19 Vaccine Discontinued 10/10/2020, 08/29/2020 Medical Devices Implanted Type Area Insole Taper Device Identifier Shelf Expiration Date Model / Serial / Lot Synthes 04.037.142s Tfn-Advanced Lateral Relief Cut 11mm 170mm Cannulated Femoral - [id number] Implanted:Qty: 1 on 11/19/2020 by Efrain Nina MD at [facility] Left: Femur Synthes I 07/31/2030 04.037.142 S / / [id number] Synthes 04.038.200s Tfn-Advanced 10.35mm 100mm Cannulated Screw Bone Titanium - [id number] Implanted:Qty: 1 on 11/19/2020 by Efrain Nina MD at [facility] Left: Femur Synthes I 04/30/2029 04.038.200 S / / [id number] Synthes 04.005.526s 5mm 4.3mm 36mm Lock Self Tap Blunt Tip 2 Lead Tibial T25 Full - [id number] Implanted:Qty: 1 on 11/19/2020 by Efrain Nina MD at [facility] Left: Femur Synthes I 03/31/2029 04.005.526 S / / [id number] Medtronic Inc Synchromed Ii .78in [place] Filter Mesh Pouch Programmable 8637-20 - [id number] - [id number] Implanted:Qty: 1 on 04/06/2023 by Ben Abbott MD at [facility] Left: Abdomen Medtronic Inc 09/14/2024 8637-20 / [id number] / Explanted Type Area Insole Taper Device Identifier Shelf Expiration Date Model / Serial / Lot Medtronic Inc Synchromed Ii .78in [place] Filter Mesh Pouch Programmable 8637-20 - [id number] - [id number] Explanted:Qty: 1 on 04/06/2023 by Ben Abbott MD at [facility] Left: Abdomen Medtronic Inc 8637-20 / [id number] / Insurance MEDICARE IDPA [facility] MEDICARE IDMO MEDICARE [facility] Advance Directives For more information, please contact: [phone] Documents on File Type Date Recorded Patient Oracle Ebs Architect Expl anation ADVANCE DIRECTIVE 04/07/2023 4:50 PM POWER OF CARDIOGRAPH OPERATOR-MEDICAL ADVANCE DIRECTIVE 04/07/2023 4:50 PM POLST [...] 10:25 PM 11/24/2020 6:40 PM Care Teams Pathological Technician Relationship Specialty Start Date End Date Efe Carrera MD [address] [place] [address] PCP - General 09/13/16 Efrain Nina MD [address] [place] [address] Surgeon Orthopedic Surgery 11/20/20 Miscellaneous, Not In File 11/24/20
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
--- OUTSIDE RECORDS SUMMARY | 2024-09-08 10:31 | XMS_ITS | Encounter Summary ---
Author Organization [facility] Address [address] [place] [address] Phone Care Team Providers Care Woven Label Designer Name Role Phone Efe Carrera MD Primary Care Provider Alfredo Steven MD Unavailable [phone] Reason for Visit * Reason Comments Medication Refill Encounter Details Date Type Department Care Team (Late st Contact Info) Description 09/13/2019 Refill [facility] - [place] [address] [place] [address] Isabela Riley, CLASSIFIED COPY CONTROL CLERK, PUT IN BEAT ADJUSTER [address] [place] [address] Medication Refill Social History Tobacco [...] Bridget Arguello CMA - 09/13/2019 2:32 PM TELEVISION REPORTER Patient calling requesting refill of: Requested Prescriptions Pending Prescriptions Disp Refills ??? metoclopramide (REGLAN) 10 MG Tablet [Pharmacy Med Name: METOCLOPRAMIDE 10 MG TABLET] 120 Tab 0 Sig: TAKE ONE TABLET BY MOUTH FOUR TIMES A DAY Last fill: 07/09/19 Patients last OV with GI: 05/01/19 Next Office Visit with GI: None scheduled VISION REPORTER documented in this encounter Plan of Treatment Not on file documented as of this encounter Visit Diagnoses Not on filedocumented in this encounter Care Teams Woven Label Designer Relationship Specialty Start Date End Date Efe Carrera MD [address] [place] [address] PCP - General Pediatrics 02/20/19 Alfredo Steven MD [address] [place] [address] Consulting Physician Nephrology 02/21/19 documented as of this encounter
--- OUTSIDE RECORDS SUMMARY | 2024-09-08 10:31 | XMS_ITS | Encounter Summary ---
Author Organization [facility] Address [facility] [place] [address] Care Team Providers Care General Neurologist Name Role Phone Efe Carrera MD Primary Care Provider [phone] Encounter Details Date Type Department Care Team (Late st Contact Info) Description 11/26/2019 Abstract [facility] [address] [place], [place] [address] [place] [address] [place] [id number] Social History Tobacco Use Types Packs/Day [...] documented as of this encounter Care Teams General Neurologist Relationship Specialty Start Date End Date Efe Carrera MD [address] [place] [id number] PCP - General FAMILY PRACTICE 10/13/17 documented as of this encounter
--- OUTSIDE RECORDS SUMMARY | 2024-09-08 10:31 | XMS_ITS | Encounter Summary ---
Author Organization [facility] Address [facility] [place] [address] Care Team Providers Care Pigment Pumper Name Role Phone Efe Carrera MD Primary Care Provider [phone] Encounter Details Date Type Department Care Team (Late st Contact Info) Description 09/11/2019 Prep for Procedure Romain's Power Switchboard Operator Pre/Post [address] [place] [address] Sheldon Webster MD Social History Tobacco Use [...] documented as of this encounter Care Teams Pigment Pumper Relationship Specialty Start Date End Date Efe Carrera MD [address] [place] [address] PCP - General FAMILY PRACTICE 10/13/17 documented as of this encounter
--- OUTSIDE RECORDS SUMMARY | 2024-09-08 10:31 | XMS_ITS ---
Author Organization [facility] Address [address] [place] [address] Care Team Providers Care Core Winding Operator Name Role Phone Efe Carrera MD Primary Care Provide r Efrain Nina MD Unavailable [phone] Miscellaneous, Not In File Unavailable Unava ilable [...] major depressive d isorder, in full remission ([facility]) 09/29/2021 Overview (03/03/2023): Last Assessment [...] now. Will monitor. Vitamin deficiency, unspecified 11/24/2020 [facility] (current) use of anticoagulants 2020 Hypertensive chronic [...] treatments are documented for this patient in [facility]. Treatments may have been administered in another [...]
--- OUTSIDE RECORDS SUMMARY | 2024-09-08 10:31 | XMS_ITS | Patient Health Summary ---
Author Organization [facility] Address [address] [place] [address] Care Team Providers Care Fiberline Supervisor Name Role Phone Unavailable Primary Care Provider Unavailabl e Note from [facility],non-owned Affiliates and Associated Physician Practices is amultiple site organization consisting of ambulatory clinics and hospital sitesin [place], [place], [place] and [place]. This disclosure is being madepursuant to the Care Everywhere program and may not contain all information available regarding this patient. Last updated 18.[facility] Allergies * Sulfa Drugs(Nausea and/or Vomiting,Vomiting) -Medium [...] Department Report _ Patient Name: Rajani Cardenas Procedure Date: 01/01/2020 10:02 AM Date [...] and oxygen saturations were monitored continuously. The [id number] was introduced through the mouth, and advanced [...] of appetite. Procedure Code(s): --- Professional --- 92229, Esophagogastroduod enoscopy, flexible, transoral; with endoscopic ultrasound examination, including the esophagus, stomach, and either the duodenum or a surgically altered stomach where the jejunum is examined distal to the anastomosis Diagnosis Code(s): --- Professional --- K86.2, Cyst of pancreas K83.8, Other specified diseases of biliary tract R93.3, Abnormal findings on diagnostic imaging of other parts of digestive tract CPT copyright 2016 [employer]. All rights reserved. The codes documented in this report are preliminary and upon door to door salesperson review may be revised to meet current compliance requirements. Gildardo Forbes MD 01/01/2020 11:33:18 AM This report has been signed electronically. Note Initiated On: 01/01/2020 10:02 AM Number of Addenda: [address] [facility] [address] [facility] [place] [address] [facility] 01/01/2020 10:0 2 AM CDT Gildardo Forbes MD GI PROCEDURE ORDERAB LES [facility] * (ABNORMAL) BASIC METABOLIC PANEL (CALCIUM TOTAL) (08/28/2019 2:22 PM DECORATOR LIGHTING FIXTURES) BUN 32(H) 7 - 26 mg/dL 08/28/2019 3:08 PM [facility] Creatinine 2.2(H) 0.6 - 1.2 mg/dL 08/28/2019 3:08 PM [facility] Sodium 146(H) 136 - 145 mmol/L 08/28/2019 3:08 PM [facility] Potassium 4.0 3.5 - 4.5 mmol/L 08/28/2019 3:08 PM [facility] Chloride 112(H) 98 - 107 mmol/L 08/28/2019 3:08 PM [facility] CO2 21(L) 22 - 29 mmol/L 08/28/2019 3:08 PM [facility] Glucose 50(L) 70 - 115 mg/dL 08/28/2019 3:08 PM [facility] Calcium 9.8 8.4 - 10.2 mg/dL 08/28/2019 3:08 PM [facility] Anion Gap 17 8 - 18 08/28/2019 3:08 PM [facility] BUN/Creatinine Ratio 15 7 - 23 08/28/2019 3:08 PM [facility] Osmolality Calculated 306(H) 270 - 300 mOsm/kg 08/28/2019 3:08 PM DECORATOR LIGHTING FIXTURES [facility] eGFR 21(L) >60 mL/min/1.7 3 m2 08/28/2019 3:08 PM DECORATOR LIGHTING FIXTURES [facility] Blood BLOOD SPECIMEN / Unknown Lab Venipuncture / Unknown 08/28/2019 2:22 PM DECORATOR LIGHTING FIXTURES 08/28/2019 2:45 PM DECORATOR LIGHTING FIXTURES Renato Gilmore MD LAB - CHEMISTRY ORD ERABLES Performing Organization Address [facility]/ZIP Co de Phone Number [address] [phone] * EKG 12-LEAD (08/28/2019 1:26 PM DECORATOR LIGHTING FIXTURES) Pathologist [facility] Ventricular Rate 95 BPM [facility] Atrial Rate 95 BPM [facility] P-R Interval 208 ms [facility] QRS Duration ms 148 ms [facility] Q-T Interval ms 404 ms [facility] QTC Calculation (Bezet) 507 ms [facility] Calculated P [place] 77 degrees [facility] Calculated R [place] -19 degrees [facility] Calculated T [place] 98 degrees [facility] Interpretation EKG SINUS RHYTHM WITH OCCASIONAL PREMATURE VENTRICULAR COMPLEXES LEFT BUNDLE BRANCH BLOCK ABNORMAL ECG NO PREVIOUS ECGS AVAILABLE Confirmed by Juan Culver ([id number]), research editor AYDIN HARRIS ([id number]) on 09/26/2019 1:44:56 PM [facility] 08/28/2019 1:26 PM DECORATOR LIGHTING FIXTURES 09/26/2019 1:44 PM DECORATOR LIGHTING FIXTURES Renato Gilmore MD ECG ORDERABLES Performing Organization Address [facility]/ZIP Co de Phone Number [facility]
--- OUTSIDE RECORDS SUMMARY | 2024-09-08 10:31 | XMS_ITS | Encounter Summary ---
Author Organization [facility] Address [address] [place] [address] Phone Care Team Providers Care Residential Team Leader Name Role Phone Efe Carrera MD Primary Care Provider Alfredo Steven MD Unavailable [phone] Reason for Visit * Reason Comments Medication Refill Encounter Details Date Type Department Care Team (Late st Contact Info) Description 09/20/2019 Refill [facility] G[facility]ology - [place] [address] [place] [address] Isabela Riley, ENVIRONMENTAL COMPLIANCE TECHNICIAN, INSTRUMENT PERSON [address] [place] [address] Medication Refill Social History Tobacco [...] Bridget Arguello CMA - 09/21/2019 8:35 AM CLINICAL PHLEBOTOMIST Patient calling requesting refill of: Requested Prescriptions Pending Prescriptions Disp Refills ??? metoclopramide (REGLAN) 10 MG Tablet [Pharmacy Med Name: METOCLOPRAMIDE 10 MG TABLET] 120 Tab 2 Sig: TAKE ONE TABLET BY MOUTH FOUR TIMES A DAY Last fill: 07/09/19 Patients last OV with GI: 05/01/19 Next Office Visit with GI: None scheduled ICAL PHLEBOTOMIST documented in this encounter Plan of Treatment Not on file documented as of this encounter Visit Diagnoses Not on filedocumented in this encounter Care Teams Residential Team Leader Relationship Specialty Start Date End Date Efe Carrera MD [address] [place] [address] PCP - General Pediatrics 02/20/19 Alfredo Steven MD [address] [place] [address] Consulting Physician Nephrology 02/21/19 documented as of this encounter
--- OUTSIDE RECORDS SUMMARY | 2024-09-08 10:31 | XMS_ITS | Encounter Summary ---
Author Organization [facility] Address [address] [place] [address] Care Team Providers Care Line Controller Name Role Phone Efe Carrera MD Primary Care Provider [phone] Encounter Details Date Type Department Care Team (Late st Contact Info) Description 10/15/2017 Abstract [facility] CONVERSION [address] [place] [address] , Generic ConversionMD Social History Tobacco Use [...] documented as of this encounter Care Teams Line Controller Relationship Specialty Start Date End Date Efe Carrera MD [address] [place] [address] PCP - General FAMILY PRACTICE 10/13/17 documented as of this encounter
--- OUTSIDE RECORDS SUMMARY | 2024-09-08 10:31 | XMS_ITS | Clinical Summary ---
Author Organization [facility] Address [address] [place] [address] Care Team Providers Care Custom Clothier Name Role Phone Unavailable Primary Care Provider Unavailabl e Source Comments [facility],non-owned Affiliates and Associated Physician Practices is amultiple site organization consisting of ambulatory clinics and hospital sitesin [place], [place], [place] and [place]. This disclosure is being madepursuant to the Care Everywhere program and may not contain all information available regarding this patient. Last updated 18.[facility] Allergies Active Allergy Reactions Criticality Noted Date [...] by mouth every morning Active albuterol HFA (PROVENTIL;VENTOLIN;NM OAIR) 108 (90 Base) MCG/ACT inhaler Inhale [...]
--- OUTSIDE RECORDS SUMMARY | 2024-09-08 10:31 | XMS_ITS | Referral Summary ---
Author Organization [facility] Address [address] [place] [address] Care Team Providers Care Forest Fire Management Officer Name Role Phone Unavailable Primary Care Provider Unavailabl e Source Comments [facility],non-owned Affiliates and Associated Physician Practices is amultiple site organization consisting of ambulatory clinics and hospital sitesin [place], [place], [place] and [place]. This disclosure is being madepursuant to the Care Everywhere program and may not contain all information available regarding this patient. Last updated 18.[facility] Allergies Active Allergy Reactions Criticality Noted Date [...] by mouth every morning Active albuterol HFA (PROVENTIL;VENTOLIN;[place] OAIR) 108 (90 Base) MCG/ACT inhaler Inhale [...]
[2024-09-08 10:55] LABS: INR 2.2; Prothrombin Time 22.4 Seconds (9.50-12.1)
== END 2024-09-08 10:26 | disposition home or self-care (01) ==
LOC: CHSLAB 10:29
PROVIDERS: PCP Family Medicine; Visit Provider Family Medicine
DX: Z86.718 Personal history of other venous thrombosis and embolism (principal); Z86.711 Personal history of pulmonary embolism
CPT/HCPCS: 36415; 85610

== ENCOUNTER 2024-09-10 11:39 | Outpatient (CLI) | payer MEDICARE, SELFPAY ==
--- OUTSIDE RECORDS SUMMARY | 2024-09-10 12:24 | XMS_ITS | Encounter Summary ---
Author Organization [facility] Address [address] [place] [address] Phone Care Team Providers Care Spanish Interpreter Name Role Phone Efe Carrera MD Primary Care Provider Alfredo Steven MD Unavailable [phone] Reason for Visit * Reason Comments Medication Refill Encounter Details Date Type Department Care Team (Late st Contact Info) Description 09/13/2019 Refill [facility] - Gastro[facility]ology - [place] [address] [place] [address] Isabela Riley, REFLECTOR DRILLER AND DEBURRER, SOLE CEMENTER [address] [place] [address] Medication Refill Social History Tobacco [...] Bridget Arguello CMA - 09/13/2019 2:32 PM BATCHMAKER Patient calling requesting refill of: Requested Prescriptions Pending Prescriptions Disp Refills ??? metoclopramide (REGLAN) 10 MG Tablet [Pharmacy Med Name: METOCLOPRAMIDE 10 MG TABLET] 120 Tab 0 Sig: TAKE ONE TABLET BY MOUTH FOUR TIMES A DAY Last fill: 07/09/19 Patients last OV with GI: 05/01/19 Next Office Visit with GI: None scheduled HMAKER documented in this encounter Plan of Treatment Not on file documented as of this encounter Visit Diagnoses Not on filedocumented in this encounter Care Teams Spanish Interpreter Relationship Specialty Start Date End Date Efe Carrera MD [address] [place] [address] PCP - General Pediatrics 02/20/19 Alfredo Steven MD [address] [place] [address] Consulting Physician Nephrology 02/21/19 documented as of this encounter
--- OUTSIDE RECORDS SUMMARY | 2024-09-10 12:24 | XMS_ITS | Clinical Summary ---
Author Organization [facility] [employer] [facility] Address [address] [place] [address] Care Team Providers Care Biofuels Product Manager Name Role Phone Unavailable Primary Care Provider Unavailabl e Source Comments [facility]non-owned Affiliates and Associated Physician Practices is amultiple site organization consisting of ambulatory clinics and hospital sitesin [place], [place], [place] and [place]. This disclosure is being madepursuant to the Care Everywhere program and may not contain all information available regarding this patient. Last updated 18.[facility] Allergies Active Allergy Reactions Criticality Noted Date [...] by mouth every morning Active albuterol HFA (PROVENTIL;VENTOLIN;[place] OAIR) 108 (90 Base) MCG/ACT inhaler Inhale [...]
--- OUTSIDE RECORDS SUMMARY | 2024-09-10 12:24 | XMS_ITS | Encounter Summary ---
Author Organization [facility] Address [address] [place] [address] Phone Care Team Providers Care Sausage Tier Name Role Phone Efe Carrera MD Primary Care Provider Alfredo Steven MD Unavailable [phone] Reason for Visit * Reason Comments Medication Refill Encounter Details Date Type Department Care Team (Late st Contact Info) Description 09/20/2019 Refill [facility] - Gastroenterology - [place] [address] [place] [address] Isabela Riley, RIDING DOUBLE, CANCELLATION CLERK [address] [place] [address] Medication Refill Social History Tobacco [...] Bridget Arguello CMA - 09/21/2019 8:35 AM MOBILE HOME LABORER Patient calling requesting refill of: Requested Prescriptions Pending Prescriptions Disp Refills ??? metoclopramide (REGLAN) 10 MG Tablet [Pharmacy Med Name: METOCLOPRAMIDE 10 MG TABLET] 120 Tab 2 Sig: TAKE ONE TABLET BY MOUTH FOUR TIMES A DAY Last fill: 07/09/19 Patients last OV with GI: 05/01/19 Next Office Visit with GI: None scheduled LE HOME LABORER documented in this encounter Plan of Treatment Not on file documented as of this encounter Visit Diagnoses Not on filedocumented in this encounter Care Teams Sausage Tier Relationship Specialty Start Date End Date Efe Carrera MD [address] [place] [address] PCP - General Pediatrics 02/20/19 Alfredo Steven MD [address] [place] [address] Consulting Physician Nephrology 02/21/19 documented as of this encounter
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
--- OUTSIDE RECORDS SUMMARY | 2024-09-10 12:24 | XMS_ITS | Encounter Summary ---
Author Organization [facility] Address [facility] [place] [place] [address] Care Team Providers Care Tour Production Supervisor Name Role Phone Efe Carrera MD Primary Care Provider [phone] Encounter Details Date Type Department Care Team (Late st Contact Info) Description 09/11/[address] [facility] Clinical Education Specialist Pre/Post [address] [place] [address] Sheldon Webster MD Social History Tobacco Use [...] documented as of this encounter Care Teams Tour Production Supervisor Relationship Specialty Start Date End Date Efe Carrera MD [address] [place] [address] PCP - General FAMILY PRACTICE 10/13/17 documented as of this encounter
--- OUTSIDE RECORDS SUMMARY | 2024-09-10 12:24 | XMS_ITS ---
Author Organization [facility] Address [address] [place] [address] Care Team Providers Care Sliver Lap Machine Tender Name Role Phone Efe Carrera MD Primary Care Provide r Efrain Nina MD Unavailable [phone] Miscellaneous, Not In File Unavailable Unava ilable [...] major depressive d isorder, in full remission ([facility]) 09/29/2021 Overview (03/03/2023): Last Assessment & [...] now. Will monitor. Vitamin deficiency, unspecified 11/24/2020 residential (current) use of anticoagulants 2020 Hypertensive chronic [...] treatments are documented for this patient in [employer]. Treatments may have been administered in another [...]
--- OUTSIDE RECORDS SUMMARY | 2024-09-10 12:24 | XMS_ITS | Referral Summary ---
Author Organization [facility] Address [address] [place] [address] Care Team Providers Care Stevedoring Superintendent Name Role Phone Efe Carrera MD Primary Care Provide r Efrain Nina MD Unavailable [phone] Miscellaneous, Not In File Unavailable Unava ilable [...] mg of elemental iron total) by mouth schedule clerk before breakfast Active methyl salicylate-menthol 30-10 % [...] major depressive d isorder, in full remission ([facility]) 09/29/2021 Overview (03/03/2023): Last Assessment & [...] with PCP Chronic deep vein thrombosis (DVT) ([facility]) 08/2021 Overview (03/03/2023): Last Assessment & [...] now. Will monitor. Vitamin deficiency, unspecified 11/24/2020 skilled nursing (current) use of anticoagulants 2020 Hypertensive chronic [...] drink = 0.6 oz pur e alcohol) [facility] Utilities Answer Date Recorded In the past [...] often do you attend chur ch or mu-ism services? 1 to 4 times per year 08/09/2023 Do you belong to any clubs o r organizations such as mandaeism groups, unions, fraternal or athletic groups, or [...] on file Legal Sex Female 1:00 AM CUSTODIAN ATHLETIC EQUIPMENT Gender Identity Not on file Sexual Orientation Not on file Occupation Industry Job Start Date Job End Date Retired Not on file Not on file Not on file Last Filed Vital Signs Vital Sign Reading Time Taken Comments Blood Pressure 107/69 06/07/2024 1:49 PM CUSTODIAN ATHLETIC EQUIPMENT Pulse 76 06/07/2024 1:49 PM CUSTODIAN ATHLETIC EQUIPMENT Temperature 36.8 C (98.2 F) 08/11/2023 7:58 AM CUSTODIAN ATHLETIC EQUIPMENT Respiratory Rate 20 08/11/2023 11:54 AM CUSTODIAN ATHLETIC EQUIPMENT Oxygen Saturation 93% 08/11/2023 11:54 AM CUSTODIAN ATHLETIC EQUIPMENT Inhaled Oxygen Concentration - - Weight 93.4 kg (206 lb) 06/07/2024 1:49 PM CUSTODIAN ATHLETIC EQUIPMENT Height 157.5 cm (5' 2 ) 06/07/2024 1:49 PM CUSTODIAN ATHLETIC EQUIPMENT Body Mass Index 37.68 06/07/2024 1:49 PM CUSTODIAN ATHLETIC EQUIPMENT Plan of Treatment Not on file Medical Devices Implanted Type Area Psychology Tech Device Identifier Shelf Expiration Date Model / Serial / Lot Synthes s Tfn-Advanced Lateral Relief Cut 11mm 170mm Cannulated Femoral - [id number] Implanted:Qty: 1 on 11/19/2020 by Efrain Nina MD at [facility] Left: Femur Synthes I 07/31/2030142 S / / [id number] Synthes 04.038.200s Tfn-Advanced 10.35mm 100mm Cannulated Screw Bone Titanium - [id number] Implanted:Qty: 1 on 11/19/2020 by Efrain Nina MD at [facility] Left: Femur Synthes I 04/30/2029 04.038.200 S / / [id number] Synthes 04.005.526s 5mm 4.3mm 36mm Lock Self Tap Blunt Tip 2 Lead Tibial T25 Full - [id number] Implanted:Qty: 1 on 11/19/2020 by Efrain Nina MD at [facility] Left: Femur Synthes I 03/31/2029 04.005.526 S / / [id number] Medtronic Inc Synchromed Ii .78in [place] Filter Mesh Pouch Programmable 8637-20 - [id number] - [id number] Implanted:Qty: 1 on 04/06/2023 by Ben Abbott MD at [facility] Left: Abdomen Medtronic Inc 09/14/2024 8637-20 / [id number] / Explanted Type Area Psychology Tech Device Identifier Shelf Expiration Date Model / Serial / Lot Medtronic Inc Synchromed Ii .78in [place] Filter Mesh Pouch Programmable 8637-20 - [id number] - [id number] Explanted:Qty: 1 on 04/06/2023 by Ben Abbott MD at [facility] Left: Abdomen Medtronic Inc 8637-20 / [id number] / Insurance * Guarantor: Rajani Cardenas Account Type Relation to Patient Date of Phone Billing Address Personal/Family Self 1940 [address] [place] [address] [place]ARE [place] MEDICARE [place] MEDICARE [place] Advance Directives For more information, please contact: [phone] Documents on File Type Date Recorded Patient Tableau Administrator Expl anation ADVANCE DIRECTIVE 04/07/2023 4:50 PM POWER OF CARBON DIOXIDE OPERATOR-MEDICAL ADVANCE DIRECTIVE 04/07/2023 4:50 PM POLST [...] 10:25 PM 11/24/2020 6:40 PM Care Teams Stevedoring Superintendent Relationship Specialty Start Date End Date Efe Carrera MD [address] [place] [address] PCP - General 09/13/16 Efrain Nina MD [address] [place] [address] Surgeon Orthopedic Surgery 11/20/20 Miscellaneous, Not In File 11/24/20
--- OUTSIDE RECORDS SUMMARY | 2024-09-10 12:24 | XMS_ITS | Clinical Summary ---
Author Organization [facility] Address [address] [place] [address] Care Team Providers Care Moderate Needs Teacher Name Role Phone Efe Carrera MD Primary Care Provide r Efrain Nina MD Unavailable [phone] Miscellaneous, Not In File Unavailable Unava ilable [...] mg of elemental iron total) by mouth log turner before breakfast Active methyl salicylate-menthol 30-10 % [...] major depressive d isorder, in full remission ([facility]) 09/29/2021 Overview (03/03/2023): Last Assessment & [...] with PCP Chronic deep vein thrombosis (DVT) ([facility]) 08/2021 Overview (03/03/2023): Last Assessment & [...] now. Will monitor. 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 1 to 4 times per year 08/09/2023 Do you belong to any clubs o r organizations such as yazdanism groups, unions, fraternal or athletic groups, or [...] place to sleep or slept in a fdc (including now)? No 08/09/2023 Personal Safety Answer Date Recorded Have you ever been in or are you currently in a harmful physical or emotional relationship or is someone making you feel afraid or unsafe? Denies 08/08/2023 Comments No Sex and Gender Information Value Date Recorded Sex Assigned at Not on file Legal Sex Female 1:00 AM LIABILITY ANALYST Gender Identity Not on file Sexual Orientation Not on file Occupation Industry Job Start Date Job End Date Retired Not on file Not on file Not on file Obstetrics History Last Filed Vital Signs Vital Sign Reading Time Taken Comments Blood Pressure 107/69 06/07/2024 1:49 PM LIABILITY ANALYST Pulse 76 06/07/2024 1:49 PM LIABILITY ANALYST Temperature 36.8 C (98.2 F) 08/11/2023 7:58 AM LIABILITY ANALYST Respiratory Rate 20 08/11/2023 11:54 AM LIABILITY ANALYST Oxygen Saturation 93% 08/11/2023 11:54 AM LIABILITY ANALYST Inhaled Oxygen Concentration - - Weight 93.4 kg (206 lb) 06/07/2024 1:49 PM LIABILITY ANALYST Height 157.5 cm (5' 2 ) 06/07/2024 1:49 PM LIABILITY ANALYST Body Mass Index 37.68 06/07/2024 1:49 PM LIABILITY ANALYST Plan of Treatment Health Maintenance Due Date [...] 10/10/2020, 08/29/2020 Medical Devices Implanted Type Area Cloth Bleaching Range Back Tender Device Identifier Shelf Expiration Date Model / Serial / Lot Synthes 04.037.142s Tfn-Advanced Lateral Relief Cut 11mm 170mm Cannulated Femoral - [id number] Implanted:Qty: 1 on 11/19/2020 by Efrain Nina MD at [facility] Left: Femur Synthes I 07/31/2030 04.037.142 S / / [id number] Synthes 04.038.200s Tfn-Advanced 10.35mm 100mm Cannulated Screw Bone Titanium - [id number] Implanted:Qty: 1 on 11/19/2020 by Efrain Nina MD at [facility] Left: Femur Synthes I 04/30/2029 04.038.200 S / / [id number] Synthes 04.005.526s 5mm 4.3mm 36mm Lock Self Tap Blunt Tip 2 Lead Tibial T25 Full - [id number] Implanted:Qty: 1 on 11/19/2020 by Efrain Nina MD at [facility] Left: Femur Synthes I 03/31/2029 04.005.526 S / / [id number] Medtronic Inc Synchromed Ii .78in [place] Filter Mesh Pouch Programmable 8637-20 - [id number] - [id number] Implanted:Qty: 1 on 04/06/2023 by Ben Abbott MD at [facility] Left: Abdomen Medtronic Inc 09/14/2024 8637-20 / [id number] / Explanted Type Area Cloth Bleaching Range Back Tender Device Identifier Shelf Expiration Date Model / Serial / Lot Medtronic Inc Synchromed Ii .78in [place] Filter Mesh Pouch Programmable 8637-20 - [id number] - [id number] Explanted:Qty: 1 on 04/06/2023 by Ben Abbott MD at [facility] Left: Abdomen Medtronic Inc 8637-20 / [id number] / Insurance MEDICARE IDPA [facility] MEDICARE [place] MEDICARE [facility] Advance Directives For more information, please contact: [phone] Documents on File Type Date Recorded Patient Scuba Diver Expl anation ADVANCE DIRECTIVE 04/07/2023 4:50 PM POWER OF HEALTH INSURANCE ADJUSTER-MEDICAL ADVANCE DIRECTIVE 04/07/2023 4:50 PM POLST * [...] 10:25 PM 11/24/2020 6:40 PM Care Teams Moderate Needs Teacher Relationship Specialty Start Date End Date Efe Carrera MD [address] [place] [address] PCP - General 09/13/16 Efrain Nina MD [address] [place] [address] Surgeon Orthopedic Surgery 11/20/20 Miscellaneous, Not In File 11/24/20
--- OUTSIDE RECORDS SUMMARY | 2024-09-10 12:24 | XMS_ITS | Clinical Summary ---
Author Organization [facility] Address [address] [place] [address] Phone Care Team Providers Care Furnace Mechanic Helper Name Role Phone Efe Carrera MD Primary Care Provider [phone] Alfredo Steven MD Unavailable Allergies Active Allergy [...] DETECTED NON DETECTED 02/23/2019 3:31 PM CDT [facility] HCV RNA QT LOG10 <=0.00 Log10 IU/mL 02/23/2019 3:31 PM CDT [facility] Comment: LOG 10 is not applicable. Sample held in Serology for 1 month. Call Laboratory if further testing is desired. This test was performed using TSERING AmpliPrep TSERING Taq Man Real Time PCR. Blood specimen (specimen) Butterfly Puncture / Unknown 02/20/2019 3:51 PM CDT 02/20/2019 5:11 PM CDT us Radha Harkins SCHEDULE CLERK, ADULT REMEDIAL EDUCATION INSTRUCTOR IMMUNOLOGY ORDERA BLES Final Result [facility] [address] [place] [address], [place] from Last 3 Months or Most Recently Relevant to Health Maintenance Insurance MEDICARE [place]ICAID [place] Care Teams Furnace Mechanic Helper Relationship Specialty Start Date End Date Efe Carrera MD [address] [place] [address] PCP - General Pediatrics 02/20/19 Alfredo Steven MD [address] [place] [address] Consulting Physician Nephrology 02/21/19
--- OUTSIDE RECORDS SUMMARY | 2024-09-10 12:24 | XMS_ITS | Encounter Summary ---
Author Organization [facility] Address [address] [place] [address] Care Team Providers Care Patternmaker Plastics Name Role Phone Efe Carrera MD Primary Care Provider [phone] Encounter Details Date Type Department Care Team (Late st Contact Info) Description 10/15/2017 Abstract [facility] [address] [place] [address] , Generic ConversionMD Social History Tobacco Use [...] documented as of this encounter Care Teams Patternmaker Plastics Relationship Specialty Start Date End Date Efe Carrera MD [address] [place] [address] PCP - General FAMILY PRACTICE 10/13/17 documented as of this encounter
--- OUTSIDE RECORDS SUMMARY | 2024-09-10 12:24 | XMS_ITS | Continuity of Care Document ---
Author Name Auto Generated, Auto Generated Organization [facility] Support Name Relationship Address Phone Angela Gutierrez Emergency Contact 1 Unknown Unav ailable Rajani Cardenas Financial Responsible Republican [address] [place] [address] RonaldAdamRajani Self [address] [place] [address] Efrain Mancia Emergency Contact 2 Unknown Unavai lable Summary Purpose Consult/Referral Allergies, Adverse Reactions, Alerts Type Description/Agent Code Date Allergy Active Date Allergy Inactivated Date of Last Reaction Adverse Reactions Severity Status Comments Source of Information FDB Medic ation Name Reglan Active Patient History FDB Speci fic Aller gen Group Sulfa (Sulfonamide Antibiotics) Active Pat ient History Medications No Known Medications Conditions/Problems Problem/Diagnosis Awareness of Diagnosis Code (ICD-10) Onset Date (Start Date) Resolution Date (End Date) Status Source Comments HYPERTENSIVE CHRONIC KIDNEY DISEASE WITH STAGE 1 THROUGH STAGE 4 CHRONIC KIDNEY DISEASE, OR UNSPECIFIED CHRONIC KIDNEY DISEASE I12.9 11/25/19 21 Active MD Leonides Hendricks CHRONIC KIDNEY DISEASE, STAGE 4 (SEVERE) N18.4 11/25/19 21 Active MD Leonides Hendricks CHRONIC OBSTRUCTIVE PULMONARY DISEASE, UNSPECIFIED J44.9 11/25/19 21 Active MD Leonides Hendricks GASTRO-ESOPHAGEAL REFLUX DISEASE WITHOUT ESOPHAGITIS K21.9 11/25/19 21 Active MD Leonides Hendricks SECONDARY HYPERPARATHYROIDISM OF RENAL ORIGIN N25.81 11/25/19 21 Active MD Leonides Hendricks VITAMIN D DEFICIENCY, UNSPECIFIED E55.9 11/25/19 21 Active MD Leonides Hendricks OBESITY, UNSPECIFIED E66.9 0 21 Active MD Leonides Hendricks PERSONAL HISTORY OF URINARY (TRACT) INFECTIONS Z87.440 11/25/19 21 Active MD Leonides Hendricks MAJOR DEPRESSIVE DISORDER, SINGLE EPISODE, UNSPECIFIED F32.9 11/25/19 21 Active MD Leonides Hendricks ACQUIRED ABSENCE OF KIDNEY Z90.5 11/25/19 Active MD Leonides Hendricks PERSONAL HISTORY OF OTHER MALIGNANT NEOPLASM OF KIDNEY Z85.528 11/25/19 21 Active MD Leonides Hendricks ALF (CURRENT) USE OF ANTICOAGULANTS Z79.01 11/25/19 21 Active MD Leonides Hendricks PERSONAL HISTORY OF PULMONARY EMBOLISM Z86.711 11/25/19 21 Active MD Leonides Hendricks PERSONAL HISTORY OF OTHER VENOUS THROMBOSIS AND EMBOLISM Z86.718 11/25/19 21 Active MD Leonides Hendricks DIAPHRAGMATIC HERNIA WITHOUT OBSTRUCTION OR GANGRENE K44.9 11/25/19 Active MD Leonides Hendricks SLOW TRANSIT CONSTIPATION K59.01 11/25/19 21 Active MD Leonides Hendricks ENCOUNTER FOR THERAPEUTIC DRUG LEVEL MONITORING Z51.81 11/25/19 Active MD Leonides Hendricks BODY MASS INDEX [BMI] 32.0-32.9, ADULT Z68.32 11/25/19 Active MD Leonides Hendricks PRESENCE OF OTHER BONE AND TENDON IMPLANTS Z96.7 11/20/19 Active MD Leonides Hendricks ACUTE POSTHEMORRHAGIC ANEMIA D62 11/20/19 MD Leonides Hart URINARY TRACT INFECTION, SITE NOT SPECIFIED N39.0 11/20/19 Active MD Leonides Hendricks DISPLACED INTERTROCHANTERIC FRACTURE OF LEFT FEMUR, SUBSEQUENT ENCOUNTER FOR CLOSED FRACTURE WITH ROUTINE HEALING S72.142D 11/19/19 Active MD Leonides Hendricks HEMATURIA, UNSPECIFIED R31.9 11/19/19 Active MD Leonides Hendricks FALL FROM CHAIR, SUBSEQUENT ENCOUNTER W07.XXXD 11/19/19 MD Leonides Hart Procedures No Known Procedures
--- OUTSIDE RECORDS SUMMARY | 2024-09-10 12:24 | XMS_ITS | Encounter Summary ---
Author Organization [facility] Address [facility] [place] [address] Care Team Providers Care Managing Member Name Role Phone Efe Carrera MD Primary Care Provider [phone] Encounter Details Date Type Department Care Team (Late st Contact Info) Description 11/26/2019 Abstract [facility] [address], [place] [id number] [place] [address] [place] [phone] Social History Tobacco Use Types Packs/Day [...] documented as of this encounter Care Teams Managing Member Relationship Specialty Start Date End Date Efe Carrera MD [address] [id number] PCP - General FAMILY PRACTICE 10/13/17 documented as of this encounter
--- OUTSIDE RECORDS SUMMARY | 2024-09-10 12:24 | XMS_ITS | Referral Summary ---
Author Organization [facility] Address [address] [place] [address] Care Team Providers Care Commercial Representative Name Role Phone Unavailable Primary Care Provider Unavailabl e Source Comments [facility],non-owned Affiliates and Associated Physician Practices is amultiple site organization consisting of ambulatory clinics and hospital sitesin [place], [place], [place] and [place]. This disclosure is being madepursuant to the Care Everywhere program and may not contain all information available regarding this patient. Last updated 18.[facility] Allergies Active Allergy Reactions Criticality Noted Date [...] by mouth every morning Active albuterol HFA (PROVENTIL;VENTOLIN;NC OAIR) 108 (90 Base) MCG/ACT inhaler Inhale [...]
--- OUTSIDE RECORDS SUMMARY | 2024-09-10 12:24 | XMS_ITS | Patient Health Summary ---
Author Organization [facility] Address [address] [place] [address] Care Team Providers Care Advanced Practice Psychiatric Nurse Name Role Phone Unavailable Primary Care Provider Unavailabl e Note from [facility],non-owned Affiliates and Associated Physician Practices is amultiple site organization consisting of ambulatory clinics and hospital sitesin [place], [place], [place] and [place]. This disclosure is being madepursuant to the Care Everywhere program and may not contain all information available regarding this patient. Last updated 18.[facility] Allergies * Sulfa Drugs(Nausea and/or Vomiting,Vomiting) -Medium [...] and oxygen saturations were monitored continuously. The [id number] was introduced through the mouth, and advanced [...] of appetite. Procedure Code(s): --- Professional --- 92486, Esophagogastroduod enoscopy, flexible, transoral; with endoscopic ultrasound examination, including the esophagus, stomach, and either the duodenum or a surgically altered stomach where the jejunum is examined distal to the anastomosis Diagnosis Code(s): --- Professional --- K86.2, Cyst of pancreas K83.8, Other specified diseases of biliary tract R93.3, Abnormal findings on diagnostic imaging of other parts of digestive tract CPT copyright 2016 [employer]. All rights reserved. The codes documented in this report are preliminary and upon commissions manager review may be revised to meet current compliance requirements. Gildardo Forbes MD 01/01/2020 11:33:18 AM This report has been signed electronically. Note Initiated On: 01/01/2020 10:02 AM Number of Addenda: 0 [facility] [address] [facility] [place] [address] [facility] PROVATION 01/01/2020 10:0 2 AM CDT Gildardo Forbes MD GI PROCEDURE ORDERAB LES [facility] PROVATION * (ABNORMAL) BASIC METABOLIC PANEL (CALCIUM TOTAL) (08/28/2019 2:22 PM ROOF FOREMAN) BUN 32(H) 7 - 26 mg/dL 08/28/2019 3:08 PM [facility] Creatinine 2.2(H) 0.6 - 1.2 mg/dL 08/28/2019 3:08 PM [facility] Sodium 146(H) 136 - 145 mmol/L 08/28/2019 3:08 PM [facility] Potassium 4.0 3.5 - 4.5 mmol/L 08/28/2019 3:08 PM [facility] Chloride 112(H) 98 - 107 mmol/L 08/28/2019 3:08 PM [facility] CO2 21(L) 22 - 29 mmol/L 08/28/2019 3:08 PM [facility] Glucose 50(L) 70 - 115 mg/dL 08/28/2019 3:08 PM [facility] Calcium 9.8 8.4 - 10.2 mg/dL 08/28/2019 3:08 PM [facility] Anion Gap 17 8 - 18 08/28/2019 3:08 PM [facility] BUN/Creatinine Ratio 15 7 - 23 08/28/2019 3:08 PM [facility] Osmolality Calculated 306(H) 270 - 300 mOsm/kg 08/28/2019 3:08 PM ROOF FOREMAN [facility] eGFR 21(L) >60 mL/min/1.7 3 m2 08/28/2019 3:08 PM ROOF FOREMAN [facility] Blood BLOOD SPECIMEN / Unknown Lab Venipuncture / Unknown 08/28/2019 2:22 PM ROOF FOREMAN 08/28/2019 2:45 PM ROOF FOREMAN Renato Gilmore MD LAB - CHEMISTRY ORD ERABLES Performing Organization Address [facility]/ZIP Co de Phone Number [address] [phone] * EKG 12-LEAD (08/28/2019 1:26 PM ROOF FOREMAN) Pathologist [facility] Ventricular Rate 95 BPM [facility] MUSE Atrial Rate 95 BPM [facility] MUSE P-R Interval 208 ms [facility] MUSE QRS Duration ms 148 ms [facility] MUSE Q-T Interval ms 404 ms [facility] MUSE QTC Calculation (Bezet) 507 ms [facility] MUSE Calculated P [place] 77 degrees [facility] MUSE Calculated R [place] -19 degrees [facility] MUSE Calculated T [place] 98 degrees [facility] MUSE Interpretation EKG SINUS RHYTHM WITH OCCASIONAL PREMATURE VENTRICULAR COMPLEXES LEFT BUNDLE BRANCH BLOCK ABNORMAL ECG NO PREVIOUS ECGS AVAILABLE Confirmed by Juan Culver ([id number]), assignment editor AYDIN HARRIS ([id number]) on 09/26/2019 1:44:56 PM [facility] MUSE 08/28/2019 1:26 PM ROOF FOREMAN 09/26/2019 1:44 PM ROOF FOREMAN Renato Gilmore MD ECG ORDERABLES Performing Organization Address [facility]/ZIP Co de Phone Number [facility]
[2024-09-10 12:29] LABS: INR 1.5; Prothrombin Time 16.1 Seconds (9.50-12.1)
== END 2024-09-10 11:40 | disposition home or self-care (01) ==
LOC: CHSLAB 11:41
PROVIDERS: PCP Family Medicine; Visit Provider Family Medicine
DX: Z86.718 Personal history of other venous thrombosis and embolism (principal); Z86.711 Personal history of pulmonary embolism
CPT/HCPCS: 36415; 85610

== ENCOUNTER 2024-09-11 10:02 | Outpatient (CLI) | payer MEDICARE, SELFPAY ==
--- OUTSIDE RECORDS SUMMARY | 2024-09-11 11:08 | XMS_ITS | Encounter Summary ---
Author Organization [facility] Address [facility] [place] [address] Care Team Providers Care Supervisor Grower Name Role Phone Efe Carrera MD Primary Care Provider [phone] Encounter Details Date Type Department Care Team (Late st Contact Info) Description 11/26/2019 Abstract [facility] [address] [place], [place] [address] [place] [address] [place] [phone] Social History Tobacco Use Types Packs/Day [...] Date Last Indicated Resolved Time MRSA Comment:06/30/18 Nirmaal (MARY ELLEN) 07/06/2018 07/06/2018 documented as of this encounter Care Teams Supervisor Grower Relationship Specialty Start Date End Date Efe Carrera MD [address] [id number] PCP - General FAMILY PRACTICE 10/13/17 documented as of this encounter
--- OUTSIDE RECORDS SUMMARY | 2024-09-11 11:08 | XMS_ITS | Clinical Summary ---
Author Organization [facility] Address [address] [place] [address] Phone Care Team Providers Care Administrative Support Technician Name Role Phone Efe Carrera MD Primary Care Provider [phone] Alfredo Steven MD Unavailable Allergies Active Allergy [...] DETECTED NON DETECTED 02/23/2019 3:31 PM CDT [facility] HCV RNA QT LOG10 <=0.00 Log10 IU/mL 02/23/2019 3:31 PM CDT [facility] Comment: LOG 10 is not applicable. Sample held in Serology for 1 month. Call Laboratory if further testing is desired. This test was performed using TSERING AmpliPrep TSERING Taq Man Real Time PCR. Blood specimen (specimen) Butterfly Puncture / Unknown 02/20/2019 3:51 PM CDT 02/20/2019 5:11 PM CDT us Radha Harkins PROJECT MANAGER RETAIL, BUTTONHOLER IMMUNOLOGY ORDERA BLES Final Result [facility] [address] [place] [address], [place] from Last 3 Months or Most Recently Relevant to Health Maintenance Insurance MEDICARE MEDICAID [place] Care Teams Administrative Support Technician Relationship Specialty Start Date End Date Efe Carrera MD [address] [place] [address] PCP - General Pediatrics 02/20/19 Alfredo Steven MD [address] [place] [address] Consulting Physician Nephrology 02/21/19
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
--- OUTSIDE RECORDS SUMMARY | 2024-09-11 11:08 | XMS_ITS | Encounter Summary ---
Author Organization [facility] Address [address] [place] [address] Phone Care Team Providers Care Appliance Installer Name Role Phone Efe Carrera MD Primary Care Provider Alfredo Steven MD Unavailable [phone] Reason for Visit * Reason Comments Medication Refill Encounter Details Date Type Department Care Team (Late st Contact Info) Description 09/20/2019 Refill [facility] - [place] [address] [place] [address] Isabela Riley, TEXTILES PRINTER, RING SORTER [address] [place] [address] Medication Refill Social History Tobacco [...] Bridget Arguello CMA - 09/21/2019 8:35 AM TUB OPERATOR Patient calling requesting refill of: Requested Prescriptions Pending Prescriptions Disp Refills ??? metoclopramide (REGLAN) 10 MG Tablet [Pharmacy Med Name: METOCLOPRAMIDE 10 MG TABLET] 120 Tab 2 Sig: TAKE ONE TABLET BY MOUTH FOUR TIMES A DAY Last fill: 07/09/19 Patients last OV with GI: 05/01/19 Next Office Visit with GI: None scheduled OPERATOR documented in this encounter Plan of Treatment Not on file documented as of this encounter Visit Diagnoses Not on filedocumented in this encounter Care Teams Appliance Installer Relationship Specialty Start Date End Date Efe Carrera MD [address] [place] [address] PCP - General Pediatrics 02/20/19 Alfredo Steven MD [address] [place] [address] Consulting Physician Nephrology 02/21/19 documented as of this encounter
--- OUTSIDE RECORDS SUMMARY | 2024-09-11 11:08 | XMS_ITS | Encounter Summary ---
Author Organization [facility] Address [address] [place] [address] Phone Care Team Providers Care Clamp Forklift Operator Name Role Phone Efe Carrera MD Primary Care Provider Alfredo Steven MD Unavailable [phone] Reason for Visit * Reason Comments Medication Refill Encounter Details Date Type Department Care Team (Late st Contact Info) Description 09/13/2019 Refill [facility] - [place] [address] [place] [address] Isabela Riley, CLAY MINER, FLUE LINING DIPPER [address] [place] [address] Medication Refill Social History Tobacco [...] Bridget Arguello CMA - 09/13/2019 2:32 PM HEALTH TEACHER Patient calling requesting refill of: Requested Prescriptions Pending Prescriptions Disp Refills ??? metoclopramide (REGLAN) 10 MG Tablet [Pharmacy Med Name: METOCLOPRAMIDE 10 MG TABLET] 120 Tab 0 Sig: TAKE ONE TABLET BY MOUTH FOUR TIMES A DAY Last fill: 07/09/19 Patients last OV with GI: 05/01/19 Next Office Visit with GI: None scheduled TH TEACHER documented in this encounter Plan of Treatment Not on file documented as of this encounter Visit Diagnoses Not on filedocumented in this encounter Care Teams Clamp Forklift Operator Relationship Specialty Start Date End Date Efe Carrera MD [address] [place] [address] PCP - General Pediatrics 02/20/19 Alfredo Steven MD [address] [place] [address] Consulting Physician Nephrology 02/21/19 documented as of this encounter
--- OUTSIDE RECORDS SUMMARY | 2024-09-11 11:08 | XMS_ITS | Patient Health Summary ---
Author Organization [facility] Address [address] [place] [address] Care Team Providers Care Stain Sprayer Name Role Phone Unavailable Primary Care Provider Unavailabl e Note from [facility],non-owned Affiliates and Associated Physician Practices is amultiple site organization consisting of ambulatory clinics and hospital sitesin [place], [place], [place] and [place]. This disclosure is being madepursuant to the Care Everywhere program and may not contain all information available regarding this patient. Last updated 18.[facility] Allergies * Sulfa Drugs(Nausea and/or Vomiting,Vomiting) [...] and oxygen saturations were monitored continuously. The [id number] was introduced through the mouth, and advanced [...] of appetite. Procedure Code(s): --- Professional --- 45000, Esophagogastroduod enoscopy, flexible, transoral; with endoscopic ultrasound examination, including the esophagus, stomach, and either the duodenum or a surgically altered stomach where the jejunum is examined distal to the anastomosis Diagnosis Code(s): --- Professional --- K86.2, Cyst of pancreas K83.8, Other specified diseases of biliary tract R93.3, Abnormal findings on diagnostic imaging of other parts of digestive tract CPT copyright 2016 [employer]. All rights reserved. The codes documented in this report are preliminary and upon shale processing technician review may be revised to meet current compliance requirements. Gildardo Forbes MD 01/01/2020 11:33:18 AM This report has been signed electronically. Note Initiated On: 01/01/2020 10:02 AM Number of Addenda: 0 [facility] [address] [facility] [place] [address] [facility] PROVATION 01/01/2020 10:0 2 AM CDT Gildardo Forbes MD GI PROCEDURE ORDERAB LES [facility] * (ABNORMAL) BASIC METABOLIC PANEL (CALCIUM TOTAL) (08/28/2019 2:22 PM TOOL AND DIE MANAGER) BUN 32(H) 7 - 26 mg/dL 08/28/2019 3:08 PM [facility] Creatinine 2.2(H) 0.6 - 1.2 mg/dL 08/28/2019 3:08 PM [facility] Sodium 146(H) 136 - 145 mmol/L 08/28/2019 3:08 PM [facility] Potassium 4.0 3.5 - 4.5 mmol/L 08/28/2019 3:08 PM [facility] Chloride 112(H) 98 - 107 mmol/L 08/28/2019 3:08 PM [facility] CO2 21(L) 22 - 29 mmol/L 08/28/2019 3:08 PM [facility] Glucose 50(L) 70 - 115 mg/dL 08/28/2019 3:08 PM [facility] Calcium 9.8 8.4 - 10.2 mg/dL 08/28/2019 3:08 PM [facility] Anion Gap 17 8 - 18 08/28/2019 3:08 PM [facility] BUN/Creatinine Ratio 15 7 - 23 08/28/2019 3:08 PM [facility] Osmolality Calculated 306(H) 270 - 300 mOsm/kg 08/28/2019 3:08 PM TOOL AND DIE MANAGER [facility] eGFR 21(L) >60 mL/min/1.7 3 m2 08/28/2019 3:08 PM TOOL AND DIE MANAGER [facility] Blood BLOOD SPECIMEN / Unknown Lab Venipuncture / Unknown 08/28/2019 2:22 PM TOOL AND DIE MANAGER 08/28/2019 2:45 PM TOOL AND DIE MANAGER Renato Gilmore MD LAB - CHEMISTRY ORD ERABLES Performing Organization Address [facility]/ZIP Co de Phone Number [address] [phone] * EKG 12-LEAD (08/28/2019 1:26 PM TOOL AND DIE MANAGER) Pathologist [facility] Ventricular Rate 95 BPM [facility] Atrial Rate 95 BPM [facility] P-R Interval 208 ms [facility] QRS Duration ms 148 ms [facility] Q-T Interval ms 404 ms [facility] QTC Calculation (Bezet) 507 ms [facility] Calculated P [employer] 77 degrees [facility] Calculated R [employer] -19 degrees [facility] Calculated T [employer] 98 degrees [facility] Interpretation EKG SINUS RHYTHM WITH OCCASIONAL PREMATURE VENTRICULAR COMPLEXES LEFT BUNDLE BRANCH BLOCK ABNORMAL ECG NO PREVIOUS ECGS AVAILABLE Confirmed by Juan Culver ([id number]), assignment desk editor AYDIN HARRIS ([id number]) on 09/26/2019 1:44:56 PM [facility] 08/28/2019 1:26 PM TOOL AND DIE MANAGER 09/26/2019 1:44 PM TOOL AND DIE MANAGER Renato Gilmore MD ECG ORDERABLES Performing Organization Address [facility]/ZIP Co de Phone Number [facility]
--- OUTSIDE RECORDS SUMMARY | 2024-09-11 11:08 | XMS_ITS | Clinical Summary ---
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 Will monitor. 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 1 to 4 times per year 08/09/2023 Do you belong to any clubs o r organizations such as sabianist groups, unions, fraternal or athletic groups, or [...] place to sleep or slept in a nursing home (including now)? No 08/09/2023 Personal Safety Answer Date Recorded Have you ever been in or are you currently in a harmful physical or emotional relationship or is someone making you feel afraid or unsafe? Denies 08/08/2023 Comments No Sex and Gender Information Value Date Recorded Sex Assigned at Not on file Legal Sex Female 1:00 AM HEAT PUMP INSTALLER Gender Identity Not on file Sexual Orientation Not on file Occupation Industry Job Start Date Job End Date Retired Not on file Not on file Not on file Obstetrics History Last Filed Vital Signs Vital Sign Reading Time Taken Comments Blood Pressure 107/69 06/07/2024 1:49 PM HEAT PUMP INSTALLER Pulse 76 06/07/2024 1:49 PM HEAT PUMP INSTALLER Temperature 36.8 C (98.2 F) 08/11/2023 7:58 AM HEAT PUMP INSTALLER Respiratory Rate 20 08/11/2023 11:54 AM HEAT PUMP INSTALLER Oxygen Saturation 93% 08/11/2023 11:54 AM HEAT PUMP INSTALLER Inhaled Oxygen Concentration - - Weight 93.4 kg (206 lb) 06/07/2024 1:49 PM HEAT PUMP INSTALLER Height 157.5 cm (5' 2 ) 06/07/2024 1:49 PM HEAT PUMP INSTALLER Body Mass Index 37.68 06/07/2024 1:49 PM HEAT PUMP INSTALLER Plan of Treatment Health Maintenance Due Date [...] 10/10/2020, 08/29/2020 Medical Devices Implanted Type Area Cable Tower Operator Device Identifier Shelf Expiration Date Model / Serial / Lot Synthes 04.037.142s Tfn-Advanced Lateral Relief Cut 11mm 170mm Cannulated Femoral - [id number] Implanted:Qty: 1 on 11/19/2020 by Efrain Nina MD at [facility] Left: Femur Synthes I 07/31/2030 04.037.142 S / / [id number] Synthes 04.038.200s Tfn-Advanced 10.35mm 100mm Cannulated Screw Bone Titanium - [id number] Implanted:Qty: 1 on 11/19/2020 by Efrain Nina MD at [facility] Left: Femur Synthes I 04/30/2029 04.038.200 S / / [id number] Synthes 04.005.526s 5mm 4.3mm 36mm Lock Self Tap Blunt Tip 2 Lead Tibial T25 Full - [id number] Implanted:Qty: 1 on 11/19/2020 by Efrain Nina MD at [facility] Left: Femur Synthes I 03/31/2029 04.005.526 S / / [id number] Medtronic Inc Synchromed Ii .78in [place] Filter Mesh Pouch Programmable 8637-20 - [id number] - [id number] Implanted:Qty: 1 on 04/06/2023 by Ben Abbott MD at [facility] Left: Abdomen Medtronic Inc 09/14/2024 8637-20 / [id number] / Explanted Type Area Cable Tower Operator Device Identifier Shelf Expiration Date Model / Serial / Lot Medtronic Inc Synchromed Ii .78in [place] Filter Mesh Pouch Programmable 8637-20 - [id number] - [id number] Explanted:Qty: 1 on 04/06/2023 by Ben Abbott MD at [facility] Left: Abdomen Medtronic Inc 8637-20 / [id number] / Insurance MEDICARE IDPA [facility] PLAN MEDICARE IDAZ MEDICARE [facility] Advance Directives For more information, please contact: [phone] Documents on File Type Date Recorded Patient Industrial Relations Officer Expl anation ADVANCE DIRECTIVE 04/07/2023 4:50 PM POWER OF NURSE UNIT MANAGER-MEDICAL ADVANCE DIRECTIVE 04/07/2023 4:50 PM POLST * [...] 10:25 PM 11/24/2020 6:40 PM Care Teams Assistant Education Director Relationship Specialty Start Date End Date Efe Carrera MD [address] [place] [address] PCP - General 09/13/16 Efrain Nina MD [address] [place] [address] Surgeon Orthopedic Surgery 11/20/20 Miscellaneous, Not In File 11/24/20
--- OUTSIDE RECORDS SUMMARY | 2024-09-11 11:08 | XMS_ITS | Clinical Summary ---
Author Organization [facility] [employer] Address [address] [place] [address] Care Team Providers Care Manufactured Buildings Repairer Name Role Phone Unavailable Primary Care Provider Unavailabl e Source Comments [facility] [employer],non-owned Affiliates and Associated Physician Practices is amultiple site organization consisting of ambulatory clinics and hospital sitesin [place] and [place]. This disclosure is being madepursuant to the Care Everywhere program and may not contain all information available regarding this patient. Last updated 18.[facility] [employer] Allergies Active Allergy Reactions Criticality Noted Date [...] by mouth every morning Active albuterol HFA (PROVENTIL;VENTOLIN;[place] OAIR) 108 (90 Base) MCG/ACT inhaler Inhale [...]
--- OUTSIDE RECORDS SUMMARY | 2024-09-11 11:08 | XMS_ITS | Referral Summary ---
Author Organization [facility] Address [address] [place] [address] Care Team Providers Care Buckle Attacher Name Role Phone Efe Carrera MD Primary Care Provide r Efrain Nina MD Unavailable [phone] Miscellaneous, Not In File Unavailable Unava ilable [...] mg of elemental iron total) by mouth regulatory compliance engineer before breakfast Active methyl salicylate-menthol 30-10 [...] major depressive d isorder, in full remission ([facility]) 09/29/2021 Overview (03/03/2023): Last Assessment & [...] with PCP Chronic deep vein thrombosis (DVT) ([facility]) 08/2021 Overview (03/03/2023): Last Assessment & [...] now. Will monitor. Vitamin deficiency, unspecified 11/24/2020 [facility] (current) use of anticoagulants 2020 Hypertensive chronic [...] drink = 0.6 oz pur e alcohol) [facility] Utilities Answer Date Recorded In the [...] often do you attend chur ch or mormon services? 1 to 4 times per year 08/09/2023 Do you belong to any clubs o r organizations such as presybeterian groups, unions, fraternal or athletic groups, or [...] place to sleep or slept in a fpc (including now)? No 08/09/2023 Personal Safety Answer Date Recorded Have you ever been in or are you currently in a harmful physical or emotional relationship or is someone making you feel afraid or unsafe? Denies 08/08/2023 Comments No Sex and Gender Information Value Date Recorded Sex Assigned at Not on file Legal Sex Female 1:00 AM PROPERTY AND SUPPLY OFFICER Gender Identity Not on file Sexual Orientation Not on file Occupation Industry Job Start Date Job End Date Retired Not on file Not on file Not on file Last Filed Vital Signs Vital Sign Reading Time Taken Comments Blood Pressure 107/69 06/07/2024 1:49 PM PROPERTY AND SUPPLY OFFICER Pulse 76 06/07/2024 1:49 PM PROPERTY AND SUPPLY OFFICER Temperature 36.8 C (98.2 F) 08/11/2023 7:58 AM PROPERTY AND SUPPLY OFFICER Respiratory Rate 20 08/11/2023 11:54 AM PROPERTY AND SUPPLY OFFICER Oxygen Saturation 93% 08/11/2023 11:54 AM PROPERTY AND SUPPLY OFFICER Inhaled Oxygen Concentration - - Weight 93.4 kg (206 lb) 06/07/2024 1:49 PM PROPERTY AND SUPPLY OFFICER Height 157.5 cm (5' 2 ) 06/07/2024 1:49 PM PROPERTY AND SUPPLY OFFICER Body Mass Index 37.68 06/07/2024 1:49 PM PROPERTY AND SUPPLY OFFICER Plan of Treatment Not on file Medical Devices Implanted Type Area Security Guards Dispatcher Device Identifier Shelf Expiration Date Model / Serial / Lot Synthes s Tfn-Advanced Lateral Relief Cut 11mm 170mm Cannulated Femoral - [id number] Implanted:Qty: 1 on 11/19/2020 by Efrain Nina MD at [facility] Left: Femur Synthes I 07/31/2030142 S / / [id number] Synthes 04.038.200s Tfn-Advanced 10.35mm 100mm Cannulated Screw Bone Titanium - [id number] Implanted:Qty: 1 on 11/19/2020 by Efrain Nina MD at [facility] Left: Femur Synthes I 04/30/2029 04.038.200 S / / [id number] Synthes 04.005.526s 5mm 4.3mm 36mm Lock Self Tap Blunt Tip 2 Lead Tibial T25 Full - [id number] Implanted:Qty: 1 on 11/19/2020 by Efrain Nina MD at [facility] Left: Femur Synthes I 03/31/2029 04.005.526 S / / [id number] Medtronic Inc Synchromed Ii .78in [place] Filter Mesh Pouch Programmable 8637-20 - [id number] - [id number] Implanted:Qty: 1 on 04/06/2023 by Ben Abbott MD at [facility] Left: Abdomen Medtronic Inc 09/14/2024 8637-20 / [id number] / Explanted Type Area Security Guards Dispatcher Device Identifier Shelf Expiration Date Model / Serial / Lot Medtronic Inc Synchromed Ii .78in [place] Filter Mesh Pouch Programmable 8637-20 - [id number] - [id number] Explanted:Qty: 1 on 04/06/2023 by Ben Abbott MD at [facility] Left: Abdomen Medtronic Inc 8637-20 / [id number] / Insurance MEDICARE IDNJ [facility] MEDICARE IDPA MEDICARE IDPA Advance Directives For more information, please contact: [phone] Documents on File Type Date Recorded Patient Mixing Supervisor Expl anation ADVANCE DIRECTIVE 04/07/2023 4:50 PM POWER OF HOSPITAL SALES REPRESENTATIVE-MEDICAL ADVANCE DIRECTIVE 04/07/2023 4:50 PM POLST [...] 10:25 PM 11/24/2020 6:40 PM Care Teams Buckle Attacher Relationship Specialty Start Date End Date Efe Carrera MD [address] [place] [address] PCP - General 09/13/16 Efrain Nina MD [address] [place] [address] Surgeon Orthopedic Surgery 11/20/20 Miscellaneous, Not In File 11/24/20
--- OUTSIDE RECORDS SUMMARY | 2024-09-11 11:08 | XMS_ITS ---
Author Organization [facility] Address [address] [place] [address] Care Team Providers Care Horse Stud Worker Name Role Phone Efe Carrera MD Primary Care Provide r Efrain Nina MD Unavailable [phone] Miscellaneous, Not In File Unavailable Unava ilable [...] major depressive d isorder, in full remission ([facility]) 09/29/2021 Overview (03/03/2023): Last Assessment [...] now. Will monitor. Vitamin deficiency, unspecified 11/24/2020 shelter (current) use of anticoagulants 2020 Hypertensive chronic [...] treatments are documented for this patient in [employer]. Treatments may have been administered in another [...]
--- OUTSIDE RECORDS SUMMARY | 2024-09-11 11:08 | XMS_ITS | Encounter Summary ---
Author Organization [facility] Address [address] [place] [address] Care Team Providers Care Fire Pot Operator Name Role Phone Efe Carrera MD Primary Care Provider [phone] Encounter Details Date Type Department Care Team (Late st Contact Info) Description 10/15/2017 Abstract [facility] CONVERSION [address] [place] [address] , Generic ConversionMD Social History Tobacco Use [...] documented as of this encounter Care Teams Fire Pot Operator Relationship Specialty Start Date End Date Efe Carrera MD [address] [place] [address] PCP - General FAMILY PRACTICE 10/13/17 documented as of this encounter
--- OUTSIDE RECORDS SUMMARY | 2024-09-11 11:08 | XMS_ITS | Referral Summary ---
Author Organization [facility] [employer] Address [address] [place] [address] Care Team Providers Care Hemodialysis Lab Technician Name Role Phone Unavailable Primary Care Provider Unavailabl e Source Comments [facility] [employer],non-owned Affiliates and Associated Physician Practices is amultiple site organization consisting of ambulatory clinics and hospital sitesin [place], [place], [place] and [place]. This disclosure is being madepursuant to the Care Everywhere program and may not contain all information available regarding this patient. Last updated 18.[facility] [employer] Allergies Active Allergy Reactions Criticality Noted Date [...]
--- OUTSIDE RECORDS SUMMARY | 2024-09-11 11:08 | XMS_ITS | Encounter Summary ---
Author Organization [facility] Address [facility] [place] [address] Care Team Providers Care Prop Attendant Name Role Phone Efe Carrera MD Primary Care Provider [phone] Encounter Details Date Type Department Care Team (Late st Contact Info) Description 09/11/2019 Prep for Procedure Romain's Compliance Paralegal Pre/Post [address] [place] [address] Sheldon Webster MD Social History Tobacco Use [...] documented as of this encounter Care Teams Prop Attendant Relationship Specialty Start Date End Date Efe Carrera MD [address] [place] [address] PCP - General FAMILY PRACTICE 10/13/17 documented as of this encounter
[2024-09-11 11:12] LABS: INR 1.5; Prothrombin Time 16.4 Seconds (9.50-12.1)
== END 2024-09-11 10:03 | disposition home or self-care (01) ==
LOC: CHSLAB 10:04
PROVIDERS: PCP Family Medicine; Visit Provider Family Medicine
DX: Z79.01 Long term (current) use of anticoagulants (principal)
CPT/HCPCS: 36415; 85610

== ENCOUNTER 2024-09-15 10:33 | Outpatient (CLI) | payer MEDICARE, SELFPAY ==
--- OUTSIDE RECORDS SUMMARY | 2024-09-15 10:36 | XMS_ITS ---
Author Organization [facility] Address [address] [place] [address] Care Team Providers Care Benzene Operator Name Role Phone Efe Carrera MD Primary Care Provide r Efrain Nina MD Unavailable [phone] Miscellaneous, Not In File Unavailable Unava ilable [...] full remission ([facility]) 09/29/2021 Overview (03/03/2023): Last Assessment [...] now. Will monitor. Vitamin deficiency, unspecified 11/24/2020 intermediate (current) use of anticoagulants 2020 Hypertensive [...] treatments are documented for this patient in [employer] Treatments may have been administered in another [...]
--- OUTSIDE RECORDS SUMMARY | 2024-09-15 10:36 | XMS_ITS | Clinical Summary ---
Author Organization [facility] [employer] Address [address] [place] [address] Care Team Providers Care Band Master Name Role Phone Unavailable Primary Care Provider Unavailabl e Source Comments [facility] [employer],non-owned Affiliates and Associated Physician Practices is amultiple site organization consisting of ambulatory clinics and hospital sitesin [place], [place], [place] and [place]. This disclosure is being madepursuant to the Care Everywhere program and may not contain all information available regarding this patient. Last updated 18.[facility] [employer] Allergies Active Allergy Reactions Criticality Noted [...] by mouth every morning Active albuterol HFA (PROVENTIL;VENTOLIN;[place] OAIR) 108 (90 Base) MCG/ACT inhaler Inhale [...]
--- OUTSIDE RECORDS SUMMARY | 2024-09-15 10:36 | XMS_ITS | Referral Summary ---
Author Organization [facility] Address [address] [place] [address] Care Team Providers Care Financial Advisor Trainee Name Role Phone Efe Carrera MD Primary Care Provide r Efrain Nina MD Unavailable [phone] Miscellaneous, Not In File Unavailable Unava ilable [...] mg of elemental iron total) by mouth supervisor communications and signals before breakfast Active methyl salicylate-menthol 30-10 % [...] major depressive d isorder, in full remission ([facility]) 09/29/2021 Overview (03/03/2023): Last Assessment [...] with PCP Chronic deep vein thrombosis (DVT) ([facility]) 08/2021 Overview (03/03/2023): Last Assessment [...] now. Will monitor. Vitamin deficiency, unspecified 11/24/2020 [facility]P (current) use of anticoagulants 2020 Hypertensive chronic [...] drink = 0.6 oz pur e alcohol) [facility] Utilities Answer Date Recorded In [...] often do you attend chur ch or jew services? 1 to 4 times per year 08/09/2023 Do you belong to any clubs o r organizations such as orthodoxy groups, unions, fraternal or athletic groups, or [...] on file Legal Sex Female 1:00 AM CITRUS PICKER Gender Identity Not on file Sexual Orientation Not on file Occupation Industry Job Start Date Job End Date Retired Not on file Not on file Not on file Last Filed Vital Signs Vital Sign Reading Time Taken Comments Blood Pressure 107/69 06/07/2024 1:49 PM CITRUS PICKER Pulse 76 06/07/2024 1:49 PM CITRUS PICKER Temperature 36.8 C (98.2 F) 08/11/2023 7:58 AM CITRUS PICKER Respiratory Rate 20 08/11/2023 11:54 AM CITRUS PICKER Oxygen Saturation 93% 08/11/2023 11:54 AM CITRUS PICKER Inhaled Oxygen Concentration - - Weight 93.4 kg (206 lb) 06/07/2024 1:49 PM CITRUS PICKER Height 157.5 cm (5' 2 ) 06/07/2024 1:49 PM CITRUS PICKER Body Mass Index 37.68 06/07/2024 1:49 PM CITRUS PICKER Plan of Treatment Not on file Medical Devices Implanted Type Area Chemical Plant Manager Device Identifier Shelf Expiration Date Model / Serial / Lot Synthes s Tfn-Advanced Lateral Relief Cut 11mm 170mm Cannulated Femoral - [id number] Implanted:Qty: 1 on 11/19/2020 by Efrain Nina MD at [facility] Left: Femur Synthes I 07/31/2030142 S / / [id number] Synthes 04.038.200s Tfn-Advanced 10.35mm 100mm Cannulated Screw Bone Titanium - [id number] Implanted:Qty: 1 on 11/19/2020 by Efrain Nina MD at [facility] Left: Femur Synthes I 04/30/2029 04.038.200 S / / [id number] Synthes 04.005.526s 5mm 4.3mm 36mm Lock Self Tap Blunt Tip 2 Lead Tibial T25 Full - [id number] Implanted:Qty: 1 on 11/19/2020 by Efrain Nina MD at [facility] Left: Femur Synthes I 03/31/2029 04.005.526 S / / [id number] Medtronic Inc Synchromed Ii .78in [place] Filter Mesh Pouch Programmable 8637-20 - [id number] - [id number] Implanted:Qty: 1 on 04/06/2023 by Ben Abbott MD at [facility] Left: Abdomen Medtronic Inc 09/14/2024 8637-20 / [id number] / Explanted Type Area Chemical Plant Manager Device Identifier Shelf Expiration Date Model / Serial / Lot Medtronic Inc Synchromed Ii .78in [place] Filter Mesh Pouch Programmable 8637-20 - [id number] - [id number] Explanted:Qty: 1 on 04/06/2023 by Ben Abbott MD at [facility] Left: Abdomen Medtronic Inc 8637-20 / [id number] / Insurance MEDICARE IDND [facility] MEDICARE IDPA MEDICARE IDPA Advance Directives For more information, please contact: [phone] Documents on File Type Date Recorded Patient Federal Agent Expl anation ADVANCE DIRECTIVE 04/07/2023 4:50 PM POWER OF SIDE FRAMER-MEDICAL ADVANCE DIRECTIVE 04/07/2023 4:50 PM POLST * [...] 10:25 PM 11/24/2020 6:40 PM Care Teams Financial Advisor Trainee Relationship Specialty Start Date End Date Efe Carrera MD [address] [place] [address] PCP - General 09/13/16 Efrain Nina MD [address] [place] [address] Surgeon Orthopedic Surgery 11/20/20 Miscellaneous, Not In File 11/24/20
--- OUTSIDE RECORDS SUMMARY | 2024-09-15 10:36 | XMS_ITS | Referral Summary ---
Author Organization [facility] [employer] Address [address] [place] [address] Care Team Providers Care Conference Specialist Name Role Phone Unavailable Primary Care Provider Unavailabl e Source Comments [facility] [employer],non-owned Affiliates and Associated Physician Practices is amultiple site organization consisting of ambulatory clinics and hospital sitesin [place], [place], [place] and [place]. This disclosure is being madepursuant to the Care Everywhere program and may not contain all information available regarding this patient. Last updated 18.[facility] [employer] Allergies Active Allergy Reactions Criticality Noted Date [...] by mouth every morning Active albuterol HFA (PROVENTIL;VENTOLIN;[place] OAIR) 108 (90 Base) MCG/ACT inhaler Inhale [...]
--- OUTSIDE RECORDS SUMMARY | 2024-09-15 10:36 | XMS_ITS | Clinical Summary ---
Author Organization [facility] Address [address] [place] [address] Care Team Providers Care Family Day Care Provider Name Role Phone Efe Carrera MD Primary Care Provide r Efrain Nina MD Unavailable [phone] Miscellaneous, Not In File Unavailable Unava ilable [...] mg of elemental iron total) by mouth telephone operator before breakfast Active methyl salicylate-menthol 30-10 % [...] major depressive d isorder, in full remission ([facility]) 09/29/2021 Overview (03/03/2023): Last [...] with PCP Chronic deep vein thrombosis (DVT) ([facility]) 08/2021 Overview (03/03/2023): Last [...] now. Will monitor. Vitamin deficiency, unspecified 11/24/2020 custodial (current) use of anticoagulants 2020 Hypertensive chronic [...] 04/15/2009 Surgical History Surgery Date Site/Laterality Comments [place] ARTHRP KNE CONDYLE&PLATU MEDIAL&LAT COMPARTMENTS Total Knee Arthroplasty - (Added by TW Conv) [place] CHOLECYSTECTOMY Cholecystectomy - (Added by TW Conv) [...] e lsewhere classified Right shoulder pain terminal gauger (current) use of anticoagulants Personal history of [...] drink = 0.6 oz pur e alcohol) [facility] Utilities Answer Date Recorded In [...] any clubs o r organizations such as synagogue groups, unions, fraternal or athletic groups, or [...] place to sleep or slept in a correction (including now)? No 08/09/2023 Personal Safety Answer Date Recorded Have you ever been in or are you currently in a harmful physical or emotional relationship or is someone making you feel afraid or unsafe? Denies 08/08/2023 Comments No Sex and Gender Information Value Date Recorded Sex Assigned at Not on file Legal Sex Female 1:00 AM WEIGHT CONTROL ENGINEER Gender Identity Not on file Sexual Orientation Not on file Occupation Industry Job Start Date Job End Date Retired Not on file Not on file Not on file Obstetrics History Last Filed Vital Signs Vital Sign Reading Time Taken Comments Blood Pressure 107/69 06/07/2024 1:49 PM WEIGHT CONTROL ENGINEER Pulse 76 06/07/2024 1:49 PM WEIGHT CONTROL ENGINEER Temperature 36.8 C (98.2 F) 08/11/2023 7:58 AM WEIGHT CONTROL ENGINEER Respiratory Rate 20 08/11/2023 11:54 AM WEIGHT CONTROL ENGINEER Oxygen Saturation 93% 08/11/2023 11:54 AM WEIGHT CONTROL ENGINEER Inhaled Oxygen Concentration - - Weight 93.4 kg (206 lb) 06/07/2024 1:49 PM WEIGHT CONTROL ENGINEER Height 157.5 cm (5' 2 ) 06/07/2024 1:49 PM WEIGHT CONTROL ENGINEER Body Mass Index 37.68 06/07/2024 1:49 PM WEIGHT CONTROL ENGINEER Plan of Treatment Health Maintenance Due Date [...] 10/10/2020, 08/29/2020 Medical Devices Implanted Type Area Wildland Fire Fighter Specialist Device Identifier Shelf Expiration Date Model / Serial / Lot Synthes 04.037.142s Tfn-Advanced Lateral Relief Cut 11mm 170mm Cannulated Femoral - [id number] Implanted:Qty: 1 on 11/19/2020 by Efrain Nina MD at [facility] Left: Femur Synthes I 07/31/2030 04.037.142 S / / [id number] Synthes 04.038.200s Tfn-Advanced 10.35mm 100mm Cannulated Screw Bone Titanium - [id number] Implanted:Qty: 1 on 11/19/2020 by Efrain Nina MD at [facility] Left: Femur Synthes I 04/30/2029 04.038.200 S / / [id number] Synthes 04.005.526s 5mm 4.3mm 36mm Lock Self Tap Blunt Tip 2 Lead Tibial T25 Full - [id number] Implanted:Qty: 1 on 11/19/2020 by Efrain Nina MD at [facility] Left: Femur Synthes I 03/31/2029 04.005.526 S / / [id number] Medtronic Inc Synchromed Ii .78in [place] Filter Mesh Pouch Programmable 8637-20 - [id number] - [id number] Implanted:Qty: 1 on 04/06/2023 by Ben Abbott MD at [facility] Left: Abdomen Medtronic Inc 09/14/2024 8637-20 / [id number] / Explanted Type Area Wildland Fire Fighter Specialist Device Identifier Shelf Expiration Date Model / Serial / Lot Medtronic Inc Synchromed Ii .78in [place] Filter Mesh Pouch Programmable 8637-20 - [id number] - [id number] Explanted:Qty: 1 on 04/06/2023 by Ben Abbott MD at [facility] Left: Abdomen Medtronic Inc 8637-20 / [id number] / Insurance MEDICARE [facility] PLAN MEDICARE IDIN MEDICARE [facility] Advance Directives For more information, please contact: [phone] Documents on File Type Date Recorded Patient Human Resources Team Member Expl anation ADVANCE DIRECTIVE 04/07/2023 4:50 PM POWER OF DOUBLE BACK OPERATOR-MEDICAL ADVANCE DIRECTIVE 04/07/2023 4:50 PM POLST [...] 10:25 PM 11/24/2020 6:40 PM Care Teams Family Day Care Provider Relationship Specialty Start Date End Date Efe Carrera MD [address] [place] [address] PCP - General 09/13/16 Efrain Nina MD [address] [place] [address] Surgeon Orthopedic Surgery 11/20/20 Miscellaneous, Not In File 11/24/20
--- OUTSIDE RECORDS SUMMARY | 2024-09-15 10:36 | XMS_ITS | Encounter Summary ---
Author Organization [facility] Address [address] [place] [address] Phone Care Team Providers Care Financial Analyst Accountant Name Role Phone Efe Carrera MD Primary Care Provider Alfredo Steven MD Unavailable [phone] Reason for Visit * Reason Comments Medication Refill Encounter Details Date Type Department Care Team (Late st Contact Info) Description 09/20/2019 Refill [facility] - G[facility] - [place] [address] [place] [address] Isabela Riley, MAINTENANCE SUPERVISOR, PHOTOENGRAVING PRINTER [address] [place] [address] Medication Refill Social History Tobacco [...] Bridget Arguello CMA - 09/21/2019 8:35 AM PANEL ASSEMBLER Patient calling requesting refill of: Requested Prescriptions Pending Prescriptions Disp Refills ??? metoclopramide (REGLAN) 10 MG Tablet [Pharmacy Med Name: METOCLOPRAMIDE 10 MG TABLET] 120 Tab 2 Sig: TAKE ONE TABLET BY MOUTH FOUR TIMES A DAY Last fill: 07/09/19 Patients last OV with GI: 05/01/19 Next Office Visit with GI: None scheduled L ASSEMBLER documented in this encounter Plan of Treatment Not on file documented as of this encounter Visit Diagnoses Not on filedocumented in this encounter Care Teams Financial Analyst Accountant Relationship Specialty Start Date End Date Efe Carrera MD [address] [place] [address] PCP - General Pediatrics 02/20/19 Alfredo Steven MD [address] [place] [address] Consulting Physician Nephrology 02/21/19 documented as of this encounter
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
--- OUTSIDE RECORDS SUMMARY | 2024-09-15 10:36 | XMS_ITS | Encounter Summary ---
Author Organization [facility] Address [facility] [place] [address] Care Team Providers Care Warm In Name Role Phone Efe Carrera MD Primary Care Provider [phone] Encounter Details Date Type Department Care Team (Late st Contact Info) Description 09/11/[address] [facility] Marketing Planning Manager Pre/Post [address] [place] [address] Sheldon Webster MD Social History Tobacco Use [...] documented as of this encounter Care Teams Warm In Relationship Specialty Start Date End Date Efe Carrera MD [address] [place] [address] PCP - General FAMILY PRACTICE 10/13/17 documented as of this encounter
--- OUTSIDE RECORDS SUMMARY | 2024-09-15 10:36 | XMS_ITS | Clinical Summary ---
Author Organization [facility] Address [address] [place] [address] Phone Care Team Providers Care Solar Photovoltaic Crew Lead Name Role Phone Efe Carrera MD Primary Care Provider [phone] Alfredo Steven MD Unavailable Allergies Active Allergy [...] DETECTED NON DETECTED 02/23/2019 3:31 PM CDT [facility] HCV RNA QT LOG10 <=0.00 Log10 IU/mL 02/23/2019 3:31 PM CDT [facility] Comment: LOG 10 is not applicable. Sample held in Serology for 1 month. Call Laboratory if further testing is desired. This test was performed using TSERING AmpliPrep TSERING Taq Man Real Time PCR. Blood specimen (specimen) Butterfly Puncture / Unknown 02/20/2019 3:51 PM CDT 02/20/2019 5:11 PM CDT us Radha Harkins VACUUM CLEANER REPAIR PERSON, TOE POUNDER IMMUNOLOGY ORDERA BLES Final Result [facility] [address] [place] [address], [place] from Last 3 Months or Most Recently Relevant to Health Maintenance Insurance MEDICARE Member Subscriber Plan / Payer (Ef fective for All Dates) Name:Rajani Cardenas Member ID:[id number] Relation to Subscriber:Self Name:Rajani Cardenas Subscriber ID:[id number] Payer ID:[id number] Group ID:Not on file Type:Not on file Address: [facility] [address] [facility] [employer] [facility] [place] [address] MEDICAID [place] Care Teams Solar Photovoltaic Crew Lead Relationship Specialty Start Date End Date Efe Carrera MD [address] [place] [address] PCP - General Pediatrics 02/20/19 Alfredo Steven MD [address] [place] [address] Consulting Physician Nephrology 02/21/19
--- OUTSIDE RECORDS SUMMARY | 2024-09-15 10:36 | XMS_ITS | Patient Health Summary ---
Author Organization [facility] Address [address] [place] [address] Care Team Providers Care Mercerizer Machine Operator Name Role Phone Unavailable Primary Care Provider Unavailabl e Note from [facility],non-owned Affiliates and Associated Physician Practices is amultiple site organization consisting of ambulatory clinics and hospital sitesin [place], [place] and [place]. This disclosure is being madepursuant [...] and oxygen saturations were monitored continuously. The [id number] was introduced through the mouth, and advanced [...] of appetite. Procedure Code(s): --- Professional --- 85918, Esophagogastroduod enoscopy, flexible, transoral; with endoscopic ultrasound examination, including the esophagus, stomach, and either the duodenum or a surgically altered stomach where the jejunum is examined distal to the anastomosis Diagnosis Code(s): --- Professional --- K86.2, Cyst of pancreas K83.8, Other specified diseases of biliary tract R93.3, Abnormal findings on diagnostic imaging of other parts of digestive tract CPT copyright 2016 [employer]. All rights reserved. The codes documented in this report are preliminary and upon rn new grad review may be revised to meet current compliance requirements. Gildardo Forbes MD 01/01/2020 11:33:18 AM This report has been signed electronically. Note Initiated On: 01/01/2020 10:02 AM Number of Addenda: 0 [facility] [address] [facility] [place] [address] [facility] 01/01/2020 10:0 2 AM CDT Gildardo Forbes MD GI PROCEDURE ORDERAB LES [facility] * (ABNORMAL) BASIC METABOLIC PANEL (CALCIUM TOTAL) (08/28/2019 2:22 PM PUPPET MASTER) BUN 32(H) 7 - 26 mg/dL 08/28/2019 3:[address] [facility] Creatinine 2.2(H) 0.6 - 1.2 mg/dL 08/28/2019 3:[address] [facility] Sodium 146(H) 136 - 145 mmol/L 08/28/2019 3:[address] [facility] Potassium 4.0 3.5 - 4.5 mmol/L 08/28/2019 3:[address] [facility] Chloride 112(H) 98 - 107 mmol/L 08/28/2019 3:[address] [facility] CO2 21(L) 22 - 29 mmol/L 08/28/2019 3:[address] [facility] Glucose 50(L) 70 - 115 mg/dL 08/28/2019 3:[address] [facility] Calcium 9.8 8.4 - 10.2 mg/dL 08/28/2019 3:[address] [facility] Anion Gap 17 8 - 18 08/28/2019 3:[address] [facility] BUN/Creatinine Ratio 15 7 - 23 08/28/2019 3:08 PM [facility] Osmolality Calculated 306(H) 270 - 300 mOsm/kg 08/28/2019 3:08 PM PUPPET MASTER [facility] eGFR 21(L) >60 mL/min/1.7 3 m2 08/28/2019 3:08 PM PUPPET MASTER [facility] Blood BLOOD SPECIMEN / Unknown Lab Venipuncture / Unknown 08/28/2019 2:22 PM PUPPET MASTER 08/28/2019 2:45 PM PUPPET MASTER Renato Gilmore MD LAB - CHEMISTRY ORD ERABLES Performing Organization Address [facility]/ZIP Co de Phone Number [address] [phone] * EKG 12-LEAD (08/28/2019 1:26 PM PUPPET MASTER) Pathologist [facility] Ventricular Rate 95 BPM [facility] Atrial Rate 95 BPM [facility] P-R Interval 208 ms [facility] QRS Duration ms 148 ms [facility] Q-T Interval ms 404 ms [facility] QTC Calculation (Bezet) 507 ms [facility] Calculated P [place] 77 degrees [facility] Calculated R [place]anger -19 degrees [facility] Calculated T [place] 98 degrees [facility] Interpretation EKG SINUS RHYTHM WITH OCCASIONAL PREMATURE VENTRICULAR COMPLEXES LEFT BUNDLE BRANCH BLOCK ABNORMAL ECG NO PREVIOUS ECGS AVAILABLE Confirmed by Juan Culver ([id number]), purchasing expeditor AYDIN HARRIS ([id number]) on 09/26/2019 1:44:56 PM [facility] 08/28/2019 1:26 PM PUPPET MASTER 09/26/2019 1:44 PM PUPPET MASTER Renato Gilmore MD ECG ORDERABLES Performing Organization Address [facility]/ZIP Co de Phone Number [facility]
--- OUTSIDE RECORDS SUMMARY | 2024-09-15 10:36 | XMS_ITS | Encounter Summary ---
Author Organization [facility] Address [address] [place] [address] Care Team Providers Care Foundation Relations Director Name Role Phone Efe Carrera MD Primary Care Provider [phone] Encounter Details Date Type Department Care Team (Late st Contact Info) Description 10/15/2017 Abstract [facility] [address] [place] [address] , Generic ConversionMD Social History Tobacco Use [...] documented as of this encounter Care Teams Foundation Relations Director Relationship Specialty Start Date End Date Efe Carrera MD [address] [place] [address] PCP - General FAMILY PRACTICE 10/13/17 documented as of this encounter
--- OUTSIDE RECORDS SUMMARY | 2024-09-15 10:36 | XMS_ITS | Encounter Summary ---
Author Organization [facility] Address [facility] [place] [address] Care Team Providers Care Global Recruiter Name Role Phone Efe Carrera MD Primary Care Provider [phone] Encounter Details Date Type Department Care Team (Late st Contact Info) Description 11/26/2019 Abstract [facility] [address] [place], [place] [address] [place] [address] [place] [phone] Social History Tobacco Use Types Packs/Day [...] documented as of this encounter Care Teams Global Recruiter Relationship Specialty Start Date End Date Efe Carrera MD [address] [id number] PCP - General FAMILY PRACTICE 10/13/17 documented as of this encounter
[2024-09-15 11:04] LABS: INR 2.1; Prothrombin Time 21.7 Seconds (9.50-12.1)
== END 2024-09-15 10:34 | disposition home or self-care (01) ==
PROVIDERS: PCP Family Medicine; Visit Provider Family Medicine
DX: Z79.01 Long term (current) use of anticoagulants (principal)
CPT/HCPCS: 36415; 85610

== ENCOUNTER 2024-09-18 09:59 | Outpatient (CLI) | payer MEDICARE, SELFPAY ==
--- OUTSIDE RECORDS SUMMARY | 2024-09-18 10:11 | XMS_ITS | Encounter Summary ---
Author Organization [facility] Address [facility] [place] [address] Care Team Providers Care Insolvency Practitioner Name Role Phone Efe Carrera MD Primary Care Provider [phone] Encounter Details Date Type Department Care Team (Late st Contact Info) Description 11/26/2019 Abstract [facility] [address] [place], [place] [address] [place] [address] [place] [phone] Social History Tobacco Use Types Packs/Day [...] documented as of this encounter Care Teams Insolvency Practitioner Relationship Specialty Start Date End Date Efe Carrera MD [address] [address] PCP - General FAMILY PRACTICE 10/13/17 documented as of this encounter
--- OUTSIDE RECORDS SUMMARY | 2024-09-18 10:11 | XMS_ITS | Referral Summary ---
Author Organization [facility] Address [address] [place] [address] Care Team Providers Care Certified Ethical Hacker Name Role Phone Unavailable Primary Care Provider Unavailabl e Source Comments [facility],non-owned Affiliates and Associated Physician Practices is amultiple site organization consisting of ambulatory clinics and hospital sitesin [place], [place], [place] and [place]. This disclosure is being madepursuant to the Care Everywhere program and may not contain all information available regarding this patient. Last updated 18.[facility] Allergies Active Allergy Reactions Criticality Noted Date [...] by mouth every morning Active albuterol HFA (PROVENTIL;VENTOLIN;OR OAIR) 108 (90 Base) MCG/ACT inhaler Inhale [...]
--- OUTSIDE RECORDS SUMMARY | 2024-09-18 10:11 | XMS_ITS | Clinical Summary ---
Author Organization [facility] Address [address] [place] [address] Care Team Providers Care Cyber Reverse Engineer Name Role Phone Unavailable Primary Care Provider Unavailabl e Source Comments [facility],non-owned Affiliates and Associated Physician Practices is amultiple site organization consisting of ambulatory clinics and hospital sitesin [place], [place], [place] and [place]. This disclosure is being madepursuant to the Care Everywhere program and may not contain all information available regarding this patient. Last updated 18.[facility] Allergies Active Allergy Reactions Criticality Noted Date [...] by mouth every morning Active albuterol HFA (PROVENTIL;VENTOLIN;FL OAIR) 108 (90 Base) MCG/ACT inhaler Inhale [...]
--- OUTSIDE RECORDS SUMMARY | 2024-09-18 10:11 | XMS_ITS | Encounter Summary ---
Author Organization [facility] Address [address] [place] [address] Phone Care Team Providers Care Oil And Gas Lease Pumper Name Role Phone Efe Carrera MD Primary Care Provider [phone] Alfredo Steven MD Unavailable [phone] Reason for Visit * Reason Comments Medication Refill Encounter Details Date Type Department Care Team (Late st Contact Info) Description 09/20/2019 Refill [facility] - G[facility]enterology - [place] [address] [place] [address] Isabela Riley, TELLERS SUPERVISOR, HEALTH ASSOCIATE [address] [place] [address] Medication Refill Social History Tobacco [...] Bridget Arguello CMA - 09/21/2019 8:35 AM ACCOUNT ADVISOR Patient calling requesting refill of: Requested Prescriptions Pending Prescriptions Disp Refills ??? metoclopramide (REGLAN) 10 MG Tablet [Pharmacy Med Name: METOCLOPRAMIDE 10 MG TABLET] 120 Tab 2 Sig: TAKE ONE TABLET BY MOUTH FOUR TIMES A DAY Last fill: 07/09/19 Patients last OV with GI: 05/01/19 Next Office Visit with GI: None scheduled UNT ADVISOR documented in this encounter Plan of Treatment Not on file documented as of this encounter Visit Diagnoses Not on filedocumented in this encounter Care Teams Oil And Gas Lease Pumper Relationship Specialty Start Date End Date Efe Carrera MD [address] [place] [address] PCP - General Pediatrics 02/20/19 Alfredo Steven MD [address] [place] [address] Consulting Physician Nephrology 02/21/19 documented as of this encounter
--- OUTSIDE RECORDS SUMMARY | 2024-09-18 10:11 | XMS_ITS | Encounter Summary ---
Author Organization [facility] Address [address] [place] [address] Care Team Providers Care Lithographic Printing Machinist Name Role Phone Efe Carrera MD Primary Care Provider [phone] Encounter Details Date Type Department Care Team (Late st Contact Info) Description 10/15/2017 Abstract [facility] [address] [place] [address] , Generic ConversionMD Social History Tobacco Use [...] documented as of this encounter Care Teams Lithographic Printing Machinist Relationship Specialty Start Date End Date Efe Carrera MD [address] [place] [address] PCP - General FAMILY PRACTICE 10/13/17 documented as of this encounter
--- OUTSIDE RECORDS SUMMARY | 2024-09-18 10:11 | XMS_ITS | Encounter Summary ---
Author Organization [facility] Address [facility] [place] [address] Care Team Providers Care Tassel Snipper Name Role Phone Efe Carrera MD Primary Care Provider [phone] Encounter Details Date Type Department Care Team (Late st Contact Info) Description 09/11/2019 Prep for Procedure Romain's Ip Network Architect Pre/Post [address] [place] [address] Sheldon Webster MD Social History Tobacco Use [...] documented as of this encounter Care Teams Tassel Snipper Relationship Specialty Start Date End Date Efe Carrera MD [address] [place] [address] PCP - General FAMILY PRACTICE 10/13/17 documented as of this encounter
--- OUTSIDE RECORDS SUMMARY | 2024-09-18 10:11 | XMS_ITS | Clinical Summary ---
Author Organization [facility] Address [address] [place] [address] Care Team Providers Care Project Administrative Assistant Name Role Phone Efe Carrera MD Primary Care Provide r Efrain Nina MD Unavailable [phone] Miscellaneous, Not In File Unavailable Unava ilable [...] mg of elemental iron total) by mouth rn allergy before breakfast Active methyl salicylate-menthol 30-10 % [...] major depressive d isorder, in full remission ([facility]) 09/29/2021 Overview (03/03/2023): Last Assessment [...] with PCP Chronic deep vein thrombosis (DVT) ([facility]) 08/2021 Overview (03/03/2023): Last Assessment [...] now. Will monitor. Vitamin deficiency, unspecified 11/24/2020 retirement (current) use of anticoagulants 2020 Hypertensive chronic [...] now. Will continue to monitor closely. 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 1 to 4 times per year [...] place to sleep or slept in a senior living (including now)? No 08/09/2023 Personal Safety Answer Date Recorded Have you ever been in or are you currently in a harmful physical or emotional relationship or is someone making you feel afraid or unsafe? Denies 08/08/2023 Comments No Sex and Gender Information Value Date Recorded Sex Assigned at Not on file Legal Sex Female 1:00 AM TECHNICAL PRODUCER Gender Identity Not on file Sexual Orientation Not on file Occupation Industry Job Start Date Job End Date Retired Not on file Not on file Not on file Obstetrics History Last Filed Vital Signs Vital Sign Reading Time Taken Comments Blood Pressure 107/69 06/07/2024 1:49 PM TECHNICAL PRODUCER Pulse 76 06/07/2024 1:49 PM TECHNICAL PRODUCER Temperature 36.8 C (98.2 F) 08/11/2023 7:58 AM TECHNICAL PRODUCER Respiratory Rate 20 08/11/2023 11:54 AM TECHNICAL PRODUCER Oxygen Saturation 93% 08/11/2023 11:54 AM TECHNICAL PRODUCER Inhaled Oxygen Concentration - - Weight 93.4 kg (206 lb) 06/07/2024 1:49 PM TECHNICAL PRODUCER Height 157.5 cm (5' 2 ) 06/07/2024 1:49 PM TECHNICAL PRODUCER Body Mass Index 37.68 06/07/2024 1:49 PM TECHNICAL PRODUCER Plan of Treatment Health Maintenance Due Date [...] 10/10/2020, 08/29/2020 Medical Devices Implanted Type Area Mattress Stuffer Device Identifier Shelf Expiration Date Model / Serial / Lot Synthes 04.037.142s Tfn-Advanced Lateral Relief Cut 11mm 170mm Cannulated Femoral - [id number] Implanted:Qty: 1 on 11/19/2020 by Efrain Nina MD at [facility] Left: Femur Synthes I 07/31/2030 04.037.142 S / / [id number] Synthes 04.038.200s Tfn-Advanced 10.35mm 100mm Cannulated Screw Bone Titanium - [id number] Implanted:Qty: 1 on 11/19/2020 by Efrain Nina MD at [facility] Left: Femur Synthes I 04/30/2029 04.038.200 S / / [id number] Synthes 04.005.526s 5mm 4.3mm 36mm Lock Self Tap Blunt Tip 2 Lead Tibial T25 Full - [id number] Implanted:Qty: 1 on 11/19/2020 by Efrain Nina MD at [facility] Left: Femur Synthes I 03/31/2029 04.005.526 S / / [id number] Medtronic Inc Synchromed Ii .78in [place] Filter Mesh Pouch Programmable 8637-20 - [id number] - [id number] Implanted:Qty: 1 on 04/06/2023 by Ben Abbott MD at [facility] Left: Abdomen Medtronic Inc 09/14/2024 8637-20 / [id number] / Explanted Type Area Mattress Stuffer Device Identifier Shelf Expiration Date Model / Serial / Lot Medtronic Inc Synchromed Ii .78in [place] Filter Mesh Pouch Programmable 8637-20 - [id number] - [id number] Explanted:Qty: 1 on 04/06/2023 by Ben Abbott MD at [facility] Left: Abdomen Medtronic Inc 8637-20 / [id number] / Insurance MEDICARE IDPA [facility] MEDICARE IDMO MEDICARE [facility] Advance Directives For more information, please contact: [phone] Documents on File Type Date Recorded Patient Clicking Machine Operator Expl anation ADVANCE DIRECTIVE 04/07/2023 4:50 PM POWER OF FACE HARDENER-MEDICAL ADVANCE DIRECTIVE 04/07/2023 4:50 PM POLST * [...] 10:25 PM 11/24/2020 6:40 PM Care Teams Project Administrative Assistant Relationship Specialty Start Date End Date Efe Carrera MD [address] [place] [address] PCP - General 09/13/16 Efrain Nina MD [address] [place] [address] Surgeon Orthopedic Surgery 11/20/20 Miscellaneous, Not In File 11/24/20
--- OUTSIDE RECORDS SUMMARY | 2024-09-18 10:11 | XMS_ITS ---
Author Organization [facility] Address [address] [place] [address] Care Team Providers Care Pocketed Spring Machine Operator Name Role Phone Efe Carrera MD Primary Care Provide r Efrain Nina MD Unavailable [phone] Miscellaneous, Not In File Unavailable Unava ilable [...] in full remission ([facility]) 09/29/2021 Overview (03/03/2023): Last Assessment & [...] procedure. Plan to resume medications postoperatively. Current Treatment and Therapy Plans No current plan information found. Past Treatment and Therapy Plans No past plan information found. Lifetime Dose Tracking * Chemical Lifetime Dose [...]
--- OUTSIDE RECORDS SUMMARY | 2024-09-18 10:11 | XMS_ITS | Referral Summary ---
Author Organization [facility] Address [address] [place] [address] Care Team Providers Care Wood Heel Flap Rubber Name Role Phone Efe Carrera MD Primary Care Provide r Efrain Nina MD Unavailable [phone] Miscellaneous, Not In File Unavailable Unava ilable [...] mg of elemental iron total) by mouth cardiovascular tech before breakfast Active methyl salicylate-menthol 30-10 % [...] major depressive d isorder, in full remission ([facility]) 09/29/2021 [...] with PCP Chronic deep vein thrombosis (DVT) ([facility]) 08/2021 [...] now. Will monitor. Vitamin deficiency, unspecified 11/24/2020 half-way (current) use of anticoagulants 2020 Hypertensive chronic [...] drink = 0.6 oz pur e alcohol) [facility] Utilities Answer Date Recorded In the past [...] often do you attend chur ch or confucianism services? 1 to 4 times per year [...] place to sleep or slept in a [place] facility (including now)? No 08/09/2023 Personal Safety Answer Date Recorded Have you ever been in or are you currently in a harmful physical or emotional relationship or is someone making you feel afraid or unsafe? Denies 08/08/2023 Comments No Sex and Gender Information Value Date Recorded Sex Assigned at Not on file Legal Sex Female 1:00 AM FRONT OFFICE MANAGER Gender Identity Not on file Sexual Orientation Not on file Occupation Industry Job Start Date Job End Date Retired Not on file Not on file Not on file Last Filed Vital Signs Vital Sign Reading Time Taken Comments Blood Pressure 107/69 06/07/2024 1:49 PM FRONT OFFICE MANAGER Pulse 76 06/07/2024 1:49 PM FRONT OFFICE MANAGER Temperature 36.8 C (98.2 F) 08/11/2023 7:58 AM FRONT OFFICE MANAGER Respiratory Rate 20 08/11/2023 11:54 AM FRONT OFFICE MANAGER Oxygen Saturation 93% 08/11/2023 11:54 AM FRONT OFFICE MANAGER Inhaled Oxygen Concentration - - Weight 93.4 kg (206 lb) 06/07/2024 1:49 PM FRONT OFFICE MANAGER Height 157.5 cm (5' 2 ) 06/07/2024 1:49 PM FRONT OFFICE MANAGER Body Mass Index 37.68 06/07/2024 1:49 PM FRONT OFFICE MANAGER Plan of Treatment Not on file Medical Devices Implanted Type Area Printed Circuit Designer Device Identifier Shelf Expiration Date Model / Serial / Lot Synthes s Tfn-Advanced Lateral Relief Cut 11mm 170mm Cannulated Femoral - [id number] Implanted:Qty: 1 on 11/19/2020 by Efrain Nina MD at [facility] Left: Femur Synthes I 07/31/2030142 S / / [id number] Synthes 04.038.200s Tfn-Advanced 10.35mm 100mm Cannulated Screw Bone Titanium - [id number] Implanted:Qty: 1 on 11/19/2020 by Efrain Nina MD at [facility] Left: Femur Synthes I 04/30/2029 04.038.200 S / / [id number] Synthes 04.005.526s 5mm 4.3mm 36mm Lock Self Tap Blunt Tip 2 Lead Tibial T25 Full - [id number] Implanted:Qty: 1 on 11/19/2020 by Efrain Nina MD at [facility] Left: Femur Synthes I 03/31/2029 04.005.526 S / / [id number] Medtronic Inc Synchromed Ii .78in [place] Filter Mesh Pouch Programmable 8637-20 - [id number] - [id number] Implanted:Qty: 1 on 04/06/2023 by Ben Abbott MD at [facility] Left: Abdomen Medtronic Inc 09/14/2024 8637-20 / [id number] / Explanted Type Area Printed Circuit Designer Device Identifier Shelf Expiration Date Model / Serial / Lot Medtronic Inc Synchromed Ii .78in [place] Filter Mesh Pouch Programmable 8637-20 - [id number] - [id number] Explanted:Qty: 1 on 04/06/2023 by Ben Abbott MD at [facility] Left: Abdomen Medtronic Inc 8637-20 / [id number] / Insurance MEDICARE IDAL [facility] MEDICARE IDPA MEDICARE IDPA Advance Directives For more information, please contact: [phone] Documents on File Type Date Recorded Patient Tool Clerk Expl anation ADVANCE DIRECTIVE 04/07/2023 4:50 PM POWER OF DYE BECK REEL OPERATOR-MEDICAL ADVANCE DIRECTIVE 04/07/2023 4:50 PM POLST [...] 10:25 PM 11/24/2020 6:40 PM Care Teams Wood Heel Flap Rubber Relationship Specialty Start Date End Date Efe Carrera MD [address] [place] [address] PCP - General 09/13/16 Efrain Nina MD [address] [place] [address] Surgeon Orthopedic Surgery 11/20/20 Miscellaneous, Not In File 11/24/20
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
--- OUTSIDE RECORDS SUMMARY | 2024-09-18 10:11 | XMS_ITS | Patient Health Summary ---
Author Organization [facility] Address [address] [place] [address] Care Team Providers Care Venetian Blind Worker Name Role Phone Unavailable Primary Care Provider Unavailabl e Note from [facility],non-owned Affiliates and Associated Physician Practices is amultiple site organization consisting of ambulatory clinics and hospital sitesin [place], [place], [place] and [place]. This disclosure is being madepursuant to the Care Everywhere program and may not contain all information available regarding this patient. Last updated 18.[facility] Allergies * Sulfa Drugs(Nausea and/or Vomiting,Vomiting) -Medium [...] and oxygen saturations were monitored continuously. The [id number] was introduced through the mouth, and advanced [...] of appetite. Procedure Code(s): --- Professional --- 26387, Esophagogastroduod enoscopy, flexible, transoral; with endoscopic ultrasound examination, including the esophagus, stomach, and either the duodenum or a surgically altered stomach where the jejunum is examined distal to the anastomosis Diagnosis Code(s): --- Professional --- K86.2, Cyst of pancreas K83.8, Other specified diseases of biliary tract R93.3, Abnormal findings on diagnostic imaging of other parts of digestive tract CPT copyright 2016 [employer]. All rights reserved. The codes documented in this report are preliminary and upon baking factory worker review may be revised to meet current compliance requirements. Gildardo Forbes MD 01/01/2020 11:33:18 AM This report has been signed electronically. Note Initiated On: 01/01/2020 10:02 AM Number of Addenda: 0 [facility] [address] [place] [address] [facility] PROVATION 01/01/2020 10:0 2 AM CDT Gildardo Forbes MD GI PROCEDURE ORDERAB LES [facility] PROVATION * (ABNORMAL) BASIC METABOLIC PANEL (CALCIUM TOTAL) (08/28/2019 2:22 PM [facility]) BUN 32(H) 7 - 26 mg/dL 08/28/2019 3:08 PM [facility] Creatinine 2.2(H) 0.6 - 1.2 mg/dL 08/28/2019 3:08 PM [facility] Sodium 146(H) 136 - 145 mmol/L 08/28/2019 3:08 PM [facility] Potassium 4.0 3.5 - 4.5 mmol/L 08/28/2019 3:08 PM [facility] Chloride 112(H) 98 - 107 mmol/L 08/28/2019 3:08 PM [facility] CO2 21(L) 22 - 29 mmol/L 08/28/2019 3:08 PM [facility] Glucose 50(L) 70 - 115 mg/dL 08/28/2019 3:08 PM [facility] Calcium 9.8 8.4 - 10.2 mg/dL 08/28/2019 3:08 PM [facility] Anion Gap 17 8 - 18 08/28/2019 3:08 PM [facility] BUN/Creatinine Ratio 15 7 - 23 08/28/2019 3:08 PM [facility] Osmolality Calculated 306(H) 270 - 300 mOsm/kg 08/28/2019 3:08 PM [facility] eGFR 21(L) >60 mL/min/1.7 3 m2 08/28/2019 3:08 PM [facility] Blood BLOOD SPECIMEN / Unknown Lab Venipuncture / Unknown 08/28/2019 2:22 PM [facility] 08/28/2019 2:45 PM [facility] Renato Gilmore MD LAB - CHEMISTRY ORD ERABLES Performing Organization Address [facility]/ZIP Co de Phone Number [address] [phone] * EKG 12-LEAD (08/28/2019 1:26 PM [facility]) Pathologist [facility] Ventricular Rate 95 BPM [facility] MUSE Atrial Rate 95 BPM [facility] MUSE P-R Interval 208 ms [facility] QRS Duration ms 148 ms [facility] MUSE Q-T Interval ms 404 ms [facility] QTC Calculation (Bezet) 507 ms [facility] M[facility] Calculated P [place] 77 degrees [facility] M[facility] Calculated R [place] -19 degrees [facility] M[facility] Calculated T [place] 98 degrees [facility] MUSE Interpretation EKG SINUS RHYTHM WITH OCCASIONAL PREMATURE VENTRICULAR COMPLEXES LEFT BUNDLE BRANCH BLOCK ABNORMAL ECG NO PREVIOUS ECGS AVAILABLE Confirmed by Juan Culver ([id number]), sports editor AYDIN HARRIS ([id number]) on 09/26/2019 1:44:56 PM [facility] MUSE 08/28/2019 1:26 PM [facility] 09/26/2019 1:44 PM [facility] Renato Gilmore MD ECG ORDERABLES Performing Organization Address [facility]/ZIP Co de Phone Number [facility]
--- OUTSIDE RECORDS SUMMARY | 2024-09-18 10:11 | XMS_ITS | Clinical Summary ---
Author Organization [facility] Address [address] [place] [address] Phone Care Team Providers Care In Process Inspector Name Role Phone Efe Carrera MD Primary [...] DETECTED NON DETECTED 02/23/2019 3:31 PM CDT [facility] HCV RNA QT LOG10 <=0.00 Log10 IU/mL 02/23/2019 3:31 PM CDT [facility] Comment: LOG 10 is not applicable. Sample held in Serology for 1 month. Call Laboratory if further testing is desired. This test was performed using TSERING AmpliPrep TSERING Taq Man Real Time PCR. Blood specimen (specimen) Butterfly Puncture / Unknown 02/20/2019 3:51 PM CDT 02/20/2019 5:11 PM CDT us Radha Harkins SUPERVISOR WALL MIRROR DEPARTMENT, CUSTOMER EXPERIENCE ASSOCIATE IMMUNOLOGY ORDERA BLES Final Result [facility] [address] [place] [address], [place] from Last 3 Months or Most Recently Relevant to Health Maintenance Insurance MEDICARE [place]ICAID [place] Care Teams In Process Inspector Relationship Specialty Start Date End Date Efe Carrera MD [address] [place] [address] PCP - General Pediatrics 02/20/19 Alfredo Steven MD [address] [place] [address] Consulting Physician Nephrology 02/21/19
[2024-09-18 10:33] LABS: INR 2.6; Prothrombin Time 26.1 Seconds (9.50-12.1)
== END 2024-09-18 10:00 | disposition home or self-care (01) ==
LOC: CHSLAB 10:00
PROVIDERS: PCP Family Medicine; Visit Provider Family Medicine
DX: Z86.718 Personal history of other venous thrombosis and embolism (principal); Z86.711 Personal history of pulmonary embolism
CPT/HCPCS: 36415; 85610

== ENCOUNTER 2024-09-25 10:01 | Outpatient (CLI) | payer MEDICARE, SELFPAY ==
[2024-09-25 10:40] LABS: INR 4.2; Prothrombin Time 40.8 Seconds (9.50-12.1)
--- OUTSIDE RECORDS SUMMARY | 2024-09-25 11:30 | XMS_ITS | Referral Summary ---
Author Organization [facility] Address [address] [place] [address] Care Team Providers Care Window Glass Cutter Off Name Role Phone Efe Carrera MD Primary Care Provide r Efrain Nina MD Unavailable [phone] Miscellaneous, Not In File Unavailable Unava ilable Encounters Date Type Department Care Team Description 09/24/2024 Telephone [facility] Orthopedics and Sports Medicine [address] [place] [address] Rufina Bolden NP from Last 3 Months Allergies Active Allergy [...] mg of elemental iron total) by mouth agency sales development associate before breakfast Active methyl salicylate-menthol 30-10 % [...] major depressive d isorder, in full remission ([facility]) 09/29/2021 Overview (03/03/2023): Last Assessment [...] including calling Suicide Hotline ( ) or 862. Follow up in three months with Psychologist/Counselor/SupportGroup/Psychiatrist and PCP H/O left nephrectomy 09/29/2021 Overview (03/03/2023): Last Assessment & Plan: Condition: stable Follow up in: three months with PCP Chronic deep vein thrombosis (DVT) ([facility]) 08/2021 Overview (03/03/2023): Last Assessment [...] now. Will monitor. Vitamin deficiency, unspecified 11/24/2020 intermission coordinator (current) use of anticoagulants 2020 Hypertensive chronic [...] drink = 0.6 oz pur e alcohol) [facility] Utilities Answer Date Recorded In the past 12 months has th e [employer], gas, oil, or water [employer] threatened to shut off services in your [...] any clubs o r organizations such as anabaptism groups, unions, fraternal or athletic groups, or [...] on file Legal Sex Female 1:00 AM GROUP ACTIVITIES AIDE Gender Identity Not on file Sexual Orientation Not on file Occupation Industry Job Start Date Job End Date Retired Not on file Not on file Not on file Last Filed Vital Signs Vital Sign Reading Time Taken Comments Blood Pressure 107/69 06/07/2024 1:49 PM GROUP ACTIVITIES AIDE Pulse 76 06/07/2024 1:49 PM GROUP ACTIVITIES AIDE Temperature 36.8 C (98.2 F) 08/11/2023 7:58 AM GROUP ACTIVITIES AIDE Respiratory Rate 20 08/11/2023 11:54 AM GROUP ACTIVITIES AIDE Oxygen Saturation 93% 08/11/2023 11:54 AM GROUP ACTIVITIES AIDE Inhaled Oxygen Concentration - - Weight 93.4 kg (206 lb) 06/07/2024 1:49 PM GROUP ACTIVITIES AIDE Height 157.5 cm (5' 2 ) 06/07/2024 1:49 PM GROUP ACTIVITIES AIDE Body Mass Index 37.68 06/07/2024 1:49 PM GROUP ACTIVITIES AIDE Plan of Treatment Not on file Medical Devices Implanted Type Area Trust Advisor Device Identifier Shelf Expiration Date Model / Serial / Lot Synthes 04.037.142s Tfn-Advanced Lateral Relief Cut 11mm 170mm Cannulated Femoral - [id number] Implanted:Qty: 1 on 11/19/2020 by Efrain Nina MD at [facility] Left: Femur Synthes I 07/31/2030 04.037.142 S / / [id number] Synthes 04.038.200s Tfn-Advanced 10.35mm 100mm Cannulated Screw Bone Titanium - [id number] Implanted:Qty: 1 on 11/19/2020 by Efrain Nina MD at [facility] Left: Femur Synthes I 04/30/2029 04.038.200 S / / [id number] Synthes 04.005.526s 5mm 4.3mm 36mm Lock Self Tap Blunt Tip 2 Lead Tibial T25 Full - [id number] Implanted:Qty: 1 on 11/19/2020 by Efrain Nina MD at [facility] Left: Femur Synthes I 03/31/2029 04.005.526 S / / [id number] Medtronic Inc Synchromed Ii .78in Smoot Filter Mesh Pouch Programmable 8637-20 - [id number] - [id number] Implanted:Qty: 1 on 04/06/2023 by Ben Abbott MD at [facility] Left: Abdomen Medtronic Inc 09/14/2024 8637-20 / [id number] / Explanted Type Area Trust Advisor Device Identifier Shelf Expiration Date Model / Serial / Lot Medtronic Inc Synchromed Ii .78in Smoot Filter Mesh Pouch Programmable 8637-20 - [id number] - [id number] Explanted:Qty: 1 on 04/06/2023 by Ben Abbott MD at [facility] Left: Abdomen Medtronic Inc 8637-20 / [id number] / Insurance MEDICARE IDPA [facility] MEDICARE ID[place] MEDICARE [id number] Advance Directives For more information, please contact: [phone] Documents on File Type Date Recorded Patient Professor Of Counseling Expl anation ADVANCE DIRECTIVE 04/07/2023 4:50 PM POWER OF RESEARCH ARCHAEOLOGIST-MEDICAL ADVANCE DIRECTIVE 04/07/2023 4:50 PM POLST * [...] 10:25 PM 11/24/2020 6:40 PM Care Teams Window Glass Cutter Off Relationship Specialty Start Date End Date Efe Carrera MD [address] [place] [address] PCP - General 09/13/16 Efrain Nina MD [address] [place] [address] Surgeon Orthopedic Surgery 11/20/20 Miscellaneous, Not In File 11/24/20
--- OUTSIDE RECORDS SUMMARY | 2024-09-25 11:30 | XMS_ITS ---
Author Organization [facility] Address [address] [place] [address] Care Team Providers Care Court Crier Name Role Phone Efe Carrera MD Primary Care Provide r Efrain Nina MD Unavailable [phone] Miscellaneous, Not In File Unavailable Unava ilable [...] d isorder, in full remission ([facility]) 09/29/2021 Overview (03/03/2023): Last Assessment [...]
--- OUTSIDE RECORDS SUMMARY | 2024-09-25 11:30 | XMS_ITS | Referral Summary ---
Author Organization [facility] [employer] Address [address] [place] [address] Care Team Providers Care Preparole Counseling Aide Name Role Phone Unavailable Primary Care Provider Unavailabl e Source Comments [facility] [employer]non-owned Affiliates and Associated Physician Practices is amultiple site organization consisting of ambulatory clinics and hospital sitesin [place], [place], [place] and [place]. This disclosure is being madepursuant to the Care Everywhere program and may not contain all information available regarding this patient. Last updated 18.[facility] [employer] Allergies Active Allergy Reactions Criticality Noted Date [...] by mouth every morning Active albuterol HFA (PROVENTIL;VENTOLIN;CT OAIR) 108 (90 Base) MCG/ACT inhaler Inhale [...]
--- OUTSIDE RECORDS SUMMARY | 2024-09-25 11:30 | XMS_ITS | Patient Health Summary ---
Author Organization [facility] Address [address] [place] [address] Care Team Providers Care Flatbed Company Driver Name Role Phone Unavailable Primary Care Provider Unavailabl e Note from [facility],non-owned Affiliates and Associated Physician Practices is amultiple site organization consisting of ambulatory clinics and hospital sitesin [place], [place], [place] and [place]. This disclosure is being madepursuant to the Care Everywhere program and may not contain all information available regarding this patient. Last updated 18.[facility] Allergies * Sulfa Drugs(Nausea and/or [...] and oxygen saturations were monitored continuously. The [id number] was introduced through the mouth, and advanced [...] of appetite. Procedure Code(s): --- Professional --- 36674, Esophagogastroduod enoscopy, flexible, transoral; with endoscopic ultrasound examination, including the esophagus, stomach, and either the duodenum or a surgically altered stomach where the jejunum is examined distal to the anastomosis Diagnosis Code(s): --- Professional --- K86.2, Cyst of pancreas K83.8, Other specified diseases of biliary tract R93.3, Abnormal findings on diagnostic imaging of other parts of digestive tract CPT copyright 2016 [employer]. All rights reserved. The codes documented in this report are preliminary and upon hcc coders review may be revised to meet current compliance requirements. Gildardo Forbes MD 01/01/2020 11:33:18 AM This report has been signed electronically. Note Initiated On: 01/01/2020 10:02 AM Number of Addenda: 0 [facility] [address] [place] [address] [facility] 01/01/2020 10:0 2 AM CDT Gildardo Forbes MD GI PROCEDURE ORDERAB LES [facility] * (ABNORMAL) BASIC METABOLIC PANEL (CALCIUM TOTAL) (08/28/2019 2:22 PM DATA ANALYST REPORT WRITER) BUN 32(H) 7 - 26 mg/dL 08/28/2019 3:08 PM [facility] Creatinine 2.2(H) 0.6 - 1.2 mg/dL 08/28/2019 3:08 PM [facility] Sodium 146(H) 136 - 145 mmol/L 08/28/2019 3:08 PM [facility] Potassium 4.0 3.5 - 4.5 mmol/L 08/28/2019 3:08 PM [facility] Chloride 112(H) 98 - 107 mmol/L 08/28/2019 3:08 PM [facility] CO2 21(L) 22 - 29 mmol/L 08/28/2019 3:08 PM [facility] Glucose 50(L) 70 - 115 mg/dL 08/28/2019 3:08 PM [facility] Calcium 9.8 8.4 - 10.2 mg/dL 08/28/2019 3:08 PM [facility] Anion Gap 17 8 - 18 08/28/2019 3:08 PM [facility] BUN/Creatinine Ratio 15 7 - 23 08/28/2019 3:08 PM [facility] Osmolality Calculated 306(H) 270 - 300 mOsm/kg 08/28/2019 3:08 PM DATA ANALYST REPORT WRITER [facility] eGFR 21(L) >60 mL/min/1.7 3 m2 08/28/2019 3:08 PM DATA ANALYST REPORT WRITER [facility] Blood BLOOD SPECIMEN / Unknown Lab Venipuncture / Unknown 08/28/2019 2:22 PM DATA ANALYST REPORT WRITER 08/28/2019 2:45 PM DATA ANALYST REPORT WRITER Renato Gilmore MD LAB - CHEMISTRY ORD ERABLES Performing Organization Address [facility]/ZIP Co de Phone Number [address] [phone] * EKG 12-LEAD (08/28/2019 1:26 PM DATA ANALYST REPORT WRITER) Pathologist [facility] Ventricular Rate 95 BPM [facility] Atrial Rate 95 BPM [facility] P-R Interval 208 ms [facility] QRS Duration ms 148 ms [facility] Q-T Interval ms 404 ms [facility] QTC Calculation (Bezet) 507 ms [facility] Calculated P Florien 77 degrees [facility] Calculated R Florien -19 degrees [facility] Calculated T Florien 98 degrees [facility] Interpretation EKG SINUS RHYTHM WITH OCCASIONAL PREMATURE VENTRICULAR COMPLEXES LEFT BUNDLE BRANCH BLOCK ABNORMAL ECG NO PREVIOUS ECGS AVAILABLE Confirmed by Juan Culver ([id number]), greeting card editor AYDIN HARRIS ([id number]) on 09/26/2019 1:44:56 PM [facility] 08/28/2019 1:26 PM DATA ANALYST REPORT WRITER 09/26/2019 1:44 PM DATA ANALYST REPORT WRITER Renato Gilmore MD ECG ORDERABLES Performing Organization Address [facility]/ZIP Co de Phone Number [facility]
--- OUTSIDE RECORDS SUMMARY | 2024-09-25 11:30 | XMS_ITS | Clinical Summary ---
Author Organization [facility] Address [address] [place] [address] Care Team Providers Care Laminated Plastics Assembler And Gluer Name Role Phone Efe Carrera MD Primary Care Provide r Efrain Nina MD Unavailable [phone] Miscellaneous, Not In File Unavailable Unava ilable [...] mg of elemental iron total) by mouth principal bioinformatics specialist before breakfast Active methyl salicylate-menthol 30-10 % [...] major depressive d isorder, in full remission ([facility]) 09/29/2021 Overview (03/03/2023): Last Assessment [...] with PCP Chronic deep vein thrombosis (DVT) ([facility]) 08/2021 Overview (03/03/2023): Last Assessment [...] now. Will monitor. Vitamin deficiency, unspecified 11/24/2020 senior living (current) use of anticoagulants 2020 Hypertensive chronic [...] Type Department Care Team Description 09/24/2024 Telephone [facility] Orthopedics and Sports Medicine [address] [place] [phone] Rufnia Bolden NP from Last 3 Months Immunizations Immunization Administration Dates Next Due Influenza, Trivalent, IM (MDV) 05/03/2016 Influenza, Trivalent, Preservative Free, Intramu scular 04/15/2009 Surgical History Surgery Date Site/Laterality Comments [place] ARTHRP KNE CONDYLE&PLATU MEDIAL&LAT COMPARTMENTS Total Knee Arthroplasty - (Added by TW Conv) MA CHOLECYSTECTOMY Cholecystectomy - (Added by TW Conv) [...] not e lsewhere classified Right shoulder pain senior living (current) use of anticoagulants Personal history of [...] drink = 0.6 oz pur e alcohol) [facility] Utilities Answer Date Recorded In the past 12 months has th e [employer], gas, oil, or water [employer] threatened to shut off services in your [...] often do you attend chur ch or alevism services? 1 to 4 times per year 08/09/2023 Do you belong to any clubs o r organizations such as adventism groups, unions, fraternal or athletic groups, or [...] on file Legal Sex Female 1:00 AM CONTROLLED AREA CHECKER Gender Identity Not on file Sexual Orientation Not on file Occupation Industry Job Start Date Job End Date Retired Not on file Not on file Not on file Obstetrics History Last Filed Vital Signs Vital Sign Reading Time Taken Comments Blood Pressure 107/69 06/07/2024 1:49 PM CONTROLLED AREA CHECKER Pulse 76 06/07/2024 1:49 PM CONTROLLED AREA CHECKER Temperature 36.8 C (98.2 F) 08/11/2023 7:58 AM CONTROLLED AREA CHECKER Respiratory Rate 20 08/11/2023 11:54 AM CONTROLLED AREA CHECKER Oxygen Saturation 93% 08/11/2023 11:54 AM CONTROLLED AREA CHECKER Inhaled Oxygen Concentration - - Weight 93.4 kg (206 lb) 06/07/2024 1:49 PM CONTROLLED AREA CHECKER Height 157.5 cm (5' 2 ) 06/07/2024 1:49 PM CONTROLLED AREA CHECKER Body Mass Index 37.68 06/07/2024 1:49 PM CONTROLLED AREA CHECKER Plan of Treatment Health Maintenance Due Date [...] 10/10/2020, 08/29/2020 Medical Devices Implanted Type Area Bottle Washer Machine Device Identifier Shelf Expiration Date Model / Serial / Lot Synthes 04.037.142s Tfn-Advanced Lateral Relief Cut 11mm 170mm Cannulated Femoral - [id number] Implanted:Qty: 1 on 11/19/2020 by Efrain Nina MD at [facility] Left: Femur Synthes I 07/31/2030 04.037.142 S / / [id number] Synthes 04.038.200s Tfn-Advanced 10.35mm 100mm Cannulated Screw Bone Titanium - [id number] Implanted:Qty: 1 on 11/19/2020 by Efrain Nina MD at [facility] Left: Femur Synthes I 04/30/2029 04.038.200 S / / [id number] Synthes 04.005.526s 5mm 4.3mm 36mm Lock Self Tap Blunt Tip 2 Lead Tibial T25 Full - [id number] Implanted:Qty: 1 on 11/19/2020 by Efrain Nina MD at [facility] Left: Femur Synthes I 03/31/2029 04.005.526 S / / [id number] Medtronic Inc Synchromed Ii .78in [place] Filter Mesh Pouch Programmable 8637-20 - [id number] - [id number] Implanted:Qty: 1 on 04/06/2023 by Ben Abbott MD at [facility] Left: Abdomen Medtronic Inc 09/14/2024 8637-20 / [id number] / Explanted Type Area Bottle Washer Machine Device Identifier Shelf Expiration Date Model / Serial / Lot Medtronic Inc Synchromed Ii .78in [place] Filter Mesh Pouch Programmable 8637-20 - [id number] - [id number] Explanted:Qty: 1 on 04/06/2023 by Ben Abbott MD at [facility] Left: Abdomen Medtronic Inc 8637-20 / [id number] / [place] [address] IDPA [facility] MEDICARE IDPA MEDICARE IDPA Advance Directives For more information, please contact: [phone] Documents on File Type Date Recorded Patient Fitting Supervisor Expl anation ADVANCE DIRECTIVE 04/07/2023 4:50 PM POWER OF REAL ESTATE ASSET MANAGER-MEDICAL ADVANCE DIRECTIVE 04/07/2023 4:50 PM POLST [...] 10:25 PM 11/24/2020 6:40 PM Care Teams Laminated Plastics Assembler And Gluer Relationship Specialty Start Date End Date Efe Carrera MD [address] [place] [address] PCP - General 09/13/16 Efrain Nina MD [address] [place] [address] Surgeon Orthopedic Surgery 11/20/20 Miscellaneous, Not In File 11/24/20
--- OUTSIDE RECORDS SUMMARY | 2024-09-25 11:30 | XMS_ITS | Encounter Summary ---
Author Organization [facility] Address [address] [place] [address] Care Team Providers Care Physical Science Technician Name Role Phone Efe Carrera MD Primary Care Provider [phone] Encounter Details Date Type Department Care Team (Late st Contact Info) Description 10/15/2017 Abstract [facility] [address] [place] [address] , Generic ConversionMD Social History Tobacco Use [...] documented as of this encounter Care Teams Physical Science Technician Relationship Specialty Start Date End Date Efe Carrera MD [address] [place] [address] PCP - General FAMILY PRACTICE 10/13/17 documented as of this encounter
--- OUTSIDE RECORDS SUMMARY | 2024-09-25 11:30 | XMS_ITS | Encounter Summary ---
Author Organization [facility] Address [facility] [place] [address] Care Team Providers Care Operating Engineer Name Role Phone Efe Carrera MD Primary Care Provider Encounter Details Date Type Department Care Team (Late st Contact Info) Description 09/11/[address] [facility] [facility] Outside Pre/Post [address] [place] [address] Sheldon Webster MD Social History Tobacco Use [...] documented as of this encounter Care Teams Operating Engineer Relationship Specialty Start Date End Date Efe Carrera MD [address] [place] [address] PCP - General FAMILY PRACTICE 10/13/17 documented as of this encounter
--- OUTSIDE RECORDS SUMMARY | 2024-09-25 11:30 | XMS_ITS | Clinical Summary ---
Author Organization [facility] Address [address] [place] [address] Phone Care Team Providers Care Disassembler Name Role Phone Efe Carrera MD Primary [...] DETECTED NON DETECTED 02/23/2019 3:31 PM CDT [facility] HCV RNA QT LOG10 <=0.00 Log10 IU/mL 02/23/2019 3:31 PM CDT [facility] Comment: LOG 10 is not applicable. Sample held in Serology for 1 month. Call Laboratory if further testing is desired. This test was performed using TSERING AmpliPrep TSERING Taq Man Real Time PCR. Blood specimen (specimen) Butterfly Puncture / Unknown 02/20/2019 3:51 PM CDT 02/20/2019 5:11 PM CDT us Radha Harkins YARDING ENGINEER, FIRST MATE IMMUNOLOGY ORDERA BLES Final Result [facility] [address] [place] [address], [place] from Last 3 Months or Most Recently Relevant to Health Maintenance Insurance MEDICARE [place]ICAID [place] Care Teams Disassembler Relationship Specialty Start Date End Date Efe Carrera MD [address] [place] [address] PCP - General Pediatrics 02/20/19 Alfredo Steven MD [address] [place] [address] Consulting Physician Nephrology 02/21/19
--- OUTSIDE RECORDS SUMMARY | 2024-09-25 11:30 | XMS_ITS | Encounter Summary ---
Author Organization [facility] Address [facility] [place] [address] Care Team Providers Care Cloud Solutions Architect Name Role Phone Efe Carrera MD Primary Care Provider [phone] Encounter Details Date Type Department Care Team (Late st Contact Info) Description 11/26/2019 Abstract [facility] [address] [place], [place] [address] [place] [address] [place] [phone] Social History Tobacco Use Types Packs/Day [...] documented as of this encounter Care Teams Cloud Solutions Architect Relationship Specialty Start Date End Date Efe Carrera MD [address] [place] [id number] PCP - General FAMILY PRACTICE 10/13/17 documented as of this encounter
--- OUTSIDE RECORDS SUMMARY | 2024-09-25 11:30 | XMS_ITS | Clinical Summary ---
Author Organization [facility] [employer] Address [address] [place] [address] Care Team Providers Care Director Of Corporate Responsibility Name Role Phone Unavailable Primary Care Provider Unavailabl e Source Comments [facility] [employer],non-owned Affiliates and Associated Physician Practices is amultiple site organization consisting of ambulatory clinics and hospital sitesin [place], [place] and [place]. This disclosure is being madepursuant to the Care Everywhere program and may not contain all information available regarding this patient. Last updated 18.[facility] [employer] Allergies Active Allergy Reactions Criticality Noted Date [...] by mouth every morning Active albuterol HFA (PROVENTIL;VENTOLIN;TN OAIR) 108 (90 Base) MCG/ACT inhaler Inhale [...]
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
--- OUTSIDE RECORDS SUMMARY | 2024-09-25 11:30 | XMS_ITS | Encounter Summary ---
Author Organization [facility] Address [address] [place] [address] Care Team Providers Care Leveling Machine Operator Name Role Phone Efe Carrera MD Primary Care Provide r Efrain Nina MD Unavailable [phone] Miscellaneous, Not In File Unavailable Unava ilable Encounter Details Date Type Department Care Team (Late st Contact Info) Description 09/24/2024 Telephone [facility] Orthopedics and Sports Medicine [address] [facility] [address] [place] [address] Rufina Bolden NP 4 [facility] [address] [place] [address] Social History Tobacco Use Types Packs/Day Years Used Date Smoking Tobacco: Never Smokeless Tobacco: Never Alcohol Use Standard Drinks/Week Comments Not Currently 0 (1 standard drink = 0.6 oz pur e alcohol) [facility] Utilities Answer Date Recorded In the past 12 months has [employer], gas, oil, or water [employer] threatened to shut off services in your [...] week 08/09/2023 How often do you attend [facility] or sabian[facility] services? 1 to 4 times per year 08/09/2023 Do you belong to any clubs o r organizations such as oriental orthodox groups, unions, fraternal or athletic groups, or [...] place to sleep or slept in a prison (including now)? No 08/09/2023 Personal Safety Answer Date Recorded Have you ever been in or are you currently in a harmful physical or emotional relationship or is someone making you feel afraid or unsafe? Denies 08/08/2023 Comments No Sex and Gender Information Value Date Recorded Sex Assigned at Not on file Legal Sex Female 1:00 AM CLOUD SOLUTIONS ARCHITECT Gender Identity Not on file Sexual Orientation Not on file Occupation Industry Job Start Date Job End Date Retired Not on file Not on file Not on file documented as of this encounter Miscellaneous Notes * Telephone Encounter - Love Jimenez - 09/24/2024 4:04 PM CST Lvm to move to [facility] on 09/28 D SOLUTIONS ARCHITECT documented in this encounter Plan of Treatment Not on file documented as of this encounter Visit Diagnoses Not on filedocumented in this encounter Care Teams Leveling Machine Operator Relationship Specialty Start Date End Date Efe Carrera MD [address] [place] [address] PCP - General 09/13/16 Efrain Nina MD [address] [place] [address] Surgeon Orthopedic Surgery 11/20/20 Miscellaneous, Not In File 11/24/20 documented as of this encounter
== END 2024-09-25 10:02 | disposition home or self-care (01) ==
PROVIDERS: PCP Family Medicine; Visit Provider Family Medicine
DX: Z79.01 Long term (current) use of anticoagulants (principal)
CPT/HCPCS: 36415; 85610

== ENCOUNTER 2024-10-02 10:28 | Outpatient (CLI) | payer MEDICARE, SELFPAY ==
[2024-10-02 11:17] LABS: INR 2.7; Prothrombin Time 26.7 Seconds (9.50-12.1)
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
--- OUTSIDE RECORDS SUMMARY | 2024-10-02 11:55 | XMS_ITS | Clinical Summary ---
Author Organization [facility] [employer] Address [address] [place] [address] Care Team Providers Care Internal Sales Engineer Name Role Phone Unavailable Primary Care Provider Unavailabl e Source Comments [facility] [employer],non-owned Affiliates and Associated Physician Practices is amultiple site organization consisting of ambulatory clinics and hospital sitesin [place], [place], [place] and [place]. This disclosure is being madepursuant to the Care Everywhere program and may not contain all information available regarding this patient. Last updated 18.[facility] [employer] Allergies Active Allergy Reactions Criticality Noted Date [...] by mouth every morning Active albuterol HFA (PROVENTIL;VENTOLIN;OK OAIR) 108 (90 Base) MCG/ACT inhaler Inhale [...]
--- OUTSIDE RECORDS SUMMARY | 2024-10-02 11:55 | XMS_ITS | Encounter Summary ---
Author Organization [facility] Address [facility] [place] [address] Care Team Providers Care Reel Hooker Name Role Phone Efe Carrera MD Primary Care Provider [phone] Encounter Details Date Type Department Care Team (Late st Contact Info) Description 09/11/2019 Prep for Procedure Blackwell's Expander Pre/Post [address] [place] [address] Sheldon Webster MD Social History Tobacco Use [...] documented as of this encounter Care Teams Reel Hooker Relationship Specialty Start Date End Date Efe Carrera MD [address] [place] [address] PCP - General FAMILY PRACTICE 10/13/17 documented as of this encounter
--- OUTSIDE RECORDS SUMMARY | 2024-10-02 11:55 | XMS_ITS | Referral Summary ---
Author Organization [facility] Address [address] [place] [address] Care Team Providers Care Brim Buster Name Role Phone Unavailable Primary Care Provider Unavailabl e Source Comments [facility],non-owned Affiliates and Associated Physician Practices is amultiple site organization consisting of ambulatory clinics and hospital sitesin [place], [place] and [place]. This disclosure is being madepursuant to the Care Everywhere program and may not contain all information available regarding this patient. Last updated 18.[facility] Allergies Active Allergy Reactions Criticality Noted Date [...]
--- OUTSIDE RECORDS SUMMARY | 2024-10-02 11:55 | XMS_ITS | Encounter Summary ---
Author Organization [facility] Address [address] [place] [address] Care Team Providers Care Emergency Spill Response Technician Name Role Phone Efe Carrera MD Primary Care Provider [phone] Encounter Details Date Type Department Care Team (Late st Contact Info) Description 10/15/2017 Abstract [facility] CONVERSION [address] [place] [address] , Generic ConversionMD Social History Tobacco Use [...] documented as of this encounter Care Teams Emergency Spill Response Technician Relationship Specialty Start Date End Date Efe Carrera MD [address] [place] [address] PCP - General FAMILY PRACTICE 10/13/17 documented as of this encounter
--- OUTSIDE RECORDS SUMMARY | 2024-10-02 11:55 | XMS_ITS | Encounter Summary ---
Author Organization [facility] Address [facility] [place] [address] Care Team Providers Care Alto Singer Name Role Phone Efe Carrera MD Primary Care Provider [phone] Encounter Details Date Type Department Care Team (Late st Contact Info) Description 11/26/2019 Abstract [facility] [address] [place], [place] [address] [place] [address] [place] [phone] Social History Tobacco Use Types Packs/Day [...] documented as of this encounter Care Teams Alto Singer Relationship Specialty Start Date End Date Efe Carrera MD [address] [place] [id number] PCP - General FAMILY PRACTICE 10/13/17 documented as of this encounter
--- OUTSIDE RECORDS SUMMARY | 2024-10-02 11:55 | XMS_ITS | Clinical Summary ---
Author Organization [facility] Address [address] [place] [address] Phone Care Team Providers Care Motion Picture Set Worker Name Role Phone Efe Carrera MD [...] DETECTED NON DETECTED 02/23/2019 3:31 PM CDT [facility] HCV RNA QT LOG10 <=0.00 Log10 IU/mL 02/23/2019 3:31 PM CDT [facility] Comment: LOG 10 is not applicable. Sample held in Serology for 1 month. Call Laboratory if further testing is desired. This test was performed using TSERING AmpliPrep TSERING Taq Man Real Time PCR. Blood specimen (specimen) Butterfly Puncture / Unknown 02/20/2019 3:51 PM CDT 02/20/2019 5:11 PM CDT us Radha Harkins FOOD AND BEVERAGE SERVER, COMPUTER DISCOVERY TEACHER IMMUNOLOGY ORDERA BLES Final Result [facility] [address] [place] [address], [place] from Last 3 Months or Most Recently Relevant to Health Maintenance Insurance MEDICARE MEDICAID [place] Care Teams Motion Picture Set Worker Relationship Specialty Start Date End Date Efe Carrera MD [address] [place] [address] PCP - General Pediatrics 02/20/19 Alfredo Steven MD [address] [place] [address] Consulting Physician Nephrology 02/21/19
--- OUTSIDE RECORDS SUMMARY | 2024-10-02 11:55 | XMS_ITS | Patient Health Summary ---
Author Organization [facility] Address [address] [place] [address] Care Team Providers Care Study Hall Supervisor Name Role Phone Unavailable Primary Care Provider Unavailabl e Note from [facility],non-owned Affiliates and Associated Physician Practices is amultiple site organization consisting of ambulatory clinics and hospital sitesin [place], [place], [place] and [place]. This disclosure is being madepursuant to the Care Everywhere program and may not contain all information available regarding this patient. Last updated 18.[facility] Allergies * Sulfa Drugs(Nausea and/or Vomiting,Vomiting) [...] and oxygen saturations were monitored continuously. The [id number] was introduced through the mouth, and advanced [...] of appetite. Procedure Code(s): --- Professional --- 74124, Esophagogastroduod enoscopy, flexible, transoral; with endoscopic ultrasound examination, including the esophagus, stomach, and either the duodenum or a surgically altered stomach where the jejunum is examined distal to the anastomosis Diagnosis Code(s): --- Professional --- K86.2, Cyst of pancreas K83.8, Other specified diseases of biliary tract R93.3, Abnormal findings on diagnostic imaging of other parts of digestive tract CPT copyright 2016 [employer]. All rights reserved. The codes documented in this report are preliminary and upon drink mixer review may be revised to meet current compliance requirements. Gildardo Forbes MD 01/01/2020 11:33:18 AM This report has been signed electronically. Note Initiated On: 01/01/2020 10:02 AM Number of Addenda: 0 [facility] [address] [facility] [place] [address] [facility] 01/01/2020 10:0 2 AM CDT Gildardo Forbes MD GI PROCEDURE ORDERAB LES [facility] * (ABNORMAL) BASIC METABOLIC PANEL (CALCIUM TOTAL) (08/28/2019 2:22 PM CLERICAL SUPPORT) BUN 32(H) 7 - 26 mg/dL 08/28/2019 3:08 PM [facility] Creatinine 2.2(H) 0.6 - 1.2 mg/dL 08/28/2019 3:08 PM [facility] Sodium 146(H) 136 - 145 mmol/L 08/28/2019 3:08 PM [facility] Potassium 4.0 3.5 - 4.5 mmol/L 08/28/2019 3:08 PM [facility] Chloride 112(H) 98 - 107 mmol/L 08/28/2019 3:08 PM [facility] CO2 21(L) 22 - 29 mmol/L 08/28/2019 3:08 PM [facility] Glucose 50(L) 70 - 115 mg/dL 08/28/2019 3:08 PM [facility] Calcium 9.8 8.4 - 10.2 mg/dL 08/28/2019 3:08 PM [facility] Anion Gap 17 8 - 18 08/28/2019 3:08 PM [facility] BUN/Creatinine Ratio 15 7 - 23 08/28/2019 3:08 PM [facility] Osmolality Calculated 306(H) 270 - 300 mOsm/kg 08/28/2019 3:08 PM CLERICAL SUPPORT [facility] eGFR 21(L) >60 mL/min/1.7 3 m2 08/28/2019 3:08 PM CLERICAL SUPPORT [facility] Blood BLOOD SPECIMEN / Unknown Lab Venipuncture / Unknown 08/28/2019 2:22 PM CLER[facility] SUPPORT 08/28/2019 2:45 PM CLERICAL SUPPORT Renato Gilmore MD LAB - CHEMISTRY ORD ERABLES Performing Organization Address [facility]/ZIP Co de Phone Number [address] [phone] * EKG 12-LEAD (08/28/2019 1:26 PM CLERICAL SUPPORT) Pathologist [facility] Ventricular Rate 95 BPM [facility] Atrial Rate 95 BPM [facility] P-R Interval 208 ms [facility] QRS Duration ms 148 ms [facility] Q-T Interval ms 404 ms [facility] QTC Calculation (Bezet) 507 ms [facility] Calculated P [place] 77 degrees [facility] Calculated R [place] -19 degrees [facility] Calculated T [place] 98 degrees [facility] Interpretation EKG SINUS RHYTHM WITH OCCASIONAL PREMATURE VENTRICULAR COMPLEXES LEFT BUNDLE BRANCH BLOCK ABNORMAL ECG NO PREVIOUS ECGS AVAILABLE Confirmed by Juan Culver ([id number]), editor greeting card AYDIN HARRIS ([id number]) on 09/26/2019 1:44:56 PM [facility] 08/28/2019 1:26 PM CLERICAL SUPPORT 09/26/2019 1:44 PM CLERICAL SUPPORT Renato Gilmore MD ECG ORDERABLES Performing Organization Address [facility]/ZIP Co de Phone Number [facility]
--- OUTSIDE RECORDS SUMMARY | 2024-10-02 11:56 | XMS_ITS | Clinical Summary ---
Author Organization [facility] Address [address] [place] [address] Care Team Providers Care Glaze Mixer Name Role Phone Efe Carrera MD Primary Care Provide r Efrain Nina MD Unavailable [phone] Miscellaneous, Not In File Unavailable Unava ilable [...] mg of elemental iron total) by mouth outsewer before breakfast Active methyl salicylate-menthol 30-10 % [...] major depressive d isorder, in full remission ([facility]) 09/29/2021 Overview (03/03/2023): Last Assessment & Plan: [...] with PCP Chronic deep vein thrombosis (DVT) ([facility]) 08/2021 Overview (03/03/2023): Last Assessment & Plan: [...] now. Will monitor. 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 Hypertensive chronic [...] Type Department Care Team Description 09/24/2024 Telephone [facility] Orthopedics and Sports Medicine [address] [place] [id number] Rufina Bolden NP from Last 3 Months Immunizations Immunization Administration Dates Next Due Influenza, Trivalent, IM (MDV) 05/03/2016 Influenza, Trivalent, Preservative Free, Intramu scular 04/15/2009 Surgical History Surgery Date Site/Laterality Comments [place] ARTHRP KNE CONDYLE&PLATU MEDIAL&LAT COMPARTMENTS Total Knee Arthroplasty - (Added by TW Conv) [place] CHOLECYSTECTOMY Cholecystectomy - (Added by TW Conv) [...] not e lsewhere classified Right shoulder pain 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 No 08/09/2023 Personal Safety Answer Date Recorded Have you ever been in or are you currently in a harmful physical or emotional relationship or is someone making you feel afraid or unsafe? Denies 08/08/2023 Comments No Sex and Gender Information Value Date Recorded Sex Assigned at Not on file Legal Sex Female 1:00 AM PROMOTION MANAGER Gender Identity Not on file Sexual Orientation Not on file Occupation Industry Job Start Date Job End Date Retired Not on file Not on file Not on file Obstetrics History Last Filed Vital Signs Vital Sign Reading Time Taken Comments Blood Pressure 107/69 06/07/2024 1:49 PM PROMOTION MANAGER Pulse 76 06/07/2024 1:49 PM PROMOTION MANAGER Temperature 36.8 C (98.2 F) 08/11/2023 7:58 AM PROMOTION MANAGER Respiratory Rate 20 08/11/2023 11:54 AM PROMOTION MANAGER Oxygen Saturation 93% 08/11/2023 11:54 AM PROMOTION MANAGER Inhaled Oxygen Concentration - - Weight 93.4 kg (206 lb) 06/07/2024 1:49 PM PROMOTION MANAGER Height 157.5 cm (5' 2 ) 06/07/2024 1:49 PM PROMOTION MANAGER Body Mass Index 37.68 06/07/2024 1:49 PM PROMOTION MANAGER Plan of Treatment Health Maintenance Due Date [...] 10/10/2020, 08/29/2020 Medical Devices Implanted Type Area Airplane Tube Builder Device Identifier Shelf Expiration Date Model / Serial / Lot Synthes 04.037.142s Tfn-Advanced Lateral Relief Cut 11mm 170mm Cannulated Femoral - [id number] Implanted:Qty: 1 on 11/19/2020 by Efrain Nina MD at [facility] Left: Femur Synthes I 07/31/2030 04.037.142 S / / [id number] Synthes 04.038.200s Tfn-Advanced 10.35mm 100mm Cannulated Screw Bone Titanium - [id number] Implanted:Qty: 1 on 11/19/2020 by Efrain Nina MD at [facility] Left: Femur Synthes I 04/30/2029 04.038.200 S / / [id number] Synthes 04.005.526s 5mm 4.3mm 36mm Lock Self Tap Blunt Tip 2 Lead Tibial T25 Full - [id number] Implanted:Qty: 1 on 11/19/2020 by Efrain Nina MD at [facility] Left: Femur Synthes I 03/31/2029 04.005.526 S / / [id number] Medtronic Inc Synchromed Ii .78in [place] Filter Mesh Pouch Programmable 8637-20 - [id number] - [id number] Implanted:Qty: 1 on 04/06/2023 by Ben Abbott MD at [facility] Left: Abdomen Medtronic Inc 09/14/2024 8637-20 / [id number] / Explanted Type Area Airplane Tube Builder Device Identifier Shelf Expiration Date Model / Serial / Lot Medtronic Inc Synchromed Ii .78in [place] Filter Mesh Pouch Programmable 8637-20 - [id number] - [id number] Explanted:Qty: 1 on 04/06/2023 by Ben Abbott MD at [facility] Left: Abdomen Medtronic Inc 8637-20 / [id number] / [place] [address] IDPA [facility] PLAN MEDICARE IDPA MEDICARE IDPA [facility] Advance Directives For more information, please contact: [phone] Documents on File Type Date Recorded Patient Flight Line Mechanic Expl anation ADVANCE DIRECTIVE 04/07/2023 4:50 PM POWER OF COMPUTER TECHNICAL SUPPORT SPECIALIST-MEDICAL ADVANCE DIRECTIVE 04/07/2023 4:50 PM POLST * [...] 10:25 PM 11/24/2020 6:40 PM Care Teams Glaze Mixer Relationship Specialty Start Date End Date Efe Carrera MD [address] [place] [address] PCP - General 09/13/16 Efrain Nina MD [address] [place] [address] Surgeon Orthopedic Surgery 11/20/20 Miscellaneous, Not In File 11/24/20
--- OUTSIDE RECORDS SUMMARY | 2024-10-02 11:56 | XMS_ITS | Referral Summary ---
Author Organization [facility] Address [address] [place] [address] Care Team Providers Care Overhead Distribution Engineer Name Role Phone Efe Carrera MD Primary Care Provide r Efrain Nina MD Unavailable [phone] Miscellaneous, Not In File Unavailable Unava ilable Encounters Date Type Department Care Team Description 09/24/2024 Telephone [facility] Orthopedics and Sports Medicine [address] [facility] [address] [place] [address] Rufina Bolden NP from Last [...] mg of elemental iron total) by mouth automotive sales associate before breakfast Active methyl salicylate-menthol 30-10 [...] major depressive d isorder, in full remission ([facility]) 09/29/2021 Overview (03/03/2023): Last Assessment [...] including calling Suicide Hotline ( ) or 896. Follow up in three months with Psychologist/Counselor/SupportGroup/Psychiatrist and PCP H/O left nephrectomy 09/29/2021 Overview (03/03/2023): Last Assessment & Plan: Condition: stable Follow up in: three months with PCP Chronic deep vein thrombosis (DVT) ([facility]) 08/2021 Overview (03/03/2023): Last Assessment [...] Will monitor. 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 1 to 4 times per year 08/09/2023 Do you belong to any clubs o r organizations such as roman catholic groups, unions, fraternal or athletic groups, or [...] place to sleep or slept in a alf (including now)? No 08/09/2023 Personal Safety Answer Date Recorded Have you ever been in or are you currently in a harmful physical or emotional relationship or is someone making you feel afraid or unsafe? Denies 08/08/2023 Comments No Sex and Gender Information Value Date Recorded Sex Assigned at Not on file Legal Sex Female 1:00 AM ANODIC TREATER Gender Identity Not on file Sexual Orientation Not on file Occupation Industry Job Start Date Job End Date Retired Not on file Not on file Not on file Last Filed Vital Signs Vital Sign Reading Time Taken Comments Blood Pressure 107/69 06/07/2024 1:49 PM ANODIC TREATER Pulse 76 06/07/2024 1:49 PM ANODIC TREATER Temperature 36.8 C (98.2 F) 08/11/2023 7:58 AM ANODIC TREATER Respiratory Rate 20 08/11/2023 11:54 AM ANODIC TREATER Oxygen Saturation 93% 08/11/2023 11:54 AM ANODIC TREATER Inhaled Oxygen Concentration - - Weight 93.4 kg (206 lb) 06/07/2024 1:49 PM ANODIC TREATER Height 157.5 cm (5' 2 ) 06/07/2024 1:49 PM ANODIC TREATER Body Mass Index 37.68 06/07/2024 1:49 PM ANODIC TREATER Plan of Treatment Not on file Medical Devices Implanted Type Area Certified Flight Instructor Device Identifier Shelf Expiration Date Model / Serial / Lot Synthes 04.037.142s Tfn-Advanced Lateral Relief Cut 11mm 170mm Cannulated Femoral - [id number] Implanted:Qty: 1 on 11/19/2020 by Efrain Nina MD at [facility] Left: Femur Synthes I 07/31/2030 04.037.142 S / / [id number] Synthes 04.038.200s Tfn-Advanced 10.35mm 100mm Cannulated Screw Bone Titanium - [id number] Implanted:Qty: 1 on 11/19/2020 by Efrain Nina MD at [facility] Left: Femur Synthes I 04/30/2029 04.038.200 S / / [id number] Synthes 04.005.526s 5mm 4.3mm 36mm Lock Self Tap Blunt Tip 2 Lead Tibial T25 Full - [id number] Implanted:Qty: 1 on 11/19/2020 by Efrain Nina MD at [facility] Left: Femur Synthes I 03/31/2029 04.005.526 S / / [id number] Medtronic Inc Synchromed Ii .78in [place] Filter Mesh Pouch Programmable 8637-20 - [id number] - [id number] Implanted:Qty: 1 on 04/06/2023 by Ben Abbott MD at [facility] Left: Abdomen Medtronic Inc 09/14/2024 8637-20 / [id number] / Explanted Type Area Certified Flight Instructor Device Identifier Shelf Expiration Date Model / Serial / Lot Medtronic Inc Synchromed Ii .78in [place] Filter Mesh Pouch Programmable 8637-20 - [id number] - [id number] Explanted:Qty: 1 on 04/06/2023 by Ben Abbott MD at [facility] Left: Abdomen Medtronic Inc 8637-20 / [id number] / Insurance MEDICARE IDPA [facility] MEDICARE IDPA MEDICARE IDPA [facility] PLAN Advance Directives For more information, please contact: [phone] Documents on File Type Date Recorded Patient Finish Filer Expl anation ADVANCE DIRECTIVE 04/07/2023 4:50 PM POWER OF EPIC BEACON ANALYST-MEDICAL ADVANCE DIRECTIVE 04/07/2023 4:50 PM POLST * [...] 10:25 PM 11/24/2020 6:40 PM Care Teams Overhead Distribution Engineer Relationship Specialty Start Date End Date Efe Carrera MD [address] [place], [place] [id number] PCP - General 09/13/16 Efrain Nina MD [address] [place] [address] Surgeon Orthopedic Surgery 11/20/20 Miscellaneous, Not In File 11/24/20
--- OUTSIDE RECORDS SUMMARY | 2024-10-02 11:56 | XMS_ITS ---
Author Organization [facility] Address [address] [place] [address] Care Team Providers Care Escapement Matcher Name Role Phone Efe Carrera MD Primary Care Provide r Efrain Nina MD Unavailable [phone] Miscellaneous, Not In File Unavailable Unava ilable [...] d isorder, in full remission ([facility]) 09/29/2021 Overview (03/03/2023): Last Assessment [...] now. Will monitor. 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
[2024-10-02 12:34] LABS: Vitamin B12 425 pg/mL (193-986)
[2024-10-06 05:04] LABS: Methylmalonic Acid 854 nmol/L (85-423)
== END 2024-10-02 10:29 | disposition home or self-care (01) ==
PROVIDERS: PCP Family Medicine; Visit Provider Family Medicine
DX: N18.9 Chronic kidney disease, unspecified (principal); D64.9 Anemia, unspecified
CPT/HCPCS: 36415; 82607; 82746; 83921; 85610

== ENCOUNTER 2024-10-09 10:49 | Outpatient (CLI) | payer MEDICARE, SELFPAY ==
[2024-10-09 11:17] LABS: INR 2.5; Prothrombin Time 25.6 Seconds (9.50-12.1)
--- OUTSIDE RECORDS SUMMARY | 2024-10-09 12:38 | XMS_ITS | Patient Health Summary ---
Author Organization [facility] Address [address] [place] [address] Care Team Providers Care Pastoral Counselor Name Role Phone Unavailable Primary Care Provider Unavailabl e Note from [facility],non-owned Affiliates and Associated Physician Practices is amultiple site organization consisting of ambulatory clinics and hospital sitesin [place], [place], [place] and [place]. This disclosure is being madepursuant to the Care Everywhere program and may not contain all information available regarding this patient. Last updated 18.[facility] Allergies * Sulfa Drugs(Nausea and/or Vomiting,Vomiting) [...] and oxygen saturations were monitored continuously. The [id number] was introduced through the mouth, and advanced [...] of appetite. Procedure Code(s): --- Professional --- 73969, Esophagogastroduod enoscopy, flexible, transoral; with endoscopic ultrasound examination, including the esophagus, stomach, and either the duodenum or a surgically altered stomach where the jejunum is examined distal to the anastomosis Diagnosis Code(s): --- Professional --- K86.2, Cyst of pancreas K83.8, Other specified diseases of biliary tract R93.3, Abnormal findings on diagnostic imaging of other parts of digestive tract CPT copyright 2016 [employer]. All rights reserved. The codes documented in this report are preliminary and upon gin pole operator review may be revised to meet current compliance requirements. Gildardo Forbes MD 01/01/2020 11:33:18 AM This report has been signed electronically. Note Initiated On: 01/01/2020 10:02 AM Number of Addenda: 0 [facility] [address] [place] [address] [facility] 01/01/2020 10:0 2 AM CDT Gildardo Forbes MD GI PROCEDURE ORDERAB LES [facility] * (ABNORMAL) BASIC METABOLIC PANEL (CALCIUM TOTAL) (08/28/2019 2:22 PM COLLAR PACKER) BUN 32(H) 7 - 26 mg/dL 08/28/2019 3:08 PM [facility] Creatinine 2.2(H) 0.6 - 1.2 mg/dL 08/28/2019 3:08 PM [facility] Sodium 146(H) 136 - 145 mmol/L 08/28/2019 3:08 PM [facility] Potassium 4.0 3.5 - 4.5 mmol/L 08/28/2019 3:08 PM [facility] Chloride 112(H) 98 - 107 mmol/L 08/28/2019 3:08 PM [facility] CO2 21(L) 22 - 29 mmol/L 08/28/2019 3:08 PM [facility] Glucose 50(L) 70 - 115 mg/dL 08/28/2019 3:08 PM [facility] Calcium 9.8 8.4 - 10.2 mg/dL 08/28/2019 3:08 PM [facility] Anion Gap 17 8 - 18 08/28/2019 3:08 PM [facility] BUN/Creatinine Ratio 15 7 - 23 08/28/2019 3:08 PM [facility] Osmolality Calculated 306(H) 270 - 300 mOsm/kg 08/28/2019 3:08 PM COLLAR PACKER [facility] eGFR 21(L) >60 mL/min/1.7 3 m2 08/28/2019 3:08 PM COLLAR PACKER [facility] Blood BLOOD SPECIMEN / Unknown Lab Venipuncture / Unknown 08/28/2019 2:22 PM COLLAR PACKER 08/28/2019 2:45 PM COLLAR PACKER Renato Gilmore MD LAB - CHEMISTRY ORD ERABLES Performing Organization Address [facility]/ZIP Co de Phone Number [address] [phone] * EKG 12-LEAD (08/28/2019 1:26 PM COLLAR PACKER) Pathologist [facility] Ventricular Rate 95 BPM [facility] Atrial Rate 95 BPM [facility] P-R Interval 208 ms [facility] QRS Duration ms 148 ms [facility] Q-T Interval ms 404 ms [facility] QTC Calculation (Bezet) 507 ms [facility] Calculated P [facility] 77 degrees [facility] Calculated R [facility] -19 degrees [facility] Calculated T [facility] 98 degrees [facility] Interpretation EKG SINUS RHYTHM WITH OCCASIONAL PREMATURE VENTRICULAR COMPLEXES LEFT BUNDLE BRANCH BLOCK ABNORMAL ECG NO PREVIOUS ECGS AVAILABLE Confirmed by Juan Culver ([id number]), primer expeditor and drier AYDIN HARRIS ([id number]) on 09/26/2019 1:44:56 PM [facility] 08/28/2019 1:26 PM COLLAR PACKER 09/26/2019 1:44 PM COLLAR PACKER Renato Gilmore MD ECG ORDERABLES Performing Organization Address [facility]/ZIP Co de Phone Number [facility]
--- OUTSIDE RECORDS SUMMARY | 2024-10-09 12:38 | XMS_ITS | Encounter Summary ---
Author Organization [facility] Address [facility] [address] [place] [address] Care Team Providers Care Sheet Metal Lay Out Worker Name Role Phone Efe Carrera MD Primary Care Provider [phone] Encounter Details Date Type Department Care Team (Late st Contact Info) Description 09/11/[address] [facility] Software Quality Analyst Pre/Post [address] [place] [address] Sheldon Webster MD Social History Tobacco Use [...] documented as of this encounter Care Teams Sheet Metal Lay Out Worker Relationship Specialty Start Date End Date Efe Carrera MD [address] [place] [address] PCP - General FAMILY PRACTICE 10/13/17 documented as of this encounter
--- OUTSIDE RECORDS SUMMARY | 2024-10-09 12:38 | XMS_ITS | Clinical Summary ---
Author Organization [facility] Address [address] [place] [address] Care Team Providers Care Bleach Liquor Maker Name Role Phone Unavailable Primary Care Provider Unavailabl e Source Comments [facility],non-owned Affiliates and Associated Physician Practices is amultiple site organization consisting of ambulatory clinics and hospital sitesin [place], [place], [place] and [place]. This disclosure is being madepursuant to the Care Everywhere program and may not contain all information available regarding this patient. Last updated 18.[facility] Allergies Active Allergy Reactions Criticality Noted Date [...] by mouth every morning Active albuterol HFA (PROVENTIL;VENTOLIN;[place] OAIR) 108 (90 Base) MCG/ACT inhaler Inhale [...]
--- OUTSIDE RECORDS SUMMARY | 2024-10-09 12:38 | XMS_ITS | Encounter Summary ---
Author Organization [facility] Address [address] [place] [address] Care Team Providers Care Traveling Engineer Name Role Phone Efe Carrera MD Primary Care Provider [phone] Encounter Details Date Type Department Care Team (Late st Contact Info) Description 10/15/2017 Abstract [facility] CONVERSION [address] [place] [address] , Generic ConversionMD Social History Tobacco Use [...] documented as of this encounter Care Teams Traveling Engineer Relationship Specialty Start Date End Date Efe Carrera MD [address] [place] [address] PCP - General FAMILY PRACTICE 10/13/17 documented as of this encounter
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
--- OUTSIDE RECORDS SUMMARY | 2024-10-09 12:38 | XMS_ITS | Clinical Summary ---
Author Organization [facility] Address [address] [place] [address] Phone Care Team Providers Care Juvenile Probation Officer Name Role Phone Efe Carrera MD Primary [...] DETECTED NON DETECTED 02/23/2019 3:31 PM CDT [facility] HCV RNA QT LOG10 <=0.00 Log10 IU/mL 02/23/2019 3:31 PM CDT [facility] Comment: LOG 10 is not applicable. Sample held in Serology for 1 month. Call Laboratory if further testing is desired. This test was performed using TSERING AmpliPrep STERING Taq Man Real Time PCR. Blood specimen (specimen) Butterfly Puncture / Unknown 02/20/2019 3:51 PM CDT 02/20/2019 5:11 PM CDT us Radha Harkins IMITATION MARBLE MECHANIC, BRUSHER TENDER IMMUNOLOGY ORDERA BLES Final Result [facility] [address] [place] [address], [place] from Last 3 Months or Most Recently Relevant to Health Maintenance Insurance MEDICARE Member Subscriber Plan / Payer (Ef fective for All Dates) Name:Rajani Cardenas Member ID:[id number] Relation to Subscriber:Self Name:Rajani Cardenas Subscriber ID:[id number] Payer ID:[id number] Group ID:Not on file Type:Not on file Address: [facility] [address] [facility] [place], [facility] [address] MEDICAID [place] Care Teams Juvenile Probation Officer Relationship Specialty Start Date End Date Efe Carrera MD [address] [place] [address] PCP - General Pediatrics 02/20/19 Alfredo Steven MD [address] [place] [address] Consulting Physician Nephrology 02/21/19
--- OUTSIDE RECORDS SUMMARY | 2024-10-09 12:38 | XMS_ITS | Referral Summary ---
Author Organization [facility] Address [address] [place] [address] Care Team Providers Care Safety Lamp Keeper Name Role Phone Unavailable Primary Care Provider Unavailabl e Source Comments [facility],non-owned Affiliates and Associated Physician Practices is amultiple site organization consisting of ambulatory clinics and hospital sitesin [place], [place], [place] and [place]. This disclosure is being madepursuant to the Care Everywhere program and may not contain all information available regarding this patient. Last updated 18.[facility] Allergies Active Allergy Reactions Criticality Noted Date [...]
--- OUTSIDE RECORDS SUMMARY | 2024-10-09 12:38 | XMS_ITS | Encounter Summary ---
Author Organization [facility] Address [address] [place] [address] Care Team Providers Care Vice President Of Operations Name Role Phone Efe Carrera MD Primary Care Provider [phone] Encounter Details Date Type Department Care Team (Late st Contact Info) Description 11/26/2019 Abstract [facility] [address] [place], [place] [address] [place] [address] [place] [id number] Social History Tobacco Use Types Packs/Day [...] documented as of this encounter Care Teams Vice President Of Operations Relationship Specialty Start Date End Date Efe Carrera MD [address] [id number] PCP - General FAMILY PRACTICE 10/13/17 documented as of this encounter
--- OUTSIDE RECORDS SUMMARY | 2024-10-09 12:39 | XMS_ITS ---
Author Organization [facility] Address [address] [place] [address] Care Team Providers Care Sanding Machine Tender Automatic Name Role Phone Efe Carrera MD Primary Care Provide r Efrain Nina MD Unavailable [phone] Miscellaneous, Not In File Unavailable Unava ilable [...] three months with PCP Recurrent major depressive disorder, in full rem ission 09/29/2021 Overview (03/03/2023): Last Assessment & Plan: [...] with PCP Chronic deep vein thrombosis (DVT) 09/29/2021 Overview (03/03/2023): Last Assessment & Plan: [...] now. Will monitor. 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
--- OUTSIDE RECORDS SUMMARY | 2024-10-09 12:39 | XMS_ITS | Clinical Summary ---
Author Organization [facility] Address [address] [place] [address] Care Team Providers Care Staff Training And Development Manager Name Role Phone Efe Carrera MD Primary Care Provide r Efrain Nina MD Unavailable [phone] Miscellaneous, Not In File Unavailable Unava ilable [...] mg of elemental iron total) by mouth cash reconciliation specialist before breakfast Active methyl salicylate-menthol 30-10 [...] including calling Suicide Hotline ( ) or 917. Follow up in three months with Psychologist/Counselor/SupportGroup/Psychiatrist [...] now. Will monitor. 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 2020 Hypertensive [...] History of depression - (Added by TW Lola) Assessment & Plan (11/19/2020 8:59 AM CDT): [...] Type Department Care Team Description 09/24/2024 Telephone [facility] Orthopedics and Sports Medicine [address] [place] [address] [place] [id number] Rufina Bolden NP from Last 3 Months Immunizations Immunization Administration Dates Next Due Influenza, Trivalent, IM (MDV) 05/03/2016 Influenza, Trivalent, Preservative Free, Intramu scular 04/15/2009 Surgical History Surgery Date Site/Laterality Comments ND ARTHRP KNE CONDYLE&PLATU MEDIAL&LAT COMPARTMENTS Total Knee Arthroplasty - (Added by TW Conv) ND CHOLECYSTECTOMY Cholecystectomy - (Added by TW Conv) [...] not e lsewhere classified Right shoulder pain detention (current) use of anticoagulants Personal history of other ma lignant neoplasm of kidney Personal history of pulmonary embolism Personal history of other ve nous thrombosis and embolism Acquired absence of kidney Fall from chair, sequela Unspecified macular degeneration Obesity Secondary hyperparathyroidis m of renal origin Sleep apnea Esophageal rupture 2014 Gastroparesis 2019 [...] drink = 0.6 oz pur e alcohol) [facility] Utilities Answer Date Recorded In the [...] often do you attend chur ch or mandaen services? 1 to 4 times per year 08/09/2023 Do you belong to any clubs o r organizations such as hindu groups, unions, fraternal or athletic groups, or [...] on file Legal Sex Female 1:00 AM IRON BENDER Gender Identity Not on file Sexual Orientation Not on file Occupation Industry Job Start Date Job End Date Retired Not on file Not on file Not on file Obstetrics History Last Filed Vital Signs Vital Sign Reading Time Taken Comments Blood Pressure 107/69 06/07/2024 1:49 PM IRON BENDER Pulse 76 06/07/2024 1:49 PM IRON BENDER Temperature 36.8 C (98.2 F) 08/11/2023 7:58 AM IRON BENDER Respiratory Rate 20 08/11/2023 11:54 AM IRON BENDER Oxygen Saturation 93% 08/11/2023 11:54 AM IRON BENDER Inhaled Oxygen Concentration - - Weight 93.4 kg (206 lb) 06/07/2024 1:49 PM IRON BENDER Height 157.5 cm (5' 2 ) 06/07/2024 1:49 PM IRON BENDER Body Mass Index 37.68 06/07/2024 1:49 PM IRON BENDER Plan of Treatment Health Maintenance Due Date [...] 10/10/2020, 08/29/2020 Medical Devices Implanted Type Area Home Restoration Service Supervisor Device Identifier Shelf Expiration Date Model / Serial / Lot Synthes 04.037.142s Tfn-Advanced Lateral Relief Cut 11mm 170mm Cannulated Femoral - [id number] Implanted:Qty: 1 on 11/19/2020 by Efrain Nina MD at [facility] Left: Femur Synthes I 07/31/2030 04.037.142 S / / [id number] Synthes 04.038.200s Tfn-Advanced 10.35mm 100mm Cannulated Screw Bone Titanium - [id number] Implanted:Qty: 1 on 11/19/2020 by Efrain Nina MD at [facility] Left: Femur Synthes I 04/30/2029 04.038.200 S / / [id number] Synthes 04.005.526s 5mm 4.3mm 36mm Lock Self Tap Blunt Tip 2 Lead Tibial T25 Full - [id number] Implanted:Qty: 1 on 11/19/2020 by Efrain Nina MD at [facility] Left: Femur Synthes I 03/31/2029 04.005.526 S / / [id number] Medtronic Inc Synchromed Ii .78in Dodge Filter Mesh Pouch Programmable 8637-20 - [id number] - [id number] Implanted:Qty: 1 on 04/06/2023 by Ben Abbott MD at [facility] Left: Abdomen Medtronic Inc 09/14/2024 8637-20 / [id number] / Explanted Type Area Home Restoration Service Supervisor Device Identifier Shelf Expiration Date Model / Serial / Lot Medtronic Inc Synchromed Ii .78in Dodge Filter Mesh Pouch Programmable 8637-20 - [id number] - [id number] Explanted:Qty: 1 on 04/06/2023 by Ben Abbott MD at [facility] Left: Abdomen Medtronic Inc 8637-20 / [id number] / Insurance MEDICARE IDPA [facility] PLAN MEDICARE IDPA MEDICARE IDPA [facility] Advance Directives For more information, please contact: [phone] Documents on File Type Date Recorded Patient Setter Helper Expl anation ADVANCE DIRECTIVE 04/07/2023 4:50 PM POWER OF LINES TENDER-MEDICAL ADVANCE DIRECTIVE 04/07/2023 4:50 PM POLST * [...] 10:25 PM 11/24/2020 6:40 PM Care Teams Staff Training And Development Manager Relationship Specialty Start Date End Date Efe Carrera MD [address] [place] [address] PCP - General 09/13/16 Efrain Nina MD [address] [place] [address] Surgeon Orthopedic Surgery 11/20/20 Miscellaneous, Not In File 11/24/20
--- OUTSIDE RECORDS SUMMARY | 2024-10-09 12:39 | XMS_ITS | Referral Summary ---
Author Organization [facility] Address [address] [place] [address] Care Team Providers Care Sales And Operations Trainee Name Role Phone Efe Carrera MD Primary Care Provide r Efrain Nina MD Unavailable [phone] Miscellaneous, Not In File Unavailable Unava ilable Encounters Date Type Department Care Team Description 09/24/[address] [facility] Group Orthopedics and Sports Medicine [address] [place] [address] Rufina Bolden NP from Last [...] mg of elemental iron total) by mouth paint mixer machine before breakfast Active methyl salicylate-menthol 30-10 % [...] including calling Suicide Hotline ( ) or 313. Follow up in three months with Psychologist/Counselor/SupportGroup/Psychiatrist [...] drink = 0.6 oz pur e alcohol) [facility] Utilities Answer Date Recorded In the past 12 months has th e [employer], gas, oil, or water [employer] threatened to shut off services in your [...] week 08/09/2023 How often do you attend [facility] ch or tenriism services? 1 to 4 times per year [...] place to sleep or slept in a long-term (including now)? No 08/09/2023 Personal Safety Answer Date Recorded Have you ever been in or are you currently in a harmful physical or emotional relationship or is someone making you feel afraid or unsafe? Denies 08/08/2023 Comments No Sex and Gender Information Value Date Recorded Sex Assigned at Not on file Legal Sex Female 1:00 AM BEEF TRIMMER Gender Identity Not on file Sexual Orientation Not on file Occupation Industry Job Start Date Job End Date Retired Not on file Not on file Not on file Last Filed Vital Signs Vital Sign Reading Time Taken Comments Blood Pressure 107/69 06/07/2024 1:49 PM BEEF TRIMMER Pulse 76 06/07/2024 1:49 PM BEEF TRIMMER Temperature 36.8 C (98.2 F) 08/11/2023 7:58 AM BEEF TRIMMER Respiratory Rate 20 08/11/2023 11:54 AM BEEF TRIMMER Oxygen Saturation 93% 08/11/2023 11:54 AM BEEF TRIMMER Inhaled Oxygen Concentration - - Weight 93.4 kg (206 lb) 06/07/2024 1:49 PM BEEF TRIMMER Height 157.5 cm (5' 2 ) 06/07/2024 1:49 PM BEEF TRIMMER Body Mass Index 37.68 06/07/2024 1:49 PM BEEF TRIMMER Plan of Treatment Not on file Medical Devices Implanted Type Area Antenna Design Engineer Device Identifier Shelf Expiration Date Model / Serial / Lot Synthes 04.037.142s Tfn-Advanced Lateral Relief Cut 11mm 170mm Cannulated Femoral - [id number] Implanted:Qty: 1 on 11/19/2020 by Efrain Nina MD at [facility] Left: Femur Synthes I 07/31/2030 04.037.142 S / / [id number] Synthes 04.038.200s Tfn-Advanced 10.35mm 100mm Cannulated Screw Bone Titanium - [id number] Implanted:Qty: 1 on 11/19/2020 by Efrain Nina MD at [facility] Left: Femur Synthes I 04/30/2029 04.038.200 S / / [id number] Synthes 04.005.526s 5mm 4.3mm 36mm Lock Self Tap Blunt Tip 2 Lead Tibial T25 Full - [id number] Implanted:Qty: 1 on 11/19/2020 by Efrain Nina MD at [facility] Left: Femur Synthes I 03/31/2029 04.005.526 S / / [id number] Medtronic Inc Synchromed Ii .78in [place] Filter Mesh Pouch Programmable 8637-20 - [id number] - [id number] Implanted:Qty: 1 on 04/06/2023 by Ben Abbott MD at [facility] Left: Abdomen Medtronic Inc 09/14/2024 8637-20 / [id number] / Explanted Type Area Antenna Design Engineer Device Identifier Shelf Expiration Date Model / Serial / Lot Medtronic Inc Synchromed Ii .78in [place] Filter Mesh Pouch Programmable 8637-20 - [id number] - [id number] Explanted:Qty: 1 on 04/06/2023 by Ben Abbott MD at [facility] Left: Abdomen Medtronic Inc 8637-20 / [id number] / Insurance MEDICARE IDPA [facility] PLAN MEDICARE IDPA MEDICARE [facility] Advance Directives For more information, please contact: [phone] Documents on File Type Date Recorded Patient Cantilever Crane Operator Expl anation ADVANCE DIRECTIVE 04/07/2023 4:50 PM POWER OF CYTOGENETICS TECHNOLOGIST-MEDICAL ADVANCE DIRECTIVE 04/07/2023 4:50 PM POLST * [...] 10:25 PM 11/24/2020 6:40 PM Care Teams Sales And Operations Trainee Relationship Specialty Start Date End Date Efe Carrera MD [address] [place] [address] PCP - General 09/13/16 Efrain Nina MD [address] [place] [address] Surgeon Orthopedic Surgery 11/20/20 Miscellaneous, Not In File 11/24/20
== END 2024-10-09 10:50 | disposition home or self-care (01) ==
LOC: CHSLAB 10:56
PROVIDERS: PCP Family Medicine; Visit Provider Family Medicine
DX: Z79.01 Long term (current) use of anticoagulants (principal)
CPT/HCPCS: 36415; 85610

== ENCOUNTER 2024-10-30 10:01 | Outpatient (CLI) | payer MEDICARE, SELFPAY ==
[2024-10-30 10:33] LABS: Hematocrit 39.1 % (35.0-42.0); Hemoglobin 11.5 g/dL (11.7-13.8); Mean Corpuscular HGB Conc 29.4 g/dL (32-36); Mean Corpuscular Hemoglobin 27.4 pg (27.0-31.0); Mean Corpuscular Volume 93.3 fL (78.0-102.0); Mean Platelet Volume 8.8 fl (9.2-11.8); Platelet Count Result 267 K/mm3 (150-420); Red Blood Count 4.19 M/mm3 (4.20-5.40); Red Cell Distribution Width 13.8 % (11.6-14.4); White Blood Count 6.2 K/mm3 (4.8-10.8)
--- OUTSIDE RECORDS SUMMARY | 2024-10-30 10:59 | XMS_ITS ---
Author Name [facility] Address [address] [place] [address] Phone [phone] Organization [facility] Address [address] [place] [address] Phone [phone] Care Team Providers Care Perfect Binder Operator Name Role Phone PritiJono gonzalesmarty Seaman Unavailable [phone] Rad Jonas Unavailable Adam Simón Unavailable Functional Status No Results Mental Status No Results Allergies and Intolerances Name Onset Date Reaction Severity Reglan (Allergy) TueNov 24 16:23:00 EDT 2020 Sulfa (Sulfonamide Antibiotics) (Allergy) Tue 16:23:00 EDT 2020 Medications Medication Directions Start Date End Date warfarin 5 mg tablet 5mg TABLET Oral 1 T rosalinda Daily DVT proph TueDecember 09 17:00:00 EDT 2020December 18 01:00:00 EDT 2020 ferrous sulfate 325 mg (65 mg iron) tablet,delayed release 325 mg Oral 2 Times Daily Supplement TueDecember 08 13:30:00 EDT 2020December 18 01:00:00 EDT 2020 Vitamin C 500 mg chewable tablet 500 mg Oral 1 Time Daily Supplement TueDecember 06 13:30:00 EDT 2020December 18 01:00:00 EDT 2020 HYDROcodone 5 mg-acetaminophen 325 mg tablet 1-2 tabs Oral PRN Every 4 Hours Dx: Pain TueDecember 08 13:30:00 EDT 2020December 18 01:00:00 EDT 2020 cholecalciferol (vitamin D3) 1,250 mcg (50,000 unit) capsule 1 capsule CAPSULE Oral 2 Times Weekly TueDecember 01 18:00:00 ED2020December 18 01:00:00 ED2020 Linzess 145 mcg capsule 145mcg CAPSULE O ral 1 Time Daily Constipation Sun November 30 16:00:00 EDT 2020December 18 01:00:00 EDT 2020 ferrous sulfate 325 mg (65 mg iron) tablet 1 tablet TABLET Oral 2 Times Daily TueNov 28 19:00:00 EDT 2020December 08 13:40:00 ED2020 warfarin 6 mg tablet 1 tablet TABLET Ora l 1 Time Daily TueNov 28 19:00:00 ED2020December 05 21:21:00 ED2020 Senna with Docusate Sodium 8.6 mg-50 mg tablet 2 tablets TABLET Oral PRN 2 Times Daily TueNov 28 18:30:00 EDT 2020December 18 01:00:00 ED2020 cyanocobalamin (vitamin B-12) 5,000 mcg capsule 1 tablet CAPSULE Oral 1 Time Daily TueNovember 29 01:00:00 ED2020December 03 16:22:00 ED2020 Vitamin B-12 5,000 mcg sublingual tablet 1 tablet Oral 1 Time Daily TueDecember 03 16:00:00 ED2020December 18 01:00:00 ED2020 warfarin 3 mg tablet 3mg TABLET Oral 1 T rosalinda Daily 3mg + 4mg=7mg r/t DVT proph Romi Nov 27 16:00:00 ED2020Nov 28 16:59:00 ED2020 warfarin 4 mg tablet 4mg TABLET Oral 1 T rosalinda Daily 4mg + 3mg=7mg r/t DVT proph TueNov 27 16:00:00 ED2020Nov 28 16:59:00 2020 TUBErsoL 5 tub. unit/0.1 mL intradermal injection solution 0.1 ml VIAL (ML) Intradermal 1 Time Weekly for 2 Weeks TueNov 26 12:00:00 ED2020December 10 11:59:00 ED2020 TUBErsoL 5 tub. unit/0.1 mL intradermal injection solution Read Results VIAL (ML) Other 1 Time Weekly for 2 Weeks TueNov 26 12:00:00 EDT 2020December 10 11:59:00 EDT 2020 warfarin 3 mg tablet 3 mg TABLET Oral 1 Time Daily Give 3 mg +4 mg to = 7 mg QHS TueNovember 29 19:00:00 EDT 2020Nov 27 16:49:00 ED2020 warfarin 4 mg tablet 4 mg TABLET Oral 1 Time Daily Give 4 mg + 3 mg to = 7mg QHS TueNovember 29 19:00:00 EDT 2020Nov 27 16:49:00 EDT 2020 buPROPion HCL 75 mg tablet 2 tablets TAB LET Oral 1 Time Daily Depression TueNov 24 22:00:00 EDT 2020December 18 01:00:00 EDT 2020 escitalopram 10 mg tablet 1 tablet TABLE T Oral 1 Time Daily Depression TueNov 25 09:00:00 ED2020December 18 01:00:00 EDT 2020 trimethoprim 100 mg tablet 1 tablet TABL ET Oral 1 Time Daily On hold while completing treatment with ampicillin - UTI prophylactic Sun November 30 22:00:00 ED2020December 18 01:00:00 EDT 2020 amLODIPine 5 mg tablet 1 tablet TABLET O ral 1 Time Daily TueNov 24 17:00:00 EDT 2020December 18 01:00:00 ED2020 ampicillin 500 mg capsule 1 capsule CAPS ULE Oral 3 Times Daily for 5 Days infection TueNov 24 17:00:00 ED2020Nov 25 09:35:00 ED2020 ascorbic acid (vitamin C) 500 mg tablet 1 tablet TABLET Oral 1 Time Daily for wound healing TueNov 24 17:00:00 ED2020December 18 01:00:00 ED2020 bethanechol chloride 25 mg tablet 1 tablet TABLET Oral 3 Times Daily TueNov 24 17:00:00 ED2020December 18 01:00:00 ED2020 buPROPion HCL 75 mg tablet 2 tablets TAB LET Oral 1 Time Daily TueNov 24 17:00:00 2020Nov 25 09:35:00 ED2020 cholecalciferol (vitamin D3) 1,250 mcg (50,000 unit) capsule 1 capsule CAPSULE Oral 1 Time Weekly TueNov 24 17:00:00 2020December 01 18:05:00 EDT 2020 cyclobenzaprine 10 mg tablet 1 tablet TA BLET Oral PRN 3 Times Daily for muscle spasms TueNov 24 17:00:00 ED2020December 18:00: ED2020 escitalopram 10 mg tablet 1 tablet TABLE T Oral 1 Time Daily TueNov 24 17:00:00 ED2020Nov 25 09:35:00 ED2020 ferrous sulfate 325 mg (65 mg iron) tablet 1 tablet TABLET Oral 1 Time Daily with breakfast. for post op anemia TueNov 24 17:00:00 ED2020Nov 28 16:59:00 ED2020 HYDROcodone 5 mg-acetaminophen 325 mg tablet 1-2 tablets TABLET Oral PRN Every 4 Hours for pain TueNov 24 17:00:2020December 08 13:45:00 2020 Linzess 145 mcg capsule 1 capsule CAPSUL E Oral 1 Time Daily TueNov 24 17:00:00 2020November 30 16:01:00 ED2020 omeprazole 40 mg capsule,delayed release 1 capsule CAPSULE,DELAYED RELEASE (ENTERIC COATED) Oral 2 Times Daily TueNov 24 17:00:00 ED2020December 18:00:00 ED2020 ondansetron HCL 4 mg tablet 1 tablet TAB LET Oral PRN Every 6 Hours for nausea and vomitting TueNov 24 17:30:00 ED2020December 18:00:00 ED2020 PreserVision AREDS 7,160 unit-113 mg-100 unit tablet 1 tablet TABLET Oral 2 Times Daily TueNov 24 17:00:00 ED2020December 18 01:00:00 ED2020 Senna with Docusate Sodium 8.6 mg-50 mg tablet 2 tablets TABLET Oral 2 Times Daily TueNov 24 17:30:00 ED2020Nov 28 22:54:00 ED2020 trimethoprim 100 mg tablet 1 tablet TABL ET Oral 1 Time Daily On hold while completing treatment with ampicillin TueNovember 30 01:00:00 ED2020Nov 25 09:35:00 ED2020 warfarin 1 mg tablet 7 mg TABLET Oral 1 Time Daily TueNov 24 17:30:00 ED2020Nov 26 18:41:00 ED2020 ampicillin 500 mg capsule 1 capsule CAPS ULE Oral 3 Times Daily for 5 Days UTI TueNov 24 22:00:00 EDT 2020 Sat November 29 21:59:00 EDT 2020 Problems Active Concerns * Displaced intertrochanteric fracture of left femur, subsequent encounter for closed fracture with routine healing* Code: * Start Date: TueNov 24 00:00:00 EDT 2020 * End Date: * Text: * Presence of other bone and tendon implants* Code: * Start Date: TueNov 24 00:00:00 EDT 2020 * End Date: * Text: * Acute posthemorrhagic anemia* Code: * Start Date: TueNov 24 00:00:00 EDT 2020 * End Date: * Text: * Urinary tract infection, site not specified* Code: * Start Date: TueNov 24 00:00:00 EDT 2020 * End Date: * Text: * Hypertensive chronic kidney disease with stage 1 through stage 4 chronic kidney disease, or unspecified chronic kidney disease* Code: * Start Date: TueNov 24 00:00:00 EDT 2020 * End Date: * Text: * Chronic kidney disease, stage 4 (severe)* Code: * Start Date: TueNov 24 00:00:00 EDT 2020 * End Date: * Text: * Chronic obstructive pulmonary disease, unspecified* Code: * Start Date: TueNov 24 00:00:00 EDT 2020 * End Date: * Text: * Fall from chair, subsequent encounter* Code: * Start Date: TueNov 24 00:00:00 EDT 2020 * End Date: * Text: * Gastro-esophageal reflux disease without esophagitis* Code: * Start Date: TueNov 24 00:00:00 EDT 2020 * End Date: * Text: * Secondary hyperparathyroidism of renal origin* Code: * Start Date: TueNov 24 00:00:00 EDT 2020 * End Date: * Text: * Vitamin D deficiency, unspecified* Code: * Start Date: TueNov 24 00:00:00 EDT 2020 * End Date: * Text: * Obesity, unspecified* Code: * Start Date: TueNov 24 00:00:00 EDT 2020 * End Date: * Text: * Hematuria, unspecified* Code: * Start Date: TueNov 24 00:00:00 EDT 2020 * End Date: * Text: * Personal history of urinary (tract) infections* Code: * Start Date: TueNov 24 00:00:00 EDT 2020 * End Date: * Text: * Major depressive disorder, single episode, unspecified* Code: * Start Date: TueNov 24 00:00:00 EDT 2020 * End Date: * Text: * Acquired absence of kidney* Code: * Start Date: TueNov 24 00:00:00 EDT 2020 * End Date: * Text: * Personal history of other malignant neoplasm of kidney* Code: * Start Date: TueNov 24 00:00:00 EDT 2020 * End Date: * Text: * 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* Code: * Start Date: TueNov 24 00:00:00 EDT 2020 * End Date: * Text: * Personal history of pulmonary embolism* Code: * Start Date: TueNov 24 00:00:00 EDT 2020 * End Date: * Text: * Personal history of other venous thrombosis and embolism* Code: * Start Date: TueNov 24 00:00:00 EDT 2020 * End Date: * Text: * Diaphragmatic hernia without obstruction or gangrene* Code: * Start Date: TueNov 24 00:00:00 EDT 2020 * End Date: * Text: * Slow transit constipation* Code: * Start Date: TueNov 24 00:00:00 EDT 2020 * End Date: * Text: * Encounter for therapeutic drug level monitoring* Code: * Start Date: TueNov 24 00:00:00 EDT 2020 * End Date: * Text: * Body mass index [BMI] 32.0-32.9, adult* Code: * Start Date: TueNov 24 00:00:00 EDT 2020 * End Date: * Text: Reason for Referral Past Medical History
--- OUTSIDE RECORDS SUMMARY | 2024-10-30 10:59 | XMS_ITS | Encounter Summary ---
Author Organization [facility] Address [address] [place] [address] Care Team Providers Care Manufacturing Machine Operator Name Role Phone Efe Carrera MD Primary Care Provider [phone] Encounter Details Date Type Department Care Team (Late st Contact Info) Description 10/15/2017 Abstract [facility] [address] [place] [address] , Generic ConversionMD Social History Tobacco Use [...] documented as of this encounter Care Teams Manufacturing Machine Operator Relationship Specialty Start Date End Date Efe Carrera MD [address] [place] [address] PCP - General FAMILY PRACTICE 10/13/17 documented as of this encounter
--- OUTSIDE RECORDS SUMMARY | 2024-10-30 10:59 | XMS_ITS | Referral Summary ---
Author Organization [facility] Address [address] [place] [address] Care Team Providers Care Prep Manager Name Role Phone Efe Carrera MD Primary Care Provide r Efrain Nina MD Unavailable [phone] Miscellaneous, Not In File Unavailable Unava ilable Encounters Date Type Department Care Team Description 10/26/2024 1:30 PM CDT Office Visit [facility] Orthopedics and Sports Medicine [address] [place] [address] [address] [place] [address] Rufina Bolden NP Trochanteric bursitis, left hip (Primary Dx); Left hip pain 09/24/2024 Telephone [facility] Orthopedics and Sports Medicine [address] [place] [address] [address] [place] [address] Rufina Bolden NP from Last [...] mg of elemental iron total) by mouth orthodontic lab technician before breakfast Active methyl salicylate-menthol 30-10 [...] 2 (two) times a day 60 tablet 08/11/19 24 Active diclofenac sodium (VOLTAREN) 1 % gel Apply 4 g topically 4 (four) times a day 100 g 10/27/19 25 Active diclofenac sodium (VOLTAREN) 1 % gel Apply 2 g topically 4 (four) times a day 100 g 06/07/20 24 025 Discontin ued([facility]) Hospital, Clinic, or Other Facility Administered Medication Ordered Dose Route Frequency Start Date End Date Status lidocaine (XYLOCAINE) 20 mg/mL (2 %) injection 4 mLIndications:Admi nistration of Local Anesthesia 4 mL OTHER One-Time Injection 10/26/2024 10/26/2024 Ended methylPREDNISolone acetate (DEPO-medrol) injection 80 mgIndications:Troc hanteric bursitis, left hip 80 mg intra-artic One-Time Injection 10/26/2024 10/26/2024 Ended Active Problems Problem Noted Date Diagnosed Date [...] including calling Suicide Hotline ( ) or 910. Follow up in three months with Psychologist/Counselor/SupportGroup/Psychiatrist [...] now. Will monitor. Vitamin deficiency, unspecified 11/24/2020 [facility] (current) use of anticoagulants 2020 Hypertensive chronic [...] drink = 0.6 oz pur e alcohol) [facility] Utilities Answer Date Recorded In the past 12 months has [employer], [employer], [employer], or water [place] threatened to shut off services in your [...] 08/09/2023 How often do you attend chur or episcopal services? 1 to 4 times per year 08/09/2023 Do you belong to any clubs o r organizations such as hoahaoism groups, unions, fraternal or athletic groups, or [...] place to sleep or slept in a snf (including now)? No 08/09/2023 Personal Safety Answer Date Recorded Have you ever been in or are you currently in a harmful physical or emotional relationship or is someone making you feel afraid or unsafe? Denies 08/08/2023 Comments No Sex and Gender Information Value Date Recorded Sex Assigned at Not on file Legal Sex Female 1:00 AM RADIOLOGICAL HEALTH SPECIALIST Gender Identity Not on file Sexual Orientation Not on file Occupation Industry Job Start Date Job End Date Retired Not on file Not on file Not on file Last Filed Vital Signs Vital Sign Reading Time Taken Comments Blood Pressure 108/60 10/26/2024 1:20 PM CDT Pulse 81 10/26/2024 1:20 PM CDT Temperature 36.8 C (98.2 F) 08/11/2023 7:58 AM RADIOLOGICAL HEALTH SPECIALIST Respiratory Rate 20 08/11/2023 11:54 AM RADIOLOGICAL HEALTH SPECIALIST Oxygen Saturation 93% 08/11/2023 11:54 AM RADIOLOGICAL HEALTH SPECIALIST Inhaled Oxygen Concentration - - Weight 91.2 kg (201 lb) 10/26/2024 1:20 PM CDT Height 157.5 cm (5' 2 ) 10/26/2024 1:20 PM CDT Body Mass Index 36.76 10/26/2024 1:20 PM CDT Plan of Treatment Not on file Medical Devices Implanted Type Area Manager Gas Device Identifier Shelf Expiration Date Model / Serial / Lot Synthes 04.037.142s Tfn-Advanced Lateral Relief Cut 11mm 170mm Cannulated Femoral - [id number] Implanted:Qty: 1 on 11/19/2020 by Efrain Nina MD at [facility] Left: Femur Synthes I 07/31/2030 04.037.142 S / / [id number] Synthes 04.038.200s Tfn-Advanced 10.35mm 100mm Cannulated Screw Bone Titanium - [id number] Implanted:Qty: 1 on 11/19/2020 by Efrain Nina MD at [facility] Left: Femur Synthes I 04/30/2029 04.038.200 S / / [id number] Synthes 04.005.526s 5mm 4.3mm 36mm Lock Self Tap Blunt Tip 2 Lead Tibial T25 Full - [id number] Implanted:Qty: 1 on 11/19/2020 by Efrain Nina MD at [facility] Left: Femur Synthes I 03/31/2029 04.005.526 S / / [id number] Medtronic Inc Synchromed Ii .78in Inez Filter Mesh Pouch Programmable 8637-20 - [id number] - [id number] Implanted:Qty: 1 on 04/06/2023 by Ben Abbott MD at [facility] Left: Abdomen Medtronic Inc 09/14/2024 8637-20 / [id number] / Explanted Type Area Manager Gas Device Identifier Shelf Expiration Date Model / Serial / Lot Medtronic Inc Synchromed Ii .78in Inez Filter Mesh Pouch Programmable 8637-20 - [id number] - [id number] Explanted:Qty: 1 on 04/06/2023 by Ben Abbott MD at [facility] Left: Abdomen Medtronic Inc 8637-20 / [id number] / Procedures Procedure Name Priority Date/Time Associated Diagnosis Comments [place] ARTHROCENTESIS ASPIR&/INJ MAJOR JT/BURSA W/O US Routine 10/26/2024 1:30 PM CDT Trochanteric bursitis, left hip from Last 3 Months Results * [place] ARTHROCENTESIS ASPIR&/INJ MAJOR JT/BURSA W/O US (10/26/2024 1:30 PM CDT) Narrative Rufina Bolden NP - 10/26/2024 1:30 PM CDT Rufina Bolden NP 10/26/2024 2:05 PM Greater trochanteric bursa injection Performed by: [...] from Last 3 Months Insurance MEDICARE IDPA [facility] PLAN MEDICARE IDPA MEDICARE IDPA [facility] PLAN MEDICARE Advance Directives For more information, please contact: [phone] Documents on File Type Date Recorded Patient Broadcast Operations Manager Expl anation ADVANCE DIRECTIVE 04/07/2023 4:50 PM POWER OF AUTOMATIC DRILLING MACHINE OPERATOR-MEDICAL ADVANCE DIRECTIVE 04/07/2023 4:50 PM POLST [...] 10:25 PM 11/24/2020 6:40 PM Care Teams Prep Manager Relationship Specialty Start Date End Date Efe Carrera MD [address] [place] [address] PCP - General 09/13/16 Efrain Nina MD [address] [place] [address] Surgeon Orthopedic Surgery 11/20/20 Miscellaneous, Not In File 11/24/20
--- OUTSIDE RECORDS SUMMARY | 2024-10-30 10:59 | XMS_ITS | Clinical Summary ---
Author Organization [facility] Address [address] [place] [address] Phone Care Team Providers Care Baggage Porter Name Role Phone Efe Carrera MD Primary Care Provider [phone] Alfredo Steven MD Unavailable [phone] Allergies Active Allergy Reactions Criticality Noted Date [...] DETECTED NON DETECTED 02/23/2019 3:31 PM CDT [facility] HCV RNA QT LOG10 <=0.00 Log10 IU/mL 02/23/2019 3:31 PM CDT [facility] Comment: LOG 10 is not applicable. Sample held in Serology for 1 month. Call Laboratory if further testing is desired. This test was performed using TSERING AmpliPrep TSERING Taq Man Real Time PCR. Blood specimen (specimen) Butterfly Puncture / Unknown 02/20/2019 3:51 PM CDT 02/20/2019 5:11 PM CDT us Radha Harkins CREMATORY OPERATOR, SALES REPRESENTATIVE BUSINESS COURSES IMMUNOLOGY ORDERA BLES Final Result [facility] [address] [place] [address], [place] from Last 3 Months or Most Recently Relevant to Health Maintenance Insurance MEDICARE [place]ICAID [place] Care Teams Baggage Porter Relationship Specialty Start Date End Date Efe Carrera MD [address] [place] [address] PCP - General Pediatrics 02/20/19 Alfredo Steven MD [address] [place] [address] Consulting Physician Nephrology 02/21/19
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
--- OUTSIDE RECORDS SUMMARY | 2024-10-30 10:59 | XMS_ITS ---
Author Organization [facility] Address [address] [place] [address] Care Team Providers Care Livestock Farmers Name Role Phone Efe Carrera MD Primary Care Provide r Efrain Nina MD Unavailable [phone] Miscellaneous, Not In File Unavailable Unava ilable [...] now. Will monitor. Vitamin deficiency, unspecified 11/24/2020 assisted (current) use of anticoagulants 2020 Hypertensive chronic [...]
--- OUTSIDE RECORDS SUMMARY | 2024-10-30 10:59 | XMS_ITS | Clinical Summary ---
Author Organization [facility] [employer] Address [address] [place] [address] Care Team Providers Care An/Ssn 2 4 Operator Name Role Phone Unavailable Primary Care Provider Unavailabl e Source Comments [facility] [employer],non-owned Affiliates and Associated Physician Practices is amultiple site organization consisting of ambulatory clinics and hospital sitesin [place], [place] and [place]. This disclosure is being madepursuant to the Care Everywhere program and may not contain all information available regarding this patient. Last updated 18.[facility] [employer] Allergies Active Allergy Reactions Criticality Noted Date [...] complete this topic MENINGOCOCCAL (Group B) VACCINE SHARED DECISION-MAKING Aged Out No longer eligible based on patient's age to complete this topic MENINGOCOCCAL GROUPS A/C/Y/W VACCINE Aged Out No longer eligible b ased on patient's age to complete this topic
--- OUTSIDE RECORDS SUMMARY | 2024-10-30 10:59 | XMS_ITS | Clinical Summary ---
Author Organization [facility] Address [address] [place] [address] Care Team Providers Care Market Basket Maker Name Role Phone Efe Carrera MD Primary Care Provide r Efrain Nina MD Unavailable [phone] Miscellaneous, Not In File Unavailable Unava ilable [...] mg of elemental iron total) by mouth tool planer set up operator before breakfast Active methyl salicylate-menthol 30-10 [...] (four) times a day 100 g 11 11/07 025 Discontin ued([facility]) Hospital, Clinic, or Other Facility Administered Medication [...] including calling Suicide Hotline ( ) or 325. Follow up in three months with Psychologist/Counselor/SupportGroup/Psychiatrist [...] now. Will monitor. 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 Hypertensive chronic [...] Description 10/26/2024 1:30 PM CDT Office Visit [facility] Orthopedics and Sports Medicine [address] [place] [address] [address] [place] [address] Rufina Bolden NP Trochanteric bursitis, left hip (Primary Dx); Left hip pain 09/24/2024 Telephone [facility] Medicine [address] [place] [address] [address] [place] [address] Rufina Bolden NP from Last 3 Months Immunizations Immunization Administration Dates Next Due Influenza, Trivalent, IM (MDV) 05/03/2016 Influenza, Trivalent, Preservative Free, Intramu scular 04/15/2009 Surgical History Surgery Date Site/Laterality Comments [place] ARTHRP KNE CONDYLE&PLATU MEDIAL&LAT COMPARTMENTS Total Knee Arthroplasty - (Added by TW Conv) [place] CHOLECYSTECTOMY Cholecystectomy - (Added by TW Conv) [...] not e lsewhere classified 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 1 to 4 times per year 08/09/2023 Do you belong to any clubs o r organizations such as pentecostalism groups, unions, fraternal or athletic groups, or [...] on file Legal Sex Female 1:00 AM COMPUTER ANALYST Gender Identity Not on file Sexual Orientation Not on file Occupation Industry Job Start Date Job End Date Retired Not on file Not on file Not on file Obstetrics History Last Filed Vital Signs Vital Sign Reading Time Taken Comments Blood Pressure 108/60 10/26/2024 1:20 PM CDT Pulse 81 10/26/2024 1:20 PM CDT Temperature 36.8 C (98.2 F) 08/11/2023 7:58 AM COMPUTER ANALYST Respiratory Rate 20 08/11/2023 11:54 AM COMPUTER ANALYST Oxygen Saturation 93% 08/11/2023 11:54 AM COMPUTER ANALYST Inhaled Oxygen Concentration - - Weight 91.2 kg (201 lb) 10/26/2024 1:20 PM CDT Height 157.5 cm (5' 2 ) 10/26/2024 1:20 PM CDT Body Mass Index 36.76 10/26/2024 1:20 PM CDT Plan of Treatment Health Maintenance [...] 10/10/2020, 08/29/2020 Medical Devices Implanted Type Area Efficiency Expert Device Identifier Shelf Expiration Date Model / Serial / Lot Synthes 04.037.142s Tfn-Advanced Lateral Relief Cut 11mm 170mm Cannulated Femoral - [id number] Implanted:Qty: 1 on 11/19/2020 by Efrain Nina MD at [facility] Left: Femur Synthes I 07/31/2030 04.037.142 S / / [id number] Synthes 04.038.200s Tfn-Advanced 10.35mm 100mm Cannulated Screw Bone Titanium - [id number] Implanted:Qty: 1 on 11/19/2020 by Efrain Nina MD at [facility] Left: Femur Synthes I 04/30/2029 04.038.200 S / / [id number] Synthes 04.005.526s 5mm 4.3mm 36mm Lock Self Tap Blunt Tip 2 Lead Tibial T25 Full - [id number] Implanted:Qty: 1 on 11/19/2020 by Efrain Nina MD at [facility] Left: Femur Synthes I 03/31/2029 04.005.526 S / / [id number] Medtronic Inc Synchromed Ii .78in [place] Filter Mesh Pouch Programmable 8637-20 - [id number] - [id number] Implanted:Qty: 1 on 04/06/2023 by Ben Abbott MD at [facility] Left: Abdomen Medtronic Inc 09/14/2024 8637-20 / [id number] / Explanted Type Area Efficiency Expert Device Identifier Shelf Expiration Date Model / Serial / Lot Medtronic Inc Synchromed Ii .78in [place] Filter Mesh Pouch Programmable 8637-20 - [id number] - [id number] Explanted:Qty: 1 on 04/06/2023 by Ben Abbott MD at [facility] Left: Abdomen Medtronic Inc 8637-20 / [id number] / Procedures Procedure Name Priority Date/Time Associated Diagnosis Comments [place] ARTHROCENTESIS ASPIR&/INJ MAJOR JT/BURSA W/O US Routine 10/26/2024 1:30 PM CDT Trochanteric bursitis, left hip from Last 3 Months Results * [place] ARTHROCENTESIS ASPIR&/INJ MAJOR JT/BURSA W/O US (10/26/2024 [...] with no immediate complications us Rufina Bolden WOOD STRIP BLOCK FLOOR INSTALLER IN CLINIC/BEDSIDE ORDER SOHAIL Final Result from Last 3 Months Insurance MEDICARE [facility] [place] [address] [facility] PLAN MEDICARE [facility] MEDICARE [facility] OTHER Address: [address] [place] [address] MEDICARE Advance Directives For more information, please contact: [phone] Documents on File Type Date Recorded Patient Medical Appliance Maker Expl anation ADVANCE DIRECTIVE 04/07/2023 4:50 PM POWER OF BUSINESS SUPPORT MANAGER-MEDICAL ADVANCE DIRECTIVE 04/07/2023 4:50 PM POLST [...] 10:25 PM 11/24/2020 6:40 PM Care Teams Market Basket Maker Relationship Specialty Start Date End Date Efe Carrera MD [address] [place] [address] PCP - General 09/13/16 Efrain Nina MD [address] [place] [address] Surgeon Orthopedic Surgery 11/20/20 Miscellaneous, Not In File 11/24/20
--- OUTSIDE RECORDS SUMMARY | 2024-10-30 10:59 | XMS_ITS | Encounter Summary ---
Author Organization [facility] Address [facility] [place] [address] Care Team Providers Care Graphic Editor Name Role Phone Efe Carrera MD Primary Care Provider [phone] Encounter Details Date Type Department Care Team (Late st Contact Info) Description 09/11/2019 Prep for Procedure [place]'s Manager Mail Pre/Post [address] [place] [address] Sheldon Webster MD Social History Tobacco Use [...] documented as of this encounter Care Teams Graphic Editor Relationship Specialty Start Date End Date Efe Carrera MD [address] [place] [address] PCP - General FAMILY PRACTICE 10/13/17 documented as of this encounter
--- OUTSIDE RECORDS SUMMARY | 2024-10-30 10:59 | XMS_ITS | Encounter Summary ---
Author Organization [facility] Address [facility] [place] [address] Care Team Providers Care Costume Designer Name Role Phone Efe Carrera MD Primary Care Provider [phone] Encounter Details Date Type Department Care Team (Late st Contact Info) Description 11/26/2019 Abstract [facility] [address] [place], [place] [address] [place] [address] [place] [phone] Social History Tobacco Use Types Packs/Day [...] documented as of this encounter Care Teams Costume Designer Relationship Specialty Start Date End Date Efe Carrera MD [address] [place] [id number] PCP - General FAMILY PRACTICE 10/13/17 documented as of this encounter
[2024-10-30 11:06] LABS: Alanine Aminotransferase 20 U/L (14-59); Albumin Level 3.7 g/dL (3.4-5.0); Alkaline Phosphatase 115 U/L (46-116); Anion Gap 7 mmol/L (4-12); Aspartate Amino Transferase 11 U/L (15-37); Bilirubin,Total 0.3 mg/dL (0.00-1.00); Blood Urea Nitrogen 44 mg/dL (7-18); Calcium 9.5 mg/dL (8.5-10.1); Carbon Dioxide 28 mmol/L (21-32); Chloride 109 mmol/L (98-108); Estimated Glomerular Filt Rate 25; Glucose 110 mg/dL (70-99); Osmolality Calculated 310 mOsm/kg (285-295); Potassium 4.7 mmol/L (3.5-5.1); Sodium 144 mmol/L (136-145); Total Protein 7.4 g/dL (6.4-8.2)
== END 2024-10-30 10:02 | disposition home or self-care (01) ==
PROVIDERS: PCP Family Medicine; Visit Provider Family Medicine
DX: J44.9 Chronic obstructive pulmonary disease, unspecified (principal); I10 Essential (primary) hypertension
CPT/HCPCS: 36415; 80053; 85027

== ENCOUNTER 2024-11-09 11:21 | Outpatient (CLI) | payer MEDICARE, SELFPAY ==
--- OUTSIDE RECORDS SUMMARY | 2024-11-09 11:49 | XMS_ITS | Clinical Summary ---
Author Organization [facility] Address [address] [place] [address] Care Team Providers Care Child'S Nurse Name Role Phone Unavailable Primary Care Provider Unavailabl e Source Comments [facility],non-owned Affiliates and Associated Physician Practices is amultiple site organization consisting of ambulatory clinics and hospital sitesin [place], [place], [place] and [place]. This disclosure is being madepursuant to the Care Everywhere program and may not contain all information available regarding this patient. Last updated 18.[facility] Allergies Active Allergy Reactions Criticality Noted Date [...] VACCINE ( - 2023-2 5 season) 2024 DEPRESSION SCREENING 08/01/2024 INFLUENZA VACCINE (Season Ended) 2025 05/03/2016, 04/15/2009 HEPATITIS B VACCINE Aged Out No longe [...]
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
--- OUTSIDE RECORDS SUMMARY | 2024-11-09 11:49 | XMS_ITS | Clinical Summary ---
Author Organization [facility] Address [address] [place] [address] Phone Care Team Providers Care Laborer Laboratory Name Role Phone Efe Carrera MD Primary [...] DETECTED NON DETECTED 02/23/2019 3:31 PM CDT [facility] HCV RNA QT LOG10 <=0.00 Log10 IU/mL 02/23/2019 3:31 PM CDT [facility] Comment: LOG 10 is not applicable. Sample held in Serology for 1 month. Call Laboratory if further testing is desired. This test was performed using TSERING AmpliPrep TSERING Taq Man Real Time PCR. Blood specimen (specimen) Butterfly Puncture / Unknown 02/20/2019 3:51 PM CDT 02/20/2019 5:11 PM CDT us Radha Harkins EMPLOYMENT AND CLAIMS AIDE, KEY ACCOUNT REPRESENTATIVE IMMUNOLOGY ORDERA BLES Final Result [facility] [address] [place] [address], [place] from Last 3 Months or Most Recently Relevant to Health Maintenance Insurance MEDICARE MEDICAID [place] Care Teams Laborer Laboratory Relationship Specialty Start Date End Date Efe Carrera MD [address] [place] [address] PCP - General Pediatrics 02/20/19 Alfredo Steven MD [address] [place] [address] Consulting Physician Nephrology 02/21/19
--- OUTSIDE RECORDS SUMMARY | 2024-11-09 11:49 | XMS_ITS ---
Author Name Leonides Hendricks Address [address] [place] [address] Phone [phone] Organization [facility] [facility] Address [address] [place] [address] Phone [phone] Care Team Providers Care Automatic Clipper Name Role Phone Leonides Hendricks Unavailable Rad Jonas Unavailable [phone] Vivien Medina Unavailable Functional Status Mental Status Allergies and Intolerances Medications Problems Reason for Referral Past Medical History
--- OUTSIDE RECORDS SUMMARY | 2024-11-09 11:49 | XMS_ITS | Encounter Summary ---
Author Organization [facility] Address [facility] [place] [address] Care Team Providers Care Technical Agronomist Name Role Phone Efe Carrera MD Primary Care Provider [phone] Encounter Details Date Type Department Care Team (Late st Contact Info) Description 11/26/2019 Abstract [facility] [address] [place], [place] [address] [place] [address] [place] [address] Social History Tobacco Use Types Packs/Day [...] documented as of this encounter Care Teams Technical Agronomist Relationship Specialty Start Date End Date Efe Carrera MD [address] [id number] PCP - General FAMILY PRACTICE 10/13/17 documented as of this encounter
--- OUTSIDE RECORDS SUMMARY | 2024-11-09 11:49 | XMS_ITS | Encounter Summary ---
Author Organization [facility] Address [address] [place] [address] Care Team Providers Care Internet Retailer Name Role Phone Efe Carrera MD Primary Care Provider [phone] Encounter Details Date Type Department Care Team (Late st Contact Info) Description 09/11/2019 Prep for Procedure Cornelius's Learning Support Aide Pre/Post [address] [place] [address] Sheldon Webster MD [address] [place] [address] Social History Tobacco Use Types Packs/Day Years [...] documented as of this encounter Care Teams Internet Retailer Relationship Specialty Start Date End Date Efe Carrera MD [address] [place] [address] PCP - General FAMILY PRACTICE 10/13/17 documented as of this encounter
--- OUTSIDE RECORDS SUMMARY | 2024-11-09 11:49 | XMS_ITS ---
Author Name PritiLeonides gonzales Jurgen Address [address] [place] [address] Phone [phone] Organization [facility] Address [address] [place] [address] Phone [phone] Care Team Providers Care Window Installation Subcontractor Name Role Phone PritiJono gonzalesmarty Seaman Unavailable [phone] Rad Jonas Unavailable Adam Simón Unavailable [phone] Functional Status No Results Mental Status No [...] 2020 * End Date: * Text: * halfway (current) use of anticoagulants* Code: * Start [...]
--- OUTSIDE RECORDS SUMMARY | 2024-11-09 11:50 | XMS_ITS ---
Author Organization [facility] Address [address] [place] [address] Care Team Providers Care Ship Purser Name Role Phone Efe Carrera MD Primary Care Provide r Efrain Nina MD Unavailable [phone] Miscellaneous, Not In File Unavailable Unava ilable [...]
--- OUTSIDE RECORDS SUMMARY | 2024-11-09 11:50 | XMS_ITS | Encounter Summary ---
Author Organization [facility] Address [address] [place] [address] Care Team Providers Care Hot Dimpling Machine Operator Name Role Phone Efe Carrera MD Primary Care Provider [phone] Encounter Details Date Type Department Care Team (Late st Contact Info) Description 10/15/2017 Abstract [facility] [address] [place] [address] , Generic ConversionMD Social History Tobacco Use [...] documented as of this encounter Care Teams Hot Dimpling Machine Operator Relationship Specialty Start Date End Date Efe Carrera MD [address] [place] [address] PCP - General FAMILY PRACTICE 10/13/17 documented as of this encounter
--- OUTSIDE RECORDS SUMMARY | 2024-11-09 11:50 | XMS_ITS | Clinical Summary ---
Author Organization [facility] Address [address] [place] [address] Care Team Providers Care Mine Utility Operator Name Role Phone Efe Carrera MD Primary Care Provide r Efrain Nina MD Unavailable [phone] Miscellaneous, Not In File Unavailable Unava ilable [...] mg of elemental iron total) by mouth harness installer before breakfast Active methyl salicylate-menthol 30-10 [...] day 100 g 11 11/07 025 Discontin ued([facility]) Hospital, Clinic, or Other Facility Administered Medication [...] including calling Suicide Hotline ( ) or 462. Follow up in three months with Psychologist/Counselor/SupportGroup/Psychiatrist [...] Description 10/26/2024 1:30 PM CDT Office Visit [facility] [address] [place] [address] [address] [place] [address] Rufina Bolden NP Trochanteric bursitis, left hip (Primary Dx); Left hip pain 09/24/2024 Telephone [facility] [address] [place] [address] [address] [place] [address] Rufina Bolden NP from Last 3 Months Immunizations Immunization Administration Dates Next Due Influenza, Trivalent, IM (MDV) 05/03/2016 Influenza, Trivalent, Preservative Free, Intramu scular 04/15/2009 Surgical History Surgery Date Site/Laterality Comments CO ARTHRP KNE CONDYLE&PLATU MEDIAL&LAT COMPARTMENTS Total Knee Arthroplasty - (Added by TW Conv) CO CHOLECYSTECTOMY Cholecystectomy - (Added by TW Conv) [...] not e lsewhere classified Right shoulder pain residential (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 1 to 4 times per year 08/09/2023 Do you belong to any clubs o r organizations such as zoroastrianism groups, unions, fraternal or athletic groups, or [...] on file Legal Sex Female 1:00 AM BOTTLE WASHER MACHINE Gender Identity Not on file Sexual Orientation Not on file Occupation Industry Job Start Date Job End Date Retired Not on file Not on file Not on file Obstetrics History Last Filed Vital Signs Vital Sign Reading Time Taken Comments Blood Pressure 108/60 10/26/2024 1:20 PM CDT Pulse 81 10/26/2024 1:20 PM CDT Temperature 36.8 C (98.2 F) 08/11/2023 7:58 AM BOTTLE WASHER MACHINE Respiratory Rate 20 08/11/2023 11:54 AM BOTTLE WASHER MACHINE Oxygen Saturation 93% 08/11/2023 11:54 AM BOTTLE WASHER MACHINE Inhaled Oxygen Concentration - - Weight 91.2 [...] of 2) 1989 Well Visit 65+ 2004 Fall Risk Assessment 08/11/2024 08/11/2023 Influenza Vaccine (Season Ended) 2025 04/11/2020, 06/01/2019, 04/17/2018, Additional history exists DTaP/Tdap/Td Vaccine (4 - Td or Tdap) 06/30/2028 06/30/2018, 06/22/2016, 11/04/2008 Pneumococcal vaccine 65+ Completed 06/22/2016, 04/03 Covid-19 Vaccine Discontinued 10/10/2020, 08/29/2020 Medical Devices Implanted Type Area Quality Assurance Clerk Device Identifier Shelf Expiration Date Model / Serial / Lot Synthes 04.037.142s Tfn-Advanced Lateral Relief Cut 11mm 170mm Cannulated Femoral - [id number] Implanted:Qty: 1 on 11/19/2020 by Efrain Nina MD at [facility] Left: Femur Synthes I 07/31/2030 04.037.142 S / / [id number] Synthes 04.038.200s Tfn-Advanced 10.35mm 100mm Cannulated Screw Bone Titanium - [id number] Implanted:Qty: 1 on 11/19/2020 by Efrain Nina MD at [facility] Left: Femur Synthes I 04/30/2029 04.038.200 S / / [id number] Synthes 04.005.526s 5mm 4.3mm 36mm Lock Self Tap Blunt Tip 2 Lead Tibial T25 Full - [id number] Implanted:Qty: 1 on 11/19/2020 by Efrain Nina MD at [facility] Left: Femur Synthes I 03/31/2029 04.005.526 S / / [id number] Medtronic Inc Synchromed Ii .78in Trosky Filter Mesh Pouch Programmable 8637-20 - [id number] - [id number] Implanted:Qty: 1 on 04/06/2023 by Ben Abbott MD at [facility] Left: Abdomen Medtronic Inc 09/14/2024 8637-20 / [id number] / Explanted Type Area Quality Assurance Clerk Device Identifier Shelf Expiration Date Model / Serial / Lot Medtronic Inc Synchromed Ii .78in Trosky Filter Mesh Pouch Programmable 8637-20 - [id number] - [id number] Explanted:Qty: 1 on 04/06/2023 by Ben Abbott MD at [facility] Left: Abdomen Medtronic Inc 8637-20 / [id number] / Procedures Procedure Name Priority Date/Time Associated Diagnosis Comments CO ARTHROCENTESIS ASPIR&/INJ MAJOR JT/BURSA W/O US Routine 10/26/2024 1:30 PM CDT Trochanteric bursitis, left hip from Last 3 Months Results * CO ARTHROCENTESIS ASPIR&/INJ MAJOR JT/BURSA W/O US (10/26/2024 1:30 PM CDT) Narrative Rufina Bolden NP - 10/26/2024 1:30 PM CDT Rufina Bolden NP 10/26/2024 2:05 PM Greater trochanteric bursa injection Performed by: Rufina Bolden NP Authorized by: Rufnia Bolden NP Greater Trochanteric Bursa Injection: Consent [...] with no immediate complications us Rufina Bolden OFFICE RECEPTIONIST IN CLINIC/BEDSIDE ORDER SOHAIL Final Result from Last 3 Months Insurance * Guarantor: Rajani Cardenas Account Type Relation to Patient Date of Phone Billing Address Personal/Family Self 1940 [address] [place] [address] MEDICARE [facility] PLAN MEDICARE [facility] MEDICARE [facility] MEDICARE Advance Directives For more information, please contact: [phone] Documents on File Type Date Recorded Patient Shopping Centre Manager Expl anation ADVANCE DIRECTIVE 04/07/2023 4:50 PM POWER OF ELECTRIC CUTTER OPERATOR-MEDICAL ADVANCE DIRECTIVE 04/07/2023 4:50 PM POLST [...] 10:25 PM 11/24/2020 6:40 PM Care Teams Mine Utility Operator Relationship Specialty Start Date End Date Efe Carrera MD [address] [place] [address] PCP - General 09/13/16 Efrain Nina MD [address] [place] [address] Surgeon Orthopedic Surgery 11/20/20 Miscellaneous, Not In File 11/24/20
--- OUTSIDE RECORDS SUMMARY | 2024-11-09 11:50 | XMS_ITS | Referral Summary ---
Author Organization [facility] Address [address] [place] [address] Care Team Providers Care Crust Sorter Name Role Phone Efe Carrera MD Primary Care Provide r Efrain Nina MD Unavailable [phone] Miscellaneous, Not In File Unavailable Unava ilable Encounters Date Type Department Care Team Description 10/26/2024 1:30 PM CDT Office Visit [facility] Medicine [address] [place] [address] [address] [place] [address] Rufina Bolden NP Trochanteric bursitis, left hip (Primary Dx); Left hip pain 09/24/2024 Telephone [facility] [address] [place] [address] [address] [place] [address] Rufina Bolden NP from Last [...] mg of elemental iron total) by mouth fast foods worker before breakfast Active methyl salicylate-menthol 30-10 % [...] day 100 g 06/07/20 24 025 Discontin ued([facility]) Hospital, Clinic, or Other Facility Administered Medication [...] including calling Suicide Hotline ( ) or 915. Follow up in three months with Psychologist/Counselor/SupportGroup/Psychiatrist [...] now. Will monitor. 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 Utilities Answer Date Recorded In the past 12 months has [employer], [employer], or water [employer] threatened to shut off services in your [...] How often do you attend chur or church services? 1 to 4 times per year 08/09/2023 Do you belong to any clubs o r organizations such as voodoo groups, unions, fraternal or athletic groups, or [...] on file Legal Sex Female 1:00 AM SLAG SKIMMER Gender Identity Not on file Sexual Orientation Not on file Occupation Industry Job Start Date Job End Date Retired Not on file Not on file Not on file Last Filed Vital Signs Vital Sign Reading Time Taken Comments Blood Pressure 108/60 10/26/2024 1:20 PM CDT Pulse 81 10/26/2024 1:20 PM CDT Temperature 36.8 C (98.2 F) 08/11/2023 7:58 AM SLAG SKIMMER Respiratory Rate 20 08/11/2023 11:54 AM SLAG SKIMMER Oxygen Saturation 93% 08/11/2023 11:54 AM SLAG SKIMMER Inhaled Oxygen Concentration - - Weight 91.2 kg (201 lb) 10/26/2024 1:20 PM CDT Height 157.5 cm (5' 2 ) 10/26/2024 1:20 PM CDT Body Mass Index 36.76 10/26/2024 1:20 PM CDT Plan of Treatment Not on file Medical Devices Implanted Type Area Sales Operations Analyst Device Identifier Shelf Expiration Date Model / Serial / Lot Synthes 04.037.142s Tfn-Advanced Lateral Relief Cut 11mm 170mm Cannulated Femoral - [id number] Implanted:Qty: 1 on 11/19/2020 by Efrain Nina MD at [facility] Left: Femur Synthes I 07/31/2030 04.037.142 S / / [id number] Synthes 04.038.200s Tfn-Advanced 10.35mm 100mm Cannulated Screw Bone Titanium - [id number] Implanted:Qty: 1 on 11/19/2020 by Efrain Nina MD at [facility] Left: Femur Synthes I 04/30/2029 04.038.200 S / / [id number] Synthes 04.005.526s 5mm 4.3mm 36mm Lock Self Tap Blunt Tip 2 Lead Tibial T25 Full - [id number] Implanted:Qty: 1 on 11/19/2020 by Efrain Nina MD at [facility] Left: Femur Synthes I 03/31/2029 04.005.526 S / / [id number] Medtronic Inc Synchromed Ii .78in Dodson Filter Mesh Pouch Programmable 8637-20 - [id number] - [id number] Implanted:Qty: 1 on 04/06/2023 by Ben Abbott MD at [facility] Left: Abdomen Medtronic Inc 09/14/2024 8637-20 / [id number] / Explanted Type Area Sales Operations Analyst Device Identifier Shelf Expiration Date Model / Serial / Lot Medtronic Inc Synchromed Ii .78in Dodson Filter Mesh Pouch Programmable 8637-20 - [id number] - [id number] Explanted:Qty: 1 on 04/06/2023 by Ben Abbott MD at [facility] Left: Abdomen Medtronic Inc 8637-20 / [id number] / Procedures Procedure Name Priority Date/Time Associated Diagnosis Comments AL ARTHROCENTESIS ASPIR&/INJ MAJOR JT/BURSA W/O US Routine 10/26/2024 1:30 PM CDT Trochanteric bursitis, left hip from Last 3 Months Results * [place] ARTHROCENTESIS ASPIR&/INJ MAJOR JT/BURSA W/O US (10/26/2024 [...] Result from Last 3 Months Insurance MEDICARE [facility] Address: [address] [address] [place] [address] [facility]PA [facility] PLAN MEDICARE IDPA MEDICARE [employer] PLAN MEDICARE Advance Directives For more information, please contact: [phone] Documents on File Type Date Recorded Patient Dressing Room Attendant Expl anation ADVANCE DIRECTIVE 04/07/2023 4:50 PM POWER OF BLOCKERS SKIVER-MEDICAL ADVANCE DIRECTIVE 04/07/2023 4:50 PM POLST * [...] 10:25 PM 11/24/2020 6:40 PM Care Teams Crust Sorter Relationship Specialty Start Date End Date Efe Carrera MD [address] [place] [address] PCP - General 09/13/16 Efrain Nina MD [address] [place] [address] Surgeon Orthopedic Surgery 11/20/20 Miscellaneous, Not In File 11/24/20
[2024-11-09 11:54] LABS: Prothrombin Time 20.6 Seconds (9.50-12.1)
[2024-11-11 06:34] LABS: Vitamin D 25 Hydroxy 30 ng/mL (30-100)
== END 2024-11-09 11:22 | disposition home or self-care (01) ==
LOC: CHSLAB 11:23
PROVIDERS: PCP Family Medicine; Visit Provider Family Medicine
DX: Z79.01 Long term (current) use of anticoagulants (principal); R53.1 Weakness; E55.9 Vitamin D deficiency, unspecified
CPT/HCPCS: 36415; 82306; 85610

== ENCOUNTER 2024-11-16 13:27 | Outpatient (CLI) | payer MEDICARE, SELFPAY ==
--- OUTSIDE RECORDS SUMMARY | 2024-11-16 13:31 | XMS_ITS | Encounter Summary ---
Author Organization [facility] Address [facility] [place] [address] Care Team Providers Care Cake Maker Name Role Phone Efe Carrera MD Primary Care Provider [phone] Encounter Details Date Type Department Care Team (Late st Contact Info) Description 11/26/2019 Abstract [facility] [address] [place], [place] [address] [place] [address] [place] [address] Social History Tobacco Use Types Packs/Day [...] documented as of this encounter Care Teams Cake Maker Relationship Specialty Start Date End Date Efe Carrera MD [address] [id number] PCP - General FAMILY PRACTICE 10/13/17 documented as of this encounter
--- OUTSIDE RECORDS SUMMARY | 2024-11-16 13:31 | XMS_ITS ---
Author Name PritiLeonides gonzales Jurgen Address [address] [place] [address] Phone [phone] Organization [facility] Address [address] [place] [address] Phone [phone] Care Team Providers Care Chalk Molding Machine Operator Name Role Phone PritiJono gonzalesmarty Seaman Unavailable Rad Jonas Unavailable [phone] Adam Simón Unavailable Functional Status No Results [...] 2020 * End Date: * Text: * snf (current) use of anticoagulants* Code: * Start [...]
--- OUTSIDE RECORDS SUMMARY | 2024-11-16 13:31 | XMS_ITS | Clinical Summary ---
Author Organization [facility] Address [address] [place] [address] Care Team Providers Care Clerical Support Specialist Name Role Phone Unavailable Primary Care Provider Unavailabl e Source Comments [facility],non-owned Affiliates and Associated Physician Practices is amultiple site organization consisting of ambulatory clinics and hospital sitesin [place], [place], [place] and [place]. This disclosure is being madepursuant to the Care Everywhere program and may not contain all information available regarding this patient. Last updated 18.[facility] Allergies Active Allergy Reactions Criticality Noted Date Comments Sulfa Drugs Nausea and/or Vomiting,Vomiting Medium Medications * Be aware that medications may not be up to date on this document. Alwaysverify current medications with the patient. Multiple Vitamins-Minera ls (PRESERVISION AREDS 2 PO) Take 1 tablet by mouth 2 times daily Active amLODIPine (NORVASC) 5 MG tablet Take 5 mg by mouth every morning Active albuterol HFA (PROVENTIL;VENT MARCELLA;PROAIR) 108 (90 Base) MCG/ACT inhaler Inhale 2 puffs by mouth Active buPROPion XL 24hr (WELLBUTRIN-XL) 300 MG tablet Take 300 mg by mouth every evening Active HYDROcodone-sha taminophen (NORCO) 10-325 MG tablet Take 1 tablet [...] of Binge Drinking Not on file 04/02 Comments Unknown Sex and Gender Information Value Date Recorded Sex Assigned at Not on file Legal Sex Female 1:08 PM CDT Gender Identity Not on file [...] on patient's age to complete this topic Insurance MEDICARE MEDICAID - OUT OF STATE MEDICARE [place] MEDICARE
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
--- OUTSIDE RECORDS SUMMARY | 2024-11-16 13:31 | XMS_ITS | Clinical Summary ---
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) Hospital, Clinic, or Other Facility Administered [...] including calling Suicide Hotline ( ) or 056. Follow up in three months with Psychologist/Counselor/SupportGroup/Psychiatrist [...] Description 10/26/2024 1:30 PM CDT Office Visit [facility] Orthopedics and Sports Medicine [address] [place] [address] [address] [place] [address] Rufina Bolden NP Trochanteric bursitis, left hip (Primary Dx); Left hip pain 09/24/2024 Telephone [facility] Orthopedics and Sports Medicine [address] [place] [address] [address] [place] [address] Rufina Bolden NP from Last 3 Months Immunizations Immunization Administration Dates Next Due Influenza, Trivalent, IM (MDV) 05/03/2016 Influenza, Trivalent, Preservative Free, Intramu scular 04/15/2009 Surgical History Surgery Date Site/Laterality Comments [place] ARTHRP KNE CONDYLE&PLATU MEDIAL&LAT COMPARTMENTS Total Knee Arthroplasty - (Added by TW Conv) [place] CHOLECYSTECTOMY Cholecystectomy - (Added by TW Conv) [...] drink = 0.6 oz pur e alcohol) [facility] Utilities Answer Date Recorded In the past 12 months has e electric, gas, oil, or water [employer] threatened to shut off services in your [...] often do you attend chur ch or moravian services? 1 to 4 times per year 08/09/2023 Do you belong to any clubs o r organizations such as baptist groups, unions, fraternal or athletic groups, or [...] on file Legal Sex Female 1:00 AM MOSAIC TILE MAKER Gender Identity Not on file Sexual Orientation Not on file Occupation Industry Job Start Date Job End Date Retired Not on file Not on file Not on file Obstetrics History Last Filed Vital Signs Vital Sign Reading Time Taken Comments Blood Pressure 108/60 10/26/2024 1:20 PM CDT Pulse 81 10/26/2024 1:20 PM CDT Temperature 36.8 C (98.2 F) 08/11/2023 7:58 AM MOSAIC TILE MAKER Respiratory Rate 20 08/11/2023 11:54 AM MOSAIC TILE MAKER Oxygen Saturation 93% 08/11/2023 11:54 AM MOSAIC TILE MAKER Inhaled Oxygen Concentration - - Weight 91.2 [...] 10/10/2020, 08/29/2020 Medical Devices Implanted Type Area Director Integrated Device Identifier Shelf Expiration Date Model / Serial / Lot Synthes 04.037.142s Tfn-Advanced Lateral Relief Cut 11mm 170mm Cannulated Femoral - [id number] Implanted:Qty: 1 on 11/19/2020 by Efrain Nina MD at [facility] Left: Femur Synthes I 07/31/2030 04.037.142 S / / [id number] Synthes 04.038.200s Tfn-Advanced 10.35mm 100mm Cannulated Screw Bone Titanium - [id number] Implanted:Qty: 1 on 11/19/2020 by Efrain Nina MD at [facility] Left: Femur Synthes I 04/30/2029 04.038.200 S / / [id number] Synthes 04.005.526s 5mm 4.3mm 36mm Lock Self Tap Blunt Tip 2 Lead Tibial T25 Full - [id number] Implanted:Qty: 1 on 11/19/2020 by Efrain Nina MD at [facility] Left: Femur Synthes I 03/31/2029 04.005.526 S / / [id number] Medtronic Inc Synchromed Ii .78in [place] Filter Mesh Pouch Programmable 8637-20 - [id number] - [id number] Implanted:Qty: 1 on 04/06/2023 by Ben Abbott MD at [facility] Left: Abdomen Medtronic Inc 09/14/2024 8637-20 / [id number] / Explanted Type Area Director Integrated Device Identifier Shelf Expiration Date Model / Serial / Lot Medtronic Inc Synchromed Ii .78in [place] Filter Mesh Pouch Programmable 8637-20 - [id number] - [id number] Explanted:Qty: 1 on 04/06/2023 by Ben Abbott MD at [facility] Left: Abdomen Medtronic Inc 8637-20 / [id number] / Procedures Procedure Name Priority Date/Time Associated Diagnosis Comments WY ARTHROCENTESIS ASPIR&/INJ MAJOR JT/BURSA W/O US Routine 10/26/2024 1:30 PM CDT Trochanteric bursitis, left hip from Last 3 Months Results * [place]Y ARTHROCENTESIS ASPIR&/INJ MAJOR JT/BURSA W/O US (10/26/2024 [...] procedure well with no immediate complications us Ruifna Bolden SHIATSU THERAPIST IN CLINIC/BEDSIDE ORDER SOHAIL Final Result from Last 3 Months Insurance MEDICARE [facility] PLAN MED[facility]ARE [facility] MEDICARE [facility] OTHER Address: [address] [place] [address] MEDICARE Advance Directives For more information, please contact: [phone] Documents on File Type Date Recorded Patient Ball Truing Machine Operator Expl anation ADVANCE DIRECTIVE 04/07/2023 4:50 PM POWER OF COVERSTITCH MACHINE OPERATOR-MEDICAL ADVANCE DIRECTIVE 04/07/2023 4:50 PM [...] 10:25 PM 11/24/2020 6:40 PM Care Teams Oyster Sorter Relationship Specialty Start Date End Date Efe Carrera MD [address] [place] [address] PCP - General 09/13/16 Efrain Nina MD [address] [place] [address] Surgeon Orthopedic Surgery 11/20/20 Miscellaneous, Not In File 11/24/20
--- OUTSIDE RECORDS SUMMARY | 2024-11-16 13:31 | XMS_ITS | Referral Summary ---
Author Organization [facility] Address [address] [place] [address] Care Team Providers Care Rib Cutter Name Role Phone Efe Carrera MD Primary Care Provide r Efrain Nina MD Unavailable [phone] Miscellaneous, Not In File Unavailable Unava ilable Encounters Date Type Department Care Team Description 10/26/2024 1:30 PM CDT Office Visit [facility] Orthopedics and Sports Medicine [address] [place] [address] [address] [place] [address] Rufina Bolden NP Trochanteric bursitis, left hip (Primary Dx); Left hip pain 09/24/2024 Telephone [facility] Orthopedics and Sports Medicine [address] [place] [address] [address] [place] [address] Rufina Bolden NP from Last [...] mg of elemental iron total) by mouth 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 Follow up in three months with Psychologist/Counselor/SupportGroup/Psychiatrist [...] now. Will monitor. 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 1 to 4 times per year 08/09/2023 Do you belong to any clubs o r organizations such as confucianist groups, unions, fraternal or athletic groups, or [...] place to sleep or slept in a assisted (including now)? No 08/09/2023 Personal Safety Answer Date Recorded Have you ever been in or are you currently in a harmful physical or emotional relationship or is someone making you feel afraid or unsafe? Denies 08/08/2023 Comments No Sex and Gender Information Value Date Recorded Sex Assigned at Not on file Legal Sex Female 1:00 AM MAXILLOFACIAL PROSTHETICS DENTIST Gender Identity Not on file Sexual Orientation Not on file Occupation Industry Job Start Date Job End Date Retired Not on file Not on file Not on file Last Filed Vital Signs Vital Sign Reading Time Taken Comments Blood Pressure 108/60 10/26/2024 1:20 PM CDT Pulse 81 10/26/2024 1:20 PM CDT Temperature 36.8 C (98.2 F) 08/11/2023 7:58 AM MAXILLOFACIAL PROSTHETICS DENTIST Respiratory Rate 20 08/11/2023 11:54 AM MAXILLOFACIAL PROSTHETICS DENTIST Oxygen Saturation 93% 08/11/2023 11:54 AM MAXILLOFACIAL PROSTHETICS DENTIST Inhaled Oxygen Concentration - - Weight 91.2 kg (201 lb) 10/26/2024 1:20 PM CDT Height 157.5 cm (5' 2 ) 10/26/2024 1:20 PM CDT Body Mass Index 36.76 10/26/2024 1:20 PM CDT Plan of Treatment Not on file Medical Devices Implanted Type Area Consolidation Accountant Device Identifier Shelf Expiration Date Model / Serial / Lot Synthes 04.037.142s Tfn-Advanced Lateral Relief Cut 11mm 170mm Cannulated Femoral - [id number] Implanted:Qty: 1 on 11/19/2020 by Efrain Nina MD at [facility] Left: Femur Synthes I 07/31/2030 04.037.142 S / / [id number] Synthes 04.038.200s Tfn-Advanced 10.35mm 100mm Cannulated Screw Bone Titanium - [id number] Implanted:Qty: 1 on 11/19/2020 by Efrain Nina MD at [facility] Left: Femur Synthes I 04/30/2029 04.038.200 S / / [id number] Synthes 04.005.526s 5mm 4.3mm 36mm Lock Self Tap Blunt Tip 2 Lead Tibial T25 Full - [id number] Implanted:Qty: 1 on 11/19/2020 by Efrain Nina MD at [facility] Left: Femur Synthes I 03/31/2029 04.005.526 S / / [id number] Medtronic Inc Synchromed Ii .78in [place] Filter Mesh Pouch Programmable 8637-20 - [id number] - [id number] Implanted:Qty: 1 on 04/06/2023 by Ben Abbott MD at [facility] Left: Abdomen Medtronic Inc 09/14/2024 8637-20 / [id number] / Explanted Type Area Consolidation Accountant Device Identifier Shelf Expiration Date Model / Serial / Lot Medtronic Inc Synchromed Ii .78in [place] Filter Mesh Pouch Programmable 8637-20 - [id number] - [id number] Explanted:Qty: 1 on 04/06/2023 by Ben Abbott MD at [facility] Left: Abdomen Medtronic Inc 8637-20 / [id number] / Procedures Procedure Name Priority Date/Time Associated Diagnosis Comments [place] ARTHROCENTESIS ASPIR&/INJ MAJOR JT/BURSA W/O US Routine 10/26/2024 1:30 PM CDT Trochanteric bursitis, left hip from Last 3 Months Results * [place] ARTHROCENTESIS ASPIR&/INJ MAJOR JT/BURSA W/O US (10/26/2024 [...] Result from Last 3 Months Insurance MEDICARE [facility] Address: [address] [address] [place] [address] [facility] PLAN MEDICARE IDPA MEDICARE [employer] PLAN MEDICARE Advance Directives For more information, please contact: [phone] Documents on File Type Date Recorded Patient Child Daycare Worker Expl anation ADVANCE DIRECTIVE 04/07/2023 4:50 PM POWER OF BUILDING CUSTODIAN-MEDICAL ADVANCE DIRECTIVE 04/07/2023 4:50 PM POLST * [...] 10:25 PM 11/24/2020 6:40 PM Care Teams Rib Cutter Relationship Specialty Start Date End Date Efe Carrera MD [address] [place] [address] PCP - General 09/13/16 Efrain Nina MD [address] [place] [address] Surgeon Orthopedic Surgery 11/20/20 Miscellaneous, Not In File 11/24/20
--- OUTSIDE RECORDS SUMMARY | 2024-11-16 13:31 | XMS_ITS | Encounter Summary ---
Author Organization [facility] Address [address] [place] [address] Care Team Providers Care Supervising Broker Name Role Phone Efe Carrera MD Primary Care Provider [phone] Encounter Details Date Type Department Care Team (Late st Contact Info) Description 09/11/2019 Prep for Procedure [place]'s Director Of Officiating Pre/Post [address] [place] [address] Sheldon Webster MD [address] [place] [address] Social History Tobacco Use Types [...] documented as of this encounter Care Teams Supervising Broker Relationship Specialty Start Date End Date Efe Carrera MD [address] [place] [address] PCP - General FAMILY PRACTICE 10/13/17 documented as of this encounter
--- OUTSIDE RECORDS SUMMARY | 2024-11-16 13:31 | XMS_ITS | Encounter Summary ---
Author Organization [facility] Address [address] [place] [address] Care Team Providers Care Kaiawhina Kohanga Reo Name Role Phone Efe Carrera MD Primary Care Provider Encounter Details Date Type Department Care Team (Late st Contact Info) Description 10/15/2017 Abstract [facility] [address] [place] [address] , Generic ConversionMD Social History Tobacco Use [...] documented as of this encounter Care Teams Kaiawhina Kohanga Reo Relationship Specialty Start Date End Date Efe Carrera MD [address] [place] [address] PCP - General FAMILY PRACTICE 10/13/17 documented as of this encounter
--- OUTSIDE RECORDS SUMMARY | 2024-11-16 13:31 | XMS_ITS | Clinical Summary ---
Author Organization [facility] Address [address] [place] [address] Phone Care Team Providers Care Triage Nurse Name Role Phone Efe Carrera MD Primary Care Provider Alfredo Steven MD Unavailable [phone] Allergies Active Allergy Reactions Criticality Noted Date [...] DETECTED NON DETECTED 02/23/2019 3:31 PM CDT [facility] HCV RNA QT LOG10 <=0.00 Log10 IU/mL 02/23/2019 3:31 PM CDT [facility] Comment: LOG 10 is not applicable. Sample held in Serology for 1 month. Call Laboratory if further testing is desired. This test was performed using TSERING AmpliPrep TSERING Taq Man Real Time PCR. Blood specimen (specimen) Butterfly Puncture / Unknown 02/20/2019 3:51 PM CDT 02/20/2019 5:11 PM CDT us Radha Harkins BRIM PLATER, ACCOUNTS RECEIVABLE ASSOCIATE IMMUNOLOGY ORDERA BLES Final Result [facility] [address] [place] [address], [place] from Last 3 Months or Most Recently Relevant to Health Maintenance Insurance MEDICARE MEDICAID [place] Care Teams Triage Nurse Relationship Specialty Start Date End Date Efe Carrera MD [address] [place] [address] PCP - General Pediatrics 02/20/19 Alfredo Steven MD [address] [place] [address] Consulting Physician Nephrology 02/21/19
--- OUTSIDE RECORDS SUMMARY | 2024-11-16 13:31 | XMS_ITS ---
Author Organization [facility] Address [address] [place] [address] Care Team Providers Care Surgical Services Asst Name Role Phone Efe Carrera MD Primary Care Provide r Efrain Nina MD Unavailable [phone] Miscellaneous, Not In File Unavailable Unava ilable [...] now. Will monitor. 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
--- OUTSIDE RECORDS SUMMARY | 2024-11-16 13:31 | XMS_ITS ---
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
[2024-11-17 13:52] LABS: Vitamin D 25 Hydroxy 28 ng/mL (30-100)
== END 2024-11-16 13:28 | disposition home or self-care (01) ==
PROVIDERS: PCP Family Medicine; Visit Provider Family Medicine
DX: N18.4 Chronic kidney disease, stage 4 (severe) (principal); E55.9 Vitamin D deficiency, unspecified
CPT/HCPCS: 36415; 82306

== ENCOUNTER 2024-12-10 12:14 | Outpatient (CLI) | payer MEDICARE, MEDICAID, SELFPAY ==
--- NOTE | ~2024-12-10 | US_ITS ---
Renal-Bladder ultrasound Clinical History: Cancer of kidney Technique: Real-time sonographic imaging of the kidneys and urinary bladder was performed. Findings: The right kidney measures 9.4 cm in length. Status post left nephrectomy. No hydronephrosis identified. Right renal images is increased. No stone evident. Right renal cyst present. No solid re nal mass lesion is identified. The urinary bladder is moderately distended at the time of this exam. No intraluminal echoes are iden tified. No abnormal wall thickening is seen. Prevoid urinary bladder volume is 255 mL. Post void resi dual of 125 mL. Impression: Status post left nephrectomy. Echogenic right kidney is compatible with chronic medical renal disease. No suspicious mass or hydron ephrosis. Significant post void residual in the urinary bladder, as detailed above. Reviewed, dictated and finalized at [facility]. Impression: Status post left nephrectomy. Echogenic right kidney is compatible with chronic medical renal disease. No hugo picious mass or hydronephrosis. Significant post void residual in the urinary bladder, as detailed above.
--- OUTSIDE RECORDS SUMMARY | 2024-12-10 12:20 | XMS_ITS | Encounter Summary ---
Author Organization [facility] Address Counts include 234 beds at the [facility] [place] [address] Care Team Providers Care Solids Control Technician Name Role Phone Efe Carrera MD Primary Care Provider [phone] Encounter Details Date Type Department Care Team (Late st Contact Info) Description 11/26/2019 Abstract [facility] [address] [place], [place] [address] [place] [address] [place] [address] Social History Tobacco Use Types Packs/Day [...] documented as of this encounter Care Teams Solids Control Technician Relationship Specialty Start Date End Date Efe Carrera MD [address] [place] [id number] PCP - General FAMILY PRACTICE 10/13/17 documented as of this encounter
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
--- OUTSIDE RECORDS SUMMARY | 2024-12-10 12:20 | XMS_ITS | Clinical Summary ---
Author Organization [facility] Address [address] [place] [address] Phone Care Team Providers Care Air Defense Specialist Name Role Phone Efe Carrera MD Primary Care Provider Alfredo Steven MD Unavailable [phone] Allergies Active Allergy Reactions Criticality Noted Date [...] DETECTED NON DETECTED 02/23/2019 3:31 PM CDT [facility] HCV RNA QT LOG10 <=0.00 Log10 IU/mL 02/23/2019 3:31 PM CDT [facility] Comment: LOG 10 is not applicable. Sample held in Serology for 1 month. Call Laboratory if further testing is desired. This test was performed using TSERING AmpliPrep TSERING Taq Man Real Time PCR. Blood specimen (specimen) Butterfly Puncture / Unknown 02/20/2019 3:51 PM CDT 02/20/2019 5:11 PM CDT us Radha Harkins EQUIPMENT MONITOR PHOTOTYPESETTING, LABORER GOLF COURSE IMMUNOLOGY ORDERA BLES Final Result [facility] [address] [place] [address], [place] from Last 3 Months or Most Recently Relevant to Health Maintenance Insurance MEDICARE [place]ICAID [place] Care Teams Air Defense Specialist Relationship Specialty Start Date End Date Efe Carrera MD [address] [place] [address] PCP - General Pediatrics 02/20/19 Alfredo Steven MD [address] [place] [address] Consulting Physician Nephrology 02/21/19
--- OUTSIDE RECORDS SUMMARY | 2024-12-10 12:20 | XMS_ITS | Encounter Summary ---
Author Organization [facility] Address [address] [place] [address] Care Team Providers Care Workers Compensation Coordinator Name Role Phone Efe Carrera MD Primary Care Provider [phone] Encounter Details Date Type Department Care Team (Late st Contact Info) Description 10/15/2017 Abstract [facility] CONVERSION [address] [place] [address] , Generic ConversionMD Social History Tobacco Use [...] documented as of this encounter Care Teams Workers Compensation Coordinator Relationship Specialty Start Date End Date Efe Carrera MD [address] [place] [address] PCP - General FAMILY PRACTICE 10/13/17 documented as of this encounter
--- OUTSIDE RECORDS SUMMARY | 2024-12-10 12:20 | XMS_ITS | Encounter Summary ---
Author Organization [facility] Address [address] [place] [address] Care Team Providers Care Health Education Aide Name Role Phone Efe Carrera MD Primary Care Provider [phone] Encounter Details Date Type Department Care Team (Late st Contact Info) Description 09/11/2019 Prep for Procedure Rom[facility]'s Electrical Engineering Manager Pre/Post [address] [place] [address] Sheldon Webster MD [address] [place] [address] Social History Tobacco Use Types [...] documented as of this encounter Care Teams Health Education Aide Relationship Specialty Start Date End Date Efe Carrera MD [address] [place] [address] PCP - General FAMILY PRACTICE 10/13/17 documented as of this encounter
--- OUTSIDE RECORDS SUMMARY | 2024-12-10 12:20 | XMS_ITS | Referral Summary ---
Author Organization [facility] Address [address] [place] [address] Care Team Providers Care Aerodynamicist Name Role Phone Efe Carrera MD Primary Care Provide r Efrain Nina MD Unavailable [phone] Miscellaneous, Not In File Unavailable Unava ilable Encounters Date Type Department Care Team Description 10/26/2024 1:30 PM CDT Office Visit [facility] Orthopedics and Sports Medicine [address] [place] [address] [address] [place] [address] Rufina Bolden NP Trochanteric bursitis, left hip (Primary Dx); Left hip pain 09/24/2024 Telephone [facility] Orthopedics and Sports Medicine [address] [place] [address] [address] [place] [address] Rufina Bolden NP from Last [...] mg of elemental iron total) by mouth automatic serging machine operator before breakfast Active methyl salicylate-menthol 30-10 [...] a day 100 g 10/27/19 25 Active Active Problems Problem Noted Date Diagnosed [...] Will monitor. 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 Hypertensive chronic kidney disease with stage 1 through stage 4 chronic kidney disease, or unspecified chronic kidney disease 11/24/2020 Acquired absence of kidney 11/24/2020 Personal history of pulmonary embolism Personal history of other venous thrombosis and embolism 11/24/2020 Personal history of urinary (tract) infections 0 11/24/2020 Secondary hyperparathyroidism of renal origin Diaphragmatic hernia without obstruction or gang nésotr 11/24/2020 Slow transit constipation 11/23/2020 Overview (03/03/2023): [...] drink = 0.6 oz pur e alcohol) [facility] Atticousities Answer Date Recorded In the past 12 months has e AIM, gas, oil, or water [employer] threatened to shut off services in your [...] often do you attend chur ch or zoroastrianism services? 1 to 4 times per year 08/09/2023 Do you belong to any clubs o r organizations such as faith groups, unions, fraternal or athletic groups, or [...] on file Legal Sex Female 1:00 AM SHEEP CLIPPER Gender Identity Not on file Sexual Orientation Not on file Occupation Industry Job Start Date Job End Date Retired Not on file Not on file Not on file Last Filed Vital Signs Vital Sign Reading Time Taken Comments Blood Pressure 108/60 10/26/2024 1:20 PM CDT Pulse 81 10/26/2024 1:20 PM CDT Temperature 36.8 C (98.2 F) 08/11/2023 7:58 AM SHEEP CLIPPER Respiratory Rate 20 08/11/2023 11:54 AM SHEEP CLIPPER Oxygen Saturation 93% 08/11/2023 11:54 AM SHEEP CLIPPER Inhaled Oxygen Concentration - - Weight 91.2 kg (201 lb) 10/26/2024 1:20 PM CDT Height 157.5 cm (5' 2 ) 10/26/2024 1:20 PM CDT Body Mass Index 36.76 10/26/2024 1:20 PM CDT Plan of Treatment Not on file Medical Devices Implanted Type Area Local Delivery Truck Driver Device Identifier Shelf Expiration Date Model / Serial / Lot Synthes 04.037.142s Tfn-Advanced Lateral Relief Cut 11mm 170mm Cannulated Femoral - [id number] Implanted:Qty: 1 on 11/19/2020 by Efrain Nina MD at [facility] Left: Femur Synthes I 07/31/2030 04.037.142 S / / [id number] Synthes 04.038.200s Tfn-Advanced 10.35mm 100mm Cannulated Screw Bone Titanium - [id number] Implanted:Qty: 1 on 11/19/2020 by Efrain Nina MD at [facility] Left: Femur Synthes I 04/30/2029 04.038.200 S / / [id number] Synthes 04.005.526s 5mm 4.3mm 36mm Lock Self Tap Blunt Tip 2 Lead Tibial T25 Full - [id number] Implanted:Qty: 1 on 11/19/2020 by Efrain Nina MD at [facility] Left: Femur Synthes I 03/31/2029 04.005.526 S / / [id number] Medtronic Inc Synchromed Ii .78in [place] Filter Mesh Pouch Programmable 8637-20 - [id number] - [id number] Implanted:Qty: 1 on 04/06/2023 by Ben Abbott MD at [facility] Left: Abdomen Medtronic Inc 09/14/2024 8637-20 / [id number] / Explanted Type Area Local Delivery Truck Driver Device Identifier Shelf Expiration Date Model / Serial / Lot Medtronic Inc Synchromed Ii .78in [place] Filter Mesh Pouch Programmable 8637-20 - [id number] - [id number] Explanted:Qty: 1 on 04/06/2023 by Ben Abbott MD at [facility] Left: Abdomen Medtronic Inc 8637-20 / [id number] / Procedures Procedure Name Priority Date/Time Associated Diagnosis Comments OR ARTHROCENTESIS ASPIR&/INJ MAJOR JT/BURSA W/O US Routine 10/26/2024 1:30 PM CDT Trochanteric bursitis, left hip from Last 3 Months Results * [place] ARTHROCENTESIS ASPIR&/INJ MAJOR JT/BURSA W/O US (10/26/2024 [...] from Last 3 Months Insurance MEDICARE IDPA [facility] PLAN MEDICARE IDPA MEDICARE [facility] PLAN MEDICARE Advance Directives For more information, please contact: [phone] Documents on File Type Date Recorded Patient Workers Compensation Paralegal Expl anation ADVANCE DIRECTIVE 04/07/2023 4:50 PM POWER OF REFINERY OPERATOR VAPOR RECOVERY UNIT-MEDICAL ADVANCE DIRECTIVE 04/07/2023 4:50 PM POLST * [...] 10:25 PM 11/24/2020 6:40 PM Care Teams Aerodynamicist Relationship Specialty Start Date End Date Efe Carrera MD [address] [place] [address] PCP - General 09/13/16 Efrain Nina MD [address] [place] [address] Surgeon Orthopedic Surgery 11/20/20 Miscellaneous, Not In File 11/24/20
--- OUTSIDE RECORDS SUMMARY | 2024-12-10 12:20 | XMS_ITS ---
Author Name Auto Generated, Auto Generated Organization [facility] Address [address] [place] [address] Phone [phone] Care Team Providers Care Statistical Developer Name Role Phone Leonides Hendricks Unavailable Rad Jonas Unavailable AdamVivienSimón Unavailable Functional Status No Results Mental Status [...] Dx: Pain TueDecember 08 13:30:00 EDT 2020December 18:00:00 EDT 2020 cholecalciferol (vitamin D3) 1,250 mcg (50,000 unit) capsule 1 capsule CAPSULE Oral 2 Times Weekly TueDecember 01 18:00:00 ED2020December 18 01:00:00 ED2020 Linzess 145 mcg capsule 145mcg CAPSULE O ral 1 Time Daily Constipation TueNovember 30 16:00:00 ED2020December 18 01:00:00 ED2020 ferrous sulfate 325 mg (65 mg iron) tablet 1 tablet TABLET Oral 2 Times Daily TueNov 28 19:00:00 ED2020December 08 13:40:00 ED2020 warfarin 6 mg tablet [...] proph TueNov 27 16:00:00 ED2020Nov 28 16:59:00 ED2020 TUBErsoL 5 tub. unit/0.1 mL intradermal injection solution 0.1 ml VIAL (ML) Intradermal 1 Time Weekly for 2 Weeks TueNov 26 12:00:00 2020December 10 11:59:00 ED2020 TUBErsoL 5 tub. unit/0.1 mL intradermal injection solution Read Results VIAL (ML) Other 1 Time Weekly for 2 Weeks TueNov 26 12:00:00 2020December 10 11:59:00 ED2020 warfarin 3 mg tablet 3 mg TABLET Oral 1 Time Daily Give 3 mg +4 mg to = 7 mg QHS TueNovember 29 19:00:00 EDT 2020Nov 27 16:49:00 EDT 2020 warfarin 4 mg tablet 4 mg TABLET [...] 1 Time Daily Depression TueNov 25 09:00:00 EDT 2020December 18:00:00 EDT 2020 trimethoprim 100 mg tablet 1 tablet TABL ET Oral 1 Time Daily On hold while completing treatment with ampicillin - UTI prophylactic Sun November 30 22:00:00 EDT 2020December 18 01:00:00 EDT 2020 amLODIPine 5 mg tablet 1 tablet TABLET O ral 1 Time Daily TueNov 24 17:00:00 EDT 2020December 18 01:00:00 EDT 2020 ampicillin 500 mg capsule 1 capsule CAPS ULE Oral 3 Times Daily for 5 Days infection TueNov 24 17:00:00 2020Nov 25 09:35:00 ED2020 ascorbic acid (vitamin C) [...] TueNov 24 17:00:00 ED2020Nov 25 09:35:00 ED2020 cholecalciferol (vitamin D3) 1,250 mcg (50,000 unit) capsule 1 capsule CAPSULE Oral 1 Time Weekly TueNov 24 17:00:00 ED2020December 01 18:05:00 ED2020 cyclobenzaprine 10 mg tablet 1 tablet TA BLET Oral PRN 3 Times Daily for muscle spasms TueNov 24 17:00:00 EDT 2020December 18 01:00:00 EDT 2020 escitalopram 10 mg tablet 1 tablet TABLE T Oral 1 Time Daily TueNov 24 17:00:00 ED2020Nov 25 09:35:00 ED2020 ferrous sulfate 325 mg (65 mg iron) tablet 1 tablet TABLET Oral 1 Time Daily with breakfast. for post op anemia TueNov 24 17:00:00 EDT 2020Nov 28 16:59:00 EDT 2020 HYDROcodone 5 mg-acetaminophen 325 mg tablet 1-2 tablets TABLET Oral PRN Every 4 Hours for pain TueNov 24 17:00:00 EDT 2020December 08 13:45:00 EDT 2020 Linzess 145 mcg capsule 1 capsule CAPSUL E Oral 1 Time Daily TueNov 24 17:00:00 ED2020November 30 16:01:00 ED2020 omeprazole 40 mg capsule,delayed release 1 capsule CAPSULE,DELAYED RELEASE (ENTERIC COATED) Oral 2 Times Daily TueNov 24 17:00:00 EDT 2020December 18 01:00:00 EDT 2020 ondansetron HCL 4 mg tablet 1 tablet TAB LET Oral PRN Every 6 Hours for nausea and vomitting TueNov 24 17:30:00 EDT 2020December 18 01:00:00 ED2020 PreserVision AREDS 7,160 unit-113 mg-100 unit tablet 1 tablet TABLET Oral 2 Times Daily TueNov 24 17:00:00 EDT 2020December 18 01:00:00 ED2020 Senna with Docusate Sodium 8.6 mg-50 mg tablet 2 tablets TABLET Oral 2 Times Daily TueNov 24 17:30:00 ED2020Nov 28 22:54:00 ED2020 trimethoprim 100 mg tablet 1 tablet TABL ET Oral 1 Time Daily On hold while completing treatment with ampicillin TueNovember 30 01:00:00 EDT 2020Nov 25 09:35:00 ED2020 warfarin 1 mg tablet 7 mg TABLET Oral 1 Time Daily TueNov 24 17:30:00 EDT 2020Nov 26 18:41:00 EDT 2020 ampicillin 500 mg capsule 1 capsule CAPS ULE Oral 3 Times Daily for 5 Days UTI TueNov 24 22:00:00 EDT 2020November 29 21:59:00 EDT 2020 Problems Active Concerns [...] 2020 * End Date: * Text: * 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
--- OUTSIDE RECORDS SUMMARY | 2024-12-10 12:20 | XMS_ITS | Clinical Summary ---
Author Organization [facility] Address [address] [place] [address] Care Team Providers Care Manager Of It Name Role Phone Unavailable Primary Care Provider Unavailabl e Source Comments [facility] [employer],non-owned Affiliates and Associated Physician Practices is amultiple site organization consisting of ambulatory clinics and hospital sitesin [place], [place], [place] and [place]. This disclosure is being madepursuant to the Care Everywhere program and may not contain all information available regarding this patient. Last updated 18.[facility] [employer] Allergies Active Allergy Reactions Criticality Noted Date [...]
--- OUTSIDE RECORDS SUMMARY | 2024-12-10 12:20 | XMS_ITS ---
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
--- OUTSIDE RECORDS SUMMARY | 2024-12-10 12:21 | XMS_ITS ---
Author Organization [facility] Address [address] [place] [address] Care Team Providers Care Comprehensive Advisor Name Role Phone Efe Carrera MD Primary Care Provide r Efrain Nina MD Unavailable Miscellaneous, Not In File Unavailable Unava ilable [...] now. Will monitor. 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
--- OUTSIDE RECORDS SUMMARY | 2024-12-10 12:21 | XMS_ITS | Clinical Summary ---
Author Organization [facility] Address [address] [place] [address] Care Team Providers Care Bottom Turning Lathe Turner Name Role Phone Efe Carrera MD Primary Care Provide r Efrain Nina MD Unavailable [phone] Miscellaneous, Not In File Unavailable Unava ilable [...] mg of elemental iron total) by mouth lead web developer before breakfast Active methyl salicylate-menthol 30-10 % [...] (four) times a day 100 g 11 10/27/19 25 Active Active Problems Problem Noted [...] Will monitor. 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 Hypertensive chronic [...] Description 10/26/2024 1:30 PM CDT Office Visit [facility] Orthopedics and Sports Medicine [address] [place] [address] Rufina Bolden NP Trochanteric bursitis, left hip (Primary Dx); Left hip pain 09/24/2024 Telephone [facility] Orthopedics and Sports Medicine [address] [facility] [address] [place] [address] Rufina Bolden NP from Last 3 [...] not e lsewhere classified Right shoulder pain 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 Personal history of other ma lignant neoplasm of kidney Personal history of pulmonary embolism Personal history of other ve nous thrombosis and embolism Acquired absence of kidney Fall from chair, sequela Unspecified macular degeneration Obesity Secondary hyperparathyroidis m of renal origin Sleep apnea Esophageal rupture 2015 Gastroparesis 2019 PONV (postoperative nausea and vomiting) [...] drink = 0.6 oz pur e alcohol) [facility] Utilities Answer Date Recorded In the past 12 months has e electric, gas, oil, or water company [...] often do you attend chur ch or cheondoism services? 1 to 4 times per year 08/09/2023 Do you belong to any clubs o r organizations such as taoism groups, unions, fraternal or athletic groups, or [...] place to sleep or slept in a chcf (including now)? No 08/09/2023 Personal Safety Answer Date Recorded Have you ever been in or are you currently in a harmful physical or emotional relationship or is someone making you feel afraid or unsafe? Denies 08/08/2023 Comments No Sex and Gender Information Value Date Recorded Sex Assigned at Not on file Legal Sex Female 1:00 AM DATA PROCESSING MANAGER Gender Identity Not on file Sexual Orientation Not on file Occupation Industry Job Start Date Job End Date Retired Not on file Not on file Not on file Obstetrics History Last Filed Vital Signs Vital Sign Reading Time Taken Comments Blood Pressure 108/60 10/26/2024 1:20 PM CDT Pulse 81 10/26/2024 1:20 PM CDT Temperature 36.8 C (98.2 F) 08/11/2023 7:58 AM DATA PROCESSING MANAGER Respiratory Rate 20 08/11/2023 11:54 AM DATA PROCESSING MANAGER Oxygen Saturation 93% 08/11/2023 11:54 AM DATA PROCESSING MANAGER Inhaled Oxygen Concentration - - Weight 91.2 [...] 10/10/2020, 08/29/2020 Medical Devices Implanted Type Area Cath Lab Radiological Technologist Device Identifier Shelf Expiration Date Model / Serial / Lot Synthes 04.037.142s Tfn-Advanced Lateral Relief Cut 11mm 170mm Cannulated Femoral - [id number] Implanted:Qty: 1 on 11/19/2020 by Efrain Nina MD at [facility] Left: Femur Synthes I 07/31/2030 04.037.142 S / / [id number] Synthes 04.038.200s Tfn-Advanced 10.35mm 100mm Cannulated Screw Bone Titanium - [id number] Implanted:Qty: 1 on 11/19/2020 by Efrain Nina MD at [facility] Left: Femur Synthes I 04/30/2029 04.038.200 S / / [id number] Synthes 04.005.526s 5mm 4.3mm 36mm Lock Self Tap Blunt Tip 2 Lead Tibial T25 Full - [id number] Implanted:Qty: 1 on 11/19/2020 by Efrain Nina MD at [facility] Left: Femur Synthes I 03/31/2029 04.005.526 S / / [id number] Medtronic Inc Synchromed Ii .78in [place] Filter Mesh Pouch Programmable 8637-20 - [id number] - [id number] Implanted:Qty: 1 on 04/06/2023 by Ben Abbott MD at [facility] Left: Abdomen Medtronic Inc 09/14/2024 8637-20 / [id number] / Explanted Type Area Cath Lab Radiological Technologist Device Identifier Shelf Expiration Date Model / Serial / Lot Medtronic Inc Synchromed Ii .78in [place] Filter Mesh Pouch Programmable 8637-20 - [id number] - [id number] Explanted:Qty: 1 on 04/06/2023 by Ben Abbott MD at [facility] Left: Abdomen Medtronic Inc 8637-20 / [id number] / Procedures Procedure Name Priority Date/Time Associated Diagnosis Comments [place] ARTHROCENTESIS ASPIR&/INJ MAJOR JT/BURSA W/O US Routine 10/26/2024 1:30 PM CDT Trochanteric bursitis, left hip from Last 3 Months Results * [place] ARTHROCENTESIS ASPIR&/INJ MAJOR JT/BURSA W/O US (10/26/2024 [...] with no immediate complications us Rufina Bolden SENIOR SYSTEMS ANALYST IN CLINIC/BEDSIDE ORDER SOHAIL Final Result from Last 3 Months Insurance MEDICARE IDPA [facility] PLAN MEDICARE [place] MEDICARE [place]PA [facility] PLAN MEDICARE Advance Directives For more information, please contact: [phone] Documents on File Type Date Recorded Patient Ap Operator Expl anation ADVANCE DIRECTIVE 04/07/2023 4:50 PM POWER OF CLINICAL CONSULTANT-MEDICAL ADVANCE DIRECTIVE 04/07/2023 4:50 PM POLST * [...] 10:25 PM 11/24/2020 6:40 PM Care Teams Bottom Turning Lathe Turner Relationship Specialty Start Date End Date Efe Carrera MD [address] [place], [place] [id number] PCP - General 09/13/16 Efrain Nina MD [address] [place] [address] Surgeon Orthopedic Surgery 11/20/20 Miscellaneous, Not In File 11/24/20
[2024-12-10 13:12] LABS: INR 2.3; Prothrombin Time 23.2 Seconds (9.50-12.1)
== END 2024-12-10 12:15 | disposition home or self-care (01) ==
LOC: CHSIMG 12:18
PROVIDERS: PCP Family Medicine; Visit Provider Urology
DX: C64.9 Malignant neoplasm of unspecified kidney, except renal pelvis (principal); Z79.01 Long term (current) use of anticoagulants
CPT/HCPCS: 36415; 76775; 85610

== ENCOUNTER 2025-01-09 09:05 | Outpatient (CLI) | payer MEDICARE, MEDICAID, SELFPAY ==
--- OUTSIDE RECORDS SUMMARY | 2025-01-09 09:43 | XMS_ITS ---
Author Name Auto Generated, Auto Generated Organization [facility] Address [address] [place] [address] Phone [phone] Care Team Providers Care Talent Acquisition Specialist Name Role Phone Leonides Hendricks Unavailable Rad [...] 2020 * End Date: * Text: * skilled nursing (current) use of anticoagulants* Code: * Start [...]
--- OUTSIDE RECORDS SUMMARY | 2025-01-09 09:43 | XMS_ITS | Clinical Summary ---
Author Organization [facility] Address [address] [place] [address] Phone Care Team Providers Care Configuration Release Manager Name Role Phone Efe Carrera MD [...] 1:29 PM CDT Height 161.3 cm (5' 3.5) 10/12/2019 2:07 PM CDT Body Mass Index 30.69 10/12/2019 2:07 PM CDT Plan of Treatment Health Maintenance Due Date Last Done Comments DEXA Bone Density 1940 Zoster Immunization (1 of 2) 1989 Hepatitis B Immunization (1 of 3 - Risk 3-dose series) 1999 Respiratory Syncytial Virus (RSV) Immunization (Adult) (1 - 1-dose 75+ series) 2014 SARS-COV-2 Immunization ( season) 2024 11/27/2021, 10/10/2020, 08/29/2020 Influenza Immunization (Season Ended) 2025 06/01/2019, 04/17/2018, 07/20/2017, Additional history exists Pneumococcal Immunization (50+ years) Completed 06/22/2016, 04/30/2013 Pneumococcal Immunization Combined Discontinued 06/22/2016, 04/30/2013 DTaP/Tdap/Td Immunization Discontinued 2017, 06/22/2016, 11/04/2008 TdaP Immunization Completed 06/30/2018, , 11/04/2008 Hepatitis C Virus (HCV) Screening Completed 02/20/2019, 02/20/2019 Human Papillomavirus (HPV) Immunization Aged Out No longer eligible based [...] DETECTED NON DETECTED 02/23/2019 3:31 PM CDT [facility] HCV RNA QT LOG10 <=0.00 Log10 IU/mL 02/23/2019 3:31 PM CDT [facility] Comment: LOG 10 is not applicable. Sample held in Serology for 1 month. Call Laboratory if further testing is desired. This test was performed using TSERING AmpliPrep TSERING Taq Man Real Time PCR. Blood specimen (specimen) Butterfly Puncture / Unknown 02/20/2019 3:51 PM CDT 02/20/2019 5:11 PM CDT us Radha Harkins GRADES 7 8 TUTOR, LOOPER OPERATOR IMMUNOLOGY ORDERA BLEAmbar Final Result [facility] [address] [place] [address], [place] from Last 3 Months or Most Recently Relevant to Health Maintenance Insurance MEDICARE [place]ID [place] Care Teams Configuration Release Manager Relationship Specialty Start Date End Date Efe Carrera MD [address] [place] [address] PCP - General Pediatrics 02/20/19 Alfredo Steven MD [address] [place] [address] Consulting Physician Nephrology 02/21/19
--- OUTSIDE RECORDS SUMMARY | 2025-01-09 09:43 | XMS_ITS ---
Author Name Auto Generated, Auto Generated Organization [facility] Address [address] [place] [address] Phone [phone] Care Team Providers Care Head Of It Name Role Phone Obivinnie Leonides Seaman Unavailable Rad Jonas Unavailable Vivien Medina Unavailable Functional Status Mental Status Allergies and Intolerances Medications Problems Reason for Referral Past Medical History
--- OUTSIDE RECORDS SUMMARY | 2025-01-09 09:43 | XMS_ITS | Clinical Summary ---
Author Organization [facility] Address [address] [place] [address] Care Team Providers Care Prism Inspector Name Role Phone Unavailable Primary Care Provider Unavailabl e Source Comments [facility],non-owned Affiliates and Associated Physician Practices is amultiple site organization consisting of ambulatory clinics and hospital sitesin [place], [place], [place] and [place]. This disclosure is being madepursuant to the Care Everywhere program and may not contain all information available regarding this patient. Last updated 18.[facility] Allergies Active Allergy Reactions Criticality Noted Date [...] 9:51 AM CDT Height 165.1 cm (5' 5) 01/01/2020 9:51 AM CDT Body Mass Index [...]
--- OUTSIDE RECORDS SUMMARY | 2025-01-09 09:44 | XMS_ITS ---
Author Organization [facility] Address [address] [place] [address] Care Team Providers Care Coding Auditor Name Role Phone Efe Carrera MD Primary Care Provide r Efrain Nina MD Unavailable [phone] Miscellaneous, Not In File Unavailable Unava ilable [...]
--- OUTSIDE RECORDS SUMMARY | 2025-01-09 09:44 | XMS_ITS | Referral Summary ---
Author Organization [facility] Address [address] [place] [address] Care Team Providers Care Pond Worker Name Role Phone Efe Carrera MD Primary Care Provide r Efrain Nina MD Unavailable [phone] Miscellaneous, Not In File Unavailable Unava ilable Encounters Date Type Department Care Team Description 10/26/2024 1:30 PM CDT Office Visit [facility] Orthopedics and Sports Medicine [address] [place] [address] Rufnia Bolden NP Trochanteric bursitis, left hip (Primary Dx); Left hip pain from Last 3 Months Allergies Active Allergy [...] mg of elemental iron total) by mouth seo consultant before breakfast Active methyl salicylate-menthol 30-10 % [...] including calling Suicide Hotline ( ) or 212. Follow up in three months with Psychologist/Counselor/SupportGroup/Psychiatrist [...] 0.6 oz pur e alcohol) [facility] Utilities Answer Date Recorded In the past [address] [employer] electric, gas, oil, or water [employer] threatened to shut off services in your [...] often do you attend chur ch or scientology services? 1 to 4 times per year [...] place to sleep or slept in a half-way (including now)? No 08/09/2023 Personal Safety Answer Date Recorded Have you ever been in or are you currently in a harmful physical or emotional relationship or is someone making you feel afraid or unsafe? Denies 08/08/2023 Comments No Sex and Gender Information Value Date Recorded Sex Assigned at Not on file Legal Sex Female 1:00 AM AUTOMOTIVE ARTIST Gender Identity Not on file Sexual Orientation Not on file Occupation Industry Job Start Date Job End Date Retired Not on file Not on file Not on file Last Filed Vital Signs Vital Sign Reading Time Taken Comments Blood Pressure 108/60 10/26/2024 1:20 PM CDT Pulse 81 10/26/2024 1:20 PM CDT Temperature 36.8 C (98.2 F) 08/11/2023 7:58 AM AUTOMOTIVE ARTIST Respiratory Rate 20 08/11/2023 11:54 AM AUTOMOTIVE ARTIST Oxygen Saturation 93% 08/11/2023 11:54 AM AUTOMOTIVE ARTIST Inhaled Oxygen Concentration - - Weight 91.2 kg (201 lb) 10/26/2024 1:20 PM CDT Height 157.5 cm (5' 2) 10/26/2024 1:20 PM CDT Body Mass Index 36.76 10/26/2024 1:20 PM CDT Plan of Treatment Not on file Medical Devices Implanted Type Area Mophead Sewer Device Identifier Shelf Expiration Date Model / Serial / Lot Synthes 04.037.142s Tfn-Advanced Lateral Relief Cut 11mm 170mm Cannulated Femoral - [id number] Implanted:Qty: 1 on 11/19/2020 by Efrain Nina MD at [facility] Left: Femur Synthes I 07/31/2030 04.037.142 S / / [id number] Synthes 04.038.200s Tfn-Advanced 10.35mm 100mm Cannulated Screw Bone Titanium - [id number] Implanted:Qty: 1 on 11/19/2020 by Efrain Nina MD at [facility] Left: Femur Synthes I 04/30/2029 04.038.200 S / / [id number] Synthes 04.005.526s 5mm 4.3mm 36mm Lock Self Tap Blunt Tip 2 Lead Tibial T25 Full - [id number] Implanted:Qty: 1 on 11/19/2020 by Efrain Nina MD at [facility] Left: Femur Synthes I 03/31/2029 04.005.526 S / / [id number] Medtronic Inc Synchromed Ii .78in [place] Filter Mesh Pouch Programmable 8637-20 - [id number] - [id number] Implanted:Qty: 1 on 04/06/2023 by Ben Abbott MD at [facility] Left: Abdomen Medtronic Inc 09/14/2024 8637-20 / [id number] / Explanted Type Area Mophead Sewer Device Identifier Shelf Expiration Date Model / Serial / Lot Medtronic Inc Synchromed Ii .78in [place] Filter Mesh Pouch Programmable 8637-20 - [id number] - [id number] Explanted:Qty: 1 on 04/06/2023 by Ben Abbott MD at [facility] Left: Abdomen Medtronic Inc 8637-20 / [id number] / Procedures Procedure Name Priority Date/Time Associated Diagnosis Comments [place] ARTHROCENTESIS ASPIR&/INJ MAJOR JT/BURSA W/O US Routine 10/26/2024 1:30 PM CDT Trochanteric bursitis, left hip from Last 3 Months Results * [place] ARTHROCENTESIS ASPIR&/INJ MAJOR JT/BURSA W/O US (10/26/2024 [...] from Last 3 Months Insurance MEDICARE IDPA [facility] PLAN MEDICARE [place] MEDICARE IDPA [facility] MEDICARE Advance Directives For more information, please contact: [phone] Documents on File Type Date Recorded Patient Technology Professional Expl anation ADVANCE DIRECTIVE 04/07/2023 4:50 PM POWER OF REFRIGERATING ENGINEER-MEDICAL ADVANCE DIRECTIVE 04/07/2023 4:50 PM POLST [...] 10:25 PM 11/24/2020 6:40 PM Care Teams Pond Worker Relationship Specialty Start Date End Date Efe Carrera MD [address] [place] [address] PCP - General 09/13/16 Efrain Nina MD [address] [place] [address] Surgeon Orthopedic Surgery 11/20/20 Miscellaneous, Not In File 11/24/20
--- OUTSIDE RECORDS SUMMARY | 2025-01-09 09:44 | XMS_ITS | Clinical Summary ---
Author Organization [facility] Address [address] [place] [address] Care Team Providers Care Stitch Marker Name Role Phone Efe Carrera MD Primary Care Provide r Efrain Nina MD Unavailable [phone] Miscellaneous, Not In File Unavailable Unava ilable [...] mg of elemental iron total) by mouth client delivery manager before breakfast Active methyl salicylate-menthol 30-10 % [...] now. Will monitor. Vitamin deficiency, unspecified 11/24/2020 watermaster (current) use of anticoagulants 2020 Hypertensive chronic [...] Description 10/26/2024 1:30 PM CDT Office Visit [facility] Orthopedics and Sports Medicine [address] [place] [address] Rufina Bolden, [place] Trochanteric bursitis, left hip (Primary Dx); Left hip pain from Last 3 Months Immunizations Immunization Administration Dates Next Due Influenza, Trivalent, IM (MDV) 05/03/2016 Influenza, Trivalent, Preservative Free, Intramu scular 04/15/2009 Surgical History Surgery Date Site/Laterality Comments [place] ARTHRP KNE CONDYLE&PLATU MEDIAL&LAT COMPARTMENTS Total Knee Arthroplasty - (Added by TW Conv) [place] CHOLECYSTECTOMY Cholecystectomy - (Added by TW Conv) [...] not e lsewhere classified Right shoulder pain watermaster (current) use of anticoagulants Personal history of [...] drink = 0.6 oz pur e alcohol) [facility] Utilities Answer Date Recorded In the past 12 months has e [employer], gas, oil, or water [employer] threatened to shut off services in your [...] on file Legal Sex Female 1:00 AM DIRECTOR OF RETAIL ANALYTICS Gender Identity Not on file Sexual Orientation Not on file Occupation Industry Job Start Date Job End Date Retired Not on file Not on file Not on file Obstetrics History Last Filed Vital Signs Vital Sign Reading Time Taken Comments Blood Pressure 108/60 10/26/2024 1:20 PM CDT Pulse 81 10/26/2024 1:20 PM CDT Temperature 36.8 C (98.2 F) 08/11/2023 7:58 AM DIRECTOR OF RETAIL ANALYTICS Respiratory Rate 20 08/11/2023 11:54 AM DIRECTOR OF RETAIL ANALYTICS Oxygen Saturation 93% 08/11/2023 11:54 AM DIRECTOR OF RETAIL ANALYTICS Inhaled Oxygen Concentration - - Weight 91.2 [...] 10/10/2020, 08/29/2020 Medical Devices Implanted Type Area Auto Repair Technician Device Identifier Shelf Expiration Date Model / Serial / Lot Synthes 04.037.142s Tfn-Advanced Lateral Relief Cut 11mm 170mm Cannulated Femoral - [id number] Implanted:Qty: 1 on 11/19/2020 by Efrain Nina MD at [facility] Left: Femur Synthes I 07/31/2030 04.037.142 S / / [id number] Synthes 04.038.200s Tfn-Advanced 10.35mm 100mm Cannulated Screw Bone Titanium - [id number] Implanted:Qty: 1 on 11/19/2020 by Efrain Nina MD at [facility] Left: Femur Synthes I 04/30/2029 04.038.200 S / / [id number] Synthes 04.005.526s 5mm 4.3mm 36mm Lock Self Tap Blunt Tip 2 Lead Tibial T25 Full - [id number] Implanted:Qty: 1 on 11/19/2020 by Efrain Nina MD at [facility] Left: Femur Synthes I 03/31/2029 04.005.526 S / / [id number] Medtronic Inc Synchromed Ii .78in [place] Filter Mesh Pouch Programmable 8637-20 - [id number] - [id number] Implanted:Qty: 1 on 04/06/2023 by Ben Abbott MD at [facility] Left: Abdomen Medtronic Inc 09/14/2024 8637-20 / [id number] / Explanted Type Area Auto Repair Technician Device Identifier Shelf Expiration Date Model / Serial / Lot Medtronic Inc Synchromed Ii .78in [place] Filter Mesh Pouch Programmable 8637-20 - [id number] - [id number] Explanted:Qty: 1 on 04/06/2023 by Ben Abbott MD at [facility] Left: Abdomen Medtronic Inc 8637-20 / [id number] / Procedures Procedure Name Priority Date/Time Associated Diagnosis Comments [place] ARTHROCENTESIS ASPIR&/INJ MAJOR JT/BURSA W/O US Routine 10/26/2024 1:30 PM CDT Trochanteric bursitis, left hip from Last 3 Months Results * [place] ARTHROCENTESIS ASPIR&/INJ MAJOR JT/BURSA W/O US (10/26/2024 [...] from Last 3 Months Insurance MEDICARE IDPA [facility] PLAN MEDICARE IDPA MEDICARE IDPA [facility] PLAN MEDICARE Advance Directives For more information, please contact: [phone] Documents on File Type Date Recorded Patient Manager New Product Expl anation ADVANCE DIRECTIVE 04/07/2023 4:50 PM POWER OF MANAGER MASSAGE DEPARTMENT-MEDICAL ADVANCE DIRECTIVE 04/07/2023 4:50 PM POLST * [...] 10:25 PM 11/24/2020 6:40 PM Care Teams Stitch Marker Relationship Specialty Start Date End Date Efe Carrera MD [address] [place] [address] PCP - General 09/13/16 Efrain Nina MD [address] [place] [address] Surgeon Orthopedic Surgery 11/20/20 Miscellaneous, Not In File 11/24/20
[2025-01-10 09:13] LABS: INR 2.3; Prothrombin Time 23.4 Seconds (9.50-12.1)
[2025-01-12 18:13] LABS: Methylmalonic Acid 491 nmol/L (85-423)
== END 2025-01-09 09:06 | disposition home or self-care (01) ==
LOC: CHSLAB 09:06
PROVIDERS: PCP Family Medicine; Visit Provider Family Medicine
DX: N18.4 Chronic kidney disease, stage 4 (severe) (principal); E53.8 Deficiency of other specified B group vitamins; Z79.01 Long term (current) use of anticoagulants
CPT/HCPCS: 36415; 82607; 83921; 85610

== ENCOUNTER 2025-01-16 09:06 | Outpatient (CLI) | payer MEDICARE, MEDICAID, SELFPAY ==
--- NOTE | ~2025-01-16 | XR_ITS ---
XR knee LT 3V Ordering provider: Efe Carrera MD History: . B/L KNEE PAIN WO TOTAL KNEE ARTHOPLASKES . Comparison: June 08, 2022 FINDINGS: BONES: No acute fracture or dislocation. JOINT SPACES: Total knee arthroplasty. SOFT TISSUES: Normal. IMPRESSION: No acute osseous abnormality left knee. Total knee arthroplasty. Reviewed, dictated and finalized at location A.
--- NOTE | ~2025-01-16 | XR_ITS ---
XR knee RT 3V Ordering provider: Efe Carrera MD History: . B/L KNEE PAIN WO TOTAL KNEE ARTHOPLASKES . Comparison: September 07, 2021 FINDINGS: BONES: Lucencies are seen in the distal femur are seen posteriorly in the lateral view which is proba sherman minimally changed from previous examination. Follow-up and clinical correlation for tenderness in the area is advised. JOINT SPACES: Total knee arthroplasty. SOFT TISSUES: Normal. IMPRESSION: Total knee arthroplasty. Lucencies in the distal posterior femur which are minimally changed. Clinical correlation and follow-up advised. Reviewed, dictated and finalized at location A.
--- OUTSIDE RECORDS SUMMARY | 2025-01-16 09:46 | XMS_ITS ---
Author Name Auto Generated, Auto Generated Organization [facility] Address [address] [place] [address] Phone [phone] Care Team Providers Care Smooth Stucco Resurfacer Name Role Phone Leonides Hendricks Unavailable [phone] Rad Jonas Unavailable AdamVivienSimón Unavailable [phone] Functional Status No Results Mental Status [...]
--- OUTSIDE RECORDS SUMMARY | 2025-01-16 09:46 | XMS_ITS ---
Author Name Auto Generated, Auto Generated Organization [facility] Address [address] [place] [address] Phone [phone] Care Team Providers Care Bin Operator Name Role Phone Obivinnie Leonides Seaman Unavailable [phone] Rad Jonas Unavailable Vivien Medina Unavailable [phone] Functional Status Mental Status Allergies and Intolerances Medications Problems Reason for Referral Past Medical History
--- OUTSIDE RECORDS SUMMARY | 2025-01-16 09:46 | XMS_ITS | Referral Summary ---
Author Organization [facility] Address [address] [place] [address] Care Team Providers Care Stogie Packer Name Role Phone Efe Carrera MD Primary Care Provide r Efrain Nina MD Unavailable [phone] Miscellaneous, Not In File Unavailable Unava ilable Encounters Date Type Department Care Team Description 10/26/2024 1:30 PM CDT Office Visit [facility] Orthopedics and Sports Medicine [address] [facility] [facility] [facility] [address] [place] [address] Rufina Bolden NP Trochanteric bursitis, [...] mg of elemental iron total) by mouth cardiology tech before breakfast Active methyl salicylate-menthol 30-10 [...] including calling Suicide Hotline ( ) or 258. Follow up in three months with Psychologist/Counselor/SupportGroup/Psychiatrist [...] Will monitor. Vitamin deficiency, unspecified 11/24/2020 senior care (current) use of anticoagulants 2020 Hypertensive chronic [...] drink = 0.6 oz pur e alcohol) [facility] Utilities Answer Date Recorded In the past 12 months has [employer] electric, gas, oil, or water [employer] threatened to shut off services in your [...] any clubs o r organizations such as congregational groups, unions, fraternal or athletic groups, or [...] place to sleep or slept in a intermediate (including now)? No 08/09/2023 Personal Safety Answer Date Recorded Have you ever been in or are you currently in a harmful physical or emotional relationship or is someone making you feel afraid or unsafe? Denies 08/08/2023 Comments No Sex and Gender Information Value Date Recorded Sex Assigned at Not on file Legal Sex Female 1:00 AM TACK PICKER Gender Identity Not on file Sexual Orientation Not on file Occupation Industry Job Start Date Job End Date Retired Not on file Not on file Not on file Last Filed Vital Signs Vital Sign Reading Time Taken Comments Blood Pressure 108/60 10/26/2024 1:20 PM CDT Pulse 81 10/26/2024 1:20 PM CDT Temperature 36.8 C (98.2 F) 08/11/2023 7:58 AM TACK PICKER Respiratory Rate 20 08/11/2023 11:54 AM TACK PICKER Oxygen Saturation 93% 08/11/2023 11:54 AM TACK PICKER Inhaled Oxygen Concentration - - Weight 91.2 kg (201 lb) 10/26/2024 1:20 PM CDT Height 157.5 cm (5' 2) 10/26/2024 1:20 PM CDT Body Mass Index 36.76 10/26/2024 1:20 PM CDT Plan of Treatment Not on file Medical Devices Implanted Type Area Forest Aide Device Identifier Shelf Expiration Date Model / Serial / Lot Synthes 04.037.142s Tfn-Advanced Lateral Relief Cut 11mm 170mm Cannulated Femoral - [id number] Implanted:Qty: 1 on 11/19/2020 by Efrain Nina MD at [facility] Left: Femur Synthes I 07/31/2030 04.037.142 S / / [id number] Synthes 04.038.200s Tfn-Advanced 10.35mm 100mm Cannulated Screw Bone Titanium - [id number] Implanted:Qty: 1 on 11/19/2020 by Efrain Nina MD at [facility] Left: Femur Synthes I 04/30/2029 04.038.200 S / / [id number] Synthes 04.005.526s 5mm 4.3mm 36mm Lock Self Tap Blunt Tip 2 Lead Tibial T25 Full - [id number] Implanted:Qty: 1 on 11/19/2020 by Efrain Nina MD at [facility] Left: Femur Synthes I 03/31/2029 04.005.526 S / / [id number] Medtronic Inc Synchromed Ii .78in [place] Filter Mesh Pouch Programmable 8637-20 - [id number] - [id number] Implanted:Qty: 1 on 04/06/2023 by Ben Abbott MD at [facility] Left: Abdomen Medtronic Inc 09/14/2024 8637-20 / [id number] / Explanted Type Area Forest Aide Device Identifier Shelf Expiration Date Model / Serial / Lot Medtronic Inc Synchromed Ii .78in [place] Filter Mesh Pouch Programmable 8637-20 - [id number] - [id number] Explanted:Qty: 1 on 04/06/2023 by Ben Abbott MD at [facility] Left: Abdomen Medtronic Inc 8637-20 / [id number] / Procedures Procedure Name Priority Date/Time Associated Diagnosis Comments [place] ARTHROCENTESIS ASPIR&/INJ MAJOR JT/BURSA W/O US Routine 10/26/2024 1:30 PM CDT Trochanteric bursitis, left hip from Last 3 Months Results * [place] ARTHROCENTESIS ASPIR&/INJ MAJOR JT/BURSA W/O US (10/26/2024 [...] from Last 3 Months Insurance MEDICARE IDPA [facility] PLAN MEDICARE [place] MEDICARE IDPA [facility] MEDICARE Advance Directives For more information, please contact: [phone] Documents on File Type Date Recorded Patient Pelletising Extruder Operator Expl anation ADVANCE DIRECTIVE 04/07/2023 4:50 PM POWER OF MANAGER PROCESS-MEDICAL ADVANCE DIRECTIVE 04/07/2023 4:50 PM POLST * [...] 10:25 PM 11/24/2020 6:40 PM Care Teams Stogie Packer Relationship Specialty Start Date End Date Efe Carrera MD [address] [place] [address] PCP - General 09/13/16 Efrain Nina MD [address] [place] [address] Surgeon Orthopedic Surgery 11/20/20 Miscellaneous, Not In File 11/24/20
--- OUTSIDE RECORDS SUMMARY | 2025-01-16 09:46 | XMS_ITS | Clinical Summary ---
Author Organization [facility] Address [address] [place] [address] Care Team Providers Care Global Process Owner Name Role Phone Efe Carrera MD Primary Care Provide r Efrain Nina MD Unavailable [phone] Miscellaneous, Not In File Unavailable Unava ilable [...] mg of elemental iron total) by mouth pest control supervisor before breakfast Active methyl salicylate-menthol 30-10 % [...] including calling Suicide Hotline ( ) or 916. Follow up in three months with Psychologist/Counselor/SupportGroup/Psychiatrist [...] Will monitor. 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 1 to 4 times per year 08/09/2023 Do you belong to any clubs o r organizations such as pentecostal groups, unions, fraternal or athletic groups, or [...] place to sleep or slept in a care home (including now)? No 08/09/2023 Personal Safety Answer Date Recorded Have you ever been in or are you currently in a harmful physical or emotional relationship or is someone making you feel afraid or unsafe? Denies 08/08/2023 Comments No Sex and Gender Information Value Date Recorded Sex Assigned at Not on file Legal Sex Female 1:00 AM MOBILE SALES CONSULTANT Gender Identity Not on file Sexual Orientation Not on file Occupation Industry Job Start Date Job End Date Retired Not on file Not on file Not on file Obstetrics History Last Filed Vital Signs Vital Sign Reading Time Taken Comments Blood Pressure 108/60 10/26/2024 1:20 PM CDT Pulse 81 10/26/2024 1:20 PM CDT Temperature 36.8 C (98.2 F) 08/11/2023 7:58 AM MOBILE SALES CONSULTANT Respiratory Rate 20 08/11/2023 11:54 AM MOBILE SALES CONSULTANT Oxygen Saturation 93% 08/11/2023 11:54 AM MOBILE SALES CONSULTANT Inhaled Oxygen Concentration - - Weight 91.2 [...] 10/10/2020, 08/29/2020 Medical Devices Implanted Type Area Outreach Director Device Identifier Shelf Expiration Date Model / Serial / Lot Synthes 04.037.142s Tfn-Advanced Lateral Relief Cut 11mm 170mm Cannulated Femoral - [id number] Implanted:Qty: 1 on 11/19/2020 by Efrain Nina MD at [facility] Left: Femur Synthes I 07/31/2030 04.037.142 S / / [id number] Synthes 04.038.200s Tfn-Advanced 10.35mm 100mm Cannulated Screw Bone Titanium - [id number] Implanted:Qty: 1 on 11/19/2020 by Efrain Nina MD at [facility] Left: Femur Synthes I 04/30/2029 04.038.200 S / / [id number] Synthes 04.005.526s 5mm 4.3mm 36mm Lock Self Tap Blunt Tip 2 Lead Tibial T25 Full - [id number] Implanted:Qty: 1 on 11/19/2020 by Efrain Nina MD at [facility] Left: Femur Synthes I 03/31/2029 04.005.526 S / / [id number] Medtronic Inc Synchromed Ii .78in [place] Filter Mesh Pouch Programmable 8637-20 - [id number] - [id number] Implanted:Qty: 1 on 04/06/2023 by Ben Abbott MD at [facility] Left: Abdomen Medtronic Inc 09/14/2024 8637-20 / [id number] / Explanted Type Area Outreach Director Device Identifier Shelf Expiration Date Model / Serial / Lot Medtronic Inc Synchromed Ii .78in [place] Filter Mesh Pouch Programmable 8637-20 - [id number] - [id number] Explanted:Qty: 1 on 04/06/2023 by Ben Abbott MD at [facility] Left: Abdomen Medtronic Inc 8637-20 / [id number] / Procedures Procedure Name Priority Date/Time Associated Diagnosis Comments [place] ARTHROCENTESIS ASPIR&/INJ MAJOR JT/BURSA W/O US Routine 10/26/2024 1:30 PM CDT Trochanteric bursitis, left hip from Last 3 Months Results * [place] ARTHROCENTESIS ASPIR&/INJ MAJOR JT/BURSA W/O US (10/26/2024 [...] from Last 3 Months Insurance MEDICARE IDPA [facility] PLAN MEDICARE IDPA MEDICARE IDPA [facility] PLAN MEDICARE Advance Directives For more information, please contact: [phone] Documents on File Type Date Recorded Patient Traffic Circuit Engineer Expl anation ADVANCE DIRECTIVE 04/07/2023 4:50 PM POWER OF BUSINESS SYSTEMS DEVELOPER-MEDICAL ADVANCE DIRECTIVE 04/07/2023 4:50 PM POLST * [...] 10:25 PM 11/24/2020 6:40 PM Care Teams Global Process Owner Relationship Specialty Start Date End Date Efe Carrera MD [address] [place] [address] PCP - General 09/13/16 Efrain Nina MD [address] [place] [address] Surgeon Orthopedic Surgery 11/20/20 Miscellaneous, Not In File 11/24/20
--- OUTSIDE RECORDS SUMMARY | 2025-01-16 09:46 | XMS_ITS | Clinical Summary ---
Author Organization [facility] Address [address] [place] [address] Phone Care Team Providers Care Rubber Goods Cutter Finisher Name Role Phone Efe Carrera MD Primary Care Provider Alfredo Steven MD Unavailable [phone] Allergies Active Allergy Reactions Criticality Noted Date [...] NON DETECTED 02/23/2019 3:31 PM CDT [facility] HCV RNA QT LOG10 <=0.00 Log10 IU/mL 02/23/2019 3:31 PM CDT [facility] Comment: LOG 10 is not applicable. Sample held in Serology for 1 month. Call Laboratory if further testing is desired. This test was performed using TSERING AmpliPrep TSERING Taq Man Real Time PCR. Blood specimen (specimen) Butterfly Puncture / Unknown 02/20/2019 3:51 PM CDT 02/20/2019 5:11 PM CDT us Radha Harkins RECORD PRODUCER, FAREBOX REPAIRER IMMUNOLOGY ORDERA BLEAmbar Final Result [facility] [address] [place] [address], [place] from Last 3 Months or Most Recently Relevant to Health Maintenance Insurance MEDICARE MEDICAID [place] Care Teams Rubber Goods Cutter Finisher Relationship Specialty Start Date End Date Efe Carrera MD [address] [place] [address] PCP - General Pediatrics 02/20/19 Alfredo Steven MD [address] [place] [address] Consulting Physician Nephrology 02/21/19
--- OUTSIDE RECORDS SUMMARY | 2025-01-16 09:46 | XMS_ITS | Clinical Summary ---
Author Organization [facility] Address [address] [place] [address] Care Team Providers Care Battery Container Tester Aluminum Name Role Phone Unavailable Primary Care Provider Unavailabl e Source Comments [facility],non-owned Affiliates and Associated Physician Practices is amultiple site organization consisting of ambulatory clinics and hospital sitesin [place], [place], [place] and [place]. This disclosure is being madepursuant to the Care Everywhere program and may not contain all information available regarding this patient. Last updated 18.[facility] Allergies Active Allergy Reactions Criticality Noted Date [...]
--- OUTSIDE RECORDS SUMMARY | 2025-01-16 09:46 | XMS_ITS ---
Author Organization [facility] Address [address] [place] [address] Care Team Providers Care Toll Testboard Worker Name Role Phone Efe Carrera MD Primary Care Provide r Efrain Nina MD Unavailable [phone] Miscellaneous, Not In File Unavailable Unava ilable [...]
== END 2025-01-16 09:07 | disposition home or self-care (01) ==
PROVIDERS: PCP Family Medicine; Visit Provider Family Medicine
DX: Z96.693 Finger-joint replacement, bilateral (principal)
CPT/HCPCS: 73562

== ENCOUNTER 2025-02-08 11:30 | Outpatient (CLI) | payer MEDICARE, MEDICAID, SELFPAY ==
--- OUTSIDE RECORDS SUMMARY | 2025-02-08 11:34 | XMS_ITS | Clinical Summary ---
Author Organization [facility] [employer] Address [address] [place] [address] Care Team Providers Care Craft Artist Name Role Phone Unavailable Primary Care Provider Unavailabl e Source Comments [facility] [employer],non-owned Affiliates and Associated Physician Practices is amultiple site organization consisting of ambulatory clinics and hospital sitesin [place], [place], [place] and [place]. This disclosure is being madepursuant to the Care Everywhere program and may not contain all information available regarding this patient. Last updated 18.[facility] [employer] Allergies Active Allergy Reactions Criticality Noted [...] season) 2024 DEPRESSION SCREENING 08/01/2024 INFLUENZA VACCINE (#1) 2025 6, 04/15/2009 HEPATITIS B VACCINE Aged Out No [...]
--- OUTSIDE RECORDS SUMMARY | 2025-02-08 11:34 | XMS_ITS | Patient Health Record ---
Author Organization [facility] Address [address] [place], [place] [address] Care Team Providers Care Contribution Solicitor Name Role Phone [employer] Unavailable [phone] Efe Carrera Unavailable Unavailable Reason For Referral No Information Medications Medication SIG (Take, Route, Frequency, Duration) Notes Start Date End Date Status hydroCHLOROthiazide 12.5 MG Oral Tablet ORAL hydrochlorothiazide 12.5 MG Oral TabletOriginal Medicationhydrochlorothiazide 12.5 MG Oral Tablet *Reorder from [employer]Voice for eRx and Interaction Alerts* 014 Active Plan Of Treatment No Information Insurance Providers Payer Name Payer Address Payer Phone Subscriber Number Group Number Insured Name Patient Relationship to Insured Coverage Start Date Coverage End Date Medicare Part B [facility] [address] [place] [phone] [id number] ROGERS DIALLO Self - patient is the insured
--- OUTSIDE RECORDS SUMMARY | 2025-02-08 11:34 | XMS_ITS ---
Author Name Auto Generated, Auto Generated Organization [facility] Address [address] [place] [address] Phone [phone] Care Team Providers Care Bull Fiddle Player Name Role Phone Leonides Hendricks Unavailable Rad [...] 2020 * End Date: * Text: * prison (current) use of anticoagulants* Code: * Start [...]
--- OUTSIDE RECORDS SUMMARY | 2025-02-08 11:34 | XMS_ITS | Encounter Summary ---
Author Organization [facility] Address [facility] [place] [address] Care Team Providers Care High School Counselor Name Role Phone Efe Carrera MD Primary Care Provider [phone] Encounter Details Date Type Department Care Team (Late st Contact Info) Description 11/26/2019 Abstract [facility] [address] [place], [place] [address] [place] [address] [place] [id number] Social History Tobacco Use Types Packs/Day [...] documented as of this encounter Care Teams High School Counselor Relationship Specialty Start Date End Date Efe Carrera MD [address] [id number] PCP - General FAMILY PRACTICE 10/13/17 documented as of this encounter
--- OUTSIDE RECORDS SUMMARY | 2025-02-08 11:34 | XMS_ITS | Referral Summary ---
Author Organization [facility] Address [address] [place] [address] Care Team Providers Care Chemical Detection Expert Name Role Phone Efe Carrera MD Primary Care Provide r Efrain Nina MD Unavailable [phone] Miscellaneous, Not In File Unavailable Unava ilable Encounters Date Type Department Care Team Description 01/31/2025 7:44 AM CDT - 01/31/2025 11:59 PM CDT Hospital Encounter [facility] Sports Medicine [address] [place] [address] Discharge Disposition: Discharge to home or self care 01/31/2025 11:45 AM CDT Office Visit [facility] [address] [place] [address] [address] [place] [phone] Jewels Nelson PA Trochanteric bursitis, left hip (Primary Dx) from [...] daily 30 tablet/chew tab 11/21/19 21 Active Additional Information Patient not taking.Reported on 01/31/2025 ondansetron ODT (ZOFRAN-ODT) 4 mg disintegrating tabletIndications: Nausea and Vomiting Take 1 tablet (4 mg total) by mouth every 6 (six) hours as needed for nausea or vomiting 20 tablet 1 11/21/19 21 Active Additional Information Patient not taking.Reported on 01/31/2025 senna-docusate (PERICOLACE) 8.6-50 mgIndications:cons tipation Take 2 tablets by mouth 2 (two) times a day 60 tablet 11/21/19 21 Active buPROPion XL (WELLBUTRIN XL) 150 mg 24 hr tablet 11/18/19 21 Active omeprazole (PriLOSEC) 40 mg capsule 11/12/19 21 Active trimethoprim (TRIMPEX) 100 mg tablet Take 1 tablet (100 mg total) by mouth daily 01/12/20 21 Active amLODIPine (NORVASC) 10 mg tablet Take 1 tablet (10 mg total) by mouth nightly Active warfarin (COUMADIN) 1 mg tablet Take 4.5 tablets (4.5 mg total) by mouth daily Active ferrous sulfate 325 mg (65 mg of elemental iron) tabletIndications: Iron Deficiency Anemia Take 1 tablet (65 mg of elemental iron total) by mouth salesperson surgical appliances before breakfast Active methyl salicylate-menthol 30-10 % [...] a day 60 tablet 08/11/19 24 Active Additional Information Patient not taking.Reported on 01/31/2025 diclofenac sodium (VOLTAREN) 1 % gel Apply 4 g topically 4 (four) times a day 100 g 11 10/27/19 25 Active cefpodoxime (VANTIN) 200 mg tablet Take 1 tablet (200 mg total) by mouth 2 (two) times a day 01/28/20 25 Active cyclobenzaprine (FLEXERIL) 10 mg tablet Take 1 tablet (10 mg total) by mouth 2 (two) times a day as needed 12/28/19 25 Active bisacodyL (DULCOLAX) 10 mg suppositoryIndicat ions:constipation Insert 1 suppository (10 mg total) into the rectum daily Active cloNIDine (CATAPRES) 0.1 mg tablet Take 1 tablet (0.1 mg total) by mouth 4 (four) times a day as needed for high blood pressure Active cyanocobalamin, vitamin B-12, 1,000 mcg/mL kit Inject 1,000 mg as directed once a week Active docusate sodium (COLACE) 100 mg capsuleIndications :constipation Take 1 capsule (100 mg total) by mouth 3 (three) times a day as needed for constipation Active HYDROcodone-acetam inophen (NORCO) 5-325 mg per tabletIndications: Pain Take 1 tablet by mouth every 6 (six) hours as needed for pain Active ipratropium-albute roL (DUO-NEB) 0.5-2.5 mg/3 mL nebulizer solution Take by nebulization every 6 (six) hours Active cyanocobalamin, vitamin B-12, (VITAMIN B-12 ORAL) Take by mouth 025 Discontin ued(Alter beka therapy) Hospital, Clinic, or Other Facility Administered Medication Ordered Dose Route Frequency Start Date End Date Status lidocaine (XYLOCAINE) 20 mg/mL (2 %) injection 4 mLIndications:Admi nistration of Local Anesthesia 4 mL OTHER One-Time Injection 01/31/2025 01/31/2025 Ended methylPREDNISolone acetate (DEPO-medrol) injection 80 mgIndications:Troc hanteric bursitis, left hip 80 mg intra-artic One-Time Injection 01/31/2025 01/31/2025 Ended Active Problems Problem Noted Date Diagnosed [...] including calling Suicide Hotline ( ) or 990. Follow up in three months with Psychologist/Counselor/SupportGroup/Psychiatrist [...] = 0.6 oz pur e alcohol) [facility] Utilities Answer Date Recorded In the past 12 months has e [employer], gas, oil, or water [employer] threatened to shut off services in your [...] often do you attend chur ch or lutheran services? 1 to 4 times per year 08/09/2023 Do you belong to any clubs o r organizations such as buddhism groups, unions, fraternal or athletic groups, or [...] on file Legal Sex Female 1:00 AM SENIOR ANALYSIS SPECIALIST Gender Identity Not on file Sexual Orientation Not on file Occupation Industry Job Start Date Job End Date Retired Not on file Not on file Not on file Last Filed Vital Signs Vital Sign Reading Time Taken Comments Blood Pressure 140/76 01/31/2025 11:52 AM CDT Pulse 70 01/31/2025 11:52 AM CDT Temperature 36.8 C (98.2 F) 08/11/2023 7:58 AM SENIOR ANALYSIS SPECIALIST Respiratory Rate 20 08/11/2023 11:54 AM SENIOR ANALYSIS SPECIALIST Oxygen Saturation 93% 08/11/2023 11:54 AM SENIOR ANALYSIS SPECIALIST Inhaled Oxygen Concentration - - Weight 91.2 kg (201 lb) 01/31/2025 11:52 AM CDT Height 154.9 cm (5' 1) 01/31/2025 11:52 AM CDT Body Mass Index 37.98 01/31/2025 11:52 AM CDT Plan of Treatment Not on file Medical Devices Implanted Type Area Product Handler Device Identifier Shelf Expiration Date Model / Serial / Lot Synthes 04.037.142s Tfn-Advanced Lateral Relief Cut 11mm 170mm Cannulated Femoral - [id number] Implanted:Qty: 1 on 11/19/2020 by Efrain Nina MD at [facility] Left: Femur Synthes I 07/31/2030 04.037.142 S / / [id number] Synthes 04.038.200s Tfn-Advanced 10.35mm 100mm Cannulated Screw Bone Titanium - [id number] Implanted:Qty: 1 on 11/19/2020 by Efrain Nina MD at [facility] Left: Femur Synthes I 04/30/2029 04.038.200 S / / [id number] Synthes 04.005.526s 5mm 4.3mm 36mm Lock Self Tap Blunt Tip 2 Lead Tibial T25 Full - [id number] Implanted:Qty: 1 on 11/19/2020 by Efrain Nina MD at [facility] Left: Femur Synthes I 03/31/2029 04.005.526 S / / [id number] Medtronic Inc Synchromed Ii .78in Felicity Filter Mesh Pouch Programmable 8637-20 - [id number] - [id number] Implanted:Qty: 1 on 04/06/2023 by Ben Abbott MD at [facility] Left: Abdomen Medtronic Inc 09/14/2024 8637-20 / [id number] / Explanted Type Area Product Handler Device Identifier Shelf Expiration Date Model / Serial / Lot Medtronic Inc Synchromed Ii .78in Felicity Filter Mesh Pouch Programmable 8637-20 - [id number] - [id number] Explanted:Qty: 1 on 04/06/2023 by Ben Abbott MD at [facility] Left: Abdomen Medtronic Inc 8637-20 / [id number] / Procedures Procedure Name Priority Date/Time Associated Diagnosis Comments XR HIP LEFT 2 OR 3 VIEWS Schedule Routine, Read Routine (OP Routine) 01/31/2025 11:52 AM CDT Trochanteric bursitis, left hip CO ARTHROCENTESIS ASPIR&/INJ MAJOR JT/BURSA W/O US Routine 01/31/2025 11:45 AM CDT Trochanteric bursitis, left hip from Last 3 Months Results * XR Hip Left 2 or 3 Views (01/31/2025 11:52 AM CDT) Anatomical Region Laterality Modality Lower Extremities, Hip, Pelvis Left D igital Radiography Narrative 01/31/2025 12:02 PM CDT Radiographs taken of the left hip today reveal moderate degenerative changes with subchondral sclerosis, osteophyte formation, and diminished joint space. History of prior CM nailing. us Jewels SHARP IMG XR PROCEDURES Fin al Result * CO ARTHROCENTESIS ASPIR&/INJ MAJOR JT/BURSA W/O US (01/31/2025 11:45 AM CDT) Narrative Jewels Nelson PA - 01/31/2025 11:45 AM CDT Jewels Nelson PA 01/31/2025 12:15 PM Greater trochanteric bursa injection Performed by: Jewels Nelson PA Authorized by: Jewels Nelson PA Greater Trochanteric Bursa Injection: Consent Given by: [...] procedure well with no immediate complications us Jewels SHARP IN CLINIC/BEDSIDE ORD ERABLES Final Result from Last 3 Months Insurance MEDICARE IDPA [facility] PLAN MEDICARE IDPA IDPA MEDICARE Advance Directives For more information, please contact: [phone] Documents on File Type Date Recorded Patient Delivery Person Expl anation ADVANCE DIRECTIVE 04/07/2023 4:50 PM POWER OF GOVERNMENT RELATIONS ANALYST-MEDICAL ADVANCE DIRECTIVE 04/07/2023 4:50 PM POLST [...] 10:25 PM 11/24/2020 6:40 PM Care Teams Chemical Detection Expert Relationship Specialty Start Date End Date Efe Carrera MD [address] [place] [address] PCP - General 09/13/16 Efrain Nina MD [address] [place] [address] Surgeon Orthopedic Surgery 11/20/20 Miscellaneous, Not In File 11/24/20
--- OUTSIDE RECORDS SUMMARY | 2025-02-08 11:34 | XMS_ITS | Encounter Summary ---
Author Organization [facility] Address [address] [place] [address] Care Team Providers Care Director Of Convention Services Name Role Phone Efe Carrera MD Primary Care Provider Encounter Details Date Type Department Care Team (Late st Contact Info) Description 10/15/2017 Abstract [facility] [address] [place] [address] , Generic ConversionMD Social History Tobacco Use [...] documented as of this encounter Care Teams Director Of Convention Services Relationship Specialty Start Date End Date Efe Carrera MD [address] [place] [address] PCP - General FAMILY PRACTICE 10/13/17 documented as of this encounter
--- OUTSIDE RECORDS SUMMARY | 2025-02-08 11:34 | XMS_ITS | Clinical Summary ---
Author Organization [facility] Address [address] [place] [address] Phone Care Team Providers Care Warehouser Name Role Phone Efe Carrera MD Primary Care Provider Alfredo Steven MD Unavailable [phone] Allergies Active Allergy Reactions Criticality Noted Date [...] season) 2024 11/27/2021, 10/10/2020, 08/29/2020 Influenza Immunization (#1) 2025 110 08/2018, 04/17/2018, 07/20/2017, Additional history exists Pneumococcal Immunization [...] DETECTED NON DETECTED 02/23/2019 3:31 PM CDT [facility] HCV RNA QT LOG10 <=0.00 Log10 IU/mL 02/23/2019 3:31 PM CDT [facility] Comment: LOG 10 is not applicable. Sample held in Serology for 1 month. Call Laboratory if further testing is desired. This test was performed using TSERING AmpliPrep TSERING Taq Man Real Time PCR. Blood specimen (specimen) Butterfly Puncture / Unknown 02/20/2019 3:51 PM CDT 02/20/2019 5:11 PM CDT us Radha Harkins AIR MOTOR REPAIRER, VARNISHER IMMUNOLOGY ORDERA BLEAmbar Final Result [facility] [address] [place] [address], [place] from Last 3 Months or Most Recently Relevant to Health Maintenance Insurance MEDICARE [place]ICAID [place] Care Teams Warehouser Relationship Specialty Start Date End Date Efe Carrera MD [address] [place] [address] PCP - General Pediatrics 02/20/19 Alfredo Steven MD [address] [place] [address] Consulting Physician Nephrology 02/21/19
--- OUTSIDE RECORDS SUMMARY | 2025-02-08 11:34 | XMS_ITS | Clinical Summary ---
Author Organization [facility] Address [address] [place] [address] Care Team Providers Care Maintenance Mechanic Telephone Name Role Phone Efe Carrera MD Primary Care Provide r Efrain Nina MD Unavailable [phone] Miscellaneous, Not In File Unavailable Unava ilable [...] mg of elemental iron total) by mouth early childhood assistant before breakfast Active methyl salicylate-menthol 30-10 % [...] day 60 tablet 11 08/11/19 24 Active Additional Information Patient not [...] now. Will monitor. 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 Hypertensive [...] (03/03/2023): Pulmonary Embolism - (Added by TW Lola) Assessment & Plan (11/19/2020 8:54 AM CDT): [...] Date Type Department Care Team Description 01/31/2025 11:45 AM CDT Office Visit [facility] Orthopedics and Sports Medicine [address] [place] [address] [address] [address] Jewels Nelson PA Trochanteric bursitis, left hip (Primary Dx) 01/31/2025 7:44 AM CDT - 01/31/2025 11:59 PM CDT Hospital Encounter [facility] [address] [facility] [address] [place] [address] Discharge Disposition: Discharge to home or self care from Last 3 Months Immunizations Immunization Administration Dates Next Due Influenza, Trivalent, IM (MDV) 05/03/2016 Influenza, Trivalent, Preservative Free, Intramu scular 04/15/2009 Surgical History Surgery Date Site/Laterality Comments VT ARTHRP KNE CONDYLE&PLATU MEDIAL&LAT COMPARTMENTS Total Knee Arthroplasty - (Added by TW Conv) VT CHOLECYSTECTOMY Cholecystectomy - (Added by TW Conv) [...] not e lsewhere classified 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 1 to 4 times per year 08/09/2023 Do you belong to any clubs o r organizations such as scientology groups, unions, fraternal or athletic groups, or [...] on file Legal Sex Female 1:00 AM REAL ESTATE OPERATIONS MANAGER Gender Identity Not on file Sexual Orientation Not on file Occupation Industry Job Start Date Job End Date Retired Not on file Not on file Not on file Obstetrics History Last Filed Vital Signs Vital Sign Reading Time Taken Comments Blood Pressure 140/76 01/31/2025 11:52 AM CDT Pulse 70 01/31/2025 11:52 AM CDT Temperature 36.8 C (98.2 F) 08/11/2023 7:58 AM REAL ESTATE OPERATIONS MANAGER Respiratory Rate 20 08/11/2023 11:54 AM REAL ESTATE OPERATIONS MANAGER Oxygen Saturation 93% 08/11/2023 11:54 AM REAL ESTATE OPERATIONS MANAGER Inhaled Oxygen Concentration - - Weight 91.2 kg (201 lb) 01/31/2025 11:52 AM CDT Height 154.9 cm (5' 1) 01/31/2025 11:52 AM CDT Body Mass Index 37.98 01/31/2025 11:52 AM CDT Plan of Treatment Health Maintenance Due Date Last Done Comments Depression Screening 1940 Osteoporosis Screening-Bone Density Scan 1939 Hepatitis B Screening 1957 Zoster Vaccine (1 of 2) 1989 Well Visit 65+ 2004 Fall Risk Assessment 08/11/2024 08/11/2023 Influenza Vaccine (#1) 2025 , 06/01/2019, 04/17/2018, Additional history exists DTaP/Tdap/Td Vaccine (4 - Td or Tdap) 06/30/2028 06/30/2018, 06/22/2016, 11/04/2008 Pneumococcal vaccine 65+ Completed 06/22/2016, 04/03 Covid-19 Vaccine Discontinued 10/10/2020, 08/29/2020 Medical Devices Implanted Type Area Ball Shagger Device Identifier Shelf Expiration Date Model / Serial / Lot Synthes 04.037.142s Tfn-Advanced Lateral Relief Cut 11mm 170mm Cannulated Femoral - [id number] Implanted:Qty: 1 on 11/19/2020 by Efrain Nina MD at [facility] Left: Femur Synthes I 07/31/2030 04.037.142 S / / [id number] Synthes 04.038.200s Tfn-Advanced 10.35mm 100mm Cannulated Screw Bone Titanium - [id number] Implanted:Qty: 1 on 11/19/2020 by Efrain Nina MD at [facility] Left: Femur Synthes I 04/30/2029 04.038.200 S / / [id number] Synthes 04.005.526s 5mm 4.3mm 36mm Lock Self Tap Blunt Tip 2 Lead Tibial T25 Full - [id number] Implanted:Qty: 1 on 11/19/2020 by Efrain Nina MD at [facility] Left: Femur Synthes I 03/31/2029 04.005.526 S / / [id number] Medtronic Inc Synchromed Ii .78in [place] Filter Mesh Pouch Programmable 8637-20 - [id number] - [id number] Implanted:Qty: 1 on 04/06/2023 by Ben Abbott MD at [facility] Left: Abdomen Medtronic Inc 09/14/2024 8637-20 / [id number] / Explanted Type Area Ball Shagger Device Identifier Shelf Expiration Date Model / Serial / Lot Medtronic Inc Synchromed Ii .78in [place] Filter Mesh Pouch Programmable 8637-20 - [id number] - [id number] Explanted:Qty: 1 on 04/06/2023 by Ben Abbott MD at [facility] Left: Abdomen Medtronic Inc 8637-20 / [id number] / Procedures Procedure Name Priority Date/Time Associated Diagnosis Comments XR HIP LEFT 2 OR 3 VIEWS Schedule Routine, Read Routine (OP Routine) 01/31/2025 11:52 AM CDT Trochanteric bursitis, left hip VT ARTHROCENTESIS ASPIR&/INJ MAJOR JT/BURSA W/O US Routine [...] IMG XR PROCEDURES Fin al Result * VT ARTHROCENTESIS ASPIR&/INJ MAJOR JT/BURSA W/O US (01/31/2025 [...] Result from Last 3 Months Insurance MEDICARE [facility] [place] [address] [facility] PLAN MEDICARE IDPA IDPA MEDICARE Advance Directives For more information, please contact: [phone] Documents on File Type Date Recorded Patient Sampler First Expl anation ADVANCE DIRECTIVE 04/07/2023 4:50 PM POWER OF TECHNOLOGY INSTRUCTOR-MEDICAL ADVANCE DIRECTIVE 04/07/2023 4:50 PM POLST * [...] PM 11/24/2020 6:40 PM Care Teams Maintenance Mechanic Telephone Relationship Specialty Start Date End Date Efe Carrera MD [address] [place] [address] PCP - General 09/13/16 Efrain Nina MD [address] [place] [address] Surgeon Orthopedic Surgery 11/20/20 Miscellaneous, Not In File 11/24/20
--- OUTSIDE RECORDS SUMMARY | 2025-02-08 11:34 | XMS_ITS | Encounter Summary ---
Author Organization [facility] Address [address] [place] [address] Care Team Providers Care Bank Reconciliator Name Role Phone Efe Carrera MD Primary Care Provider [phone] Encounter Details Date Type Department Care Team (Late st Contact Info) Description 09/11/2019 Prep for Procedure [employer] Realtime Reporter Pre/Post [address] [place] [address] Sheldon Webster MD [address] [place] [address] Social History Tobacco Use Types [...] documented as of this encounter Care Teams Bank Reconciliator Relationship Specialty Start Date End Date Efe Carrera MD [address] [place] [address] PCP - General FAMILY PRACTICE 10/13/17 documented as of this encounter
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
--- OUTSIDE RECORDS SUMMARY | 2025-02-08 11:34 | XMS_ITS ---
Author Organization [facility] Address [address] [place] [address] Care Team Providers Care Carpenter'S Assistant Name Role Phone Efe Carrera MD Primary Care Provide r Efrain Nina MD Unavailable [phone] Miscellaneous, Not In File Unavailable Unava ilable [...]
--- OUTSIDE RECORDS SUMMARY | 2025-02-08 11:34 | XMS_ITS ---
Author Name Auto Generated, Auto Generated Organization [facility] Address [address] [place] [address] Phone [phone] Care Team Providers Care High Lighter Name Role Phone Leonides Hendricks Unavailable Rad [...] 2020 * End Date: * Text: * assisted (current) use of anticoagulants* Code: * Start [...]
[2025-02-08 12:05] LABS: INR 2.9; Prothrombin Time 28.9 Seconds (9.50-12.1)
== END 2025-02-08 11:31 | disposition home or self-care (01) ==
LOC: CHSLAB 11:32
PROVIDERS: PCP Family Medicine; Visit Provider Family Medicine
DX: Z79.01 Long term (current) use of anticoagulants (principal)
CPT/HCPCS: 36415; 85610

== ENCOUNTER 2025-03-13 10:12 | Outpatient (CLI) | payer MEDICARE, MEDICAID, SELFPAY ==
--- OUTSIDE RECORDS SUMMARY | 2025-03-13 10:23 | XMS_ITS | Clinical Summary ---
Author Organization [facility] Address [address] [place] [address] Care Team Providers Care Boilermaker Loftsman Name Role Phone Unavailable Primary Care Provider Unavailabl e Source Comments [facility],non-owned Affiliates and Associated Physician Practices is amultiple site organization consisting of ambulatory clinics and hospital sitesin [place], [place], [place] and [place]. This disclosure is being madepursuant to the Care Everywhere program and may not contain all information available regarding this patient. Last updated 18.[facility] [employer] Allergies Active Allergy Reactions Criticality Noted Date [...] OUT OF STATE MEDICARE MEDICAID - [place] * Guarantor: Rogers Cardenas Account Type Relation to Patient Date of Phone Billing Address Personal/Family Spouse [address] [place] [address] MEDICARE
--- OUTSIDE RECORDS SUMMARY | 2025-03-13 10:23 | XMS_ITS | Patient Health Record ---
Author Organization [facility] Address [address] [place], [place] [id number] Care Team Providers Care Hospital Technician Name Role Phone KAL [employer]AN[employer] Unavailable [phone] Efe Carrera Unavailable Unavailable Reason For Referral No Information Medications Medication SIG (Take, Route, Frequency, Duration) Notes Start Date End Date Status hydroCHLOROthiazide 12.5 MG Oral Tablet ORAL hydrochlorothiazide 12.5 MG Oral TabletOriginal Medicationhydrochlorothiazide 12.5 MG Oral Tablet *Reorder from [employer] for eRx and Interaction Alerts* 014 Active Plan Of Treatment No Information Insurance Providers Payer Name Payer Address Payer Phone Subscriber Number Group Number Insured Name Patient Relationship to Insured Coverage Start Date Coverage End Date Medicare Part B [facility] [address] [place] [id number] ROGERS DIALLO Self - patient is the insured
--- OUTSIDE RECORDS SUMMARY | 2025-03-13 10:23 | XMS_ITS ---
Author Name Auto Generated, Auto Generated Organization [facility] Address [address] [place] [address] Phone [phone] Care Team Providers Care Media Buyer Name Role Phone Leonides Hendricks Unavailable Rad Jonas Unavailable [phone] AdamVivienSimón Unavailable Functional Status No Results [...] 2020 * End Date: * Text: * long term (current) use of anticoagulants* Code: * Start [...]
--- OUTSIDE RECORDS SUMMARY | 2025-03-13 10:23 | XMS_ITS ---
Author Organization [facility] Address [address] [place] [address] Care Team Providers Care Electric Gas Appliances Demonstrator Name Role Phone Efe Carrera MD Primary Care Provide r Efrain Nina MD Unavailable [phone] Miscellaneous, Not In File Unavailable Unava ilable [...] now. Will monitor. 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
--- OUTSIDE RECORDS SUMMARY | 2025-03-13 10:23 | XMS_ITS | Clinical Summary ---
Author Organization [facility] Address [address] [place] [address] Care Team Providers Care Bacteriologist Dairy Name Role Phone Efe Carrera MD Primary Care Provide r Efrain Nina MD Unavailable [phone] Miscellaneous, Not In File Unavailable Unava ilable [...] mg of elemental iron total) by mouth radiation / chemistry technician before breakfast Active methyl salicylate-menthol 30-10 [...] by nebulization every 6 (six) hours Active Active Problems Problem Noted Date Diagnosed [...] (03/03/2023): Pulmonary Embolism - (Added by DEREK Davila) Assessment & Plan (11/19/2020 8:54 AM CDT): [...] Description 01/31/2025 11:45 AM CDT Office Visit [facility] [address] [place] [phone] Jewels Nelson PA Trochanteric bursitis, left hip (Primary Dx) 01/31/2025 7:44 AM CDT - 01/31/2025 11:59 PM CDT Hospital Encounter [facility] [address] [place] [address] [place] [id number] Discharge Disposition: Discharge to home or self care from Last 3 Months Immunizations Immunization Administration Dates Next Due Influenza, Trivalent, IM (MDV) 05/03/2016 Influenza, Trivalent, Preservative Free, Intramu scular 04/15/2009 Surgical History Surgery Date Site/Laterality Comments MA ARTHRP KNE CONDYLE&PLATU MEDIAL&LAT COMPARTMENTS Total Knee Arthroplasty - (Added by TW Conv) MA CHOLECYSTECTOMY Cholecystectomy - (Added by DEREK Conv) Medical History Medical History Date Comments [...] drink = 0.6 oz pur e alcohol) [facility] Utilities Answer Date Recorded In the past 12 months has e Tintri, gas, oil, or water [employer] threatened to shut off services in your home? No 08/09/2023 Social Connection and Isolation Panel Answer Date Recorded In a typical week, how many times do you talk on the phone with family, friends, or neighbors? More than three times a week 08/09/2023 How often do you get togethe r with friends or relatives? More than three times a week 08/09/2023 How often do you attend chur ch or sabianist services? 1 to 4 times per year 08/09/2023 Do you belong to any clubs o r organizations such as baptism groups, unions, fraternal or athletic groups, or [...] on file Legal Sex Female 1:00 AM GLASS FORMING ENGINEER Gender Identity Not on file Sexual Orientation Not on file Occupation Industry Job Start Date Job End Date Retired Not on file Not on file Not on file Obstetrics History Last Filed Vital Signs Vital Sign Reading Time Taken Comments Blood Pressure 140/76 01/31/2025 11:52 AM CDT Pulse 70 01/31/2025 11:52 AM CDT Temperature 36.8 C (98.2 F) 08/11/2023 7:58 AM GLASS FORMING ENGINEER Respiratory Rate 20 08/11/2023 11:54 AM GLASS FORMING ENGINEER Oxygen Saturation 93% 08/11/2023 11:54 AM GLASS FORMING ENGINEER Inhaled Oxygen Concentration - - Weight 91.2 [...] 10/10/2020, 08/29/2020 Medical Devices Implanted Type Area External Auditor Device Identifier Shelf Expiration Date Model / Serial / Lot Synthes 04.037.142s Tfn-Advanced Lateral Relief Cut 11mm 170mm Cannulated Femoral - [id number] Implanted:Qty: 1 on 11/19/2020 by Efrain Nina MD at [facility] Left: Femur Synthes I 07/31/2030 04.037.142 S / / [id number] Synthes 04.038.200s Tfn-Advanced 10.35mm 100mm Cannulated Screw Bone Titanium - [id number] Implanted:Qty: 1 on 11/19/2020 by Efrain Nina MD at [facility] Left: Femur Synthes I 04/30/2029 04.038.200 S / / [id number] Synthes 04.005.526s 5mm 4.3mm 36mm Lock Self Tap Blunt Tip 2 Lead Tibial T25 Full - [id number] Implanted:Qty: 1 on 11/19/2020 by Efrain Nina MD at [facility] Left: Femur Synthes I 03/31/2029 04.005.526 S / / [id number] Medtronic Inc Synchromed Ii .78in Syosset Filter Mesh Pouch Programmable 8637-20 - [id number] - [id number] Implanted:Qty: 1 on 04/06/2023 by Ben Abbott MD at [facility] Left: Abdomen Medtronic Inc 09/14/2024 8637-20 / [id number] / Explanted Type Area External Auditor Device Identifier Shelf Expiration Date Model / Serial / Lot Medtronic Inc Synchromed Ii .78in Syosset Filter Mesh Pouch Programmable 8637-20 - [id number] - [id number] Explanted:Qty: 1 on 04/06/2023 by Bne Abbott MD at [facility] Left: Abdomen Medtronic Inc 8637-20 / [id number] / Procedures Procedure Name Priority Date/Time Associated Diagnosis Comments XR HIP LEFT 2 OR 3 VIEWS Schedule Routine, Read Routine (OP Routine) 01/31/2025 11:52 AM CDT Trochanteric bursitis, left hip MA ARTHROCENTESIS ASPIR&/INJ MAJOR JT/BURSA W/O US Routine [...] IMG XR PROCEDURES Fin al Result * MA ARTHROCENTESIS ASPIR&/INJ MAJOR JT/BURSA W/O US (01/31/2025 [...] the procedure well with no immediate complications Jewels [facility]/BEDSIDE ORD ERABLES Final Result from Last 3 Months Insurance MEDICARE IDPA [facility] PLAN MEDICARE IDPA IDPA MEDICARE Advance Directives For more information, please contact: [phone] Documents on File Type Date Recorded Patient Senior Lead Developer Expl anation ADVANCE DIRECTIVE 04/07/2023 4:50 PM POWER OF SENIOR SOFTWARE QA ENGINEER-MEDICAL ADVANCE DIRECTIVE 04/07/2023 4:50 PM POLST [...] 10:25 PM 11/24/2020 6:40 PM Care Teams Bacteriologist Dairy Relationship Specialty Start Date End Date Efe Carrera MD [address] [place] [address] PCP - General 09/13/16 Efrain Nina MD [address] [place] [address] Surgeon Orthopedic Surgery 11/20/20 Miscellaneous, Not In File 11/24/20
--- OUTSIDE RECORDS SUMMARY | 2025-03-13 10:23 | XMS_ITS ---
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
--- OUTSIDE RECORDS SUMMARY | 2025-03-13 10:23 | XMS_ITS | Clinical Summary ---
Author Organization [facility] Address [address] [place] [address] Phone Care Team Providers Care Advisor To Command In Combat Name Role Phone Efe Carrera MD Primary [...] DETECTED NON DETECTED 02/23/2019 3:31 PM CDT [facility] HCV RNA QT LOG10 <=0.00 Log10 IU/mL 02/23/2019 3:31 PM CDT [facility] Comment: LOG 10 is not applicable. Sample held in Serology for 1 month. Call Laboratory if further testing is desired. This test was performed using TSERING AmpliPrep TSERING Taq Man Real Time PCR. Blood specimen (specimen) Butterfly Puncture / Unknown 02/20/2019 3:51 PM CDT 02/20/2019 5:11 PM CDT us Radha Harkins ANIMAL KEEPER HEAD, CHEMICAL SPRAYER IMMUNOLOGY ORDERA BLEAmbar Final Result [facility] [address] [place] [address], [place] from Last 3 Months or Most Recently Relevant to Health Maintenance Insurance MEDICARE MEDICAID [place] Care Teams Advisor To Command In Combat Relationship Specialty Start Date End Date Efe Carrera MD [address] [place] [address] PCP - General Pediatrics 02/20/19 Alfredo Steven MD [address] [place] [address] Consulting Physician Nephrology 02/21/19
[2025-03-13 10:57] LABS: INR 2.5; Prothrombin Time 25.1 Seconds (9.50-12.1)
== END 2025-03-13 10:13 | disposition home or self-care (01) ==
LOC: CHSLAB 10:14
PROVIDERS: PCP Family Medicine; Visit Provider Family Medicine
DX: Z86.718 Personal history of other venous thrombosis and embolism (principal)
CPT/HCPCS: 36415; 85610

== ENCOUNTER 2025-04-10 06:34 | Outpatient (NON) | payer MEDICARE, MEDICAID, SELFPAY ==
[2025-04-10 06:58] LABS: INR 2.5; Prothrombin Time 25.6 Seconds (9.50-12.1)
== END 2025-04-10 06:35 | disposition home or self-care (01) ==
LOC: CHSLAB 06:36
PROVIDERS: PCP Family Medicine; Visit Provider Family Medicine
DX: Z79.01 Long term (current) use of anticoagulants (principal)
CPT/HCPCS: 36415; 83921; 85610

== ENCOUNTER 2025-04-18 09:42 | Outpatient (CLI) | payer MEDICARE, MEDICAID, SELFPAY ==
[2025-04-18 10:00] LABS: Hematocrit 38.1 % (35.0-42.0); Hemoglobin 11.7 g/dL (11.7-13.8); Mean Corpuscular HGB Conc 30.7 g/dL (32-36); Mean Corpuscular Hemoglobin 27.8 pg (27.0-31.0); Mean Corpuscular Volume 90.5 fL (78.0-102.0); Platelet Count Result 253 K/mm3 (150-420); Red Blood Count 4.21 M/mm3 (4.20-5.40); White Blood Count 5.3 K/mm3 (4.8-10.8)
--- OUTSIDE RECORDS SUMMARY | 2025-04-18 10:15 | XMS_ITS | Encounter Summary ---
Author Organization [facility] Address [facility] [place] [address] Care Team Providers Care Assistant Printer Floor Covering Name Role Phone Efe Carrera MD Primary Care Provider [phone] Encounter Details Date Type Department Care Team (Late st Contact Info) Description 11/26/2019 Abstract [facility] [address] [place], [place] [address] [place] [address] [place] [phone] Social History Tobacco Use Types Packs/Day [...] documented as of this encounter Care Teams Assistant Printer Floor Covering Relationship Specialty Start Date End Date Efe Carrera MD [address] [id number] PCP - General FAMILY PRACTICE 10/13/17 documented as of this encounter
--- OUTSIDE RECORDS SUMMARY | 2025-04-18 10:15 | XMS_ITS | Clinical Summary ---
Author Organization [facility] Address [address] [place] [address] Care Team Providers Care Hotel Maintenance Worker Name Role Phone Unavailable Primary Care Provider Unavailabl e Source Comments [facility],non-owned Affiliates and Associated Physician Practices is amultiple site organization consisting of ambulatory clinics and hospital sitesin [place], [place], [place] and [place]. This disclosure is being madepursuant to the Care Everywhere program and may not contain all information available regarding this patient. Last updated 18.[facility] Allergies Active Allergy Reactions Criticality Noted Date [...] yrs (1 - 1-dose 75+ series) 2014 DEPRESSION SCREENING 08/01/2024 COVID-19 VACCINE (2023-2 5 season) 2025 INFLUENZA VACCINE (#1) 2025 6, 04/15/2009 HEPATITIS [...]
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
--- OUTSIDE RECORDS SUMMARY | 2025-04-18 10:15 | XMS_ITS | Clinical Summary ---
Author Organization [facility] Address [address] [place] [address] Care Team Providers Care Fast Food Attendant Name Role Phone Efe Carrera MD Primary Care Provide r Efrain Nina MD Unavailable [phone] Miscellaneous, Not In File Unavailable Unava ilable [...] mg of elemental iron total) by mouth aircraft engine cylinder mechanic before breakfast Active methyl salicylate-menthol 30-10 % [...] by mouth 2 (two) times a day 06/29/20 25 Active cyclobenzaprine (FLEXERIL) 10 mg tablet [...] including calling Suicide Hotline ( ) or 918. Follow up in three months with Psychologist/Counselor/SupportGroup/Psychiatrist [...] now. Will monitor. 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 2020 Hypertensive chronic [...] Encounters Date Type Department Care Team Description 04/02/2025 Orders Only [facility] Orthopedics and Sports Medicine [address] [place] [address] [place] [address] Jewels Nelson PA Trochanteric bursitis, left hip (Primary Dx); Left hip pain 04/02/2025 Telephone [facility] Orthopedics and Sports Medicine [address] [place] [address] [place] [address] Jewels Nelson PA 01/31/2025 11:45 AM CDT Office Visit [facility] Orthopedics and Sports Medicine [address] [place] [address] [place] [address] Jewels Nelson PA Trochanteric bursitis, left hip (Primary Dx) 01/31/2025 7:44 AM CDT - 01/31/2025 11:59 PM CDT Hospital Encounter [facility] Orthopedics and Sports Medicine [address] [place] [address] [place] [address] Discharge Disposition: Discharge to home or self care from Last 3 Months Immunizations Immunization Administration Dates Next Due Influenza, Trivalent, IM (MDV) 05/03/2016 Influenza, Trivalent, Preservative Free, Intramu scular 04/15/2009 Surgical History Surgery Date Site/Laterality Comments CA ARTHRP KNE CONDYLE&PLATU MEDIAL&LAT COMPARTMENTS Total Knee Arthroplasty - (Added by TW Conv) CA CHOLECYSTECTOMY Cholecystectomy - (Added by TW Conv) [...] not e lsewhere classified Right shoulder pain 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 1 to 4 times per year 08/09/2023 Do you belong to any clubs o r organizations such as hinduism groups, unions, fraternal or athletic groups, or [...] on file Legal Sex Female 1:00 AM RECRUITMENT ADVERTISING MANAGER Gender Identity Not on file Sexual Orientation Not on file Occupation Industry Job Start Date Job End Date Retired Not on file Not on file Not on file Obstetrics History Last Filed Vital Signs Vital Sign Reading Time Taken Comments Blood Pressure 140/76 01/31/2025 11:52 AM CDT Pulse 70 01/31/2025 11:52 AM CDT Temperature 36.8 C (98.2 F) 08/11/2023 7:58 AM RECRUITMENT ADVERTISING MANAGER Respiratory Rate 20 08/11/2023 11:54 AM RECRUITMENT ADVERTISING MANAGER Oxygen Saturation 93% 08/11/2023 11:54 AM RECRUITMENT ADVERTISING MANAGER Inhaled Oxygen Concentration - - Weight [...] Assessment 08/11/2024 08/11/2023 Influenza Vaccine (#1) 2025 0, 06/01/2019, 04/17/2018, Additional history exists DTaP/Tdap/Td Vaccine (4 - Td or Tdap) 06/30/2028 06/30/2018, 06/22/2016, 11/04/2008 Pneumococcal vaccine 65+ Completed 06/22/2016, 04/03 Covid-19 Vaccine Discontinued 10/10/2020, 08/29/2020 Medical Devices Implanted Type Area Maitre D Device Identifier Shelf Expiration Date Model / Serial / Lot Synthes 04.037.142s Tfn-Advanced Lateral Relief Cut 11mm 170mm Cannulated Femoral - [id number] Implanted:Qty: 1 on 11/19/2020 by Efrain Nina MD at [facility] Left: Femur Synthes I 07/31/2030 04.037.142 S / / [id number] Synthes 04.038.200s Tfn-Advanced 10.35mm 100mm Cannulated Screw Bone Titanium - [id number] Implanted:Qty: 1 on 11/19/2020 by Efrain Nina MD at [facility] Left: Femur Synthes I 04/30/2029 04.038.200 S / / [id number] Synthes 04.005.526s 5mm 4.3mm 36mm Lock Self Tap Blunt Tip 2 Lead Tibial T25 Full - [id number] Implanted:Qty: 1 on 11/19/2020 by Efrain Nina MD at [facility] Left: Femur Synthes I 03/31/2029 04.005.526 S / / [id number] Medtronic Inc Synchromed Ii .78in Doral Filter Mesh Pouch Programmable 8637-20 - [id number] - [id number] Implanted:Qty: 1 on 04/06/2023 by Ben Abbott MD at [facility] Left: Abdomen Medtronic Inc 09/14/2024 8637-20 / [id number] / Explanted Type Area Maitre D Device Identifier Shelf Expiration Date Model / Serial / Lot Medtronic Inc Synchromed Ii .78in Doral Filter Mesh Pouch Programmable 8637-20 - [id number] - [id number] Explanted:Qty: 1 on 04/06/2023 by Ben Abbott MD at [facility] Left: Abdomen Medtronic Inc 8637-20 / [id number] / Procedures Procedure Name Priority Date/Time Associated Diagnosis Comments XR HIP LEFT 2 OR 3 VIEWS Schedule Routine, Read Routine (OP Routine) 01/31/2025 11:52 AM CDT Trochanteric bursitis, left hip CA ARTHROCENTESIS ASPIR&/INJ MAJOR JT/BURSA W/O US Routine [...] IMG XR PROCEDURES Fin al Result * CA ARTHROCENTESIS ASPIR&/INJ MAJOR JT/BURSA W/O US (01/31/2025 [...] Result from Last 3 Months Insurance MEDICARE [facility] PLAN MEDICARE IDPA [facility] MEDICARE Advance Directives For more information, please contact: [phone] Documents on File Type Date Recorded Patient Rn Admit Expl anation ADVANCE DIRECTIVE 04/07/2023 4:50 PM POWER OF NAIL EXPERT-MEDICAL ADVANCE DIRECTIVE 04/07/2023 4:50 PM POLST * [...] 10:25 PM 11/24/2020 6:40 PM Care Teams Fast Food Attendant Relationship Specialty Start Date End Date Efe Carrera MD [address] [place] [address] PCP - General 09/13/16 Efrain Nina MD [address] [place] [address] Surgeon Orthopedic Surgery 11/20/20 Miscellaneous, Not In File 11/24/20
--- OUTSIDE RECORDS SUMMARY | 2025-04-18 10:15 | XMS_ITS | Encounter Summary ---
Author Organization [facility] Address [address] [place] [address] Care Team Providers Care Livestock Rancher Name Role Phone Efe Carrera MD Primary Care Provider Encounter Details Date Type Department Care Team (Late st Contact Info) Description 10/15/2017 Abstract [facility] CONVERSION [address] [place] [address] , Generic ConversionMD Social History Tobacco Use [...] documented as of this encounter Care Teams Livestock Rancher Relationship Specialty Start Date End Date Efe Carrera MD [address] [place] [address] PCP - General FAMILY PRACTICE 10/13/17 documented as of this encounter
--- OUTSIDE RECORDS SUMMARY | 2025-04-18 10:15 | XMS_ITS ---
Author Organization [facility] Address [address] [place] [address] Care Team Providers Care Personnel Technician Name Role Phone Efe Carrera MD Primary Care Provide r Efrain Nina MD Unavailable [phone] Miscellaneous, Not In File Unavailable Unava ilable [...] now. Will monitor. 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
--- OUTSIDE RECORDS SUMMARY | 2025-04-18 10:15 | XMS_ITS | Encounter Summary ---
Author Organization [facility] Address [address] [place] [address] Care Team Providers Care Metal Drill Operator Name Role Phone Efe Carrera MD Primary Care Provider [phone] Encounter Details Date Type Department Care Team (Late st Contact Info) Description 09/11/2019 Prep for Procedure Romain's Lens Mounter Pre/Post [address] [place] [address] Sheldon Webster MD [address] [place] [address] Social History Tobacco Use Types [...] documented as of this encounter Care Teams Metal Drill Operator Relationship Specialty Start Date End Date Efe Carrera MD [address] [place] [address] PCP - General FAMILY PRACTICE 10/13/17 documented as of this encounter
--- OUTSIDE RECORDS SUMMARY | 2025-04-18 10:15 | XMS_ITS | Clinical Summary ---
Author Organization [facility] Address [address] [place] [address] Phone Care Team Providers Care Surveillance Systems Analyst Name Role Phone Efe Carrera MD [...] 1-dose 75+ series) 2014 Influenza Immunization (#1) 2025 11/0 08/2018, 04/17/2018, 07/20/2017, Additional history exists SARS-COV-2 Immunization ( season) 2025 11/27/2021, 10/10/2020, 08/29/2020 Pneumococcal Immunization (50+ years) [...] DETECTED NON DETECTED 02/23/2019 3:31 PM CDT [facility] HCV RNA QT LOG10 <=0.00 Log10 IU/mL 02/23/2019 3:31 PM CDT [facility] Comment: LOG 10 is not applicable. Sample held in Serology for 1 month. Call Laboratory if further testing is desired. This test was performed using TSERING AmpliPrep TSEIRNG Taq Man Real Time PCR. Blood specimen (specimen) Butterfly Puncture / Unknown 02/20/2019 3:51 PM CDT 02/20/2019 5:11 PM CDT us Radha Harkins TALENT ACQUISITION MANAGER, MANAGER OF DRILLING IMMUNOLOGY DERECKA BLEAmbar Final Result [facility] [address] [place] [address], [place] from Last 3 Months or Most Recently Relevant to Health Maintenance Insurance MEDICARE [place]ICAID [place] Care Teams Surveillance Systems Analyst Relationship Specialty Start Date End Date Efe Carrera MD [address] [place] [address] PCP - General Pediatrics 02/20/19 Alfredo Steven MD [address] [place] [address] Consulting Physician Nephrology 02/21/19
--- OUTSIDE RECORDS SUMMARY | 2025-04-18 10:15 | XMS_ITS | Patient Health Record ---
Author Organization [facility] Address [address] [place], [place] [id number] Care Team Providers Care Adobe Block Maker Name Role Phone KAL CLEANING Unavailable [phone] Efe Carrera Unavailable Unavailable Reason For Referral No Information Medications Medication SIG (Take, Route, Frequency, Duration) Notes Start Date End Date Status hydroCHLOROthiazide 12.5 MG Oral Tablet ORAL hydrochlorothiazide 12.5 MG Oral TabletOriginal Medicationhydrochlorothiazide 12.5 MG Oral Tablet *Reorder from [employer] for eRx and Interaction Alerts* 014 Active Plan Of Treatment No Information Insurance Providers Payer Name Payer Address Payer Phone Subscriber Number Group Number Insured Name Patient Relationship to Insured Coverage Start Date Coverage End Date Medicare Part B [facility] [address] [place] [id number] ROGERS DIALLO Self - patient is the insured
[2025-04-18 10:30] LABS: Alanine Aminotransferase 14 U/L (6-35); Albumin Level 4.0 g/dL (3.5-5.1); Alkaline Phosphatase 108 U/L (38-126); Anion Gap 9 mmol/L (4-12); Aspartate Amino Transferase 25 U/L (14-36); Bilirubin,Total 0.4 mg/dL (0.2-1.3); Blood Urea Nitrogen 41 mg/dL (7-17); Calcium 10.1 mg/dL (8.4-10.2); Carbon Dioxide 25 mmol/L (22-30); Chloride 112 mmol/L (98-107); Estimated Glomerular Filt Rate 20; Glucose 97 mg/dL (65-110); Osmolality Calculated 312 mOsm/kg (285-295); Potassium 5.0 mmol/L (3.4-5.0); Sodium 146 mmol/L (137-145); Total Protein 7.2 g/dL (6.3-8.2)
[2025-04-18 10:59] LABS: Thyroid Stimulating Hormone 2.810 uIU/mL (0.465-4.680)
== END 2025-04-18 09:43 | disposition home or self-care (01) ==
LOC: CHSLAB 09:44
PROVIDERS: PCP Family Medicine; Visit Provider Family Medicine
DX: N18.4 Chronic kidney disease, stage 4 (severe) (principal); I12.9 Hypertensive chronic kidney disease with stage 1 through stage 4 chronic kidney disease, or unspecified chronic kidney disease; Z86.718 Personal history of other venous thrombosis and embolism
CPT/HCPCS: 36415; 80048; 80076; 84443; 85027

== ENCOUNTER 2025-04-19 11:20 | Outpatient (NON) | payer MEDICARE, SELFPAY ==
--- OUTSIDE RECORDS SUMMARY | 2025-04-19 11:23 | XMS_ITS | Clinical Summary ---
Author Organization [facility] Address [address] [place] [address] Phone Care Team Providers Care Conference Service Coordinator Name Role Phone Efe Carrera MD [...] DETECTED NON DETECTED 02/23/2019 3:31 PM CDT [facility] HCV RNA QT LOG10 <=0.00 Log10 IU/mL 02/23/2019 3:31 PM CDT [facility] Comment: LOG 10 is not applicable. Sample held in Serology for 1 month. Call Laboratory if further testing is desired. This test was performed using TSERING AmpliPrep TSERING Taq Man Real Time PCR. Blood specimen (specimen) Butterfly Puncture / Unknown 02/20/2019 3:51 PM CDT 02/20/2019 5:11 PM CDT us Radha Harkins ROOF CEMENT AND PAINT MAKER HELPER, SECURITY OPERATIONS ENGINEER IMMUNOLOGY DERECKA BLEAmbar Final Result [facility] [address] [place] [address], [place] from Last 3 Months or Most Recently Relevant to Health Maintenance Insurance MEDICARE [place]ID [place] Care Teams Conference Service Coordinator Relationship Specialty Start Date End Date Efe Carrera MD [address] [place] [address] PCP - General Pediatrics 02/20/19 Alfredo Steven MD [address] [place] [address] Consulting Physician Nephrology 02/21/19
--- OUTSIDE RECORDS SUMMARY | 2025-04-19 11:23 | XMS_ITS | Encounter Summary ---
Author Organization [facility] Address [address] [place] [address] Care Team Providers Care Communication Consultant Name Role Phone Efe Carrera MD Primary Care Provider [phone] Encounter Details Date Type Department Care Team (Late st Contact Info) Description 10/15/2017 Abstract [facility] CONVERSION [address] [place] [address] , Generic ConversionMD Social History Tobacco Use [...] documented as of this encounter Care Teams Communication Consultant Relationship Specialty Start Date End Date Efe Carrera MD [address] [place] [address] PCP - General FAMILY PRACTICE 10/13/17 documented as of this encounter
--- OUTSIDE RECORDS SUMMARY | 2025-04-19 11:23 | XMS_ITS | Clinical Summary ---
Author Organization [facility] [employer] Address [address] [place] [address] Care Team Providers Care Consumer Electronics Merchandiser Name Role Phone Unavailable Primary Care Provider Unavailabl e Source Comments [facility] [employer]non-owned Affiliates and Associated Physician Practices is amultiple site organization consisting of ambulatory clinics and hospital sitesin [place], [place], [place] and [place]. This disclosure is being madepursuant to the Care Everywhere program and may not contain all information available regarding this patient. Last updated 18.[facility] [employer] Allergies Active Allergy Reactions Criticality Noted [...]
--- OUTSIDE RECORDS SUMMARY | 2025-04-19 11:23 | XMS_ITS | Encounter Summary ---
Author Organization [facility] Address [facility] [place] [address] Care Team Providers Care Fast Food Fry Cook Name Role Phone Efe Carrera MD Primary Care Provider [phone] Encounter Details Date Type Department Care Team (Late st Contact Info) Description 11/26/2019 Abstract [facility] [address] [place], [place] [address] [place] [address] [place] [address] Social History Tobacco Use Types Packs/Day [...] documented as of this encounter Care Teams Fast Food Fry Cook Relationship Specialty Start Date End Date Efe Carrera MD [address] [place] [id number] PCP - General FAMILY PRACTICE 10/13/17 documented as of this encounter
--- OUTSIDE RECORDS SUMMARY | 2025-04-19 11:23 | XMS_ITS | Patient Health Record ---
Author Organization [facility] Address [address] [place], [place] [address] Care Team Providers Care Hydropulper Operator Name Role Phone KAL CLEANING Unavailable [phone] Efe Carrera Unavailable Unavailable Reason For Referral No Information Medications Medication SIG (Take, Route, Frequency, Duration) Notes Start Date End Date Status hydroCHLOROthiazide 12.5 MG Oral Tablet ORAL hydrochlorothiazide 12.5 MG Oral TabletOriginal Medicationhydrochlorothiazide 12.5 MG Oral Tablet *Reorder from [email or web address] for eRx and Interaction Alerts* 014 Active Plan Of Treatment No Information Insurance Providers Payer Name Payer Address Payer Phone Subscriber Number Group Number Insured Name Patient Relationship to Insured Coverage Start Date Coverage End Date Medicare Part B [facility] [address] [place] [phone] [id number] ROGERS DIALLO Self - patient is the insured
--- OUTSIDE RECORDS SUMMARY | 2025-04-19 11:23 | XMS_ITS | Clinical Summary ---
Author Organization [facility] Address [address] [place] [address] Care Team Providers Care Outside Dealer Sales Representative Name Role Phone Efe Carrera MD Primary [...] of elemental iron total) by mouth supervisor assembly and packing before breakfast Active methyl salicylate-menthol 30-10 % [...] including calling Suicide Hotline ( ) or 913. Follow up in three months with Psychologist/Counselor/SupportGroup/Psychiatrist [...] Will monitor. 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 Hypertensive chronic [...] Department Care Team Description 04/02/2025 Orders Only [facility] Orthopedics and Sports Medicine [address] [place] [address] [address] [place] [address] Jewels Nelson PA Trochanteric bursitis, left hip (Primary Dx); Left hip pain 04/02/2025 Telephone [facility] Orthopedics and Sports Medicine [address] [place] [address] [address] [place] [address] Jewels Nelson PA 01/31/2025 11:45 AM CDT Office Visit [facility] Orthopedics and Sports Medicine [address] [place] [address] [address] [place] [address] Jewels Nelson PA Trochanteric bursitis, left hip (Primary Dx) 01/31/2025 7:44 AM CDT - 01/31/2025 11:59 PM CDT Hospital Encounter [facility] Orthopedics and Sports Medicine [address] [place] [address] [address] [place] [address] Discharge Disposition: Discharge to home or self [...] e lsewhere classified Right shoulder pain 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 No 08/09/2023 Personal Safety Answer Date Recorded Have you ever been in or are you currently in a harmful physical or emotional relationship or is someone making you feel afraid or unsafe? Denies 08/08/2023 Comments No Sex and Gender Information Value Date Recorded Sex Assigned at Not on file Legal Sex Female 1:00 AM COMMUNICABLE DISEASE SPECIALIST Gender Identity Not on file Sexual Orientation Not on file Occupation Industry Job Start Date Job End Date Retired Not on file Not on file Not on file Obstetrics History Last Filed Vital Signs Vital Sign Reading Time Taken Comments Blood Pressure 140/76 01/31/2025 11:52 AM CDT Pulse 70 01/31/2025 11:52 AM CDT Temperature 36.8 C (98.2 F) 08/11/2023 7:58 AM COMMUNICABLE DISEASE SPECIALIST Respiratory Rate 20 08/11/2023 11:54 AM COMMUNICABLE DISEASE SPECIALIST Oxygen Saturation 93% 08/11/2023 11:54 AM COMMUNICABLE DISEASE SPECIALIST Inhaled Oxygen Concentration - - Weight [...] 10/10/2020, 08/29/2020 Medical Devices Implanted Type Area Genetic Counselor Device Identifier Shelf Expiration Date Model / Serial / Lot Synthes 04.037.142s Tfn-Advanced Lateral Relief Cut 11mm 170mm Cannulated Femoral - [id number] Implanted:Qty: 1 on 11/19/2020 by Efrain Nina MD at [facility] Left: Femur Synthes I 07/31/2030 04.037.142 S / / [id number] Synthes 04.038.200s Tfn-Advanced 10.35mm 100mm Cannulated Screw Bone Titanium - [id number] Implanted:Qty: 1 on 11/19/2020 by Efrain Nina MD at [facility] Left: Femur Synthes I 04/30/2029 04.038.200 S / / [id number] Synthes 04.005.526s 5mm 4.3mm 36mm Lock Self Tap Blunt Tip 2 Lead Tibial T25 Full - [id number] Implanted:Qty: 1 on 11/19/2020 by Efrain Nina MD at [facility] Left: Femur Synthes I 03/31/2029 04.005.526 S / / [id number] Medtronic Inc Synchromed Ii .78in [place] Filter Mesh Pouch Programmable 8637-20 - [id number] - [id number] Implanted:Qty: 1 on 04/06/2023 by Ben Abbott MD at [facility] Left: Abdomen Medtronic Inc 09/14/2024 8637-20 / [id number] / Explanted Type Area Genetic Counselor Device Identifier Shelf Expiration Date Model / Serial / Lot Medtronic Inc Synchromed Ii .78in Goldsmith Filter Mesh Pouch Programmable 8637-20 - [id number] - [id number] Explanted:Qty: 1 on 04/06/2023 by Ben Abbott MD at [facility] Left: Abdomen Medtronic Inc 8637-20 / [id number] / Procedures Procedure Name Priority Date/Time Associated Diagnosis Comments XR HIP LEFT 2 OR 3 VIEWS Schedule Routine, Read Routine (OP Routine) 01/31/2025 11:52 AM CDT Trochanteric bursitis, left hip DC ARTHROCENTESIS ASPIR&/INJ MAJOR JT/BURSA W/O US [...] IMG XR PROCEDURES Fin al Result * DC ARTHROCENTESIS ASPIR&/INJ MAJOR JT/BURSA W/O US (01/31/2025 [...] Result from Last 3 Months Insurance MEDICARE [facility] MEDICARE IDPA [facility] MEDICARE Advance Directives For more information, please contact: [phone] Documents on File Type Date Recorded Patient Charter Driver Expl anation ADVANCE DIRECTIVE 04/07/2023 4:50 PM POWER OF NEWS PRODUCER-MEDICAL ADVANCE DIRECTIVE 04/07/2023 4:50 PM POLST * [...] 10:25 PM 11/24/2020 6:40 PM Care Teams Outside Dealer Sales Representative Relationship Specialty Start Date End Date Efe Carrera MD [address] [place] [address] PCP - General 09/13/16 Efrain Nina MD [address] [place] [address] Surgeon Orthopedic Surgery 11/20/20 Miscellaneous, Not In File 11/24/20
--- OUTSIDE RECORDS SUMMARY | 2025-04-19 11:23 | XMS_ITS ---
Author Organization [facility] Address [address] [place] [address] Care Team Providers Care Pipe Smoking Machine Offbearer Name Role Phone Efe Carrera MD Primary Care Provide r Efrain Nina MD Unavailable [phone] Miscellaneous, Not In File Unavailable Unava ilable [...] now. Will monitor. 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
--- OUTSIDE RECORDS SUMMARY | 2025-04-19 11:23 | XMS_ITS | Encounter Summary ---
Author Organization [facility] Address [address] [place] [address] Care Team Providers Care Technical Sales Engineer Name Role Phone Efe Carrera MD Primary Care Provider [phone] Encounter Details Date Type Department Care Team (Late st Contact Info) Description 09/11/2019 Prep for Procedure Romain's Manager Distribution Pre/Post [address] [place] [address] Sheldon Webster MD [address] [place] [address] Social History Tobacco Use Types [...] as of this encounter Care Teams Technical Sales Engineer Relationship Specialty Start Date End Date Efe Carrera MD [address] [place] [address] PCP - General FAMILY PRACTICE 10/13/17 documented as of this encounter
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
[2025-04-19 11:41] LABS: Add Urine Microscopic? YES; Appearance Urine Clear (Clear); Glucose Urine UA Negative (Negative); Leukocyte Esterase Ur 2+ (Negative); Nitrate Urine Negative (Negative); Specific Grav Ur 1.010 (1.010-1.020)
[2025-04-19 11:54] LABS: MALB Creatinine Ratio 43.1 mg/g (0-30)
== END 2025-04-19 11:21 | disposition home or self-care (01) ==
LOC: CHSLAB 11:21
PROVIDERS: PCP Family Medicine; Visit Provider Family Medicine
DX: Z86.718 Personal history of other venous thrombosis and embolism (principal)
CPT/HCPCS: 81001; 82043

== ENCOUNTER 2025-05-13 06:52 | Outpatient (NON) | payer MEDICARE, SELFPAY ==
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
--- OUTSIDE RECORDS SUMMARY | 2025-05-13 06:57 | XMS_ITS | Encounter Summary ---
Author Organization [facility] Address [address] [place] [address] Care Team Providers Care Market Development Manager Name Role Phone Efe Carrera MD Primary Care Provider [phone] Encounter Details Date Type Department Care Team (Late st Contact Info) Description 09/11/2019 Prep for Procedure Romain's Contract Administration Manager Pre/Post [address] [place] [address] Sheldon Webster MD [address] [place] [address] Social History Tobacco Use Types [...] documented as of this encounter Care Teams Market Development Manager Relationship Specialty Start Date End Date Efe Carrera MD [address] [place] [address] PCP - General FAMILY PRACTICE 10/13/17 documented as of this encounter
--- OUTSIDE RECORDS SUMMARY | 2025-05-13 06:57 | XMS_ITS ---
Author Organization [facility] Address [address] [place] [address] Care Team Providers Care Msw Name Role Phone Efe Carrera MD Primary Care Provide r Efrain Nina MD Unavailable [phone] Miscellaneous, Not In File Unavailable Unava ilable [...] Will monitor. 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
--- OUTSIDE RECORDS SUMMARY | 2025-05-13 06:57 | XMS_ITS | Clinical Summary ---
Author Organization [facility] Address [address] [place] [address] Care Team Providers Care Audiology Technician Name Role Phone Unavailable Primary Care Provider Unavailabl e Source Comments [facility],non-owned Affiliates and Associated Physician Practices is amultiple site organization consisting of ambulatory clinics and hospital sitesin [place], [place], [place] and [place]. This disclosure is being madepursuant to the Care Everywhere program and may not contain all information available regarding this patient. Last updated 18.[facility] Allergies Active Allergy Reactions Criticality Noted Date [...]
--- OUTSIDE RECORDS SUMMARY | 2025-05-13 06:57 | XMS_ITS | Patient Health Record ---
Author Organization [facility] Address [address] [place], [place] [id number] Care Team Providers Care Patch Worker Name Role Phone [employer] Unavailable [phone] Efe Carrera Unavailable Unavailable Reason For Referral No Information Medications Medication SIG (Take, Route, Frequency, Duration) Notes Start Date End Date Status hydroCHLOROthiazide 12.5 MG Oral Tablet ORAL hydrochlorothiazide 12.5 MG Oral TabletOriginal Medicationhydrochlorothiazide 12.5 MG Oral Tablet *Reorder from [employer] for eRx and Interaction Alerts* 014 Active Plan Of Treatment No Information Insurance Providers Payer Name Payer Address Payer Phone Subscriber Number Group Number Insured Name Patient Relationship to Insured Coverage Start Date Coverage End Date Medicare Part B [facility] [address] [place] [phone] [id number] ROGERS DIALLO Self - patient is the insured
--- OUTSIDE RECORDS SUMMARY | 2025-05-13 06:57 | XMS_ITS | Encounter Summary ---
Author Organization [facility] Address [facility] [place] [address] Care Team Providers Care Fats And Oils Loader Name Role Phone Efe Carrera MD Primary Care Provider [phone] Encounter Details Date Type Department Care Team (Late st Contact Info) Description 11/26/2019 Abstract [facility] [address] [place], [place] [id number] [place] [address] [place] [id number] Social History Tobacco Use Types Packs/Day [...] documented as of this encounter Care Teams Fats And Oils Loader Relationship Specialty Start Date End Date Efe Carrera MD [address] [place] [id number] PCP - General FAMILY PRACTICE 10/13/17 documented as of this encounter
--- OUTSIDE RECORDS SUMMARY | 2025-05-13 06:57 | XMS_ITS | Encounter Summary ---
Author Organization [facility] Address [address] [place] [address] Care Team Providers Care Book Sewing Machine Operator Name Role Phone Efe Carrera MD Primary Care Provider [phone] Encounter Details Date Type Department Care Team (Late st Contact Info) Description 10/15/2017 Abstract [facility] [address] [place] [address] , Generic ConversionMD Social History Tobacco Use [...] documented as of this encounter Care Teams Book Sewing Machine Operator Relationship Specialty Start Date End Date Efe Carrera MD [address] [place] [address] PCP - General FAMILY PRACTICE 10/13/17 documented as of this encounter
--- OUTSIDE RECORDS SUMMARY | 2025-05-13 06:57 | XMS_ITS | Clinical Summary ---
Author Organization [facility] Address [address] [place] [address] Phone Care Team Providers Care Bureau Director Name Role Phone Efe Carrera MD Primary Care Provider Alfredo Steven MD Unavailable [phone] Allergies Active Allergy Reactions Criticality Noted Date [...] DETECTED NON DETECTED 02/23/2019 3:31 PM CDT [facility] HCV RNA QT LOG10 <=0.00 Log10 IU/mL 02/23/2019 3:31 PM CDT [facility] Comment: LOG 10 is not applicable. Sample held in Serology for 1 month. Call Laboratory if further testing is desired. This test was performed using TSERING AmpliPrep TSERING Taq Man Real Time PCR. Blood specimen (specimen) Butterfly Puncture / Unknown 02/20/2019 3:51 PM CDT 02/20/2019 5:11 PM CDT us Radha Harkins BABY SITTER, NEUROLOGICAL PHYSIOTHERAPIST IMMUNOLOGY DERECKA BLEAmbar Final Result [facility] [address] [place] [address], [place] from Last 3 Months or Most Recently Relevant to Health Maintenance Insurance MEDICARE MEDICAID [place] Care Teams Bureau Director Relationship Specialty Start Date End Date Efe Carrera MD [address] [place] [address] PCP - General Pediatrics 02/20/19 Alfredo Steven MD [address] [place] [address] Consulting Physician Nephrology 02/21/19
--- OUTSIDE RECORDS SUMMARY | 2025-05-13 06:57 | XMS_ITS | Clinical Summary ---
Author Organization [facility] Address [address] [place] [address] Care Team Providers Care Ground Operations Supervisor Name Role Phone Efe Carrera MD Primary Care Provide r Efrain Nina MD Unavailable [phone] Miscellaneous, Not In File Unavailable Unava ilable [...] mg of elemental iron total) by mouth store promoter before breakfast Active methyl salicylate-menthol 30-10 % [...] now. Will monitor. 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 Hypertensive [...] Encounters Date Type Department Care Team Description 04/29/2025 9:06 AM CDT - 04/29/2025 11:59 PM CDT Hospital Encounter [facility] [address] [place] [address] Antony Lehman Trochanteric bursitis, left hip; Left hip pain Discharge Disposition: Discharge to home or self care 04/02/2025 Orders Only [facility] [address] [place] [address] [address] [place] [address] Jewels Nelson PA Trochanteric bursitis, left hip (Primary Dx); Left hip pain 04/02/2025 Telephone [facility] [address] [place] [address] Jewels Nelson PA from Last 3 Months Immunizations Immunization Administration Dates Next Due Influenza, Trivalent, IM (MDV) 05/03/2016 Influenza, Trivalent, Preservative Free, Intramu scular 04/15/2009 Surgical History Surgery Date Site/Laterality Comments CO ARTHRP KNE CONDYLE&PLATU MEDIAL&LAT COMPARTMENTS Total Knee Arthroplasty - (Added by TW Conv) CO CHOLECYSTECTOMY Cholecystectomy - (Added by TW Conv) FL FLUORO GUIDED INJECTION H IP LEFT 04/29/2025 Left Medical History Medical History Date Comments Personal [...] not e lsewhere classified Right shoulder pain 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 1 to 4 times per year 08/09/2023 Do you belong to any clubs o r organizations such as sikh groups, unions, fraternal or athletic groups, or [...] place to sleep or slept in a group home (including now)? No 08/09/2023 Personal Safety Answer Date Recorded Have you ever been in or are you currently in a harmful physical or emotional relationship or is someone making you feel afraid or unsafe? Denies 08/08/2023 Comments No Sex and Gender Information Value Date Recorded Sex Assigned at Not on file Legal Sex Female 1:00 AM SOFTBALL WINDER Gender Identity Not on file Sexual Orientation Not on file Occupation Industry Job Start Date Job End Date Retired Not on file Not on file Not on file Obstetrics History Last Filed Vital Signs Vital Sign Reading Time Taken Comments Blood Pressure 140/76 01/31/2025 11:52 AM CDT Pulse 70 01/31/2025 11:52 AM CDT Temperature 36.8 C (98.2 F) 08/11/2023 7:58 AM SOFTBALL WINDER Respiratory Rate 20 08/11/2023 11:54 AM SOFTBALL WINDER Oxygen Saturation 93% 08/11/2023 11:54 AM SOFTBALL WINDER Inhaled Oxygen Concentration - - Weight 91.2 [...] 65+ Completed 06/22/2016, 04/03 Covid-19 Vaccine Discontinued 11/27/2021, 07/2021, 08/29/2020 Medical Devices Implanted Type Area Perch Mender Device Identifier Shelf Expiration Date Model / Serial / Lot Synthes 04.037.142s Tfn-Advanced Lateral Relief Cut 11mm 170mm Cannulated Femoral - [id number] Implanted:Qty: 1 on 11/19/2020 by Efrain Nina MD at [facility] Left: Femur Synthes I 07/31/2030 04.037.142 S / / [id number] Synthes 04.038.200s Tfn-Advanced 10.35mm 100mm Cannulated Screw Bone Titanium - [id number] Implanted:Qty: 1 on 11/19/2020 by Efrain Nina MD at [facility] Left: Femur Synthes I 04/30/2029 04.038.200 S / / [id number] Synthes 04.005.526s 5mm 4.3mm 36mm Lock Self Tap Blunt Tip 2 Lead Tibial T25 Full - [id number] Implanted:Qty: 1 on 11/19/2020 by Efrain Nina MD at [facility] Left: Femur Synthes I 03/31/2029 04.005.526 S / / [id number] Medtronic Inc Synchromed Ii .78in Tomball Filter Mesh Pouch Programmable 8637-20 - [id number] - [id number] Implanted:Qty: 1 on 04/06/2023 by Ben Abbott MD at [facility] Left: Abdomen Medtronic Inc 09/14/2024 8637-20 / [id number] / Explanted Type Area Perch Mender Device Identifier Shelf Expiration Date Model / Serial / Lot Medtronic Inc Synchromed Ii .78in Tomball Filter Mesh Pouch Programmable 8637-20 - [id number] - [id number] Explanted:Qty: 1 on 04/06/2023 by Ben Abbott MD at [facility] Left: Abdomen Medtronic Inc 8637-20 / [id number] / Procedures Procedure Name Priority Date/Time Associated Diagnosis Comments FL FLUORO GUIDED INJECTION HIP LEFT Schedule Routine, Read Routine (OP Routine) 04/29/2025 9:50 AM CDT Trochanteric bursitis, left hip Left hip pain from Last 3 Months Results * FL Fluoro Guided Injection Hip Left (04/29/2025 9:50 AM CDT) Anatomical Region Laterality Modality Hip Left Radio Fluoroscop y 04/29/2025 10:1 3 AM CDT Narrative 04/29/2025 10:14 AM CDT EXAM DESCRIPTION: FL FLUORO GUIDED INJECTION HIP LEFT REASON FOR STUDY: left hip pain Time: 10.3 sec Dose: 1.5141 mGy Hip pain. COMPARISON: 01/31/2025 RADIATION DOSE: Dose: 1.5141 mGy Reference Air Kerma (Ka,r) TECHNIQUE/FINDINGS: Risk, benefits, and alternatives of the procedure were explained to the patient and informed consent was obtained. Questions answered. The correct hip was marked and a time-out was performed. The area was prepped and draped in the usual sterile fashion. Utilizing fluoroscopic guidance, a 22-gauge spinal needle was directed into the hip joint space and a small amount of water-soluble non-ionic contrast was injected to confirm intra-articular placement. 1 mL of 40 mg/mL triamcinolone acetonide and 2 mL of 0.2% ropivacaine were injected without complication. No immediate complications. IMPRESSION: Successful left hip steroid injection. THIS IS AN ELECTRONICALLY VERIFIED FINAL REPORT 04/29/2025 10:14 AM - Electronically signed by Adams Garber M.D. NS: NS Report ID: [id number] Reading Location: [id number] Procedure Note Adams Garber MD - 04/29/2025 EXAM DESCRIPTION: FL FLUORO GUIDED INJECTION HIP LEFT REASON FOR STUDY: left hip pain Time: 10.3 sec Dose: 1.5141 mGy Hip pain. COMPARISON: 01/31/2025 RADIATION DOSE: Dose: 1.5141 mGy Reference Air Kerma (Ka,r) TECHNIQUE/FINDINGS: Risk, benefits, and alternatives of the procedure were explained to the patient and informed consent was obtained. Questions answered. Thecorrect hip was marked and a time-out was performed. The area was prepped and draped in the usual sterile fashion. Utilizing fluoroscopic guidance, a 22-gauge spinal needle was directed into thehip joint space and a small amount of water-soluble non-ionic contrast was injected to confirm intra-articular placement. 1 mL of 40 mg/mL triamcinolone acetonide and 2 mL of 0.2% ropivacaine were injectedwithout complication. No immediate complications. IMPRESSION: Successful left hip steroid injection. THIS IS AN ELECTRONICALLY VERIFIED FINAL REPORT 04/29/2025 10:14 AM - Electronically signed by Adams Garber M.D. NS: NS Report ID: [id number] Reading Location: [place] [address] [facility] [facility]ARP IM[facility] FLUOROSCOPY LINUS VASQUEZ Final Result from Last 3 Months Insurance MEDICARE IDPA [facility] MEDICARE IDPA IDPA MEDICARE Advance Directives For more information, please contact: [phone] Documents on File Type Date Recorded Patient Transportation Manager Expl anation ADVANCE DIRECTIVE 04/07/2023 4:50 PM POWER OF DIMPLING MACHINE OPERATOR-MEDICAL ADVANCE DIRECTIVE 04/07/2023 4:50 PM [...] 10:25 PM 11/24/2020 6:40 PM Care Teams Ground Operations Supervisor Relationship Specialty Start Date End Date Efe Carrera MD [address] [place] [address] PCP - General 09/13/16 Efrain Nina MD [address] [place] [address] Surgeon Orthopedic Surgery 11/20/20 Miscellaneous, Not In File 11/24/20
[2025-05-13 07:53] LABS: INR 2.1; Prothrombin Time 21.4 Seconds (9.50-12.1)
== END 2025-05-13 06:53 | disposition home or self-care (01) ==
LOC: CHSLAB 06:54
PROVIDERS: Visit Provider Family Medicine
DX: Z79.01 Long term (current) use of anticoagulants (principal)
CPT/HCPCS: 36415; 85610